=== PATIENT | male | born 1970 | race Caucasian/White ===

== ENCOUNTER 2020-06-04 14:06 | Inpatient (IN) | payer MEDICAID, OTHER ==
[~2020-06-04] VITALS: Ht 188 cm; Wt 113.4 kg
[2020-06-04 14:29] LABS: Basophils # (auto) 0.1 10 ^3/uL (0-0.2); Basophils % (auto) 1.2 % (0.0-2.0); Eosinophils # (auto) 0.1 10 ^3/uL (0-0.8); Eosinophils % (auto) 1.1 % (0.0-7.0); Hematocrit 46.9 % (41.0-53.0); Hemoglobin 16.2 g/dL (13.5-17.5); Lymphocytes # (auto) 1.9 10 ^3/uL (0.4-5.4); Lymphocytes % (auto) 27.9 % (10.0-50.0); Mean Corpuscular Hemoglobin 31.8 pg (28.0-32.0); Mean Corpuscular Hgb Conc. 34.5 g/dL (32.0-36.0); Mean Corpuscular Volume 92.2 fL (80.0-100.0); Monocytes # (auto) 0.5 10 ^3/uL (0-1.3); Neutrophils # (auto) 4.3 10 ^3/uL (1.6-8.6); Neutrophils % (auto) 62.8 % (37.0-80.0); Nucleated Red Blood Cells % 0.2 %; Platelet Count (auto) 209 10^3/uL (140-450); Red Blood Cells 5.09 10^6/uL (4.5-5.90); Red Cell Distribution Width 12.8 % (11.8-14.3); White Blood Cell 6.9 10^3/uL (4.4-10.8)
[2020-06-04] MEDS ORDERED: SODIUM CHLORIDE 0.9% 1,000 ML IV ONE (14:30)
[2020-06-04] MEDS ORDERED: InsuLIN REG 1unit/0.01ml Soln (100units/ml) IV ONE (14:30)
[2020-06-04 14:47] LABS: Albumin 3.9 g/dL (3.4-5.0); Calcium 8.8 mg/dL (8.5-10.1); Potassium 3.7 mmol/L (3.5-5.1)
[2020-06-04 14:49] LABS: Bilirubin, Total 0.6 mg/dL (0.2-1.0)
[2020-06-04 15:37] LABS: Urine Bacteria NONE SEEN /hpf (None Seen); Urine Blood Negative /uL (Negative); Urine Specific Gravity 1.033 (1.001-1.035); Urine WBC <1 /hpf (0 - 3)
[2020-06-04 15:55] LABS: Amphetamine Screen, Urine POSITIVE (NEGATIVE); Barbiturate Scree,Urine NEGATIVE (NEGATIVE); Benzodiazephine Screen, Urine NEGATIVE (NEGATIVE); Cannabinoid Screen, Urine NEGATIVE (NEGATIVE); Cocaine Screen, Urine NEGATIVE (NEGATIVE); Opiate Scree,Urine NEGATIVE (NEGATIVE); Phencyclidine Screen, Urine NEGATIVE (NEGATIVE)
[2020-06-04] MEDS ORDERED: NITROGLYCERIN 0.4 MG SL TAB SL PRN (17:30)
[2020-06-04] MEDS ORDERED: MORPHINE SULF INJ 2 MG/ML SYRINGE 1ML IV PRN (17:30)
[2020-06-04] MEDS ORDERED: PROMETHAZINE HCL 25 MG/ML 1ML IV PRN (17:45)
[2020-06-04] MEDS ORDERED: traMADol HCL 50 MG TAB PO PRN (17:45)
[2020-06-04] MEDS ORDERED: ACETAMINOPHEN 500 MG TAB PO PRN (17:45)
[2020-06-04] MEDS ORDERED: INSULIN LANTUS (GLARGINE) 1 /0.01ml (100units/ml) SC ONE (17:45)
[2020-06-04] MEDS ORDERED: DEXTROSE (50%) 50ML SYRG IV PRN (17:45)
[2020-06-04 20:45] VITALS: BP 130/72
[2020-06-04] MEDS: ACCU-CHEK COMFORT CURVE STRIP VI SCH (21:30)
[2020-06-04] MEDS: InsuLIN REG 1unit/0.01ml Soln (100units/ml) SC SCH (21:36)
[2020-06-04 22:41] VITALS: BP 130/72
[2020-06-05] MEDS: ACCU-CHEK COMFORT CURVE STRIP VI SCH ×6 (00:05→19:49)
[2020-06-05] MEDS: InsuLIN REG 1unit/0.01ml Soln (100units/ml) SC SCH ×6 (00:09→19:49)
[2020-06-05 05:10] VITALS: BP 124/77
[2020-06-05 05:12] VITALS: BP 124/77
[2020-06-05] MEDS ORDERED: INSULIN LANTUS (GLARGINE) 1 /0.01ml (100units/ml) SC SCH (07:00)
[2020-06-05 09:04] VITALS: BP 122/74
[2020-06-05 12:50] VITALS: BP 124/69
[2020-06-05 16:26] VITALS: BP 114/68
[2020-06-05] MEDS: metFORMIN HYDROCHLORIDE 500 MG TAB PO SCH (17:05)
[2020-06-05 22:00] VITALS: BP 130/71
[2020-06-06] MEDS: ACCU-CHEK COMFORT CURVE STRIP VI SCH ×4 (00:18→12:06)
[2020-06-06] MEDS: InsuLIN REG 1unit/0.01ml Soln (100units/ml) SC SCH ×4 (00:19→12:07)
[2020-06-06 05:00] VITALS: BP 127/81
[2020-06-06 06:32] LABS: Basophils # (auto) 0.1 10 ^3/uL (0-0.2); Basophils % (auto) 1.1 % (0.0-2.0); Eosinophils # (auto) 0.1 10 ^3/uL (0-0.8); Eosinophils % (auto) 1.9 % (0.0-7.0); Hematocrit 48.3 % (41.0-53.0); Hemoglobin 16.5 g/dL (13.5-17.5); Lymphocytes # (auto) 2.5 10 ^3/uL (0.4-5.4); Lymphocytes % (auto) 36.3 % (10.0-50.0); Mean Corpuscular Hemoglobin 31.9 pg (28.0-32.0); Mean Corpuscular Hgb Conc. 34.1 g/dL (32.0-36.0); Mean Corpuscular Volume 93.6 fL (80.0-100.0); Monocytes # (auto) 0.4 10 ^3/uL (0-1.3); Monocytes % (auto) 6.2 % (0.0-12.0); Neutrophils # (auto) 3.8 10 ^3/uL (1.6-8.6); Neutrophils % (auto) 54.5 % (37.0-80.0); Nucleated Red Blood Cells % 0.1 %; Platelet Count (auto) 140 10^3/uL (140-450); Red Blood Cells 5.16 10^6/uL (4.5-5.90); Red Cell Distribution Width 12.8 % (11.8-14.3); White Blood Cell 6.9 10^3/uL (4.4-10.8)
[2020-06-06] MEDS ORDERED: INSULIN LANTUS (GLARGINE) 1 /0.01ml (100units/ml) SC SCH (07:00)
[2020-06-06 07:29] LABS: Alanine Aminotransferase 29 U/L (16-61); Alkaline Phosphatase 88 U/L (45-117); Anion Gap 9 (5-15); Aspartate Aminotransferase 23 U/L (15-37); BUN/Creatinine Ratio 18.4; Bilirubin, Total 0.8 mg/dL (0.2-1.0); Blood Urea Nitrogen 14 mg/dL (7-18); Calcium 9.2 mg/dL (8.5-10.1); Carbon Dioxide 22 mmol/L (21-32); Chloride 104 mmol/L (98-107); GFR African American 141 mL/min; GFR Non-African American 116 mL/min; Glucose 140 mg/dL (74-106); Potassium 3.5 mmol/L (3.5-5.1); Sodium 135 mmol/L (136-145)
[2020-06-06 07:30] LABS: Albumin 3.1 g/dL (3.4-5.0); Total Protein 6.7 g/dL (6.4-8.2)
[2020-06-06] MEDS: metFORMIN HYDROCHLORIDE 500 MG TAB PO SCH (08:16)
[2020-06-06 09:00] VITALS: BP 122/80
== END 2020-06-06 13:05 | disposition home or self-care (01) | DRG 420 ==
LOC: ER 14:06 → TELE 17:24 → TELE-CENTR 20:55
PROVIDERS: ADMIT Internal Medicine; ATTEND Internal Medicine
DX: E11.65 Type 2 diabetes mellitus with hyperglycemia (principal); N17.0 Acute kidney failure with tubular necrosis; E87.8 Other disorders of electrolyte and fluid balance, not elsewhere classified; E11.22 Type 2 diabetes mellitus with diabetic chronic kidney disease; E87.1 Hypo-osmolality and hyponatremia; E66.9 Obesity, unspecified; Z68.32 Body mass index [BMI] 32.0-32.9, adult; F15.10 Other stimulant abuse, uncomplicated; F10.10 Alcohol abuse, uncomplicated; Z20.822 Contact with and (suspected) exposure to COVID-19; F17.210 Nicotine dependence, cigarettes, uncomplicated; N18.9 Chronic kidney disease, unspecified; Z79.84 Long term (current) use of oral hypoglycemic drugs; Z80.9 Family history of malignant neoplasm, unspecified; Z83.3 Family history of diabetes mellitus
CPT/HCPCS: 36415; 71045; 80053; 80307; 81001; 82010; 82962; 83036; 83735; 84443; 85025; 87426; 96372; 96374; G0378; J1815

== ENCOUNTER 2022-12-06 13:11 | Emergency (ER) | payer MEDICAID ==
[~2022-12-06] VITALS: Ht 188 cm; Wt 71.5 kg
[2022-12-06 14:47] VITALS: BP 134/85; PULSE 78; RESP 18; TEMP 98.1; O2SAT 98
[2022-12-06] MEDS ORDERED: GABAPENTIN 300 MG CAP PO ONE (15:00)
[2022-12-06 15:55] LABS: Alanine Aminotransferase 30 U/L (7-40); Albumin 4.4 g/dL (3.2-4.8); Alkaline Phosphatase 73 U/L (46-116); Anion Gap 6 (5-15); Aspartate Aminotransferase 15 U/L (13-40); BUN/Creatinine Ratio 12.1 (10.0-20.0); Blood Urea Nitrogen 15 mg/dL (9-23); Calcium 9.5 mg/dL (8.5-10.1); Carbon Dioxide 27 mmol/L (20-30); Chloride 98 mmol/L (98-107); Potassium 3.7 mmol/L (3.5-5.1); Sodium 131 mmol/L (136-145)
[2022-12-06 15:56] LABS: Bilirubin, Total 0.6 mg/dL (0.2-1.0); Total Protein 6.9 g/dL (5.7-8.2)
[2022-12-06 16:00] LABS: Glucose 569 mg/dL (74-106)
[2022-12-06 16:01] LABS: Basophils # (auto) 0.1 10 ^3/uL (0-0.2); Basophils % (auto) 1.2 % (0.0-2.0); Eosinophils # (auto) 0.1 10 ^3/uL (0-0.8); Eosinophils % (auto) 2.1 % (0.0-7.0); Hematocrit 40.8 % (41.0-53.0); Hemoglobin 13.7 g/dL (13.5-17.5); Lymphocytes # (auto) 1.5 10 ^3/uL (0.4-5.4); Mean Corpuscular Hemoglobin 30.6 pg (28.0-32.0); Mean Corpuscular Hgb Conc. 33.6 g/dL (32.0-36.0); Mean Corpuscular Volume 91.1 fL (80.0-100.0); Monocytes # (auto) 0.5 10 ^3/uL (0-1.3); Monocytes % (auto) 9.7 % (0.0-12.0); Neutrophils # (auto) 3.1 10 ^3/uL (1.6-8.6); Nucleated Red Blood Cells % 0.1 %; Red Blood Cells 4.48 10^6/uL (4.5-5.90); Red Cell Distribution Width 13.3 % (11.8-14.3); White Blood Cell 5.2 10^3/uL (4.4-10.8)
[2022-12-06 16:11] LABS: Lipase 43 U/L (12-53)
[2022-12-06] MEDS ORDERED: INSULIN LISPRO (HUMAN) 100 UNITS/ML ML SC ONE (16:15)
[2022-12-06] MEDS ORDERED: SODIUM CHLORIDE 0.9% 1,000 ML IV ONE (16:15)
[2022-12-06] MEDS ORDERED: GABA-1250 PO (16:49)
== END 2022-12-06 16:25 | disposition left against medical advice (07) ==
LOC: ER 13:11
DX: E11.40 Type 2 diabetes mellitus with diabetic neuropathy, unspecified (principal); F17.210 Nicotine dependence, cigarettes, uncomplicated; F15.10 Other stimulant abuse, uncomplicated
CPT/HCPCS: 36415; 80053; 83690; 85025

== ENCOUNTER 2023-02-27 15:53 | Emergency (ER) | payer MEDICAID ==
[~2023-02-27] VITALS: Ht 188 cm; Wt 69.1 kg
[~2023-02-27 15:53] MED LIST: GABA-1250 PO
[2023-02-27 16:38] VITALS: BP 111/79; RESP 18; O2SAT 98
[2023-02-27 16:40] VITALS: PULSE 104
[2023-02-27 18:22] LABS: Basophils # (auto) 0.1 10 ^3/uL (0-0.2); Basophils % (auto) 0.7 % (0.0-2.0); Eosinophils # (auto) 0.1 10 ^3/uL (0-0.8); Eosinophils % (auto) 0.9 % (0.0-7.0); Hematocrit 51.4 % (41.0-53.0); Hemoglobin 17.1 g/dL (13.5-17.5); Lymphocytes # (auto) 2.2 10 ^3/uL (0.4-5.4); Lymphocytes % (auto) 26.6 % (10.0-50.0); Mean Corpuscular Hemoglobin 30.2 pg (28.0-32.0); Mean Corpuscular Hgb Conc. 33.2 g/dL (32.0-36.0); Mean Corpuscular Volume 90.8 fL (80.0-100.0); Monocytes # (auto) 0.6 10 ^3/uL (0-1.3); Monocytes % (auto) 7.8 % (0.0-12.0); Neutrophils # (auto) 5.3 10 ^3/uL (1.6-8.6); Nucleated Red Blood Cells % 0.1 %; Red Blood Cells 5.66 10^6/uL (4.5-5.90); Red Cell Distribution Width 13.1 % (11.8-14.3); White Blood Cell 8.3 10^3/uL (4.4-10.8)
[2023-02-27 18:26] LABS: Chloride 94 mmol/L (98-107); Potassium 4.1 mmol/L (3.5-5.1); Sodium 131 mmol/L (136-145)
[2023-02-27 18:27] LABS: Anion Gap 10 (5-15); Calcium 10.7 mg/dL (8.5-10.1); Carbon Dioxide 27 mmol/L (20-30)
[2023-02-27 18:32] LABS: BUN/Creatinine Ratio 9.5 (10.0-20.0); Blood Urea Nitrogen 16 mg/dL (9-23)
[2023-02-27 18:35] LABS: Glucose 519 mg/dL (74-106)
[2023-02-27] MEDS ORDERED: SODIUM CHLORIDE 0.9% 1,000 ML IV ONE (20:00)
[2023-02-27] MEDS ORDERED: InsuLIN REG 1unit/0.01ml Soln (100units/ml) IV ONE (20:00)
[2023-02-27] MEDS ORDERED: METF-489 PO (22:27)
== END 2023-02-27 22:27 | disposition home or self-care (01) ==
LOC: ER 15:53
DX: E11.65 Type 2 diabetes mellitus with hyperglycemia (principal); F17.210 Nicotine dependence, cigarettes, uncomplicated; F15.10 Other stimulant abuse, uncomplicated; R55 Syncope and collapse; Z76.0 Encounter for issue of repeat prescription
CPT/HCPCS: 36415; 80048; 85025; 93005

== ENCOUNTER 2024-01-24 14:33 | Emergency (ER) | payer MEDICAID ==
[~2024-01-24] VITALS: Ht 170.2 cm; Wt 86.0 kg
[~2024-01-24 14:33] MED LIST changes: +METF-489 PO
--- NOTE | 2024-01-24 15:21 | DVH ---
EXAM: CT HEAD WITHOUT CONTRAST HISTORY: SYNCOPE COMPARISON: None TECHNIQUE: Axial images of the head were obtained and reformatted in coronal and sagittal planes. All CT scans at this medical facility are performed using dose modulation techniques as appropriate t o a performed exam including the following: Automated exposure control was utilized; adjustment of th e MA and/or KV according to patient size; and use of iterative reconstruction technique. CT Dose: CTDI volume is 55.53 mGy. Dose-length product is 983.32 mGy*cm FINDINGS: There is no evidence of acute intracranial hemorrhage, mass, mass effect midline shift. There is no h ydrocephalus or extra-axial fluid collection. Galindo-white matter differentiation is maintained.. The visualized paranasal sinuses and mastoid air cells are clear. The calvarium is intact. IMPRESSION: 1. No acute intracranial process. HS:Y
[2024-01-24 15:44] LABS: Basophils # (auto) 0 10 ^3/uL (0-0.2); Basophils % (auto) 0.3 % (0.0-2.0); Eosinophils # (auto) 0 10 ^3/uL (0-0.8); Eosinophils % (auto) 0.3 % (0.0-7.0); Hematocrit 37.1 % (41.0-53.0); Hemoglobin 12.5 g/dL (13.5-17.5); Lymphocytes # (auto) 0.7 10 ^3/uL (0.4-5.4); Mean Corpuscular Hgb Conc. 33.6 g/dL (32.0-36.0); Mean Corpuscular Volume 89.1 fL (80.0-100.0); Monocytes # (auto) 1.1 10 ^3/uL (0-1.3); Monocytes % (auto) 8.5 % (0.0-12.0); Neutrophils # (auto) 11.6 10 ^3/uL (1.6-8.6); Neutrophils % (auto) 85.9 % (37.0-80.0); Platelet Count (auto) 170 10^3/uL (140-450); Red Blood Cells 4.17 10^6/uL (4.5-5.90); Red Cell Distribution Width 12.9 % (11.8-14.3); White Blood Cell 13.5 10^3/uL (4.4-10.8)
--- NOTE | 2024-01-24 15:47 | ED.PDOC ---
History of Present Illness HPI Comments 53-year-old male who comes in with chief complaint of a syncopal episode. The patient states that he was at home when he had a syncopal episode. There has been no nausea, vomiting or diarrhea. The patient denies any history of this in the past. The patient states that it only last for a couple of seconds and he got up instead right back up. He says that he was urinating when the incident occurred. He did hit his head and was complaining of some mild occipital headache. He denies any chest pain or shortness for breath. The patient does have a history of diabetes and EN route the patient had an Accu-Chek of 580. The patient was given an IV Hep-Lock and transported to our facility. Upon arrival, the patient states that he feels better and would like to go home. Chief Complaint: Syncope Time Seen by MD: 14:58 Primary Care Provider: LINO Zee Notes: Nurses Notes, Sustainability Coach Notes, Medications, Allergies (No allergies to medications) Allergies: Coded Allergies: NO KNOWN ALLERGIES (Unverified , 06/04/20) Home Meds Active Scripts Metformin Hydrochloride (METFORMIN HCL ER) 500 Mg Tab, 1 TAB PO BID, #90 TAB 1 Refill Prov:SHYAM BENITEZ VETERINARY TOXICOLOGIST 02/27/23 Gabapentin (Gabapentin) 300 Mg Cap, 1 CAP PO Q6HP PRN, #30 CAP 0 Refills Prov:ADONIS MARTÍNEZ PAC 12/06/22 Information Source: Patient, Emergency Med Personnel Mode of Arrival: EMS Severity: Mild Timing: Minutes Duration: Intermittent Prehospital treatment: Accucheck (580), Mortar Mixer Associated signs and symptoms No associated chest pain or shortness for breath Past Medical History PAST MEDICAL HISTORY: DM Surgical History: Denies all surgeries Family History Family History: Family hx of DM, Family hx of Cancer Social History Smoker: Cigarettes Alcohol: Occasionally Drugs: Methamphetamine Lives In: Home Constitutional: denies: chills, diaphoresis, fatigue, fever, malaise, sweats, weakness, others EENTM: denies: blurred vision, double vision, ear bleeding, ear discharge, ear drainage, ear pain, ear ringing, eye pain, eye redness, hearing loss, mouth pain, mouth swelling, nasal discharge, nose bleeding, nose congestion, nose pain, photophobia, tearing, throat pain, throat swelling, voice changes, others Respiratory: denies: cough, hemoptysis, orthopnea, SOB at rest, shortness of breath, SOB with excertion, stridor, wheezing, others Cardiovascular: reports: syncope; denies: chest pain, dizzy spells, diaphoresis, Dyspnea on exertion, edema, irregular heart beat, left arm pain, lightheadedness, palpitations, PND, others Gastrointestinal: denies: abdomen distended, abdominal pain, blood streaked bowels, constipated, diarrhea, dysphagia, difficulty swallowing, hematemesis, melena, nausea, poor appetite, poor fluid intake, rectal bleeding, rectal pain, vomiting, others Genitourinary: denies: burning, dysuria, flank pain, frequency, hematuria, incontinence, penile discharge, penile sore, pain, testicle pain, testicle swelling, urgency, others Neurological: denies: dizziness, fainting, headache, left sided numbness, left sided weakness, numbness, paresthesia, pre-existing deficit, right sided numbness, right sided weakness, seizure, speech problems, tingling, tremors, weakness, others Musculoskeletal: denies: back pain, gout, joint pain, joint swelling, muscle pain, muscle stiffness, neck pain, others Integumetry: denies: bruises, change in color, change in hair/nails, dryness, laceration, lesions, lumps, rash, wounds, others Allergic/Immunocompromised: denies: Difficulty Healing, Frequent Infections, Hives, Itching, others Hematologic/Lymphatic: denies: anemia, blood clots, easy bleeding, easy bruising, swollen glands, others Endocrine: denies: excessive hunger, excessive sweating, excessive thirst, excessive urination, flushing, intolerance to cold, intolerance to heat, unexplained weight gain, unexplained weight loss, others Psychiatric: denies: anxiety, bipolar disorder, depression, hopeless, panic disorder, schizophrenia, sleepless, suicidal, others Physical Exam General Appearance: No Apparent Distress HEENT: Normal ENT Inspection, Pharynx Normal, TMs Normal Neck: Full Range of Motion, Non-Tender, Normal, Normal Inspection Respiratory: Chest Non-Tender, Lungs Clear, No Accessory Muscle Use, No Respiratory Distress, Normal Breath Sounds Cardiovascular: No Edema, No JVD, No Murmur, No Gallop, Normal Peripheral Pulses, Regular Rate/Rhythm Breast Exam: Deferred Gastrointestinal: No Organomegaly, Non Tender, No Pulsatile Mass, Normal Bowel Sounds, Soft Genitalia: Deferred Pelvic: Deferred Rectal: Deferred Extremities: No calf tenderness, Normal capillary refill, Normal inspection, Normal range of motion, Non-tender, No pedal edema Musculoskeletal : Apperance: Normal Neurologic: Alert, fiberglass roller II-XII nml as Tested, No Motor Deficits, Normal Affect, Normal Mood, No Sensory Deficits Cerebellar Function: Normal Reflexes: Normal Skin: Dry, Normal Color, Warm Lymphatic: No Adenopathy Was a procedure done? Was a procedure done?: No EKG EKG : Pulse Rate (adult): 102 [place]: Normal Cardiac Rhythm: ST Hypertrophy: JOHNNY ST: Nonsp (Low voltage) Differential Dx Considerations may include: Generalized weakness, dehydration, syncope X-Ray, Labs, Meds, VS Vital Signs Date Time Temp Pulse Resp B/P (MAP) Pulse Ox O2 Delivery O2 Flow Rate FiO2 01/24/24 16:00 100 14 119/68 (85) 98 01/24/24 16:00 98 01/24/24 15:48 105 17 98 Room Air* 0 21 01/24/24 15:47 102 01/24/24 15:20 97.9 107 13 119/73 (88) 98 97.9 01/24/24 15:04 102 01/24/24 14:43 102 01/24/24 14:43 97.9 103 16 125/85 (98) 96 Lab Test 01/24/24 17:23 01/24/24 15:59 01/24/24 15:19 01/24/24 15:18 Range/Units POC Glucose 415 *H 531 *H 531 *H 70-106 mg/dl Urine Color Colorless Yellow Urine Clarity Clear Clear Urine pH 5.0 5.0-9.0 Urine Specific [place] 1.019 1.001-1.035 Urine Protein Trace H Negative Urine Ketones Negative Negative Urine Blood Negative Negative /uL Urine Nitrite Negative Negative Urine Bilirubin Negative Negative Urine Urobilinogen Normal Negative mg/dL Urine Leukocyte Esterase Negative Negative /uL Urine RBC <1 0 - 3 /hpf Urine WBC 1 0 - 3 /hpf Urine Squamous Epithelial Cells None seen <5 /hpf Urine Amorphous Crystals Few None Seen /hpf Urine Bacteria None seen None Seen /hpf Urine Glucose 4+ H Normal mg/dL Urine Opiates Screen Neg NEGATIVE Urine Fentanyl Screen Neg NEGATIVE Urine Barbiturates Screen Neg NEGATIVE Urine Phencyclidine Screen Neg NEGATIVE Urine Amphetamines Screen Pos NEGATIVE Urine Benzodiazepines Screen Neg NEGATIVE Urine Cocaine Screen Neg NEGATIVE Urine Cannabinoids Screen Neg NEGATIVE Test 01/24/24 15:06 Range/Units White Blood Count 13.5 H 4.4-10.8 10^3/uL Red Blood Count 4.17 L 4.5-5.90 10^6/uL Hemoglobin 12.5 L 13.5-17.5 g/dL Hematocrit 37.1 L 41.0-53.0 % Mean Corpuscular Volume 89.1 80.0-100.0 fL Mean Corpuscular Hemoglobin 30.0 28.0-32.0 pg Mean Corpuscular Hemoglobin Concent 33.6 32.0-36.0 g/dL Red Cell Distribution Width 12.9 11.8-14.3 % Platelet Count 170 140-450 10^3/uL Mean Platelet Volume 10.3 6.9-10.8 fL Neutrophils (%) (Auto) 85.9 H 37.0-80.0 % Lymphocytes (%) (Auto) 5.0 L 10.0-50.0 % Monocytes (%) (Auto) 8.5 0.0-12.0 % Eosinophils (%) (Auto) 0.3 0.0-7.0 % Basophils (%) (Auto) 0.3 0.0-2.0 % Neutrophils # (Auto) 11.6 H 1.6-8.6 10 ^3/uL Lymphocytes # (Auto) 0.7 0.4-5.4 10 ^3/uL Monocytes # (Auto) 1.1 0-1.3 10 ^3/uL Eosinophils # (Auto) 0 0-0.8 10 ^3/uL Basophils # (Auto) 0 0-0.2 10 ^3/uL Nucleated Red Blood Cells 0.0 % Sodium Level 133 L 136-145 mmol/L Potassium Level 3.4 L 3.5-5.1 mmol/L Chloride Level 97 L 98-107 mmol/L Carbon Dioxide Level 27 20-31 mmol/L Anion Gap 9 5-15 Blood Urea Nitrogen 28 H 9-23 mg/dL Creatinine 2.12 H 0.700-1.30 mg/dL Glomerular Filtration Rate Calc 37 >90 mL/min BUN/Creatinine Ratio 13.2 10.0-20.0 Serum Glucose 566 *H 74-106 mg/dL Calcium Level 9.6 8.7-10.4 mg/dL Total Bilirubin 0.6 0.2-1.0 mg/dL Aspartate Amino Transferase (AST) 12 L 13-40 U/L Alanine Aminotransferase (ALT) 46 H 7-40 U/L Alkaline Phosphatase 117 H 46-116 U/L Troponin I High Sensitivity 10 </=54 ng/L Total Protein 6.4 5.7-8.2 g/dL Albumin 4.0 3.2-4.8 g/dL Current Medications Medications (Trade) Dose Ordered Sig/[place] Route Start Time Stop Time Status Last Admin Sodium Chloride 1,000 ml @ 1,000 mls/hr Q1H ONCE IV 01/24/24 16:15 01/24/24 17:14 DC 01/24/24 16:20 Insulin Human Regular (InsuLIN R) 5 units ONCE ONCE IV 01/24/24 17:15 01/24/24 17:16 DC 01/24/24 17:28 The patient's Accu-Chek was [address] scan of the head shows: No sign of any abnormalities The patient's CBC shows an elevated white blood cell count of 13.5 The rest of the CBC is within normal limits The chemistry panel shows a BUN of 28 and creatinine of 2.12 The patient was hyperglycemic at 566 We gave the patient a 1 L bolus of normal saline as well as insulin 5 units IV We told the patient that he needs to continue taking his medication for his diabetes The patient's urine test is positive for methamphetamines The urine test is negative for infection At this time, the patient will be discharged The patient will follow up with the primary care doctor Images Reviewed?: Images reviewed and evaluated by me Time of 1ST Reevaluation: 15:46 Reevaluation 1ST: Improved Patient Education/Counseling: Diagnosis, Treatment, Prognosis, Need For Follow Up Family Education/Counseling: No Family Present Departure 1 Departure Time of Disposition: 17:52 Impression: Primary Impression: Episode of syncope Qualified Codes: R55 - Syncope and collapse Additional Impression: Hyperglycemia Disposition: 01 HOME / SELF CARE / HOMELESS Condition: Fair Discharged With: Self Critical Care Note Critical Care Time?: No Stability Stability form required: No Heart Score Heart Score: Heart Score Response (Comments) Value History N/A 0 EKG N/A 0 Age N/A 0 Risk Factors N/A 0 Troponin N/A 0 Total 0 I personally scribed for LADAN SARMIENTO MD ([email or web address]) on 01/24/24 at 16:09. Electronically submitted by Maxime Singh ([email or web address]). I personally scribed for LADAN SARMIENTO MD ([email or web address]) on 01/24/24 at 16:33. Electronically submitted by Maxime Singh ([email or web address]). LADAN SARMIENTO MD Jan 24, 2024 15:46
[2024-01-24 15:48] VITALS: PULSE 105; RESP 17; O2SAT 98
[2024-01-24 16:00] LABS: Anion Gap 9 (5-15); BUN/Creatinine Ratio 13.2 (10.0-20.0); Calcium 9.6 mg/dL (8.7-10.4); Carbon Dioxide 27 mmol/L (20-31)
[2024-01-24 16:01] LABS: Bilirubin, Total 0.6 mg/dL (0.2-1.0); Total Protein 6.4 g/dL (5.7-8.2)
[2024-01-24 16:01] LABS: Urine Bacteria None Seen /hpf (None Seen)
[2024-01-24 16:02] LABS: Alanine Aminotransferase 46 U/L (7-40); Alkaline Phosphatase 117 U/L (46-116); Aspartate Aminotransferase 12 U/L (13-40); Blood Urea Nitrogen 28 mg/dL (9-23); Chloride 97 mmol/L (98-107); Potassium 3.4 mmol/L (3.5-5.1); Sodium 133 mmol/L (136-145)
[2024-01-24 16:04] LABS: Glucose 566 mg/dL (74-106)
[2024-01-24] MEDS: SODIUM CHLORIDE 0.9% 1,000 ML IV ONE (16:20)
[2024-01-24 16:26] LABS: Amphetamine Screen, Urine Pos (NEGATIVE); Barbiturate Scree,Urine Neg (NEGATIVE); Benzodiazephine Screen, Urine Neg (NEGATIVE); Cannabinoid Screen, Urine Neg (NEGATIVE); Cocaine Screen, Urine Neg (NEGATIVE); Opiate Scree,Urine Neg (NEGATIVE); Phencyclidine Screen, Urine Neg (NEGATIVE)
[2024-01-24 16:34] LABS: Urine Amorphous Crystal FEW /hpf (None Seen); Urine Blood Negative /uL (Negative); Urine Clarity Clear (Clear); Urine Color Colorless (Yellow); Urine Protein, UAD TRACE (Negative); Urine Specific Gravity 1.019 (1.001-1.035); Urine Urobilinogen Normal (Negative); Urine WBC 1 /hpf (0 - 3)
[2024-01-24] MEDS ORDERED: InsuLIN REG 1unit/0.01ml Soln (100units/ml) SC ONE (17:00)
[2024-01-24] MEDS: InsuLIN REG 1unit/0.01ml Soln (100units/ml) IV ONE (17:28)
[2024-01-24 17:59] VITALS: BP 111/72; PULSE 99; RESP 14; TEMP 97.1; O2SAT 97
--- NOTE | 2024-01-24 18:58 | ECG ---
[facility] Test Date: 2024-01-24 Test Time: 14:36:07 Pat Name: JEANETTE FLORENCE Department: ED Room: Gender: M Home Connect Lpn: СЕРГЕЙ : 1970 Requested By: JACKELINE HOSKINS Order Number: [id number] Reading MD: Segundo Kuhn Measurements Intervals [place] Rate: 102 P: 84 WA: 150 QRS: 86 QRSD: 84 T: 80 QT: 309 QTc: 403 Interpretive Statements Sinus tachycardia Multiple premature complexes, vent & supraven Right atrial enlargement Borderline low voltage, extremity leads Anteroseptal infarct, old ST elevation, consider inferior injury Electronically Signed On 01-25-2024 12:04:57 PST by Segundo Kuhn Please click the below link to view image of tracing.
== END 2024-01-24 18:11 | disposition home or self-care (01) ==
LOC: ER 14:33 → EDBD 14:33 → ER 18:08
DX: R55 Syncope and collapse (principal); E11.65 Type 2 diabetes mellitus with hyperglycemia; D72.829 Elevated white blood cell count, unspecified; F17.210 Nicotine dependence, cigarettes, uncomplicated; F15.10 Other stimulant abuse, uncomplicated; Z79.84 Long term (current) use of oral hypoglycemic drugs; Z79.899 Other long term (current) drug therapy
CPT/HCPCS: 36415; 70450; 80053; 80307; 81001; 82962; 84484; 85025; 93005; 96361; 96374; 99285; J1815; J7030

== ENCOUNTER 2024-01-26 10:42 | Inpatient (IN) | payer MEDICAID ==
[~2024-01-26] VITALS: Ht 188 cm; Wt 70.4 kg
[2024-01-26] MEDS: SODIUM CHLORIDE 0.9% 1,000 ML IV ONE (11:25)
[2024-01-26 11:51] LABS: Basophils # (auto) 0.1 10 ^3/uL (0-0.2); Basophils % (auto) 0.4 % (0.0-2.0); Eosinophils # (auto) 0.1 10 ^3/uL (0-0.8); Eosinophils % (auto) 0.4 % (0.0-7.0); Hemoglobin 13.1 g/dL (13.5-17.5); Lymphocytes # (auto) 0.8 10 ^3/uL (0.4-5.4); Lymphocytes % (auto) 5.4 % (10.0-50.0); Mean Corpuscular Hemoglobin 29.7 pg (28.0-32.0); Mean Corpuscular Hgb Conc. 33.5 g/dL (32.0-36.0); Mean Corpuscular Volume 88.7 fL (80.0-100.0); Monocytes # (auto) 1.3 10 ^3/uL (0-1.3); Monocytes % (auto) 8.1 % (0.0-12.0); Neutrophils # (auto) 13.3 10 ^3/uL (1.6-8.6); Neutrophils % (auto) 85.7 % (37.0-80.0); Platelet Count (auto) 230 10^3/uL (140-450); White Blood Cell 15.5 10^3/uL (4.4-10.8)
[2024-01-26 12:11] LABS: Potassium 3.6 mmol/L (3.5-5.1)
[2024-01-26 12:12] LABS: Anion Gap 12 (5-15); Carbon Dioxide 23 mmol/L (20-31)
[2024-01-26 12:13] LABS: Calcium 10.4 mg/dL (8.7-10.4)
[2024-01-26 12:18] LABS: BUN/Creatinine Ratio 18.5 (10.0-20.0)
[2024-01-26 12:23] LABS: Blood Urea Nitrogen 32 mg/dL (9-23); Chloride 96 mmol/L (98-107); Sodium 131 mmol/L (136-145)
[2024-01-26 12:25] LABS: Glucose 435 mg/dL (74-106)
--- NOTE | 2024-01-26 12:40 | ED.PDOC ---
Musculoskeletal HPI Comments 53Y M with PMHx DM presents to ED via EMS for chief complaint LLE pain x3days. Additional symptoms include LLE erythema, warmth, and swelling. Pt also has diarrhea. Pt denies nausea and vomiting. No known allergies. Chief Complaint: Lower Extremity Time Seen by MD: 12:27 Primary Care Provider: LINO Zee Notes: Medications, Allergies Allergies: Coded Allergies: NO KNOWN ALLERGIES (Unverified , 06/04/20) Home Meds Active Scripts Metformin Hydrochloride (METFORMIN HCL ER) 500 Mg Tab, 1 TAB PO BID, #90 TAB 1 Refill Prov:SHYAM BENITEZ PHOTO FINISH PHOTOGRAPHER 02/27/23 Gabapentin (Gabapentin) 300 Mg Cap, 1 CAP PO Q6HP PRN, #30 CAP 0 Refills Prov:ADONIS MARTÍNEZ PAC 12/06/22 Information Source: Patient, Emergency Med Personnel Mode of Arrival: EMS Brought in by: EMS Location: Left Extremity Location: Foot, Leg Timing: Days Prehospital treatment: None Severity: Moderate Able to Move Extremity: Yes Bear Weight: Limited Pain: Moderate Mechanism: Unknown Circumstances: Spontaneous Onset of Symptoms: Spontaneous Symptoms: Swelling, Pain, Erythema, Warmth DVT Risk Factors: NONE Last Tetanus: UTD Associated signs and symptoms: Foot pain Past Medical History PAST MEDICAL HISTORY: DM Surgical History: Denies all surgeries Family History Family History: Family hx of DM, Family hx of Cancer Social History Smoker: Cigarettes Alcohol: Occasionally Drugs: Methamphetamine Lives In: Home Constitutional: denies: chills, diaphoresis, fatigue, fever, malaise, sweats, weakness, others EENTM: denies: blurred vision, double vision, ear bleeding, ear discharge, ear drainage, ear pain, ear ringing, eye pain, eye redness, hearing loss, mouth pain, mouth swelling, nasal discharge, nose bleeding, nose congestion, nose pa in, photophobia, tearing, throat pain, throat swelling, voice changes, others Respiratory: denies: cough, hemoptysis, orthopnea, SOB at rest, shortness of breath, SOB with excertion, stridor, wheezing, others Cardiovascular: denies: chest pain, dizzy spells, diaphoresis, Dyspnea on exertion, edema, irregular heart beat, left arm pain, lightheadedness, palpitations, PND, syncope, others Gastrointestinal: reports: diarrhea; denies: abdomen distended, abdominal pain, blood streaked bowels, constipated, dysphagia, difficulty swallowing, hematemesis, melena, nausea, poor appetite, poor fluid intake, rectal bleeding, rectal pain, vomiting, others Genitourinary: denies: burning, dysuria, flank pain, frequency, hematuria, incontinence, penile discharge, penile sore, pain, testicle pain, testicle swelling, urgency, others Neurological: denies: dizziness, fainting, headache, left sided numbness, left sided weakness, numbness, paresthesia, pre-existing deficit, right sided numbness, right sided weakness, seizure, speech problems, tingling, tremors, weakness, others Musculoskeletal: reports: others (LLE pain); denies: back pain, gout, joint pain, joint swelling, muscle pain, muscle stiffness, neck pain Integumetry: reports: others (LLE swelling and redness); denies: bruises, change in color, change in hair/nails, dryness, laceration, lesions, lumps, rash, wounds Allergic/Immunocompromised: denies: Difficulty Healing, Frequent Infections, Hives, Itching, others Hematologic/Lymphatic: denies: anemia, blood clots, easy bleeding, easy bruising, swollen glands, others Endocrine: denies: excessive hunger, excessive sweating, excessive thirst, excessive urination, flushing, intolerance to cold, intolerance to heat, unexplained weight gain, unexplained weight loss, others Psychiatric: denies: anxiety, bipolar disorder, depression, hopeless, panic disorder, schizophrenia, sleepless, suicidal, others All Other Systems: Reviewed and Negative Physical Exam General Appearance: No Apparent Distress, Normal HEENT: Normal ENT Inspection, Pharynx Normal, TMs Normal Neck: Full Range of Motion, Non-Tender, Normal, Normal Inspection Respiratory: Chest Non-Tender, Lungs Clear, No Accessory Muscle Use, No Respiratory Distress, Normal Breath Sounds Cardiovascular: No Edema, No JVD, No Murmur, No Gallop, Normal Peripheral Pulses, Regular Rate/Rhythm Breast Exam: Deferred Gastrointestinal: No Organomegaly, Non Tender, No Pulsatile Mass, Normal Bowel Sounds, Soft Genitalia: Deferred Pelvic: Deferred Rectal: Deferred Extremities: Leg edema (LLE), Normal range of motion, Pedal edema, Swelling, Tender Musculoskeletal : Apperance: Normal Neurologic: Alert, assistant director II-XII nml as Tested, No Motor Deficits, Normal Affect, Normal Mood, No Sensory Deficits Cerebellar Function: Normal Reflexes: Normal Skin: Dry, Normal Color, Warm Lymphatic: No Adenopathy Was a procedure done? Was a procedure done?: No Differential Diagnosis EXT Differential Diagnosis: Cellulitis, Deep Vein Thrombosis X-Ray, Labs, Meds, VS Vital Signs Date Time Temp Pulse Resp B/P (MAP) Pulse Ox O2 Delivery O2 Flow Rate FiO2 01/26/24 11:26 103 18 99 Room Air 01/26/24 11:26 103 18 132/85 (101) 99 01/26/24 10:49 98.3 95 18 147/93 (111) 98 Lab Test 01/26/24 14:33 01/26/24 12:01 01/26/24 11:30 Range/Units White Blood Count Pending 15.5 H 4.4-10.8 10^3/uL Red Blood Count Pending 4.40 L 4.5-5.90 10^6/uL Hemoglobin Pending 13.1 L 13.5-17.5 g/dL Hematocrit Pending 39.0 L 41.0-53.0 % Mean Corpuscular Volume Pending 88.7 80.0-100.0 fL Mean Corpuscular Hemoglobin Pending 29.7 28.0-32.0 pg Mean Corpuscular Hemoglobin Concent Pending 33.5 32.0-36.0 g/dL Red Cell Distribution Width Pending 13.0 11.8-14.3 % Platelet Count Pending 230 140-450 10^3/uL Mean Platelet Volume Pending 9.7 6.9-10.8 fL Neutrophils (%) (Auto) Pending 85.7 H 37.0-80.0 % Lymphocytes (%) (Auto) Pending 5.4 L 10.0-50.0 % Monocytes (%) (Auto) Pending 8.1 0.0-12.0 % Basophils (%) (Auto) Pending 0.4 0.0-2.0 % Neutrophils # (Auto) Pending 13.3 H 1.6-8.6 10 ^3/uL Lymphocytes # (Auto) Pending 0.8 0.4-5.4 10 ^3/uL Monocytes # (Auto) Pending 1.3 0-1.3 10 ^3/uL Sodium Level Pending 131 L 136-145 mmol/L Potassium Level Pending 3.6 3.5-5.1 mmol/L Chloride Level Pending 96 L 98-107 mmol/L Carbon Dioxide Level Pending 23 20-31 mmol/L Anion Gap Pending 12 5-15 Blood Urea Nitrogen Pending 32 H 9-23 mg/dL Creatinine Pending 1.73 H 0.700-1.30 mg/dL Glomerular Filtration Rate Calc Pending 47 >90 mL/min BUN/Creatinine Ratio Pending 18.5 10.0-20.0 Serum Glucose Pending 435 #*H 74-106 mg/dL Lactic Acid Level Pending Calcium Level Pending 10.4 8.7-10.4 mg/dL Total Bilirubin Pending Aspartate Amino Transferase (AST) Pending Alanine Aminotransferase (ALT) Pending Alkaline Phosphatase Pending Total Protein Pending Albumin Pending Urine Color Light-yellow Yellow Urine Clarity Clear Clear Urine pH 5.0 5.0-9.0 Urine Specific [place] 1.021 1.001-1.035 Urine Protein Trace H Negative Urine Ketones 1+ H Negative Urine Blood Negative Negative /uL Urine Nitrite Negative Negative Urine Bilirubin Negative Negative Urine Urobilinogen Normal Negative mg/dL Urine Leukocyte Esterase Negative Negative /uL Urine RBC 1 0 - 3 /hpf Urine WBC 1 0 - 3 /hpf Urine Squamous Epithelial Cells Few <5 /hpf Urine Bacteria None seen None Seen /hpf Urine Mucus Few None Seen Urine Glucose 4+ H Normal mg/dL Eosinophils (%) (Auto) 0.4 0.0-7.0 % Eosinophils # (Auto) 0.1 0-0.8 10 ^3/uL Basophils # (Auto) 0.1 0-0.2 10 ^3/uL Nucleated Red Blood Cells 0.0 % Beta-Hydroxybutyric Acid 1.930 H < 0.4 mmol/L Current Medications Medications (Trade) Dose Ordered Sig/[place] Route Start Time Stop Time Status Last Admin Sodium Chloride 1,000 ml @ 1,000 mls/hr Q1H ONCE IV 01/26/24 11:15 01/26/24 12:14 DC 01/26/24 11:25 Vancomycin HCl 250 ml @ 250 mls/hr ONCE ONCE IV 01/26/24 13:45 01/26/24 14:44 DC 01/26/24 14:05 X-Ray, Labs, Meds, VS Comment This 53-year-old diabetic male presents to emergency room secondary to left foot swelling with tracking up the medial aspect of the leg to the knee. Extremity is warm to palpation. He was also noted to have leukocytosis, leukocytosis, hyperglycemia, and elevated beta hydroxybutyrate did however, had normal CO2. As such, I do not believe he was diabetic ketoacidosis. However, he does have poorly controlled diabetes requiring further workup and management. He was given vancomycin in the ED secondary to the thrombophlebitis and cellulitis. Time of 1ST Reevaluation: 12:57 Reevaluation 1ST: Unchanged Time of 2ND Reevaluation: 14:51 Patient Education/Counseling: Diagnosis, Treatment Family Education/Counseling: No Family Present Departure 1 Departure Time of Disposition: 14:51 Impression: Primary Impression: Diabetic neuropathy Additional Impressions: Hyperglycemia Thrombophlebitis Cellulitis and abscess of left leg Disposition: ADMITTED INPATIENT Admit to: Tele Condition: Serious Critical Care Note Critical Care Time?: No Stability Stability form required: No Heart Score Heart Score: Heart Score Response (Comments) Value History N/A 0 EKG N/A 0 Age N/A 0 Risk Factors N/A 0 Troponin N/A 0 Total 0 I personally scribed for GAIL ARRIAGA MD ([email or web address]) on 01/26/24 at 12:40. Electronically submitted by Millie Jones ([email or web address]). GAIL ARRIAGA MD Jan 26, 2024 12:40
[2024-01-26 12:44] LABS: Urine Bacteria None Seen /hpf (None Seen)
[2024-01-26 13:01] LABS: Urine Blood Negative /uL (Negative); Urine Clarity Clear (Clear); Urine Color Light-Yellow (Yellow); Urine Mucus FEW (None Seen); Urine Protein, UAD TRACE (Negative); Urine Specific Gravity 1.021 (1.001-1.035); Urine Squamous Epithelial Cell FEW /hpf (<5); Urine Urobilinogen Normal (Negative); Urine WBC 1 /hpf (0 - 3)
[2024-01-26] MEDS: VANCOMYCIN 1GM/250ML KIT 250 ML IV ONE (14:05)
[2024-01-26 14:54] LABS: Basophils # (auto) 0 10 ^3/uL (0-0.2); Basophils % (auto) 0.2 % (0.0-2.0); Eosinophils # (auto) 0.1 10 ^3/uL (0-0.8); Eosinophils % (auto) 0.3 % (0.0-7.0); Hematocrit 35.9 % (41.0-53.0); Lymphocytes # (auto) 0.9 10 ^3/uL (0.4-5.4); Lymphocytes % (auto) 5.9 % (10.0-50.0); Mean Corpuscular Hemoglobin 29.7 pg (28.0-32.0); Mean Corpuscular Hgb Conc. 33.4 g/dL (32.0-36.0); Mean Corpuscular Volume 88.8 fL (80.0-100.0); Monocytes # (auto) 1.2 10 ^3/uL (0-1.3); Monocytes % (auto) 7.8 % (0.0-12.0); Neutrophils # (auto) 13.5 10 ^3/uL (1.6-8.6); Neutrophils % (auto) 85.8 % (37.0-80.0); Platelet Count (auto) 199 10^3/uL (140-450); Red Blood Cells 4.05 10^6/uL (4.5-5.90); Red Cell Distribution Width 13.2 % (11.8-14.3); White Blood Cell 15.8 10^3/uL (4.4-10.8)
--- NOTE | 2024-01-26 14:57 | DVH ---
Left Lower Extremity Arterial Duplex Clinical History: edema Comparison: None Technique: Duplex Doppler evaluation including color Doppler and spectral/pulsed waveform analysis of the lower extremity arteries was performed. Findings: Left: Peak systolic velocities are as follows: HOSPITAL PERSONNEL DIRECTOR 70 cm/s Deep femoral 84 cm/s SFA proximal 97 cm/s SFA mid-portion 132 cm/s SFA distal 127 cm/s Popliteal 89 cm/s Posterior tibial 95 cm/s Anterior tibial 93 cm/s Dorsalis pedis 100 cm/s Monophasic waveforms within the posterior tibial, anterior tibial and dorsalis pedis arteries. Otherw ise, biphasic and triphasic waveforms within the remainder of the left lower extremity arteries. Prominent left inguinal lymph node measuring up to 1 cm in short axis. IMPRESSION: No hemodynamically significant stenosis based on peak systolic velocity criteria. Monophasic waveforms within the posterior tibial, anterior tibial and dorsalis pedis arteries which m ay be from vasodilation versus atherosclerotic disease. REFERENCE VALUES, [facility] ([facility] vascular Imaging Lab Criteria: Peak systolic velocity ranges (in cm/sec) are as follows: <150 cm/s - <20 % stenosis 150-200 cm/s - 20-49% stenosis 200-300 cm/s - 50-75% stenosis >300 cm/s -> 75% stenosis
[2024-01-26 15:14] LABS: Alanine Aminotransferase 30 U/L (7-40); Albumin 4.1 g/dL (3.2-4.8); Anion Gap 14 (5-15); Aspartate Aminotransferase 14 U/L (13-40); BUN/Creatinine Ratio 17.9 (10.0-20.0); Bilirubin, Total 0.4 mg/dL (0.2-1.0); Calcium 9.4 mg/dL (8.7-10.4); Carbon Dioxide 20 mmol/L (20-31); Chloride 98 mmol/L (98-107)
[2024-01-26 15:23] LABS: Alkaline Phosphatase 147 U/L (46-116); Blood Urea Nitrogen 31 mg/dL (9-23); Potassium 3.1 mmol/L (3.5-5.1); Sodium 132 mmol/L (136-145)
[2024-01-26 15:23] LABS: Base Excess -4.5 mmol/L (-2.0-3.0)
[2024-01-26 15:27] LABS: Glucose 458 mg/dL (74-106)
[2024-01-26] MEDS ORDERED: TEMAZEPAM 15 MG CAP PO PRN (16:00)
[2024-01-26] MEDS ORDERED: VANCOMYCIN PER PHARMACY 0 MG IV SCH (16:00)
[2024-01-26] MEDS ORDERED: MAALOX PLUS or MAALOX 30 ML PO PRN (16:00)
[2024-01-26] MEDS ORDERED: LORazepam 0.5 MG TAB PO PRN (16:00)
[2024-01-26] MEDS: ACCU-CHEK COMFORT CURVE STRIP VI SCH (16:00)
--- NOTE | 2024-01-26 16:05 | DVHHP2 ---
History of Present Illness Reason for Visit: leg pain History of Present Illness 53-year-old male with a past medical history of diabetes severely uncontrolled comes in with a complaint of left lower extremity pain for the past 3 days including swelling pain and warmth to palpation and touch patient was initially evaluated in the ED including having a bilateral ultrasound done to rule out acute signs of DVT at this point in time is a 60 suspected the patient might have a possible cutaneous infection and was recommended for inpatient continued treatment management and care Endocrine: Diabetes Review of Systems Constitutional: Yes: Weakness; No: Fever, Chills, Sweats, Malaise, Other Eyes: No: Pain, Vision change, Conjunctivae inflammation, Eyelid inflammation, Other, Redness ENT: No: Ear pain, Ear discharge, Nose pain, Nose discharge, Nose congestion, Mouth pain, Mouth swelling, Throat pain, Throat swelling, Other Respiratory: No: Cough, Dry, Shortness of breath, SOB with excertion, Wheezing, Hemoptysis, Pleuritic Pain, Sputum, Wheezing, Other Cardiovascular: No: Chest Pain, Palpitations, Orthopnea, Paroxysmal Noc. Dyspnea, Edema, Lt Headedness, Other Gastrointestinal: No: Nausea, Vomiting, Abdominal Pain, Diarrhea, Constipation, Melena, Hematochezia, Other Genitourinary: No Dysuria, No Frequency, No Incontinence, No Hematuria, No Retention, No Other Musculoskeletal: leg pain; No: other, neck pain, shoulder pain, arm pain, back pain, hand pain, foot pain Skin: No: Rash, Lesions, Jaundice, Bruising, Other Neurological: No: Weakness, Numbness, Incoordination, Change in speech, Confusion, Seizures, Other Allergies: Coded Allergies: NO KNOWN ALLERGIES (Unverified , 06/04/20) Exam Vital Signs Vital Signs Date Time Temp Pulse Resp B/P (MAP) Pulse Ox O2 Delivery O2 Flow Rate FiO2 01/26/24 11:26 103 18 99 Room Air 01/26/24 11:26 132/85 (101) 01/26/24 10:49 98.3 General Appearance: Alert, Oriented X3, moderate distress HEENT: Atraumatic, PERRLA Respiratory: Clear to auscultation, Normal air movement Cardiovascular: Regular rate, Normal S1, Normal S2 Abdominal: Normal bowel sounds, Soft, No tenderness Extremities: No clubbing, No cyanosis, No edema (Left leg edema) Skin: No rashes, No breakdown, No significant lesion Neuro: Normal gait, Normal speech Psych/Mental Status: Mood NL Labs/Xrays Labs Test 01/26/24 15:18 01/26/24 14:33 01/26/24 12:01 01/26/24 11:30 Range/Units Blood Gas Specimen Type Arterial Blood Gas Sample Site Right radial Blood Gas Patient Temperature 37.0 Arterial Blood Date Drawn [id number] Arterial Blood pH 7.420 7.350-7.450 Arterial Blood Partial Pressure CO2 29.8 L 35.0-48.0 mmHg Arterial Blood Partial Pressure O2 76.8 L 83.0-108.0 mmHg Arterial Blood HCO3 18.9 L 21.0-28.0 mmol/L Arterial Blood Oxygen Saturation 95.2 94.0-98.0 % Arterial Blood Base Excess -4.5 L -2.0-3.0 mmol/L Arterial Blood Oxyhemoglobin 94.4 94.0-98.0 % Arterial Blood Carboxyhemoglobin 0.8 0.5-1.5 % Arterial Blood Methemoglobin 0.0 0.0-1.5 % Bryan Test Yes Blood Gas Total Hemoglobin 12.30 L 13.5-17.5 g/dL Blood Gas Modality Room air FiO2 % 21.0 White Blood Count 15.8 H 4.4-10.8 10^3/uL Red Blood Count 4.05 L 4.5-5.90 10^6/uL Hemoglobin 12.0 L 13.5-17.5 g/dL Hematocrit 35.9 L 41.0-53.0 % Mean Corpuscular Volume 88.8 80.0-100.0 fL Mean Corpuscular Hemoglobin 29.7 28.0-32.0 pg Mean Corpuscular Hemoglobin Concent 33.4 32.0-36.0 g/dL Red Cell Distribution Width 13.2 11.8-14.3 % Platelet Count 199 140-450 10^3/uL Mean Platelet Volume 9.9 6.9-10.8 fL Neutrophils (%) (Auto) 85.8 H 37.0-80.0 % Lymphocytes (%) (Auto) 5.9 L 10.0-50.0 % Monocytes (%) (Auto) 7.8 0.0-12.0 % Eosinophils (%) (Auto) 0.3 0.0-7.0 % Basophils (%) (Auto) 0.2 0.0-2.0 % Neutrophils # (Auto) 13.5 H 1.6-8.6 10 ^3/uL Lymphocytes # (Auto) 0.9 0.4-5.4 10 ^3/uL Monocytes # (Auto) 1.2 0-1.3 10 ^3/uL Eosinophils # (Auto) 0.1 0-0.8 10 ^3/uL Basophils # (Auto) 0 0-0.2 10 ^3/uL Nucleated Red Blood Cells 0.0 % Sodium Level 132 L 136-145 mmol/L Potassium Level 3.1 L 3.5-5.1 mmol/L Chloride Level 98 98-107 mmol/L Carbon Dioxide Level 20 20-31 mmol/L Anion Gap 14 5-15 Blood Urea Nitrogen 31 H 9-23 mg/dL Creatinine 1.73 H 0.700-1.30 mg/dL Glomerular Filtration Rate Calc 47 >90 mL/min BUN/Creatinine Ratio 17.9 10.0-20.0 Serum Glucose 458 *H 74-106 mg/dL Lactic Acid Level 1.6 0.4-2.0 mmol/L Calcium Level 9.4 8.7-10.4 mg/dL Total Bilirubin 0.4 0.2-1.0 mg/dL Aspartate Amino Transferase (AST) 14 13-40 U/L Alanine Aminotransferase (ALT) 30 7-40 U/L Alkaline Phosphatase 147 H 46-116 U/L Total Protein 7.0 5.7-8.2 g/dL Albumin 4.1 3.2-4.8 g/dL Urine Color Light-yellow Yellow Urine Clarity Clear Clear Urine pH 5.0 5.0-9.0 Urine Specific [place] 1.021 1.001-1.035 Urine Protein Trace H Negative Urine Ketones 1+ H Negative Urine Blood Negative Negative /uL Urine Nitrite Negative Negative Urine Bilirubin Negative Negative Urine Urobilinogen Normal Negative mg/dL Urine Leukocyte Esterase Negative Negative /uL Urine RBC 1 0 - 3 /hpf Urine WBC 1 0 - 3 /hpf Urine Squamous Epithelial Cells Few <5 /hpf Urine Bacteria None seen None Seen /hpf Urine Mucus Few None Seen Urine Glucose 4+ H Normal mg/dL Beta-Hydroxybutyric Acid 1.930 H < 0.4 mmol/L Assessment/Plan Assessment/Plan Admit to [facility] Left lower leg cellulitis Rule out MRSA infection IV vancomycin started in the ED we will continue Patient also a severely diabetic We will also cover with Zosyn for prophylactic management IV hydration aggressive Monitor for signs of fluid overload Blood cultures pending Uncontrolled type 2 diabetes with severe hyperglycemia No acute signs of HHS or DKA at this time Patient with no acute signs of gap However patient's blood sugars severely elevated around 500 glucose Aggressive IV hydration Monitor fluid output Patient with a history of diabetic neuropathy we will continue home medications of gabapentin Patient's home medication of metformin will be held to make sure lactic acidosis does not occur Insulin sliding scale aggressive Insulin t.i.d. coverage based on the amount of insulin used in the next 24 hours Plan discussed with: Patient My Orders Orders - VIOLETA BUSTOS MD Procedure Category Date Status Time Gabapentin Capsule PHA 01/26/24 Logged (Neurontin Capsule) 16:00 Glucose Blood PHA 01/26/24 Logged (Accu-Chek Comfort 16:00 Insulin R (Human) PHA 01/26/24 Logged (Insulin R) 16:00 Dextrose 50% Syringe PHA 01/26/24 Logged 16:00 Insulin R (Human) PHA 01/26/24 Logged (Insulin R) 16:00 Vancomycin Per PHA 01/26/24 Logged Pharmacy 16:00 Piperacillin-Tazob PHA 01/26/24 Logged 3.375gm (Zosyn 3.375g 22:00 Admit ADMIT 01/26/24 Transmitted 15:48 Code Status CODE 01/26/24 Transmitted 15:48 Vital Signs [facility] 01/26/24 In Process 15:48 Review Orders With [facility] 01/26/24 In Process Adm. 15:48 Consistent DIET 01/26/24 Transmitted Carb(Ccho)Diabetes Dinner Sodium Chloride 0.9% PHA 01/26/24 Logged 16:00 Lorazepam Tablet PHA 01/26/24 Logged (Ativan Tablet) 16:00 Alum & Mag PHA 01/26/24 Logged Hydrox-Simethicone 16:00 Docusate Sodium PHA 01/26/24 Logged Capsule (Colace 16:00 Acetaminophen Tablet PHA 01/26/24 Logged (Tylenol Tablet) 16:00 Temazepam (Restoril) PHA 01/26/24 Logged 16:00 Notify Of Changes [facility] 12/6/24 In Process From Base 15:48 Advance Directive MALLIKA 01/26/24 In Process 15:48 Basic Metabolic Panel LAB 01/27/24 Verified 04:00 Complete Blood Count LAB 01/27/24 Verified 04:00 Patient Condition ORDERS 01/26/24 Transmitted 15:48 Allergies MALLIKA 01/26/24 In Process 15:48 Hydrocodone-Acet PHA 01/26/24 Logged 5/325mg Tab ([place] 16:00 Ondansetron Hcl PHA 01/26/24 Transmitted (Zofran) 16:00 Morphine 2mg Iv Q4hprn PHA 01/26/24 Transmitted 16:00 Notify Md Of Changes MALLIKA 01/26/24 In Process From Base 15:48 Oxygen By Nasal RT 01/26/24 Transmitted Cannula 15:48 Problem List: (1) Diabetes mellitus type 2 with complications, uncontrolled (2) Generalized weakness (3) Cellulitis and abscess of left leg (4) Hyperglycemia Date of Service: Jan 26, 2024 Billing Provider: VIOLETA BUSTOS MD Common Visit Codes: 84069-[id number] INP/OBS CARE (HIGH) VIOLETA BUSTOS MD Jan 26, 2024 16:05
[2024-01-26] MEDS: InsuLIN REG 1unit/0.01ml Soln (100units/ml) SC SCH (19:59)
[2024-01-26] MEDS: InsuLIN REG 1unit/0.01ml Soln (100units/ml) IV ONE (20:11)
[2024-01-26] MEDS: SODIUM CHLORIDE 0.9% 1,000 ML IV SCH (21:01)
[2024-01-26 21:03] VITALS: BP 135/71; PULSE 101; RESP 20; TEMP 99.4; O2SAT 98
[2024-01-26] MEDS: PIPERACILLIN-TAZOB 3.375GM 100 ML IV SCH (21:41)
[2024-01-27 00:36] LABS: Urine Bacteria None Seen /hpf (None Seen); Urine WBC None Seen /hpf (0 - 3)
[2024-01-27 00:53] LABS: Urine Amorphous Crystal FEW /hpf (None Seen); Urine Blood 2+ /uL (Negative); Urine Clarity Clear (Clear); Urine Color Light-Yellow (Yellow); Urine Protein, UAD 1+ (Negative); Urine Specific Gravity 1.023 (1.001-1.035); Urine Squamous Epithelial Cell None Seen /hpf (<5); Urine Urobilinogen Normal (Negative)
[2024-01-27] MEDS: ACETAMINOPHEN 325 MG TAB PO PRN (01:19)
[2024-01-27] MEDS: GABAPENTIN 300 MG CAP PO PRN (01:20)
[2024-01-27] MEDS: ONDANSETRON HCL 4 MG/2 ML VIAL IV PRN (01:20)
[2024-01-27] MEDS: MORPHINE SULFATE INJ 2 MG/ml SYRG IV PRN (01:21)
[2024-01-27] MEDS: VANCOMYCIN 1GM/250ML KIT 250 ML IV SCH (05:24)
[2024-01-27 06:18] LABS: Basophils # (auto) 0.1 10 ^3/uL (0-0.2); Basophils % (auto) 0.6 % (0.0-2.0); Eosinophils # (auto) 0.2 10 ^3/uL (0-0.8); Eosinophils % (auto) 1.5 % (0.0-7.0); Hematocrit 33.2 % (41.0-53.0); Hemoglobin 11.3 g/dL (13.5-17.5); Lymphocytes # (auto) 1.5 10 ^3/uL (0.4-5.4); Lymphocytes % (auto) 11.8 % (10.0-50.0); Mean Corpuscular Hemoglobin 30.2 pg (28.0-32.0); Mean Corpuscular Hgb Conc. 34.1 g/dL (32.0-36.0); Mean Corpuscular Volume 88.8 fL (80.0-100.0); Monocytes # (auto) 1.6 10 ^3/uL (0-1.3); Monocytes % (auto) 12.8 % (0.0-12.0); Neutrophils # (auto) 9.1 10 ^3/uL (1.6-8.6); Neutrophils % (auto) 73.3 % (37.0-80.0); Nucleated Red Blood Cells % 0.1 %; Platelet Count (auto) 205 10^3/uL (140-450); Red Blood Cells 3.73 10^6/uL (4.5-5.90); Red Cell Distribution Width 12.6 % (11.8-14.3); White Blood Cell 12.4 10^3/uL (4.4-10.8)
[2024-01-27] MEDS: DEXTROSE (50%) 50ML SYRG IV PRN (06:20)
[2024-01-27 06:27] LABS: Anion Gap 10 (5-15); Carbon Dioxide 24 mmol/L (20-31); Sodium 144 mmol/L (136-145)
[2024-01-27 06:28] LABS: Calcium 9.5 mg/dL (8.7-10.4)
[2024-01-27 06:33] LABS: BUN/Creatinine Ratio 22.9 (10.0-20.0)
[2024-01-27 06:43] LABS: Blood Urea Nitrogen 36 mg/dL (9-23); Chloride 110 mmol/L (98-107); Glucose 130 mg/dL (74-106); Potassium 2.9 mmol/L (3.5-5.1)
[2024-01-27 07:30] VITALS: PULSE 90; RESP 14; O2SAT 97
[2024-01-27] MEDS ORDERED: SOD CHL 0.45% 1,000 ML IV SCH (09:15)
[2024-01-27 09:41] LABS: Magnesium 1.9 mg/dL (1.6-2.6)
[2024-01-27 09:44] LABS: INR 1.04 (0.9-1.15); Partial Thromboplastin Time 31.1 SEC (24.5-34.5); Phosphorus 2.1 mg/dL (2.4-5.1)
[2024-01-27] MEDS: POTASSIUM CHLORIDE 60 MEQ, LIDOCAINE 1% (LOCAL ANESTH.) 6 ML in SODIUM CHL 0.9% 500 ML IV ONE (10:30)
--- NOTE | 2024-01-27 11:07 | DVH ---
CHEST RADIOGRAPH Indication: Rule out CHF Technique: Single frontal view of the chest was obtained COMPARISON: CHEST PORTABLE on DOS: 06/04/20 FINDINGS: Lines and Tubes: None Lungs: Clear Pleura: No effusion. No pneumothorax. Cardiomediastinal contours: Unremarkable Bones: Unremarkable IMPRESSION: 1. No acute disease.
--- NOTE | 2024-01-27 12:14 | DVH ---
Bilateral lower extremity venous duplex Clinical History: Lower limb swelling Comparison: None Technique: Duplex Doppler evaluation of the deep venous systems of both lower extremities from the common femora l veins to the popliteal veins including color Doppler and spectral/pulsed waveform analysis was perf ormed. Findings: RIGHT SIDE: The common femoral vein demonstrates appropriate compressibility and waveform variability. There is compressibility/patency of the great saphenous vein at the proximal thigh. The femoral vein demonstrates appropriate compressibility and waveform variability. The deep femoral vein demonstrates appropriate compressibility and waveform variability. The popliteal vein demonstrates appropriate compressibility and waveform variability. There is normal compressibility at the tibioperoneal trunk. LEFT SIDE: The common femoral vein demonstrates appropriate compressibility and waveform variability. There is compressibility/patency of the great saphenous vein at the proximal thigh. The femoral vein demonstrates appropriate compressibility and waveform variability. The deep femoral vein demonstrates appropriate compressibility and waveform variability. The popliteal vein demonstrates appropriate compressibility and waveform variability. There is normal compressibility at the tibioperoneal trunk. Multiple right groin lymph nodes are again seen. Impression: 1. No right or left femoropopliteal venous thrombosis.
--- NOTE | 2024-01-27 13:22 | DVHSR ---
APPROVED REPORT EXAM: LIMITED Two-dimensional and M-mode echocardiogram with Doppler and color Doppler. Blood Pressure: 116/79 mmHg INDICATION CHF RISK FACTORS Height: 6'2, Weight: 180 DIMENSIONS LVDd (3.8-5.7cm)LA (2D)3.5 (1.9-4.0cm)Aortic Root (2.0-3.7cm) EF (%) 55.0 (55-70%)Rt. Atrium (1.9-4.0cm)Asc. Aorta cm Mitral Valve MitralMitral Stenosis E wave0.68m/sMV Mean GR.mmHg A wave1.01m/sMV Peak GR.mmHg E/A ratio0.72D MVAcm2 DECEL [id number] 1/2 Tim[place] Aortic Valve Aortic ValveAortic Stenosis V11.17m/Charly Mean GR.4mmHg V21.26m/Charly Peak GR.6mmHg Other Information Quality : LimitedRhythm : Technically limited study due to body habitus.patient position. Conclusion Normal left ventricular size and dimension. Normal left ventricular systolic function estimated ejec tion fraction 55%. There is a grade 1 diastolic dysfunction. Normal right ventricular size and dimension. Normal right ventricular systolic function. Normal biatrial size and dimension. Normal aortic valve structure and function. Normal mitral valve structure. Normal tricuspid valve structure function. The pulmonary valve is grossly normal. No pericardial effusion.
[2024-01-27 16:17] VITALS: BP 139/97; PULSE 80; PULSE 98; RESP 20; TEMP 97.4; O2SAT 97; O2SAT 98
[2024-01-27] MEDS: SOD CHL 0.45% 1,000 ML IV SCH (17:39)
[2024-01-27 19:30] VITALS: PULSE 75; RESP 19; O2SAT 95
[2024-01-27 21:00] VITALS: BP 142/100; PULSE 91; RESP 17; TEMP 97.4; O2SAT 96
--- NOTE | 2024-01-27 23:16 | DVHPNRES ---
Progress Note Date Seen: Jan 27, 2024 Resident Creating Document: CHEVY SOTO RESIDENT Medical Necessity Reason Pt with a Central, PICC or Fol: No Subjective Review of Systems Noel Yu is a 53-year-old male patient who presents to ED with chief complaint of left lower limb swelling associating with pain intensity 10/10 three days before his admission, he later observed hepatic drainage from left foot wound which prompted his visit. Patient reports recent hospitalization due to DKA, were after discharge symptoms occurred. Patient is not sure if he had any trauma, he believes he could of hit his foot and not have felt traumatic injury. Denies palpitation, syncope, chest pain, dyspnea, nausea, vomiting, diarrhea, constipation, dysuria, chills, fever, recent travel, sick contacts and motor or sensory deficits. Past medical history: Diabetes, dyslipidemia, polyneuropathy, noncompliance Surgical history: Denies Family history: Father had diabetes and leukemia Social history: Lives in [place] in an assisted living facility (brother mother live in [place]). He is a current smoker (approximately 20 pack-year history of smoking). Denies alcohol and other drug abuse. Allergies: Denies Home medication: Gabapentin 300 mg p.o. Q 6 hours and metformin 500 mg p.o. b.i.d. patient was discharged with insulin but he did not start using insulin. Patient seen and examined at bedside. Current left foot pain has decreased, complains of swelling and hematic drainage. Objective vital signs Vital Sign Date Time Temp Pulse Resp B/P (MAP) Pulse Ox O2 Delivery O2 Flow Rate FiO2 01/27/24 21:00 97.4 91 17 142/100 (114) 96 97.4 01/27/24 16:17 Room Air* 0 21 Total Intake and Output 01/26/24 01/26/24 01/27/24 15:00 23:00 07:00 Intake Total 1000 ml 400 ml Balance 1000 ml 400 ml medications Current Medications Medications Dose Ordered Sig/[place] Route Start Time Stop Time Status Last Admin Dose Admin Gabapentin 300 mg Q6HP PRN PO 01/26/24 16:00 01/27/24 01:20 300 MG Diagnostic Test (Pha) 1 strip IQ4HR 01/26/24 16:00 01/27/24 20:00 1 STRIP Insulin Human Regular IQ4HR SC 01/26/24 16:00 01/27/24 20:00 20 UNITS Dextrose 50 ml UD PRN IV 01/26/24 16:00 01/27/24 06:20 50 ML Vancomycin HCl 0 ml @ 0 mls/hr UD IV 01/26/24 16:00 Piperacillin Sod/ Tazobactam Sod 100 ml @ 25 mls/hr Q8HR IV 01/26/24 22:00 01/27/24 23:09 25 MLS/HR Lorazepam 0.5 mg Q6HP PRN PO 01/26/24 16:00 Al Hydrox/Mg Hydrox/Simethicone 30 ml Q6HP PRN PO 01/26/24 16:00 Docusate Sodium 100 mg BIDPRN PRN PO 01/26/24 16:00 Acetaminophen 650 mg Q6HP PRN PO 01/26/24 16:00 01/27/24 01:19 650 MG Temazepam 15 mg QHSP PRN PO 01/26/24 16:00 Acetaminophen/ Hydrocodone Bitart 1 tab Q4HP PRN PO 01/26/24 16:00 Ondansetron HCl 4 mg Q4HP PRN IV 01/26/24 16:00 01/27/24 01:20 4 MG Morphine Sulfate 2 mg Q4HPRN PRN IV 01/26/24 16:00 01/27/24 01:21 2 MG Vancomycin HCl 250 ml @ 250 mls/hr Q15H IV 01/27/24 05:00 01/27/24 05:24 250 MLS/HR Sodium Chloride 1,000 ml @ 75 mls/hr [id number] IV 01/27/24 17:00 01/27/24 17:39 75 MLS/HR Examination Patient lying in bed, in no acute distress General: Lucid, afebrile, mucosae are moist Cardiovascular: Normal S1 and S2. No murmurs, gallops or rubs Respiratory: Normal ventilation mechanics. Clear lung sounds on auscultation Abdomen: Soft, nontender, no organomegaly, normal bowel sounds MSK/skin: Mobilizes 4 limbs. Skin is dry and warm. Left foot is warm, there is erythema with diffuse borders, black blister on a medial aspect of foot close to hallux with hematocrit drainage, foot is foul-smelling Neurological: Oriented in 3 spheres. No motor no sensitive deficits. Pupils are isocoric and reactive laboratory and microbiology Laboratory Tests 01/27/24 05:32 Test 01/27/24 05:32 Range/Units Serum Glucose 130 #H 74-106 mg/dL Microbiology Date/Time Source Procedure Growth Status 01/26/24 14:33 Blood Blood Culture - Preliminary NO GROWTH AFTER 24 HOURS OF INCUBATION. Resulted Labs and/or images reviewed: Labs reviewed by me, Image(s) reviewed by me Problem List/Assessment/Plan Problem List/Assessment/Plan Sepsis secondary to cellulitis of left foot - diabetic foot Patient does not recall trauma Ordered arterial venous lower limb ultrasound which ruled out DVT and P 80 Ordered podiatry evaluation Patient is currently on empiric IV antibiotics (Zosyn and vancomycin) Pending cultures (blood and wound) BERENICE hemodynamically mediated on CKD (baseline creatinine on February 2023 1.68) - Improving; vasomotor nephropathy Indicating IV fluids Echocardiogram shows normal LVEF Avoid nephrotoxic medication Simple hyperglycemia Anion gap within normal limits Has positive ketone bodies Indicated Lantus b.i.d. 20 units subcutaneous On aggressive insulin sliding scale Currently on IV fluids (half-normal saline) Diabetes - uncontrolled (hemoglobin A1c 13.5%) Hypokalemia Replenish Noncompliance Patient was recently discharged after hospitalization due to DKA Patient did not administer insulin Pseudohyponatremia Secondary to hyperglycemia Monitor Polysubstance abuse Patient denied use of methamphetamines, recent admission presented UDS positive for amphetamines. He is a current tobacco smoker Counseled strongly on cessation of polysubstance abuse for 22 minutes Completed echocardiogram to rule out nonischemic cardiomyopathy: LVEF 55%, grade 1 diastolic dysfunction, rest of study within normal limits. 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 Dyslipidemia Ordered lipid panel Goals of care discussed with patient for 20 minutes: Full code status Discussed plan with Dr. Ramsey, patient and nurses: Continue with empiric IV antibiotics, IV fluid resuscitation and eventual evaluation by Podiatry specialist. Optimizing diabetic control. Plan discussed with: Patient, Other (Nurses) My Orders My Orders Orders - CHEVY SOTO RESIDENT Procedure Category Date Status Time Bilat Lower Dvt US 01/27/24 Resulted 09:12 Vitamin B12 LAB 01/27/24 In Process 09:09 Vitamin D, 25-Hydroxy LAB 01/27/24 In Process 09:09 Drug Screen LAB 01/27/24 Logged 09:09 Chest Xray 1 View XY 01/27/24 Resulted 09:12 Echo 2d Mode Cardiac US 01/27/24 Resulted DOP 09:16 Podiatry Consult CONS 01/27/24 Transmitted 11:57 Sod Chl 0.45% (Sodium PHA 01/27/24 In Process Chloride 0.45% Via 17:00 Addendum Addendum Addendum I was physically present for the kothari portions of the service provided to patient by THE RESIDENT. I have reviewed the documentation, discussed the case with resident and agree with the resident's documentation except as noted. Also the patient's clinical case was discussed with the patient's nurse. This medical document was created using an electronic medical record system with computerized dictation system. Although this document has been carefully reviewed, there might still be some phonetic and typographical errors. These areas are purely typographical due to imperfections of the software programs, and do not reflect any compromise in the patient's medical care. Late signature. Date of Service: Jan 27, 2024 Billing Provider: SHAWNA RAMSEY MD Common Visit Codes: [id number] INP/OBS CARE(HIGH) Secondary Visit Codes: [id number] CHNG SMOKING >10MIN (Counseled on polysubstance use cessation including tobacco and methamphetamine for 22 minutes ), [id number] CARE PLAN 30 MINUTES (20 minutes) CHEVY SOTO RESIDENT Jan 27, 2024 23:16 SHAWNA RAMSEY MD Jan 29, 2024 11:29
[2024-01-28] MEDS: POTASSIUM PHOSPHATE 22 MEQ in SODIUM CHL 0.9% 100 ML IV ONE (00:15)
[2024-01-28] MEDS: INSULIN LANTUS (GLARGINE) 1 /0.01ml (100units/ml) SC ONE (00:47)
[2024-01-28 01:33] LABS: Potassium 3.5 mmol/L (3.5-5.1); Sodium 145 mmol/L (136-145)
[2024-01-28 01:34] LABS: Anion Gap 9 (5-15); Calcium 9.9 mg/dL (8.7-10.4); Carbon Dioxide 26 mmol/L (20-31); Chloride 110 mmol/L (98-107)
[2024-01-28 01:39] LABS: BUN/Creatinine Ratio 18.8 (10.0-20.0)
[2024-01-28 01:40] LABS: Blood Urea Nitrogen 30 mg/dL (9-23); Glucose 211 mg/dL (74-106)
[2024-01-28 05:00] VITALS: BP 114/63; PULSE 92; RESP 17; TEMP 97.9; O2SAT 98
[2024-01-28] MEDS: INSULIN LANTUS (GLARGINE) 1 /0.01ml (100units/ml) SC SCH (06:32)
[2024-01-28 07:38] LABS: Basophils # (auto) 0 10 ^3/uL (0-0.2); Basophils % (auto) 0.4 % (0.0-2.0); Eosinophils # (auto) 0.2 10 ^3/uL (0-0.8); Eosinophils % (auto) 1.4 % (0.0-7.0); Hematocrit 32.8 % (41.0-53.0); Hemoglobin 11.2 g/dL (13.5-17.5); Lymphocytes # (auto) 1.5 10 ^3/uL (0.4-5.4); Lymphocytes % (auto) 13.7 % (10.0-50.0); Mean Corpuscular Hemoglobin 30.1 pg (28.0-32.0); Mean Corpuscular Volume 88.4 fL (80.0-100.0); Monocytes # (auto) 1.4 10 ^3/uL (0-1.3); Monocytes % (auto) 12.7 % (0.0-12.0); Neutrophils # (auto) 7.9 10 ^3/uL (1.6-8.6); Neutrophils % (auto) 71.8 % (37.0-80.0); Platelet Count (auto) 208 10^3/uL (140-450); Red Blood Cells 3.71 10^6/uL (4.5-5.90); Red Cell Distribution Width 12.9 % (11.8-14.3); White Blood Cell 11.1 10^3/uL (4.4-10.8)
[2024-01-28 09:00] VITALS: BP 149/98; PULSE 71; RESP 16; TEMP 97.7; O2SAT 98
[2024-01-28 10:00] VITALS: BP 143/83; PULSE 84; RESP 15; TEMP 98; O2SAT 99
[2024-01-28] MEDS ORDERED: DEXTROSE (50%) 50ML SYRG IV PRN (10:00)
--- NOTE | 2024-01-28 10:06 | DVHPNRES ---
Progress Note Date Seen: Jan 28, 2024 Resident Creating Document: DAVE HERMAN RESIDENT Medical Necessity Reason Pt with a Central, PICC or Fol: No Subjective Review of Systems Noel uY is a 53-year-old male with PMHX DM, HLD who came to to ED due to left lower limb wound and swelling associating with pain intensity 10/10 three days before his admissiont. Patient reports recent hospitalization due to DKA, were after discharge symptoms occurred. Patient is not sure if he had any trauma, he believes he could of hit his foot and not have felt traumatic injury. Denies palpitation, syncope, chest pain, dyspnea, nausea, vomiting, diarrhea, constipation, dysuria, chills, fever, recent travel, sick contacts and motor or sensory deficits. Past medical history: Diabetes, dyslipidemia, polyneuropathy, noncompliance Surgical history: Denies Family history: Father had diabetes and leukemia Social history: Lives in [place] in an assisted living facility (brother mother live in [place]). He is a current smoker (approximately 20 pack-year history of smoking). Denies alcohol and other drug abuse. Allergies: Denies Home medication: Gabapentin 300 mg p.o. Q 6 hours and metformin 500 mg p.o. b.i.d. patient was discharged with insulin but he did not start using insulin. Objective vital signs Vital Sign Date Time Temp Pulse Resp B/P (MAP) Pulse Ox O2 Delivery O2 Flow Rate FiO2 01/28/24 08:00 Room Air* 0 21 01/28/24 05:00 97.9 92 17 114/63 (80) 98 97.9 Total Intake and Output 01/27/24 01/27/24 01/28/24 15:00 23:00 07:00 Intake Total 476.997 ml 329.333 ml 600 ml Output Total 1001 ml Balance 476.997 ml 329.333 ml -401 ml medications Current Medications Medications Dose Ordered Sig/[place] Route Start Time Stop Time Status Last Admin Dose Admin Gabapentin 300 mg Q6HP PRN PO 01/26/24 16:00 01/27/24 01:20 300 MG Diagnostic Test (Pha) 1 strip IQ4HR 01/26/24 16:00 01/28/24 08:51 1 STRIP Insulin Human Regular IQ4HR SC 01/26/24 16:00 01/28/24 09:02 4 UNITS Dextrose 50 ml UD PRN IV 01/26/24 16:00 01/27/24 06:20 50 ML Vancomycin HCl 0 ml @ 0 mls/hr UD IV 01/26/24 16:00 Piperacillin Sod/ Tazobactam Sod 100 ml @ 25 mls/hr Q8HR IV 01/26/24 22:00 01/28/24 06:32 25 MLS/HR Lorazepam 0.5 mg Q6HP PRN PO 01/26/24 16:00 Al Hydrox/Mg Hydrox/Simethicone 30 ml Q6HP PRN PO 01/26/24 16:00 Docusate Sodium 100 mg BIDPRN PRN PO 01/26/24 16:00 Acetaminophen 650 mg Q6HP PRN PO 01/26/24 16:00 01/27/24 01:19 650 MG Temazepam 15 mg QHSP PRN PO 01/26/24 16:00 Acetaminophen/ Hydrocodone Bitart 1 tab Q4HP PRN PO 01/26/24 16:00 Ondansetron HCl 4 mg Q4HP PRN IV 01/26/24 16:00 01/27/24 01:20 4 MG Morphine Sulfate 2 mg Q4HPRN PRN IV 01/26/24 16:00 01/27/24 01:21 2 MG Vancomycin HCl 250 ml @ 250 mls/hr Q15H IV 01/27/24 05:00 01/27/24 05:24 250 MLS/HR Sodium Chloride 1,000 ml @ 75 mls/hr [id number] IV 01/27/24 17:00 01/28/24 06:33 75 MLS/HR Insulin Glargine 20 units BID@0700,2200 SC 01/28/24 07:00 01/28/24 06:32 20 UNITS Examination GEN: Hygiene PSYCH: Good Judgment. AOx3. Normal memory, mood, and affect. HEENT -Head: normocephalic atraumatic, no facial trauma, neck is supple -Eyes: PERRL, EOMI. No discharge or redness; -Ears: External ears are normal. Normal TMs. -Nose: Normal nares. -Mouth and throat: MMM. Normal gums, mucosa, palate,. Good dentition. NECK: Supple, with no masses. CV: RRR, no m/r/g. LUNGS: respiratory effort normal, speaks in full sentences, no tripod position, no accessory muscle use. Lungs clear to auscultation without rhonchi, wheezes, rales ABD: Soft, ND/NT. No evidence of fluid wave. No pulsatile masses on exam, rebound tenderness, [place] sign or pain over Mcburney's point. : N/A SKIN: Warm, well perfused. No skin rashes or abnormal lesions. MSK: A 7*11 cm diabetic ulcer with necrotic tissue, irregular edges and erythema in right foot , peripheral pulses weak in that foot NEURO: Ambulating with no limitations. Normal muscle strength and tone. No focal deficits laboratory and microbiology Laboratory Tests 01/28/24 07:05 01/28/24 01:12 Test 01/28/24 01:12 Range/Units Serum Glucose 211 H 74-106 mg/dL Microbiology Date/Time Source Procedure Growth Status 01/26/24 14:33 Blood Blood Culture - Preliminary NO GROWTH AFTER 24 HOURS OF INCUBATION. Resulted Labs and/or images reviewed: Labs reviewed by me, Image(s) reviewed by me Problem List/Assessment/Plan Problem List/Assessment/Plan #Sepsis secondary to cellulitis of left foot - diabetic foot #BERENICE hemodynamically mediated on CKD (baseline creatinine on February 2023 1.68) - Improving #Diabetes - uncontrolled (hemoglobin A1c 13.5%) #Noncompliance #Pseudohyponatremia due to hyperglycemia #Polysubstance abuse #Peripheral artery disease #Diabetic neuropathy #Hypokalemia resolved #DVT ruled out #Current smoker Images: artery US: No hemodynamically significant stenosis based on peak systolic velocity criteria. Monophasic waveforms within the posterior tibial, anterior tibial and dorsalis pedis arteries which may be from vasodilation versus atherosclerotic disease. Diabetic diet Zumba Instructor Dr Maynard consult NPO after midnight Further images to rule out osteo: MRI per Dr Maynard Antibiotics: Zosyn + IV vancomycin Keep fluids 75 cc/h due to sepsis and BERENICE Lantus 20 UI SC Lispro 6UI TID Mild insulin sliding scale Pain medication Aspirin and Lipitor due to PAD Gabapentin FLORENCE Case discussed with Dr Ramsey Plan discussed with: Patient, Other (rn) Addendum Addendum Addendum I was physically present for the kothari portions of the service provided to patient by THE RESIDENT. I have reviewed the documentation, discussed the case with resident and agree with the resident's documentation except as noted. Also the patient's clinical case was discussed with the patient's nurse. This medical document was created using an electronic medical record system with computerized dictation system. Although this document has been carefully reviewed, there might still be some phonetic and typographical errors. These areas are purely typographical due to imperfections of the software programs, and do not reflect any compromise in the patient's medical care. Late signature. Date of Service: Jan 28, 2024 Billing Provider: SHAWNA RAMSEY MD Common Visit Codes: [id number] INP/OBS CARE(HIGH) DAVE HERMAN RESIDENT Jan 28, 2024 10:06 SAHWNA RAMSEY MD Jan 29, 2024 11:32
[2024-01-28] MEDS: GABAPENTIN 300 MG CAP PO SCH (11:22)
[2024-01-28] MEDS: ACCU-CHEK COMFORT CURVE STRIP VI SCH (11:22)
[2024-01-28] MEDS: ASPirin 81 mg TAB PO ONE (11:22)
[2024-01-28] MEDS: INSULIN LISPRO (HUMAN) 100 UNITS/ML ML SC SCH (11:30)
[2024-01-28] MEDS: InsuLIN REG 1unit/0.01ml Soln (100units/ml) SC SCH (11:38)
[2024-01-28 13:00] VITALS: BP 143/83; PULSE 84; RESP 15; TEMP 98; O2SAT 99
[2024-01-28 16:55] VITALS: PULSE 85; RESP 14; TEMP 98.7
--- NOTE | 2024-01-28 19:12 | DVH ---
EXAMINATION: MRI MRI L FOOT WO CONTRAST TECHNIQUE: MRI of the left foot was performed. Multiplanar multisequence MRI images were obtained wi thout intravenous contrast. HISTORY: R/O OSTEO COMPARISON: None FINDINGS/IMPRESSION: The bone marrow signal is essentially normal without evidence of acute fracture, avascular necrosis, or aggressive osseous lesion. No bone marrow edema or bony destructive changes suggest acute osteomye litis. There is diffuse subcutaneous soft-tissue edema and swelling suggestive of cellulitis. This is most s evere at the distal 1st digit. There is suggestion of ulceration in small volume subcutaneous emphysema at the level of the 1st MTP. Moderate joint effusion at the 1st MTP.
[2024-01-28 21:00] VITALS: BP 145/82; PULSE 92; RESP 18; TEMP 98.6; O2SAT 96
[2024-01-28] MEDS: ATORVASTATIN 20 MG TAB PO SCH (22:47)
[2024-01-29] VITALS (7 sets, daily range): BP systolic 104–132; BP diastolic 55–77; PULSE 57–91; RESP 17–18; TEMP 98–98.7; O2SAT 94–98
[2024-01-29] MEDS: SOD CHL 0.45% 1,000 ML IV SCH (02:06)
[2024-01-29 02:45] LABS: Urine Bacteria None Seen /hpf (None Seen)
[2024-01-29 03:08] LABS: Urine Blood 3+ /uL (Negative); Urine Clarity Turbid (Clear); Urine Color Colorless (Yellow); Urine Mucus FEW (None Seen); Urine Protein, UAD 2+ (Negative); Urine Specific Gravity 1.016 (1.001-1.035); Urine Squamous Epithelial Cell None Seen /hpf (<5); Urine Urobilinogen Normal (Negative); Urine WBC 3 /hpf (0 - 3)
[2024-01-29 03:19] LABS: Amphetamine Screen, Urine Neg (NEGATIVE); Barbiturate Scree,Urine Neg (NEGATIVE); Benzodiazephine Screen, Urine Neg (NEGATIVE); Cannabinoid Screen, Urine Neg (NEGATIVE); Cocaine Screen, Urine Neg (NEGATIVE); Opiate Scree,Urine Neg (NEGATIVE); Phencyclidine Screen, Urine Neg (NEGATIVE)
[2024-01-29] MEDS: HYDROcodone-ACET 5/325MG TAB PO PRN (06:46)
[2024-01-29 07:28] LABS: Basophils # (auto) 0 10 ^3/uL (0-0.2); Basophils % (auto) 0.3 % (0.0-2.0); Eosinophils # (auto) 0.2 10 ^3/uL (0-0.8); Eosinophils % (auto) 2.1 % (0.0-7.0); Hematocrit 32.5 % (41.0-53.0); Hemoglobin 11.3 g/dL (13.5-17.5); Lymphocytes # (auto) 1.3 10 ^3/uL (0.4-5.4); Lymphocytes % (auto) 13.1 % (10.0-50.0); Mean Corpuscular Hemoglobin 30.3 pg (28.0-32.0); Mean Corpuscular Hgb Conc. 34.8 g/dL (32.0-36.0); Monocytes # (auto) 1.1 10 ^3/uL (0-1.3); Monocytes % (auto) 11.3 % (0.0-12.0); Neutrophils # (auto) 7.4 10 ^3/uL (1.6-8.6); Neutrophils % (auto) 73.2 % (37.0-80.0); Nucleated Red Blood Cells % 0.1 %; Platelet Count (auto) 216 10^3/uL (140-450); Red Blood Cells 3.73 10^6/uL (4.5-5.90); White Blood Cell 10.1 10^3/uL (4.4-10.8)
[2024-01-29 07:32] LABS: Alanine Aminotransferase 32 U/L (7-40); Anion Gap 6 (5-15); BUN/Creatinine Ratio 12.9 (10.0-20.0); Blood Urea Nitrogen 19 mg/dL (9-23); Calcium 9.2 mg/dL (8.7-10.4); Carbon Dioxide 28 mmol/L (20-31); Chloride 99 mmol/L (98-107); LDL Cholesterol 20 mg/dL (< 100); Total Protein 5.9 g/dL (5.7-8.2); Triglycerides 81 mg/dL (< 150)
[2024-01-29 07:33] LABS: Albumin 3.4 g/dL (3.2-4.8); Aspartate Aminotransferase 30 U/L (13-40); Cholesterol 57 mg/dL (< 200); Phosphorus 3.1 mg/dL (2.4-5.1)
[2024-01-29 07:34] LABS: Bilirubin, Total 0.4 mg/dL (0.2-1.0)
[2024-01-29 07:47] LABS: Alkaline Phosphatase 158 U/L (46-116); Glucose 330 mg/dL (74-106); HDL Cholesterol 20 mg/dL (40-59); Magnesium 1.5 mg/dL (1.6-2.6); Potassium 3.3 mmol/L (3.5-5.1); Sodium 133 mmol/L (136-145)
[2024-01-29] MEDS: ASPirin 81 mg TAB PO SCH (08:34)
[2024-01-29 08:42] LABS: INR 1.08 (0.9-1.15); Partial Thromboplastin Time 31.1 SEC (24.5-34.5); Prothrombin Time 11.4 sec (9.3-11.8)
--- NOTE | 2024-01-29 10:51 | DVHPNRES ---
Progress Note Date Seen: Jan 29, 2024 Resident Creating Document: DAVE HERMAN RESIDENT Medical Necessity Reason Pt with a Central, PICC or Fol: No Subjective Review of Systems Noel Yu is a 53-year-old male with PMHX DM, HLD who came to to ED due to left lower limb wound and swelling associating with pain intensity 10/10 three days before his admissiont. Patient reports recent hospitalization due to DKA, were after discharge symptoms occurred. Patient is not sure if he had any trauma, he believes he could of hit his foot and not have felt traumatic injury. Denies palpitation, syncope, chest pain, dyspnea, nausea, vomiting, diarrhea, constipation, dysuria, chills, fever, recent travel, sick contacts and motor or sensory deficits. Past medical history: Diabetes, dyslipidemia, polyneuropathy, noncompliance Surgical history: Denies Family history: Father had diabetes and leukemia Social history: Lives in [place] in an assisted living facility (brother mother live in [place]). He is a current smoker (approximately 20 pack-year history of smoking). Denies alcohol and other drug abuse. Allergies: Denies Home medication: Gabapentin 300 mg p.o. Q 6 hours and metformin 500 mg p.o. b.i.d. patient was discharged with insulin but he did not start using insulin. Objective vital signs Vital Sign Date Time Temp Pulse Resp B/P (MAP) Pulse Ox O2 Delivery O2 Flow Rate FiO2 01/29/24 05:00 98.7 90 18 132/70 (90) 98 98.7 01/28/24 20:00 Room Air* 0 21 Total Intake and Output 01/28/24 01/28/24 01/29/24 15:00 23:00 07:00 Intake Total 350 ml 1020 ml 350 ml Output Total 1200 ml Balance 350 ml 1020 ml -850 ml medications Current Medications Medications Dose Ordered Sig/[place] Route Start Time Stop Time Status Last Admin Dose Admin Vancomycin HCl 0 ml @ 0 mls/hr UD IV 01/26/24 16:00 Piperacillin Sod/ Tazobactam Sod 100 ml @ 25 mls/hr Q8HR IV 01/26/24 22:00 01/29/24 05:28 25 MLS/HR Lorazepam 0.5 mg Q6HP PRN PO 01/26/24 16:00 Al Hydrox/Mg Hydrox/Simethicone 30 ml Q6HP PRN PO 01/26/24 16:00 Docusate Sodium 100 mg BIDPRN PRN PO 01/26/24 16:00 Acetaminophen 650 mg Q6HP PRN PO 01/26/24 16:00 01/27/24 01:19 650 MG Temazepam 15 mg QHSP PRN PO 01/26/24 16:00 Acetaminophen/ Hydrocodone Bitart 1 tab Q4HP PRN PO 01/26/24 16:00 01/29/24 06:46 1 TAB Morphine Sulfate 2 mg Q4HPRN PRN IV 01/26/24 16:00 01/29/24 03:59 2 MG Vancomycin HCl 250 ml @ 250 mls/hr Q15H IV 01/27/24 05:00 01/29/24 01:57 250 MLS/HR Insulin Human Lispro 6 units TIDAC SC 01/28/24 11:30 01/29/24 08:33 6 UNITS Diagnostic Test (Pha) 1 strip ACHS 01/28/24 11:30 01/29/24 07:04 1 STRIP Insulin Human Regular ACHS SC 01/28/24 11:30 01/28/24 23:06 6 UNITS Dextrose 50 ml UD PRN IV 01/28/24 10:00 Atorvastatin Calcium 40 mg HS PO 01/28/24 22:00 01/28/24 22:47 40 MG Aspirin 81 mg DAILY PO 01/29/24 10:00 Gabapentin 300 mg Q6H PO 01/28/24 12:00 01/28/24 11:22 300 MG Insulin Glargine 20 units DAILY@2200 ME 01/29/24 22:00 Sodium Chloride 1,000 ml @ 125 mls/hr Q8H IV 01/29/24 00:30 01/29/24 08:30 125 MLS/HR Examination GEN: Healthy appearing, well-developed, NAD. PSYCH: Good Judgment. AOx3. Normal memory, mood, and affect. HEENT -Head: normocephalic atraumatic, no facial trauma, neck is supple -Eyes: PERRL, EOMI. No discharge or redness; -Ears: External ears are normal. Normal TMs. -Nose: Normal nares. -Mouth and throat: MMM. Normal gums, mucosa, palate,. Good dentition. NECK: Supple, with no masses. CV: RRR, no m/r/g. LUNGS: respiratory effort normal, speaks in full sentences, no tripod position, no accessory muscle use. Lungs clear to auscultation without rhonchi, wheezes, rales ABD: Soft, ND/NT. No evidence of fluid wave. No pulsatile masses on exam, rebound tenderness, [place] sign or pain over Mcburney's point. : N/A SKIN: Warm, well perfused. No skin rashes or abnormal lesions. MSK: A 7*11 cm diabetic ulcer with necrotic tissue, irregular edges and erythema in right foot , peripheral pulses weak in that foot NEURO: Ambulating with no limitations. Normal muscle strength and tone. No focal deficits laboratory and microbiology Laboratory Tests 01/29/24 06:22 Test 01/29/24 06:22 Range/Units Serum Glucose 330 #H 74-106 mg/dL Microbiology Date/Time Source Procedure Growth Status 01/27/24 14:15 Foot Left Gram Stain Pending Resulted 01/27/24 14:15 Foot Left Wound Culture - Preliminary Resulted 01/26/24 14:33 Blood Blood Culture - Preliminary NO GROWTH AFTER 48 HOURS OF INCUBATION. Resulted Problem List/Assessment/Plan Problem List/Assessment/Plan #Sepsis secondary to cellulitis of left foot - diabetic foot #BERENICE hemodynamically mediated on CKD (baseline creatinine on February 2023 1.68) - Improving #Diabetes - uncontrolled (hemoglobin A1c 13.5%) #Noncompliance #Pseudohyponatremia due to hyperglycemia #Polysubstance abuse #Peripheral artery disease #Diabetic neuropathy #Hypokalemia resolved #DVT ruled out #Current smoker Images: artery US: No hemodynamically significant stenosis based on peak systolic velocity criteria. Monophasic waveforms within the posterior tibial, anterior tibial and dorsalis pedis arteries which may be from vasodilation versus atherosclerotic disease. Left foot MRI:The bone marrow signal is essentially normal without evidence of acute fracture, avascular necrosis, or aggressive osseous lesion. No bone marrow edema or bony destructive changes suggest acute osteomyelitis. There is diffuse subcutaneous soft-tissue edema and swelling suggestive of cellulitis. This is most severe at the distal 1st digit. There is suggestion of ulceration in small volume subcutaneous emphysema at the level of the 1st MTP. Moderate joint effusion at the 1st MTP. Diabetic diet Grade And Center Marker Dr Maynard consult NPO MRI ruled out osteo Antibiotics: zosyn + vanco Keep fluids 75 cc/h due to sepsis and BERENICE Lantus 20 UI SC Lispro 6UI TID Mild insulin sliding scale Pain medication Aspirin and lipitor due to PAD Gabapentin FLORENCE Case discussed with Dr Crawford Time spent on care 23 min Plan discussed with: Patient, Other (rn) My Orders My Orders Orders - DAVE HERMAN RESIDENT Procedure Category Date Status Time Npo After Midnight DIET 01/28/24 Transmitted Lunch Mri L Foot Wo Contrast MRI 01/28/24 Resulted 12:37 Insulin Lantus PHA 01/29/24 In Process (Glargine) (Lantus) 22:00 Mrsa Screen SHELBY 01/29/24 Uncollected 07:05 Date of Service: Jan 29, 2024 Billing Provider: LYLA CRAWFORD MD Common Visit Codes: [id number] INP/OBS CARE(HIGH) DAVE HERMAN RESIDENT Jan 29, 2024 10:51 LYLA CRAWFORD MD Jan 29, 2024 20:04
[2024-01-29] MEDS ORDERED: DEXTROSE (50%) 50ML SYRG IV PRN (12:30)
[2024-01-29] MEDS: INSULIN LANTUS (GLARGINE) 1 /0.01ml (100units/ml) SC SCH (13:45)
[2024-01-29] MEDS: MEROPENEM 1GM IVPB 50 ML IV SCH (17:01)
[2024-01-29] MEDS: ACCU-CHEK COMFORT CURVE STRIP VI SCH (17:10)
[2024-01-29] MEDS: InsuLIN REG 1unit/0.01ml Soln (100units/ml) SC SCH (17:14)
[2024-01-29] MEDS ORDERED: INSULIN LANTUS (GLARGINE) 1 /0.01ml (100units/ml) SC SCH (22:00)
[2024-01-30] VITALS (8 sets, daily range): BP systolic 95–117; BP diastolic 57–72; PULSE 65–94; RESP 16–18; TEMP 97.9–99.1; O2SAT 91–99
[2024-01-30] MEDS: InsuLIN REG 1unit/0.01ml Soln (100units/ml) SC SCH ×3 (00:24→22:20)
[2024-01-30] MEDS ORDERED: DEXTROSE (50%) 50ML SYRG IV PRN (06:45)
[2024-01-30 06:49] LABS: Basophils # (auto) 0 10 ^3/uL (0-0.2); Basophils % (auto) 0.4 % (0.0-2.0); Eosinophils # (auto) 0.2 10 ^3/uL (0-0.8); Eosinophils % (auto) 2.3 % (0.0-7.0); Hematocrit 33.7 % (41.0-53.0); Hemoglobin 11.5 g/dL (13.5-17.5); Lymphocytes # (auto) 1.4 10 ^3/uL (0.4-5.4); Lymphocytes % (auto) 13.4 % (10.0-50.0); Mean Corpuscular Hemoglobin 29.9 pg (28.0-32.0); Monocytes % (auto) 9.1 % (0.0-12.0); Neutrophils # (auto) 8.1 10 ^3/uL (1.6-8.6); Neutrophils % (auto) 74.8 % (37.0-80.0); Platelet Count (auto) 236 10^3/uL (140-450); Red Blood Cells 3.83 10^6/uL (4.5-5.90); Red Cell Distribution Width 12.8 % (11.8-14.3); White Blood Cell 10.8 10^3/uL (4.4-10.8)
[2024-01-30 07:03] LABS: Alanine Aminotransferase 31 U/L (7-40); Albumin 3.2 g/dL (3.2-4.8); Anion Gap 8 (5-15); Aspartate Aminotransferase 26 U/L (13-40); BUN/Creatinine Ratio 17.3 (10.0-20.0); Bilirubin, Total 0.4 mg/dL (0.2-1.0); Blood Urea Nitrogen 22 mg/dL (9-23); Calcium 9.1 mg/dL (8.7-10.4); Carbon Dioxide 29 mmol/L (20-31); Chloride 100 mmol/L (98-107); Sodium 137 mmol/L (136-145)
[2024-01-30 07:15] LABS: Alkaline Phosphatase 186 U/L (46-116); Glucose 226 mg/dL (74-106); Potassium 3.4 mmol/L (3.5-5.1); Total Protein 5.6 g/dL (5.7-8.2)
[2024-01-30] MEDS: ACCU-CHEK COMFORT CURVE STRIP VI SCH (08:00)
[2024-01-30 08:07] LABS: PSA Free 0.03 ng/mL; Prostate Specific Antigen 0.4 ng/mL (0.0-4.0)
[2024-01-30] MEDS: POTASSIUM CHL 20MEQ/100ML 100 ML IV SCH (09:45)
--- NOTE | 2024-01-30 10:13 | DVHPNRES ---
Progress Note Date Seen: Jan 30, 2024 Resident Creating Document: DAVE HERMAN RESIDENT Medical Necessity Reason Pt with a Central, PICC or Fol: No Subjective Review of Systems Noel Yu is a 53-year-old male with PMHX DM, HLD who came to to ED due to left lower limb wound and swelling associating with pain intensity 10/10 three days before his admissiont. Patient reports recent hospitalization due to DKA, were after discharge symptoms occurred. Patient is not sure if he had any trauma, he believes he could of hit his foot and not have felt traumatic injury. Denies palpitation, syncope, chest pain, dyspnea, nausea, vomiting, diarrhea, constipation, dysuria, chills, fever, recent travel, sick contacts and motor or sensory deficits. Past medical history: Diabetes, dyslipidemia, polyneuropathy, noncompliance Surgical history: Denies Family history: Father had diabetes and leukemia Social history: Lives in [place] in an assisted living facility (brother mother live in [place]). He is a current smoker (approximately 20 pack-year history of smoking). Denies alcohol and other drug abuse. Allergies: Denies Home medication: Gabapentin 300 mg p.o. Q 6 hours and metformin 500 mg p.o. b.i.d. patient was discharged with insulin but he did not start using insulin. Objective vital signs Vital Sign Date Time Temp Pulse Resp B/P (MAP) Pulse Ox O2 Delivery O2 Flow Rate FiO2 01/30/24 09:00 98.0 85 17 98/61 (73) 91 98.0 01/29/24 20:00 Room Air* 0 21 Total Intake and Output 01/29/24 01/29/24 01/30/24 15:00 23:00 07:00 Intake Total 0 ml 0 ml Output Total 750 ml 800 ml Balance -750 ml 0 ml -800 ml medications Current Medications Medications Dose Ordered Sig/[place] Route Start Time Stop Time Status Last Admin Dose Admin Vancomycin HCl 0 ml @ 0 mls/hr UD IV 01/26/24 16:00 Lorazepam 0.5 mg Q6HP PRN PO 01/26/24 16:00 Al Hydrox/Mg Hydrox/Simethicone 30 ml Q6HP PRN PO 01/26/24 16:00 Docusate Sodium 100 mg BIDPRN PRN PO 01/26/24 16:00 Acetaminophen 650 mg Q6HP PRN PO 01/26/24 16:00 01/27/24 01:19 650 MG Temazepam 15 mg QHSP PRN PO 01/26/24 16:00 Acetaminophen/ Hydrocodone Bitart 1 tab Q4HP PRN PO 01/26/24 16:00 01/30/24 00:04 1 TAB Morphine Sulfate 2 mg Q4HPRN PRN IV 01/26/24 16:00 01/29/24 03:59 2 MG Vancomycin HCl 250 ml @ 250 mls/hr Q15H IV 01/27/24 05:00 01/30/24 08:18 250 MLS/HR Atorvastatin Calcium 40 mg HS PO 01/28/24 22:00 01/30/24 00:03 40 MG Aspirin 81 mg DAILY PO 01/29/24 10:00 Gabapentin 300 mg Q6H PO 01/28/24 12:00 01/30/24 05:06 300 MG Sodium Chloride 1,000 ml @ 125 mls/hr Q8H IV 01/29/24 00:30 01/30/24 00:39 125 MLS/HR Meropenem 50 ml @ 17 mls/hr Q8HR IV 01/29/24 15:30 01/30/24 05:06 17 MLS/HR Insulin Glargine 30 units BID SC 01/30/24 10:00 Diagnostic Test (Pha) 1 strip ACHS 01/30/24 07:00 01/30/24 08:00 1 STRIP Insulin Human Regular AC SC 01/30/24 07:00 01/30/24 08:03 6 UNITS Insulin Human Regular HS SC 01/30/24 22:00 Dextrose 50 ml UD PRN IV 01/30/24 06:45 Potassium Chloride 100 ml @ 50 mls/hr Q2H IV 01/30/24 07:45 01/30/24 13:44 Examination GEN: Healthy appearing, well-developed, NAD. PSYCH: Good Judgment. AOx3. Normal memory, mood, and affect. HEENT -Head: normocephalic atraumatic, no facial trauma, neck is supple -Eyes: PERRL, EOMI. No discharge or redness; -Ears: External ears are normal. Normal TMs. -Nose: Normal nares. -Mouth and throat: MMM. Normal gums, mucosa, palate,. Good dentition. NECK: Supple, with no masses. CV: RRR, no m/r/g. LUNGS: respiratory effort normal, speaks in full sentences, no tripod position, no accessory muscle use. Lungs clear to auscultation without rhonchi, wheezes, rales ABD: Soft, ND/NT. No evidence of fluid wave. No pulsatile masses on exam, rebound tenderness, [place] sign or pain over Mcburney's point. : N/A SKIN: Warm, well perfused. No skin rashes or abnormal lesions. MSK: A 7*11 cm diabetic ulcer with necrotic tissue, irregular edges and erythema in right foot , peripheral pulses weak in that foot NEURO: Ambulating with no limitations. Normal muscle strength and tone. No focal deficits laboratory and microbiology Laboratory Tests 01/30/24 07:00 01/30/24 05:22 Test 01/30/24 07:00 Range/Units Serum Glucose 226 #H 74-106 mg/dL Microbiology Date/Time Source Procedure Growth Status 01/27/24 14:15 Foot Left Gram Stain Pending Resulted 01/27/24 14:15 Wound Culture - Preliminary Klebsiella pneumoniae - ESBL Streptococcus Group B Resulted 01/26/24 14:33 Blood Blood Culture - Preliminary NO GROWTH AFTER 72 HOURS OF INCUBATION. Resulted Problem List/Assessment/Plan Problem List/Assessment/Plan #Sepsis secondary to cellulitis of left foot - diabetic foot #wound culture: klebsiella pneumoniae ESBL, streptococcus Group B #BERENICE hemodynamically mediated on CKD (baseline creatinine on February 2023 1.68) - Improving #Diabetes - uncontrolled (hemoglobin A1c 13.5%) #Noncompliance #Pseudohyponatremia due to hyperglycemia #Polysubstance abuse #Peripheral artery disease #Diabetic neuropathy #Hypokalemia resolved #DVT ruled out #Current smoker Images: artery US: No hemodynamically significant stenosis based on peak systolic velocity criteria. Monophasic waveforms within the posterior tibial, anterior tibial and dorsalis pedis arteries which may be from vasodilation versus atherosclerotic disease. Left foot MRI:The bone marrow signal is essentially normal without evidence of acute fracture, avascular necrosis, or aggressive osseous lesion. No bone marrow edema or bony destructive changes suggest acute osteomyelitis. There is diffuse subcutaneous soft-tissue edema and swelling suggestive of cellulitis. This is most severe at the distal 1st digit. There is suggestion of ulceration in small volume subcutaneous emphysema at the level of the 1st MTP. Moderate joint effusion at the 1st MTP. Diabetic diet after surgery Security Operations Manager Dr Maynard consult: today patient was taken to I&D and patient will need another intervention MRI ruled out osteo Antibiotics: meropenem + vanco Keep fluids due to sepsis and BERENICE Lantus 30 UI BID SC Agressive insulin sliding scale Pain medication Aspirin and lipitor due to PAD Gabapentin FLORENCE Case discussed with Dr Crawford Time spent on care 23 min Plan discussed with: Patient, Other (RN) My Orders My Orders Orders - DAVE HERMAN RESIDENT Procedure Category Date Status Time Bladder US 01/29/24 Transmitted 12:19 Meropenem 1gm Ivpb PHA 01/29/24 In Process (Merrem 1gm/ Ns) 15:30 Potassium Chl PHA 01/30/24 In Process 20meq/100ml 07:45 Dietary Evaluation Review Comments: 1) Consider CASS 1 pkt BID 2) Continue current plan of care Expected Outcomes/Goals: F/U in 3-5 days Date of Service: Jan 30, 2024 Billing Provider: LYLA CRAWFORD MD Common Visit Codes: [id number] INP/OBS CARE(HIGH) DAVE HERMAN RESIDENT Jan 30, 2024 10:13 LYLA CRAWFORD MD Jan 31, 2024 17:56
[2024-01-30] MEDS: INSULIN LANTUS (GLARGINE) 1 /0.01ml (100units/ml) SC SCH (10:21)
[2024-01-30] MEDS ORDERED: MEPERIDINE HCL (25 MG/ML) 1ML VIAL ONE (12:23)
[2024-01-30] MEDS ORDERED: fentaNYL CITRATE 100 MCG/2 ML VL ONE (12:23)
[2024-01-30] MEDS ORDERED: MIDAZOLAM HCL 2MG/2ML 2ml VIAL (1mg/ml) ONE (12:23)
--- NOTE | 2024-01-30 12:26 | DVHINCON2 ---
Date Seen: Jan 30, 2024 Reason for Consultation Left foot wound History of Present Illness 53-year-old male with a past medical history of diabetes severely uncontrolled comes in with a complaint of left lower extremity pain for the past 3 days including swelling pain and warmth to palpation and touch patient was initially evaluated in the ED including having a bilateral ultrasound done to rule out acute signs of DVT at this point in time is a 60 suspected the patient might have a possible cutaneous infection and was recommended for inpatient continued treatment management and care Past Medical History See H&P Past Surgical History See H&P Family History: Diabetes mellitus G8 FATHER FH: cancer G8 FATHER Allergies: Coded Allergies: NO KNOWN ALLERGIES (Unverified , 06/04/20) Home Meds Active Scripts Metformin Hydrochloride (METFORMIN HCL ER) 500 Mg Tab, 1 TAB PO BID, #90 TAB 1 Refill Prov:SHYAM BENITEZ RESEARCH ADMINISTRATOR 02/27/23 Gabapentin (Gabapentin) 300 Mg Cap, 1 CAP PO Q6HP PRN, #30 CAP 0 Refills Prov:ADONIS MARTÍNEZ PAC 12/06/22 Current Medications Current Medications Medications (Trade) Dose Ordered Sig/[place] Route PRN Reason Start Time Stop Time Status Last Admin Insulin Glargine (Lantus) 20 units DAILY@2200 SC 01/29/24 22:00 01/29/24 12:18 DC Insulin Glargine (Lantus) 20 units BID SC 01/29/24 12:30 01/30/24 06:39 DC 01/30/24 00:24 Diagnostic Test (Pha) (Accu-Chek Comfort Curve T) 1 strip ACHS 01/29/24 17:00 01/30/24 06:39 DC 01/30/24 06:18 Insulin Human Regular (InsuLIN R) HS SC 01/29/24 22:00 01/30/24 06:39 DC 01/30/24 00:24 Insulin Human Regular (InsuLIN R) AC SC 01/29/24 17:00 01/30/24 06:39 DC 01/30/24 06:27 Dextrose 50 ml UD PRN IV Blood Sugar LESS THAN 60 01/29/24 12:30 01/30/24 06:39 DC Meropenem 50 ml @ 17 mls/hr Q8HR IV 01/29/24 15:30 01/30/24 05:06 Insulin Glargine (Lantus) 30 units BID SC 01/30/24 10:00 01/30/24 10:21 Diagnostic Test (Pha) (Accu-Chek Comfort Curve T) 1 strip ACHS 01/30/24 07:00 01/30/24 11:30 Insulin Human Regular (InsuLIN R) AC SC 01/30/24 07:00 01/30/24 11:48 Insulin Human Regular (InsuLIN R) HS SC 01/30/24 22:00 Dextrose 50 ml UD PRN IV Blood Sugar LESS THAN 60 01/30/24 06:45 Potassium Chloride 100 ml @ 50 mls/hr Q2H IV 01/30/24 07:45 01/30/24 13:44 Vital Signs Vital Signs Date Time Temp Pulse Resp B/P (MAP) Pulse Ox O2 Delivery O2 Flow Rate FiO2 01/30/24 09:00 98.0 85 17 98/61 (73) 91 98.0 01/29/24 20:00 Room Air* 0 21 Physical Exam DERMATOLOGIC EXAM: - Skin is dry and cool to the touch dry bilaterally. - Nails 1-5 of the bilateral foot are thickened, discolored, dystrophic, and tender to palpate with subungual debris - Hair loss noted to bilateral feet - left hallux swelling erythema and purulent drainage VASCULAR EXAM: - DP and PT pulses are palpable bilaterally. - APPLIANCE TECHNICIAN is brisk to all digits. - Feet are cool to touch compared to lower legs bilaterally. NEUROLOGIC EXAM: - Normal light touch sensation to the superficial peroneal, deep peroneal, sural, saphenous, and tibial nerve branches. - Protective sensation is diminished as tested with a 5.07 10g Ismay-Sahra bilaterally. MUSCULOSKELETAL EXAM: - No gross deformities - Muscle strength is 5/5 and active motion is pain-free and symmetrical bilaterally - No pain or crepitation with passive range of motion bilaterally to all major pedal joints Labs/Diagnostic Data Labs Test 01/30/24 11:44 01/30/24 07:00 01/30/24 05:22 01/29/24 06:22 Range/Units POC Glucose 154 H 70-106 mg/dl Sodium Level 137 136-145 mmol/L Potassium Level 3.4 L 3.5-5.1 mmol/L Chloride Level 100 98-107 mmol/L Carbon Dioxide Level 29 20-31 mmol/L Anion Gap 8 5-15 Blood Urea Nitrogen 22 9-23 mg/dL Creatinine 1.27 0.700-1.30 mg/dL Glomerular Filtration Rate Calc 68 >90 mL/min BUN/Creatinine Ratio 17.3 10.0-20.0 Serum Glucose 226 #H 74-106 mg/dL Calcium Level 9.1 8.7-10.4 mg/dL Total Bilirubin 0.4 0.2-1.0 mg/dL Aspartate Amino Transferase (AST) 26 13-40 U/L Alanine Aminotransferase (ALT) 31 7-40 U/L Alkaline Phosphatase 186 H 46-116 U/L Total Protein 5.6 L 5.7-8.2 g/dL Albumin 3.2 3.2-4.8 g/dL White Blood Count 10.8 4.4-10.8 10^3/uL Red Blood Count 3.83 L 4.5-5.90 10^6/uL Hemoglobin 11.5 L 13.5-17.5 g/dL Hematocrit 33.7 L 41.0-53.0 % Mean Corpuscular Volume 88.0 80.0-100.0 fL Mean Corpuscular Hemoglobin 29.9 28.0-32.0 pg Mean Corpuscular Hemoglobin Concent 34.0 32.0-36.0 g/dL Red Cell Distribution Width 12.8 11.8-14.3 % Platelet Count 236 140-450 10^3/uL Mean Platelet Volume 9.0 6.9-10.8 fL Neutrophils (%) (Auto) 74.8 37.0-80.0 % Lymphocytes (%) (Auto) 13.4 10.0-50.0 % Monocytes (%) (Auto) 9.1 0.0-12.0 % Eosinophils (%) (Auto) 2.3 0.0-7.0 % Basophils (%) (Auto) 0.4 0.0-2.0 % Neutrophils # (Auto) 8.1 1.6-8.6 10 ^3/uL Lymphocytes # (Auto) 1.4 0.4-5.4 10 ^3/uL Monocytes # (Auto) 1.0 0-1.3 10 ^3/uL Eosinophils # (Auto) 0.2 0-0.8 10 ^3/uL Basophils # (Auto) 0 0-0.2 10 ^3/uL Nucleated Red Blood Cells 0.0 % Prothrombin Time 11.4 9.3-11.8 sec Prothrombin Time INR 1.08 0.9-1.15 Activated Partial Thromboplast Time 31.1 24.5-34.5 SEC Phosphorus Level 3.1 2.4-5.1 mg/dL Magnesium Level 1.5 L 1.6-2.6 mg/dL Triglycerides Level 81 < 150 mg/dL Cholesterol Level 57 < 200 mg/dL LDL Cholesterol 20 < 100 mg/dL HDL Cholesterol 20 L 40-59 mg/dL Free Prostate Specific Antigen 0.03 N/A ng/mL Percent Free Prostate Specific Ag 7.5 . % Prostate Specific Antigen Total 0.4 0.0-4.0 ng/mL Test 01/29/24 02:08 01/28/24 10:15 01/27/24 10:12 01/27/24 05:32 Range/Units Urine Color Colorless Yellow Urine Clarity Turbid H Clear Urine pH 6.0 5.0-9.0 Urine Specific [place] 1.016 1.001-1.035 Urine Protein 2+ H Negative Urine Ketones Negative Negative Urine Blood 3+ H Negative /uL Urine Nitrite Negative Negative Urine Bilirubin Negative Negative Urine Urobilinogen Normal Negative mg/dL Urine Leukocyte Esterase Negative Negative /uL Urine RBC 1737 0 - 3 /hpf Urine WBC 3 0 - 3 /hpf Urine Squamous Epithelial Cells None seen <5 /hpf Urine Bacteria None seen None Seen /hpf Urine Mucus Few None Seen Urine Glucose 4+ H Normal mg/dL Urine Opiates Screen Neg NEGATIVE Urine Fentanyl Screen Neg NEGATIVE Urine Barbiturates Screen Neg NEGATIVE Urine Phencyclidine Screen Neg NEGATIVE Urine Amphetamines Screen Neg NEGATIVE Urine Benzodiazepines Screen Neg NEGATIVE Urine Cocaine Screen Neg NEGATIVE Urine Cannabinoids Screen Neg NEGATIVE Vancomycin Level Trough 4.1 L 5-10 ug/mL Ammonia 34 H 11-32 umol/L Hemoglobin A1c 13.5 H <5.7 % A1C Lipase 27 12-53 U/L Vitamin B12 Level 677 211-911 pg/mL Vitamin D 25-Hydroxy 17.6 L 30.0-100 ng/mL Thyroid Stimulating Hormone (TSH) 0.81 0.55-4.78 uIU/mL Test 01/27/24 00:20 01/26/24 15:18 01/26/24 14:33 01/26/24 11:30 Range/Units Urine Amorphous Crystals Few None Seen /hpf Blood Gas Specimen Type Arterial Blood Gas Sample Site Right radial Blood Gas Patient Temperature 37.0 Arterial Blood Date Drawn [id number] Arterial Blood pH 7.420 7.350-7.450 Arterial Blood Partial Pressure CO2 29.8 L 35.0-48.0 mmHg Arterial Blood Partial Pressure O2 76.8 L 83.0-108.0 mmHg Arterial Blood HCO3 18.9 L 21.0-28.0 mmol/L Arterial Blood Oxygen Saturation 95.2 94.0-98.0 % Arterial Blood Base Excess -4.5 L -2.0-3.0 mmol/L Arterial Blood Oxyhemoglobin 94.4 94.0-98.0 % Arterial Blood Carboxyhemoglobin 0.8 0.5-1.5 % Arterial Blood Methemoglobin 0.0 0.0-1.5 % Bryan Test Yes Blood Gas Total Hemoglobin 12.30 L 13.5-17.5 g/dL Blood Gas Modality Room air FiO2 % 21.0 Lactic Acid Level 1.6 0.4-2.0 mmol/L Beta-Hydroxybutyric Acid 1.930 H < 0.4 mmol/L Microbiology Date/Time Source Procedure Growth Status 01/27/24 14:15 Foot Left Gram Stain Pending Resulted 01/27/24 14:15 Wound Culture - Preliminary Klebsiella pneumoniae - ESBL Streptococcus Group B Resulted 01/26/24 14:33 Blood Blood Culture - Preliminary NO GROWTH AFTER 72 HOURS OF INCUBATION. Resulted Problems(with codes): (1) Hypochloremia (2) New onset type 2 diabetes mellitus (3) Hyponatremia (4) Medication refill (5) Episode of syncope (6) Thrombophlebitis (7) Cellulitis and abscess of left leg (8) Diabetic neuropathy (9) Hyperglycemia (10) Generalized weakness (11) Diabetes mellitus type 2 with complications, uncontrolled Plan/Recommendation ASSESSMENT: Patient is a 53-year-old seen on the floor for a worsening left foot wound PLAN: - The patients chart was reviewed, clinical findings were discussed with the patient, the etiologies of the conditions were discussed in detail, and a treatment plan was agreed to at this time, with both oral and written instructions provided. - reviewed imaging which showed concern for soft tissue emphysema - we will plan to take the patient to the OR this afternoon for I and D - patient NPO since midnight - patient will need to return to the OR for subsequent I&D he is - we will obtain cultures today - significant soft tissue loss due to the infection - no amputation plan at this point All questions were answered and concerns addressed to the patient's satisfact ion. The patient was given the phone number to the clinic and was told how to make contact with the clinic should any concerns or questions arise. Patient understands that if any questions or concerns arise prior to the next appointment, we should be contacted immediately. FOLLOW-UP: We will continue to follow while inpatient Plan discussed with: Patient Date of Service: Jan 30, 2024 Billing Provider: DANIKA MONTES DPM Common Visit Codes: [id number] INP/OBS CARE (MOD) DANIKA MONTES DPM Jan 30, 2024 12:26
[2024-01-30] MEDS: BUPIVACAINE 0.5% P/F INJ 10 ML VIAL ONE (12:36)
[2024-01-30] MEDS ORDERED: PROPOFOL 10 MG/ML 20 ML IV ONE (12:57)
[2024-01-30] MEDS ORDERED: DexAMETHasone SOD PHOS 10MG/1ML VIAL INJ ONE (12:57)
--- NOTE | 2024-01-30 13:02 | DVHOP2 ---
Operative Report - 2 Report Details Date: 01/30/24 Preop Diagnosis: 1. Left foot abscess 2. Left foot necrotizing fasciitis 3. Left foot diabetic ulcer Postop Diagnosis: Same as preop Surgeon: Danika Montes MD Anesthesiologist: See anesthesia Anesthesia: Mac Consent: The patient was informed of the risks and benefits of the procedure. These include but are not limited to complications of anesthesia, postoperative infection, incomplete relief of symptoms, recurrence of symptoms, damage to blood vessels, nerves and tendons, deep venous thrombosis, pulmonary embolism and possible need for repeat surgery in the future. Complications: None Estimated Blood Loss: Minimal Fluids: See anesthesia Findings: Significant amount of necrosis of the skin on the medial aspect Indications for Surgery: Worsening left foot pain Name of Procedure Performed 1. Left foot I&D to bone Procedure Details Procedure Details: PRE-PROCEDURE INFORMATION: In the pre-op holding area, the extremity to be operated on was clearly marked and the patient verified correct laterality of the marking. The patient was transferred to the OR table and placed in a supine position. A timeout was performed in which identification of the correct patient, procedure, location, and materials was done. The left foot and leg were prepped and draped in normal sterile fashion. DESCRIPTION OF PROCEDURE: Attention was directed to the left where area of fluctuance was noted. An incision was made over this area and was deepened through blunt dissection. The incision was deepened to the level of abscess and bone. Care was taken to the dissection to avoid any neurovascular and tendinous structures. The incision was deepened to the bone, and the abscess appeared to be purulent fluid consistent with pus. After the abscess was drained, the area was irrigated with 3 L normal saline using cysto tubing. Deep cultures were then obtained from the wound. The area was then inspected and any areas of tracking, especially along the tendons were also drained. The wound was packed with Betadine-soaked gauze and we will need to be closed at a later date. A dry sterile dressing was placed on the surgical extremity. The patient was placed in a postop shoe. POSTOPERATIVE INFORMATION: The patient tolerated the above noted procedure and anesthesia well and was transferred to the PACU with vital signs stable, and vascular status intact with capillary refill intact to all digits. Patient will return to the floor continue IV ABX. Cultures were taken. Patient can weightbear in a postoperative shoe. We will see how the wound heals over the next 48 hours. Patient will return to the OR for another incision and drainage. Condition Good Disposition Still a Patient DANIKA MONTES DPM Jan 30, 2024 13:02
[2024-01-30] MEDS: MEROPENEM 1GM IVPB 50 ML IV SCH (19:07)
[2024-01-31] VITALS (7 sets, daily range): BP systolic 91–129; BP diastolic 52–78; PULSE 53–88; RESP 16–20; TEMP 98–98.2; O2SAT 20–98
[2024-01-31 05:45] LABS: Basophils # (auto) 0.1 10 ^3/uL (0-0.2); Basophils % (auto) 0.6 % (0.0-2.0); Eosinophils # (auto) 0.3 10 ^3/uL (0-0.8); Eosinophils % (auto) 2.5 % (0.0-7.0); Hemoglobin 11.2 g/dL (13.5-17.5); Lymphocytes # (auto) 1.2 10 ^3/uL (0.4-5.4); Lymphocytes % (auto) 10.7 % (10.0-50.0); Mean Corpuscular Hgb Conc. 33.9 g/dL (32.0-36.0); Mean Corpuscular Volume 88.3 fL (80.0-100.0); Monocytes # (auto) 0.8 10 ^3/uL (0-1.3); Monocytes % (auto) 7.4 % (0.0-12.0); Neutrophils # (auto) 8.8 10 ^3/uL (1.6-8.6); Neutrophils % (auto) 78.8 % (37.0-80.0); Platelet Count (auto) 264 10^3/uL (140-450); Red Blood Cells 3.73 10^6/uL (4.5-5.90); Red Cell Distribution Width 13.1 % (11.8-14.3); White Blood Cell 11.2 10^3/uL (4.4-10.8)
[2024-01-31 05:56] LABS: Alanine Aminotransferase 27 U/L (7-40); Albumin 3.3 g/dL (3.2-4.8); Anion Gap 4 (5-15); Aspartate Aminotransferase 30 U/L (13-40); BUN/Creatinine Ratio 10.4 (10.0-20.0); Bilirubin, Total 0.2 mg/dL (0.2-1.0); Blood Urea Nitrogen 13 mg/dL (9-23); Calcium 9.2 mg/dL (8.7-10.4); Carbon Dioxide 32 mmol/L (20-31); Chloride 101 mmol/L (98-107); Glucose 230 mg/dL (74-106); Potassium 3.3 mmol/L (3.5-5.1); Sodium 137 mmol/L (136-145); Total Protein 6.2 g/dL (5.7-8.2)
[2024-01-31 05:57] LABS: Alkaline Phosphatase 197 U/L (46-116)
[2024-01-31] MEDS: SODIUM CHLORIDE 0.9% 1,000 ML IV SCH (07:46)
[2024-01-31] MEDS: POTASSIUM CHL 20MEQ/100ML 100 ML IV SCH (07:47)
--- NOTE | 2024-01-31 11:30 | DVHPNRES ---
Progress Note Date Seen: Jan 31, 2024 Resident Creating Document: DAVE HERMAN RESIDENT Medical Necessity Reason Pt with a Central, PICC or Fol: No Subjective Review of Systems Noel Yu is a 53-year-old male with PMHX DM, HLD who came to to ED due to left lower limb wound and swelling associating with pain intensity 10/10 three days before his admissiont. Patient reports recent hospitalization due to DKA, were after discharge symptoms occurred. Patient is not sure if he had any trauma, he believes he could of hit his foot and not have felt traumatic injury. Denies palpitation, syncope, chest pain, dyspnea, nausea, vomiting, diarrhea, constipation, dysuria, chills, fever, recent travel, sick contacts and motor or sensory deficits. Past medical history: Diabetes, dyslipidemia, polyneuropathy, noncompliance Surgical history: Denies Family history: Father had diabetes and leukemia Social history: Lives in [place] in an assisted living facility (brother mother live in [place]). He is a current smoker (approximately 20 pack-year history of smoking). Denies alcohol and other drug abuse. Allergies: Denies Home medication: Gabapentin 300 mg p.o. Q 6 hours and metformin 500 mg p.o. b.i.d. patient was discharged with insulin but he did not start using insulin. Objective vital signs Vital Sign Date Time Temp Pulse Resp B/P (MAP) Pulse Ox O2 Delivery O2 Flow Rate FiO2 01/31/24 08:44 98.2 78 16 91/52 (65) 97 98.2 01/30/24 20:00 Room Air* 0 21 Total Intake and Output 01/30/24 01/30/24 01/31/24 15:00 23:00 07:00 Intake Total 500 ml 2400 ml 0 ml Output Total 400 ml 550 ml Balance 500 ml 2000 ml -550 ml medications Current Medications Medications Dose Ordered Sig/[place] Route Start Time Stop Time Status Last Admin Dose Admin Vancomycin HCl 0 ml @ 0 mls/hr UD IV 01/26/24 16:00 Lorazepam 0.5 mg Q6HP PRN PO 01/26/24 16:00 Al Hydrox/Mg Hydrox/Simethicone 30 ml Q6HP PRN PO 01/26/24 16:00 Docusate Sodium 100 mg BIDPRN PRN PO 01/26/24 16:00 Acetaminophen 650 mg Q6HP PRN PO 01/26/24 16:00 01/27/24 01:19 650 MG Temazepam 15 mg QHSP PRN PO 01/26/24 16:00 Acetaminophen/ Hydrocodone Bitart 1 tab Q4HP PRN PO 01/26/24 16:00 01/30/24 22:14 1 TAB Morphine Sulfate 2 mg Q4HPRN PRN IV 01/26/24 16:00 01/29/24 03:59 2 MG Vancomycin HCl 250 ml @ 250 mls/hr Q15H IV 01/27/24 05:00 01/30/24 22:50 250 MLS/HR Atorvastatin Calcium 40 mg HS PO 01/28/24 22:00 01/30/24 22:13 40 MG Aspirin 81 mg DAILY PO 01/29/24 10:00 01/31/24 09:59 81 MG Gabapentin 300 mg Q6H PO 01/28/24 12:00 01/31/24 05:25 300 MG Insulin Glargine 30 units BID SC 01/30/24 10:00 01/31/24 10:08 30 UNITS Diagnostic Test (Pha) 1 strip ACHS 01/30/24 07:00 01/31/24 11:18 1 STRIP Insulin Human Regular AC SC 01/30/24 07:00 01/31/24 11:18 8 UNITS Insulin Human Regular HS SC 01/30/24 22:00 01/30/24 22:20 4 UNITS Dextrose 50 ml UD PRN IV 01/30/24 06:45 Meropenem 50 ml @ 17 mls/hr Q8H IV 01/30/24 18:00 01/31/24 09:59 17 MLS/HR Potassium Chloride 100 ml @ 50 mls/hr Q2H IV 01/31/24 06:45 01/31/24 12:44 01/31/24 07:47 50 MLS/HR Sodium Chloride 1,000 ml @ 75 mls/hr [id number] IV 01/31/24 06:45 01/31/24 07:46 75 MLS/HR Examination GEN: Healthy appearing, well-developed, NAD. PSYCH: Good Judgment. AOx3. Normal memory, mood, and affect. HEENT -Head: normocephalic atraumatic, no facial trauma, neck is supple -Eyes: PERRL, EOMI. No discharge or redness; -Ears: External ears are normal. Normal TMs. -Nose: Normal nares. -Mouth and throat: MMM. Normal gums, mucosa, palate,. Good dentition. NECK: Supple, with no masses. CV: RRR, no m/r/g. LUNGS: respiratory effort normal, speaks in full sentences, no tripod position, no accessory muscle use. Lungs clear to auscultation without rhonchi, wheezes, rales ABD: Soft, ND/NT. No evidence of fluid wave. No pulsatile masses on exam, rebound tenderness, [place] sign or pain over Mcburney's point. : N/A SKIN: Warm, well perfused. No skin rashes or abnormal lesions. MSK: the foot is covered, adequate prefusion in the toes NEURO: Ambulating with no limitations. Normal muscle strength and tone. No focal deficits laboratory and microbiology Laboratory Tests 01/31/24 04:55 Test 01/31/24 04:55 Range/Units Serum Glucose 230 H 74-106 mg/dL Microbiology Date/Time Source Procedure Growth Status 01/27/24 14:15 Foot Left Gram Stain Pending Resulted 01/27/24 14:15 Wound Culture - Preliminary Klebsiella pneumoniae - ESBL Streptococcus Group B Resulted 01/26/24 14:33 Blood Blood Culture - Preliminary NO GROWTH AFTER 72 HOURS OF INCUBATION. Resulted Problem List/Assessment/Plan Problem List/Assessment/Plan #Sepsis secondary to Left foot abscess Left foot necrotizing fasciitis Left foot diabetic ulcer #wound culture: klebsiella pneumoniae ESBL, streptococcus Group B #BERENICE hemodynamically mediated on CKD (baseline creatinine on February 2023 1.68) - Improving #Diabetes - uncontrolled (hemoglobin A1c 13.5%) #Noncompliance #Pseudohyponatremia due to hyperglycemia #Polysubstance abuse #Peripheral artery disease #Diabetic neuropathy #Hypokalemia resolved #DVT ruled out #Current smoker Images: artery US: No hemodynamically significant stenosis based on peak systolic velocity criteria. Monophasic waveforms within the posterior tibial, anterior tibial and dorsalis pedis arteries which may be from vasodilation versus atherosclerotic disease. Left foot MRI:The bone marrow signal is essentially normal without evidence of acute fracture, avascular necrosis, or aggressive osseous lesion. No bone marrow edema or bony destructive changes suggest acute osteomyelitis. There is diffuse subcutaneous soft-tissue edema and swelling suggestive of cellulitis. This is most severe at the distal 1st digit. There is suggestion of ulceration in small volume subcutaneous emphysema at the level of the 1st MTP. Moderate joint effusion at the 1st MTP. Diabetic diet after surgery Business [employer] Dr Maynard consult: today patient was taken to I&D and patient will need another intervention MRI ruled out osteo Antibiotics: meropenem + vanco Keep fluids due to sepsis and BERENICE Lantus 30 UI BID SC Agressive insulin sliding scale Pain medication Aspirin and lipitor due to PAD Gabapentin [place] Case discussed with Dr Crawford Time spent on care 23 min Plan discussed with: Patient, Other (rn) My Orders My Orders Orders - DAVE HERMAN RESIDENT Procedure Category Date Status Time Meropenem 1gm Ivpb PHA 01/30/24 In Process (Merrem 1gm/ Ns) 18:00 Npo After Midnight DIET 02/01/24 Transmitted Breakfast Potassium Chl PHA 01/31/24 In Process 20meq/100ml 06:45 Dietary Evaluation Review Comments: 1) Consider CASS 1 pkt BID 2) Continue current plan of care Expected Outcomes/Goals: F/U in 3-5 days Date of Service: Jan 31, 2024 Billing Provider: LYLA CRAWFORD MD Common Visit Codes: [id number] INP/OBS CARE(HIGH) DAVE HERMAN RESIDENT Jan 31, 2024 11:30 LYLA CRAWFORD MD Jan 31, 2024 17:56
--- NOTE | 2024-01-31 17:13 | DVHPN2 ---
Subjective 53-year-old male with a past medical history of diabetes severely uncontrolled comes in with a complaint of left lower extremity pain for the past 3 days including swelling pain and warmth to palpation and touch patient was initially evaluated in the ED including having a bilateral ultrasound done to rule out acute signs of DVT at this point in time is a 60 suspected the patient might have a possible cutaneous infection and was recommended for inpatient continued treatment management and care Changes from previous H/P or p: No Changes Eyes: No Pain, No Vision change, No Conjunctivae inflammation, No Eyelid inflammation, No Other, No Redness ENT: No Ear pain, No Ear discharge, No Nose pain, No Nose discharge, No Nose congestion, No Mouth pain, No Mouth swelling, No Throat pain, No Throat swelling, No Other Cardiovascular: No Chest Pain, No Palpitations, No Orthopnea, No Paroxysmal Noc. Dyspnea, No Edema, No Lt Headedness, No Other Respiratory: No Cough, No Dry, No Shortness of breath, No SOB with excertion, No Wheezing, No Hemoptysis, No Pleuritic Pain, No Sputum, No Other Gastrointestinal: No Nausea, No Vomiting, No Abdominal Pain, No Diarrhea, No Constipation, No Melena, No Hematochezia, No Other Genitourinary: No Dysuria, No Frequency, No Incontinence, No Hematuria, No Retention, No Other Musculoskeletal: No other, No neck pain, No shoulder pain, No arm pain, No back pain, No hand pain; leg pain; No foot pain Skin: No Rash, No Lesions, No Jaundice, No Bruising, No Other Objective Vitals Vital Signs Date Time Temp Pulse Resp B/P (MAP) Pulse Ox O2 Delivery O2 Flow Rate FiO2 01/31/24 16:44 98.0 53 17 108/64 (79) 98 98.0 01/31/24 08:00 Room Air* 0 21 Intake/Output Intake and Output 01/31/24 07:00 Intake Total 2900 ml Output Total 950 ml Balance 1950 ml Intake Oral 2400 ml IV Total 500 ml Output Urine Total 950 ml # Bowel Movements 1 Exam DERMATOLOGIC EXAM: - Skin is dry and cool to the touch dry bilaterally. - Nails 1-5 of the bilateral foot are thickened, discolored, dystrophic, and tender to palpate with subungual debris - Hair loss noted to bilateral feet - left hallux swelling erythema and purulent drainage VASCULAR EXAM: - DP and PT pulses are palpable bilaterally. 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 - Feet are cool to touch compared to lower legs bilaterally. NEUROLOGIC EXAM: - Normal light touch sensation to the superficial peroneal, deep peroneal, sural, saphenous, and tibial nerve branches. - Protective sensation is diminished as tested with a 5.07 10g [place]-Sahra bilaterally. MUSCULOSKELETAL EXAM: - No gross deformities - Muscle strength is 5/5 and active motion is pain-free and symmetrical bilaterally - No pain or crepitation with passive range of motion bilaterally to all major pedal joints Medications Current Medications Medications Dose Ordered Sig/[place] Route Start Time Stop Time Status Last Admin Dose Admin Vancomycin HCl 0 ml @ 0 mls/hr UD IV 01/26/24 16:00 Lorazepam 0.5 mg Q6HP PRN PO 01/26/24 16:00 Al Hydrox/Mg Hydrox/Simethicone 30 ml Q6HP PRN PO 01/26/24 16:00 Docusate Sodium 100 mg BIDPRN PRN PO 01/26/24 16:00 Acetaminophen 650 mg Q6HP PRN PO 01/26/24 16:00 01/27/24 01:19 Temazepam 15 mg QHSP PRN PO 01/26/24 16:00 Acetaminophen/ Hydrocodone Bitart 1 tab Q4HP PRN PO 01/26/24 16:00 01/30/24 22:14 Morphine Sulfate 2 mg Q4HPRN PRN IV 01/26/24 16:00 01/29/24 03:59 Vancomycin HCl 250 ml @ 250 mls/hr Q15H IV 01/27/24 05:00 01/31/24 14:30 Atorvastatin Calcium 40 mg HS PO 01/28/24 22:00 01/30/24 22:13 Aspirin 81 mg DAILY PO 01/29/24 10:00 01/31/24 09:59 Gabapentin 300 mg Q6H PO 01/28/24 12:00 01/31/24 13:43 Insulin Glargine 30 units BID SC 01/30/24 10:00 01/31/24 10:08 Diagnostic Test (Pha) 1 strip ACHS 01/30/24 07:00 01/31/24 11:18 Insulin Human Regular AC SC 01/30/24 07:00 01/31/24 11:18 Insulin Human Regular HS SC 01/30/24 22:00 01/30/24 22:20 Dextrose 50 ml UD PRN IV 01/30/24 06:45 Meropenem 50 ml @ 17 mls/hr Q8H IV 01/30/24 18:00 01/31/24 09:59 Sodium Chloride 1,000 ml @ 75 mls/hr [id number] IV 01/31/24 06:45 01/31/24 07:46 Laboratory Results Laboratory Tests 01/31/24 04:55 Chemistry Test 01/31/24 04:55 Albumin 3.3 g/dL (3.2-4.8) Calcium Level 9.2 mg/dL (8.7-10.4) Total Protein 6.2 g/dL (5.7-8.2) LFT Test 01/31/24 04:55 Alanine Aminotransferase (ALT) 27 U/L (7-40) Alkaline Phosphatase 197 U/L (46-116) H Aspartate Amino Transferase (AST) 30 U/L (13-40) Total Bilirubin 0.2 mg/dL (0.2-1.0) Urinalysis Test 01/27/24 00:20 01/29/24 02:08 Urine Amorphous Crystals Few /hpf (None Seen) Urine Color Colorless (Yellow) Urine Clarity Turbid (Clear) H Urine pH 6.0 (5.0-9.0) Urine Specific [place] 1.016 (1.001-1.035) Urine Protein 2+ (Negative) H Urine Ketones Negative (Negative) Urine Blood 3+ /uL (Negative) H Urine Nitrite Negative (Negative) Urine Bilirubin Negative (Negative) Urine Urobilinogen Normal mg/dL (Negative) Urine Leukocyte Esterase Negative /uL (Negative) Urine RBC 1737 /hpf (0 - 3) Urine WBC 3 /hpf (0 - 3) Urine Squamous Epithelial Cells None seen /hpf (<5) Urine Bacteria None seen /hpf (None Seen) Urine Mucus Few (None Seen) Urine Glucose 4+ mg/dL (Normal) H Microbiology Microbiology Date/Time Source Procedure Growth Status 01/27/24 14:15 Foot Left Gram Stain Pending Resulted 01/27/24 14:15 Wound Culture - Preliminary Klebsiella pneumoniae - ESBL Streptococcus Group B Resulted 01/26/24 14:33 Blood Blood Culture - Final NO GROWTH AFTER 5 DAYS OF INCUBATION. Complete Assessment/Plan Assessment/Plan ASSESSMENT: Patient is a 53-year-old seen on the floor 1 day s/p from from an incision and drainage PLAN: - The patients chart was reviewed, clinical findings were discussed with the patient, the etiologies of the conditions were discussed in detail, and a treatment plan was agreed to at this time, with both oral and written instructions provided. - reviewed imaging which showed concern for soft tissue emphysema - we will plan to take the patient to the OR tomorrow - NPO at midnight - no amputation required at this point - there is significant soft tissue loss which will require prolonged wound care All questions were answered and concerns addressed to the patient's satisfaction. The patient was given the phone number to the clinic and was told how to make contact with the clinic should any concerns or questions arise. Patient understands that if any questions or concerns arise prior to the next appointment, we should be contacted immediately. Plan discussed with: Patient Problem List: (1) Thrombophlebitis (2) Cellulitis and abscess of left leg (3) Diabetic neuropathy (4) Hyperglycemia (5) Generalized weakness (6) Diabetes mellitus type 2 with complications, uncontrolled (7) Hypochloremia (8) Hyponatremia (9) Medication refill (10) Episode of syncope (11) New onset type 2 diabetes mellitus Date of Service: Jan 31, 2024 Billing Provider: DANIKA MONTES DPM Common Visit Codes: [id number] INP/OBS CARE(MOD) DANIKA MONTES DPM Jan 31, 2024 17:13
[2024-02-01] VITALS (9 sets, daily range): BP systolic 87–119; BP diastolic 54–71; PULSE 57–86; RESP 12–18; TEMP 97.9–100; O2SAT 96–100
[2024-02-01 06:18] LABS: Basophils # (auto) 0.1 10 ^3/uL (0-0.2); Basophils % (auto) 0.7 % (0.0-2.0); Eosinophils # (auto) 0.3 10 ^3/uL (0-0.8); Eosinophils % (auto) 2.5 % (0.0-7.0); Hematocrit 33.6 % (41.0-53.0); Hemoglobin 11.2 g/dL (13.5-17.5); Lymphocytes # (auto) 1.4 10 ^3/uL (0.4-5.4); Lymphocytes % (auto) 13.6 % (10.0-50.0); Mean Corpuscular Hemoglobin 29.8 pg (28.0-32.0); Mean Corpuscular Hgb Conc. 33.4 g/dL (32.0-36.0); Mean Corpuscular Volume 89.3 fL (80.0-100.0); Monocytes # (auto) 0.7 10 ^3/uL (0-1.3); Monocytes % (auto) 6.4 % (0.0-12.0); Neutrophils # (auto) 8.1 10 ^3/uL (1.6-8.6); Neutrophils % (auto) 76.8 % (37.0-80.0); Platelet Count (auto) 273 10^3/uL (140-450); Red Blood Cells 3.76 10^6/uL (4.5-5.90); Red Cell Distribution Width 13.1 % (11.8-14.3); White Blood Cell 10.5 10^3/uL (4.4-10.8)
[2024-02-01 06:27] LABS: Alanine Aminotransferase 35 U/L (7-40); Albumin 3.4 g/dL (3.2-4.8); Anion Gap 5 (5-15); Aspartate Aminotransferase 34 U/L (13-40); BUN/Creatinine Ratio 10.3 (10.0-20.0); Bilirubin, Total 0.2 mg/dL (0.2-1.0); Blood Urea Nitrogen 12 mg/dL (9-23); Calcium 9.2 mg/dL (8.7-10.4); Chloride 98 mmol/L (98-107); Potassium 3.9 mmol/L (3.5-5.1); Sodium 137 mmol/L (136-145); Total Protein 6.2 g/dL (5.7-8.2)
[2024-02-01 06:34] LABS: Alkaline Phosphatase 216 U/L (46-116); Carbon Dioxide 34 mmol/L (20-31); Glucose 252 mg/dL (74-106)
[2024-02-01] MEDS: DOCUSATE SOD 100 MG CAP PO PRN (10:24)
[2024-02-01] MEDS ORDERED: fentaNYL CITRATE 100 MCG/2 ML VL ONE (11:34)
[2024-02-01] MEDS ORDERED: PROPOFOL 10 MG/ML 20 ML IV ONE (11:36)
--- NOTE | 2024-02-01 11:53 | DVHPN2 ---
Subjective 53-year-old male with a past medical history of diabetes severely uncontrolled comes in with a complaint of left lower extremity pain for the past 3 days including swelling pain and warmth to palpation and touch patient was initially evaluated in the ED including having a bilateral ultrasound done to rule out acute signs of DVT at this point in time is a 60 suspected the patient might have a possible cutaneous infection and was recommended for inpatient continued treatment management and care Changes from previous H/P or p: No Changes Eyes: No Pain, No Vision change, No Conjunctivae inflammation, No Eyelid inflammation, No Other, No Redness ENT: No Ear pain, No Ear discharge, No Nose pain, No Nose discharge, No Nose congestion, No Mouth pain, No Mouth swelling, No Throat pain, No Throat swelling, No Other Cardiovascular: No Chest Pain, No Palpitations, No Orthopnea, No Paroxysmal Noc. Dyspnea, No Edema, No Lt Headedness, No Other Respiratory: No Cough, No Dry, No Shortness of breath, No SOB with excertion, No Wheezing, No Hemoptysis, No Pleuritic Pain, No Sputum, No Other Gastrointestinal: No Nausea, No Vomiting, No Abdominal Pain, No Diarrhea, No Constipation, No Melena, No Hematochezia, No Other Genitourinary: No Dysuria, No Frequency, No Incontinence, No Hematuria, No Retention, No Other Musculoskeletal: No other, No neck pain, No shoulder pain, No arm pain, No back pain, No hand pain; leg pain; No foot pain Skin: No Rash, No Lesions, No Jaundice, No Bruising, No Other Objective Vitals Vital Signs Date Time Temp Pulse Resp B/P (MAP) Pulse Ox O2 Delivery O2 Flow Rate FiO2 02/01/24 08:44 98.0 85 16 115/68 (84) 98 98.0 02/01/24 08:00 Room Air* 0 21 Intake/Output Intake and Output 02/01/24 07:00 Intake Total 2996 ml Output Total 651 ml Balance 2345 ml Intake Oral 2496 ml IV Total 500 ml Output Urine Total 650 ml Stool Total 1 ml # Voids 5 # Bowel Movements 2 Exam DERMATOLOGIC EXAM: - Skin is dry and cool to the touch dry bilaterally. - Nails 1-5 of the bilateral foot are thickened, discolored, dystrophic, and tender to palpate with subungual debris - Hair loss noted to bilateral feet - left hallux swelling erythema and purulent drainage VASCULAR EXAM: - DP and PT pulses are palpable bilaterally. 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 - Feet are cool to touch compared to lower legs bilaterally. NEUROLOGIC EXAM: - Normal light touch sensation to the superficial peroneal, deep peroneal, sural, saphenous, and tibial nerve branches. - Protective sensation is diminished as tested with a 5.07 10g [place]-Sahra bilaterally. MUSCULOSKELETAL EXAM: - No gross deformities - Muscle strength is 5/5 and active motion is pain-free and symmetrical bilaterally - No pain or crepitation with passive range of motion bilaterally to all major pedal joints Medications Current Medications Medications Dose Ordered Sig/[place] Route Start Time Stop Time Status Last Admin Dose Admin Vancomycin HCl 0 ml @ 0 mls/hr UD IV 01/26/24 16:00 Lorazepam 0.5 mg Q6HP PRN PO 01/26/24 16:00 Al Hydrox/Mg Hydrox/Simethicone 30 ml Q6HP PRN PO 01/26/24 16:00 Docusate Sodium 100 mg BIDPRN PRN PO 01/26/24 16:00 02/01/24 10:24 100 MG Acetaminophen 650 mg Q6HP PRN PO 01/26/24 16:00 01/27/24 01:19 650 MG Temazepam 15 mg QHSP PRN PO 01/26/24 16:00 Acetaminophen/ Hydrocodone Bitart 1 tab Q4HP PRN PO 01/26/24 16:00 02/01/24 10:25 1 TAB Morphine Sulfate 2 mg Q4HPRN PRN IV 01/26/24 16:00 02/01/24 05:19 2 MG Vancomycin HCl 250 ml @ 250 mls/hr Q15H IV 01/27/24 05:00 02/01/24 04:41 250 MLS/HR Atorvastatin Calcium 40 mg HS PO 01/28/24 22:00 01/31/24 22:00 40 MG Aspirin 81 mg DAILY PO 01/29/24 10:00 02/01/24 10:24 81 MG Gabapentin 300 mg Q6H PO 01/28/24 12:00 02/01/24 05:34 300 MG Insulin Glargine 30 units BID SC 01/30/24 10:00 01/31/24 22:00 30 UNITS Diagnostic Test (Pha) 1 strip ACHS 01/30/24 07:00 02/01/24 11:09 1 STRIP Insulin Human Regular AC SC 01/30/24 07:00 02/01/24 05:46 12 UNITS Insulin Human Regular HS SC 01/30/24 22:00 01/31/24 22:00 8 UNITS Dextrose 50 ml UD PRN IV 01/30/24 06:45 Meropenem 50 ml @ 17 mls/hr Q8H IV 01/30/24 18:00 02/01/24 10:23 17 MLS/HR Sodium Chloride 1,000 ml @ 75 mls/hr [id number] IV 01/31/24 06:45 02/01/24 10:27 75 MLS/HR Laboratory Results Laboratory Tests 02/01/24 05:23 Chemistry Test 02/01/24 05:23 Albumin 3.4 g/dL (3.2-4.8) Calcium Level 9.2 mg/dL (8.7-10.4) Total Protein 6.2 g/dL (5.7-8.2) LFT Test 02/01/24 05:23 Alanine Aminotransferase (ALT) 35 U/L (7-40) Alkaline Phosphatase 216 U/L (46-116) H Aspartate Amino Transferase (AST) 34 U/L (13-40) Total Bilirubin 0.2 mg/dL (0.2-1.0) Urinalysis Test 01/27/24 00:20 01/29/24 02:08 Urine Amorphous Crystals Few /hpf (None Seen) Urine Color Colorless (Yellow) Urine Clarity Turbid (Clear) H Urine pH 6.0 (5.0-9.0) Urine Specific [place] 1.016 (1.001-1.035) Urine Protein 2+ (Negative) H Urine Ketones Negative (Negative) Urine Blood 3+ /uL (Negative) H Urine Nitrite Negative (Negative) Urine Bilirubin Negative (Negative) Urine Urobilinogen Normal mg/dL (Negative) Urine Leukocyte Esterase Negative /uL (Negative) Urine RBC 1737 /hpf (0 - 3) Urine WBC 3 /hpf (0 - 3) Urine Squamous Epithelial Cells None seen /hpf (<5) Urine Bacteria None seen /hpf (None Seen) Urine Mucus Few (None Seen) Urine Glucose 4+ mg/dL (Normal) H Microbiology Microbiology Date/Time Source Procedure Growth Status 01/30/24 12:45 Drainage Gram Stain Pending Resulted 01/30/24 12:45 Drainage Anaerobic Culture Pending Resulted 01/30/24 12:45 Drainage Aerobic Culture - Preliminary Resulted 01/27/24 14:15 Foot Left Gram Stain Pending Resulted 01/27/24 14:15 Wound Culture - Preliminary Klebsiella pneumoniae - ESBL Streptococcus Group B Resulted 01/26/24 14:33 Blood Blood Culture - Final NO GROWTH AFTER 5 DAYS OF INCUBATION. Complete Assessment/Plan Assessment/Plan ASSESSMENT: Patient is a 53-year-old seen on the floor 2 day s/p from from an incision and drainage PLAN: - The patients chart was reviewed, clinical findings were discussed with the patient, the etiologies of the conditions were discussed in detail, and a treatment plan was agreed to at this time, with both oral and written instructions provided. - reviewed imaging which showed concern for soft tissue emphysema - we will plan to take the patient to the OR today - NPO since midnight - no amputation required at this point - there is significant soft tissue loss which will require prolonged wound care All questions were answered and concerns addressed to the patient's satisfaction. The patient was given the phone number to the clinic and was told how to make contact with the clinic should any concerns or questions arise. Patient understands that if any questions or concerns arise prior to the next appointment, we should be contacted immediately. Plan discussed with: Patient My Orders Orders - DANIKA MONTES DPM Procedure Category Date Status Time Obtain Consent For: ORDERS 01/31/24 Transmitted 17:15 Problem List: (1) Thrombophlebitis (2) Cellulitis and abscess of left leg (3) Diabetic neuropathy (4) Hyperglycemia (5) Generalized weakness (6) Diabetes mellitus type 2 with complications, uncontrolled (7) Hypochloremia (8) Hyponatremia (9) Medication refill (10) Episode of syncope (11) New onset type 2 diabetes mellitus Date of Service: Feb 01, 2024 Billing Provider: DANIKA MONTES DPM Common Visit Codes: [id number] INP/OBS CARE(MOD) DANIKA MONTES DPM Feb 01, 2024 11:53
--- NOTE | 2024-02-01 12:02 | DVH ---
INDICATION: hematuria TECHNIQUE: Multiple real-time sonographic images of the kidneys and bladder were obtained. COMPARISON: None FINDINGS: The right kidney measures 10.7 cm in length, which is normal in size. There is normal echogenicity of the right kidney. Moderate hydronephrosis. The left kidney measures 11.3 cm in length, which is normal in size. There is normal echogenicity of the left kidney. Moderate hydronephrosis. The urinary bladder wall is irregularly thickened for its degree of distention. Prior to voiding the bladder volume measures volume 47 cc. IMPRESSION: 1. Moderate bilateral hydronephrosis. 2. Irregularly thickened urinary bladder wall. Could be due to mass lesion, chronic outlet obstructi on, or infectious/ inflammatory process. HS:Y
[2024-02-01] MEDS: BUPIVACAINE 0.5% P/F INJ 10 ML VIAL ONE (12:25)
[2024-02-01] MEDS ORDERED: ePHEDrine SULFATE 50 MG/ML AMP ONE (12:25)
[2024-02-01] MEDS: VANCOMYCIN HCL 1000 MG VL ONE (12:26)
[2024-02-01] MEDS ORDERED: ONDANSETRON HCL 4 MG/2 ML VIAL ONE (12:34)
[2024-02-01] MEDS: ONDANSETRON HCL 4 MG/2 ML VIAL IV ONE (13:15)
[2024-02-01] MEDS ORDERED: MEPERIDINE HCL (25 MG/ML) 1ML VIAL IV PRN (13:15)
[2024-02-01] MEDS ORDERED: ACETAMINOPHEN IV 1000 MG/100ML (10MG/ML) IV PRN (13:15)
[2024-02-01] MEDS ORDERED: HYDROmorphone HCL 2 MG/ML VL/or syr IV PRN (13:15)
[2024-02-01] MEDS: SODIUM CHLORIDE 0.9% 1,000 ML IV ONE (16:33)
--- NOTE | 2024-02-01 17:43 | DVHPNRES ---
Progress Note Date Seen: Feb 01, 2024 Resident Creating Document: DAVE HERMAN RESIDENT Medical Necessity Reason Pt with a Central, PICC or Fol: No Subjective Review of Systems Noel Yu is a 53-year-old male with PMHX DM, HLD who came to to ED due to left lower limb wound and swelling associating with pain intensity 10/10 three days before his admissiont. Patient reports recent hospitalization due to DKA, were after discharge symptoms occurred. Patient is not sure if he had any trauma, he believes he could of hit his foot and not have felt traumatic injury. Denies palpitation, syncope, chest pain, dyspnea, nausea, vomiting, diarrhea, constipation, dysuria, chills, fever, recent travel, sick contacts and motor or sensory deficits. Past medical history: Diabetes, dyslipidemia, polyneuropathy, noncompliance Surgical history: Denies Family history: Father had diabetes and leukemia Social history: Lives in [place] in an assisted living facility (brother mother live in [place]). He is a current smoker (approximately 20 pack-year history of smoking). Denies alcohol and other drug abuse. Allergies: Denies Home medication: Gabapentin 300 mg p.o. Q 6 hours and metformin 500 mg p.o. b.i.d. patient was discharged with insulin but he did not start using insulin. Patient examined and seen at bedside, stated hematuria, previously was ordered bladder ultrasound and PSA, PSA normal, image was pending. Objective vital signs Vital Sign Date Time Temp Pulse Resp B/P (MAP) Pulse Ox O2 Delivery O2 Flow Rate FiO2 02/01/24 16:49 98.0 64 17 87/55 (66) 96 98.0 02/01/24 12:54 Mask 6.0 02/01/24 12:54 100 Total Intake and Output 01/31/24 01/31/24 02/01/24 15:00 23:00 07:00 Intake Total 1148 ml 1348 ml 500 ml Output Total 1 ml 650 ml Balance 1148 ml 1347 ml -150 ml medications Current Medications Medications Dose Ordered Sig/[place] Route Start Time Stop Time Status Last Admin Dose Admin Vancomycin HCl 0 ml @ 0 mls/hr UD IV 01/26/24 16:00 Lorazepam 0.5 mg Q6HP PRN PO 01/26/24 16:00 Al Hydrox/Mg Hydrox/Simethicone 30 ml Q6HP PRN PO 01/26/24 16:00 Docusate Sodium 100 mg BIDPRN PRN PO 01/26/24 16:00 02/01/24 10:24 100 MG Temazepam 15 mg QHSP PRN PO 01/26/24 16:00 Vancomycin HCl 250 ml @ 250 mls/hr Q15H IV 01/27/24 05:00 02/01/24 04:41 250 MLS/HR Atorvastatin Calcium 40 mg HS PO 01/28/24 22:00 01/31/24 22:00 40 MG Aspirin 81 mg DAILY PO 01/29/24 10:00 02/01/24 10:24 81 MG Gabapentin 300 mg Q6H PO 01/28/24 12:00 02/01/24 05:34 300 MG Insulin Glargine 30 units BID SC 01/30/24 10:00 01/31/24 22:00 30 UNITS Diagnostic Test (Pha) 1 strip ACHS 01/30/24 07:00 02/01/24 16:37 1 STRIP Insulin Human Regular AC SC 01/30/24 07:00 02/01/24 16:55 12 UNITS Insulin Human Regular HS SC 01/30/24 22:00 01/31/24 22:00 8 UNITS Dextrose 50 ml UD PRN IV 01/30/24 06:45 Meropenem 50 ml @ 17 mls/hr Q8H IV 01/30/24 18:00 02/01/24 10:23 17 MLS/HR Sodium Chloride 1,000 ml @ 75 mls/hr [id number] IV 01/31/24 06:45 02/01/24 10:27 75 MLS/HR Examination GEN: Healthy appearing, well-developed, NAD. PSYCH: Good Judgment. AOx3. Normal memory, mood, and affect. HEENT -Head: normocephalic atraumatic, no facial trauma, neck is supple -Eyes: PERRL, EOMI. No discharge or redness; -Ears: External ears are normal. Normal TMs. -Nose: Normal nares. -Mouth and throat: MMM. Normal gums, mucosa, palate,. Good dentition. NECK: Supple, with no masses. CV: RRR, no m/r/g. LUNGS: respiratory effort normal, speaks in full sentences, no tripod position, no accessory muscle use. Lungs clear to auscultation without rhonchi, wheezes, rales ABD: Soft, ND/NT. No evidence of fluid wave. No pulsatile masses on exam, rebound tenderness, [place] sign or pain over Mcburney's point. : N/A SKIN: Warm, well perfused. No skin rashes or abnormal lesions. MSK: the foot is covered, adequate prefusion in the toes NEURO: Ambulating with no limitations. Normal muscle strength and tone. No focal deficits laboratory and microbiology Laboratory Tests 02/01/24 05:23 Test 02/01/24 05:23 Range/Units Serum Glucose 252 H 74-106 mg/dL Microbiology Date/Time Source Procedure Growth Status 02/01/24 04:45 Nose MRSA Screen - Final Complete 01/30/24 12:45 Drainage Gram Stain - Final Resulted 01/30/24 12:45 Drainage Anaerobic Culture Pending Resulted 01/30/24 12:45 Drainage Aerobic Culture - Preliminary Resulted 01/26/24 14:33 Blood Blood Culture - Final NO GROWTH AFTER 5 DAYS OF INCUBATION. Complete Problem List/Assessment/Plan Problem List/Assessment/Plan #Sepsis secondary to Left foot abscess Left foot necrotizing fasciitis Left foot diabetic ulcer #wound culture: klebsiella pneumoniae ESBL, streptococcus Group B #BERENICE hemodynamically mediated on CKD (baseline creatinine on February 2023 1.68) - Improving #Moderate bilateral hydronephrosis #Irregularly thickened urinary bladder wall. #Rule out mass lesion, chronic outlet obstruction, or infectious/ inflammatory process #Hematuria #Diabetes - uncontrolled (hemoglobin A1c 13.5%) #Noncompliance #Pseudohyponatremia due to hyperglycemia #Polysubstance abuse #Peripheral artery disease #Diabetic neuropathy #Hypokalemia resolved #DVT ruled out #Current smoker Images: Renal US:1. Moderate bilateral hydronephrosis. 2. Irregularly thickened urinary bladder wall. Could be due to mass lesion, chronic outlet obstruction, or infectious/ inflammatory process. artery US: No hemodynamically significant stenosis based on peak systolic velocity criteria. Monophasic waveforms within the posterior tibial, anterior tibial and dorsalis pedis arteries which may be from vasodilation versus atherosclerotic disease. Left foot MRI:The bone marrow signal is essentially normal without evidence of acute fracture, avascular necrosis, or aggressive osseous lesion. No bone marrow edema or bony destructive changes suggest acute osteomyelitis. There is diffuse subcutaneous soft-tissue edema and swelling suggestive of cellulitis. This is most severe at the distal 1st digit. There is suggestion of ulceration in small volume subcutaneous emphysema at the level of the 1st MTP. Moderate joint effusion at the 1st MTP. Diabetic diet [employer] Maynard consult: today patient was taken to I&D: no further surgeries MRI ruled out osteo Antibiotics: meropenem + vanco Keep fluids due to sepsis and BERENICE Lantus 30 UI BID SC Agressive insulin sliding scale Pain medication Aspirin and lipitor due to PAD Gabapentin FLORENCE Albarran due to bilateral hydronephrosis Case discussed with Dr Crawford Time spent on care 23 min Plan discussed with: Patient, Other (rn) My Orders My Orders Orders - DAVE HERMAN RESIDENT Procedure Category Date Status Time Kidney US 02/01/24 Resulted 10:53 Insert Albarran Catheter MALLIKA 02/01/24 In Process 17:22 * Urology Consult CONS 02/01/24 Transmitted 17:23 Dietary Evaluation Review Comments: 1) Consider CASS 1 pkt BID 2) Continue current plan of care Expected Outcomes/Goals: F/U in 3-5 days Date of Service: Feb 01, 2024 Billing Provider: LYLA CRAWFORD MD Common Visit Codes: [id number] INP/OBS CARE(HIGH) DAVE HERMAN RESIDENT Feb 01, 2024 17:43 LYLA CRAWFORD MD Feb 05, 2024 18:56
[2024-02-02 01:00] VITALS: BP 110/61; PULSE 80; RESP 18; TEMP 99.4; O2SAT 98
[2024-02-02 06:47] LABS: Basophils # (auto) 0 10 ^3/uL (0-0.2); Basophils % (auto) 0.5 % (0.0-2.0); Eosinophils # (auto) 0.2 10 ^3/uL (0-0.8); Hematocrit 33.1 % (41.0-53.0); Lymphocytes # (auto) 1.2 10 ^3/uL (0.4-5.4); Mean Corpuscular Hemoglobin 29.6 pg (28.0-32.0); Mean Corpuscular Hgb Conc. 33.2 g/dL (32.0-36.0); Mean Corpuscular Volume 89.3 fL (80.0-100.0); Monocytes # (auto) 0.5 10 ^3/uL (0-1.3); Monocytes % (auto) 5.1 % (0.0-12.0); Neutrophils # (auto) 7.2 10 ^3/uL (1.6-8.6); Neutrophils % (auto) 79.4 % (37.0-80.0); Platelet Count (auto) 314 10^3/uL (140-450); Red Blood Cells 3.71 10^6/uL (4.5-5.90); Red Cell Distribution Width 12.9 % (11.8-14.3); White Blood Cell 9.1 10^3/uL (4.4-10.8)
[2024-02-02 07:06] LABS: Alanine Aminotransferase 32 U/L (7-40); Albumin 3.3 g/dL (3.2-4.8); Anion Gap 6 (5-15); Aspartate Aminotransferase 26 U/L (13-40); BUN/Creatinine Ratio 13.1 (10.0-20.0); Bilirubin, Total 0.3 mg/dL (0.2-1.0); Blood Urea Nitrogen 16 mg/dL (9-23); Calcium 9.1 mg/dL (8.7-10.4); Chloride 98 mmol/L (98-107); GFR African American 81 mL/min; GFR Non-African American 67 mL/min; Potassium 3.7 mmol/L (3.5-5.1); Sodium 137 mmol/L (136-145); Total Protein 6.4 g/dL (5.7-8.2)
[2024-02-02 07:09] LABS: Alkaline Phosphatase 212 U/L (46-116); Carbon Dioxide 33 mmol/L (20-31); Glucose 248 mg/dL (74-106); Phosphorus 2.2 mg/dL (2.4-5.1)
[2024-02-02 09:00] VITALS: BP 126/63; PULSE 53; RESP 18; TEMP 98.7; O2SAT 96
[2024-02-02 13:00] VITALS: BP 96/55; PULSE 60; RESP 14; TEMP 98.1; O2SAT 97
[2024-02-02] MEDS ORDERED: LEVO500T91 PO (15:55)
[2024-02-02] MEDS ORDERED: LANCKIT12 XX (15:55)
[2024-02-02] MEDS ORDERED: BLOO1KIT60 XX (15:55)
[2024-02-02] MEDS ORDERED: DOXY50CA PO (15:56)
[2024-02-02] MEDS ORDERED: INSLANTI SC (15:57)
[2024-02-02] MEDS ORDERED: ASPI-325 PO (15:57)
[2024-02-02] MEDS ORDERED: ATOR20TA50 PO (15:57)
--- NOTE | 2024-02-02 16:45 | DVHDSRES ---
Discharge Summary Date of Admission Resident Creating Document: DAVE HERMAN RESIDENT Jan 26, 2024 at 15:48 Date of Discharge: Feb 02, 2024 Admitting Diagnosis necrotizing fascitis Labs/Diagnostic Data: Laboratory Results Test 02/02/24 10:26 02/02/24 05:46 01/30/24 21:59 01/29/24 06:22 POC Glucose 151 mg/dl (70-106) White Blood Count 9.1 10^3/uL (4.4-10.8) Red Blood Count 3.71 10^6/uL (4.5-5.90) Hemoglobin 11.0 g/dL (13.5-17.5) Hematocrit 33.1 % (41.0-53.0) Mean Corpuscular Volume 89.3 fL (80.0-100.0) Mean Corpuscular Hemoglobin 29.6 pg (28.0-32.0) Mean Corpuscular Hemoglobin Concent 33.2 g/dL (32.0-36.0) Red Cell Distribution Width 12.9 % (11.8-14.3) Platelet Count 314 10^3/uL (140-450) Mean Platelet Volume 8.5 fL (6.9-10.8) Neutrophils (%) (Auto) 79.4 % (37.0-80.0) Lymphocytes (%) (Auto) 13.0 % (10.0-50.0) Monocytes (%) (Auto) 5.1 % (0.0-12.0) Eosinophils (%) (Auto) 2.0 % (0.0-7.0) Basophils (%) (Auto) 0.5 % (0.0-2.0) Neutrophils # (Auto) 7.2 10 ^3/uL (1.6-8.6) Lymphocytes # (Auto) 1.2 10 ^3/uL (0.4-5.4) Monocytes # (Auto) 0.5 10 ^3/uL (0-1.3) Eosinophils # (Auto) 0.2 10 ^3/uL (0-0.8) Basophils # (Auto) 0 10 ^3/uL (0-0.2) Nucleated Red Blood Cells 0.0 % Sodium Level 137 mmol/L (136-145) Potassium Level 3.7 mmol/L (3.5-5.1) Chloride Level 98 mmol/L (98-107) Carbon Dioxide Level 33 mmol/L (20-31) Anion Gap 6 (5-15) Blood Urea Nitrogen 16 mg/dL (9-23) Creatinine 1.22 mg/dL (0.700-1.30) Glomerular Filtration Rate Calc 72 mL/min (>90) Estimated GFR () 81 mL/min Estimated GFR (Non- 67 mL/min BUN/Creatinine Ratio 13.1 (10.0-20.0) Serum Glucose 248 mg/dL (74-106) Calcium Level 9.1 mg/dL (8.7-10.4) Phosphorus Level 2.2 mg/dL (2.4-5.1) Total Bilirubin 0.3 mg/dL (0.2-1.0) Aspartate Amino Transferase (AST) 26 U/L (13-40) Alanine Aminotransferase (ALT) 32 U/L (7-40) Alkaline Phosphatase 212 U/L (46-116) Total Protein 6.4 g/dL (5.7-8.2) Albumin 3.3 g/dL (3.2-4.8) Vancomycin Level Trough 13.3 ug/mL (5-10) Prothrombin Time 11.4 sec (9.3-11.8) Prothrombin Time INR 1.08 (0.9-1.15) Activated Partial Thromboplast Time 31.1 SEC (24.5-34.5) Magnesium Level 1.5 mg/dL (1.6-2.6) Triglycerides Level 81 mg/dL (< 150) Cholesterol Level 57 mg/dL (< 200) LDL Cholesterol 20 mg/dL (< 100) HDL Cholesterol 20 mg/dL (40-59) Free Prostate Specific Antigen 0.03 ng/mL (N/A) Percent Free Prostate Specific Ag 7.5 % (.) Prostate Specific Antigen Total 0.4 ng/mL (0.0-4.0) Test 01/29/24 02:08 01/27/24 10:12 01/27/24 05:32 01/27/24 00:20 Urine Color Colorless (Yellow) Urine Clarity Turbid (Clear) Urine pH 6.0 (5.0-9.0) Urine Specific [place] 1.016 (1.001-1.035) Urine Protein 2+ (Negative) Urine Ketones Negative (Negative) Urine Blood 3+ /uL (Negative) Urine Nitrite Negative (Negative) Urine Bilirubin Negative (Negative) Urine Urobilinogen Normal mg/dL (Negative) Urine Leukocyte Esterase Negative /uL (Negative) Urine RBC 1737 /hpf (0 - 3) Urine WBC 3 /hpf (0 - 3) Urine Squamous Epithelial Cells None seen /hpf (<5) Urine Bacteria None seen /hpf (None Seen) Urine Mucus Few (None Seen) Urine Glucose 4+ mg/dL (Normal) Urine Opiates Screen Neg (NEGATIVE) Urine Fentanyl Screen Neg (NEGATIVE) Urine Barbiturates Screen Neg (NEGATIVE) Urine Phencyclidine Screen Neg (NEGATIVE) Urine Amphetamines Screen Neg (NEGATIVE) Urine Benzodiazepines Screen Neg (NEGATIVE) Urine Cocaine Screen Neg (NEGATIVE) Urine Cannabinoids Screen Neg (NEGATIVE) Ammonia 34 umol/L (11-32) Hemoglobin A1c 13.5 % A1C (<5.7) Lipase 27 U/L (12-53) Vitamin B12 Level 677 pg/mL (211-911) Vitamin D 25-Hydroxy 17.6 ng/mL (30.0-100) Thyroid Stimulating Hormone (TSH) 0.81 uIU/mL (0.55-4.78) Urine Amorphous Crystals Few /hpf (None Seen) Test 01/26/24 15:18 01/26/24 14:33 01/26/24 11:30 Blood Gas Specimen Type Arterial Blood Gas Sample Site Right radial Blood Gas Patient Temperature 37.0 Arterial Blood Date Drawn [id number] Arterial Blood pH 7.420 (7.350-7.450) Arterial Blood Partial Pressure CO2 29.8 mmHg (35.0-48.0) Arterial Blood Partial Pressure O2 76.8 mmHg (83.0-108.0) Arterial Blood HCO3 18.9 mmol/L (21.0-28.0) Arterial Blood Oxygen Saturation 95.2 % (94.0-98.0) Arterial Blood Base Excess -4.5 mmol/L (-2.0-3.0) Arterial Blood Oxyhemoglobin 94.4 % (94.0-98.0) Arterial Blood Carboxyhemoglobin 0.8 % (0.5-1.5) Arterial Blood Methemoglobin 0.0 % (0.0-1.5) [place] Test Yes Blood Gas Total Hemoglobin 12.30 g/dL (13.5-17.5) Blood Gas Modality Room air FiO2 % 21.0 Lactic Acid Level 1.6 mmol/L (0.4-2.0) Beta-Hydroxybutyric Acid 1.930 mmol/L (< 0.4) Other Laboratory Tests 02/02/24 05:46 Brief Hx & Hospital Course: A 53-year-old male with a history of diabetes, dyslipidemia, peripheral artery disease, and diabetic neuropathy, polysubstance abuse presenting with a left lower limb wound associated with severe pain and swelling. Imaging and clinical evaluation revealed a left foot abscess, necrotizing fasciitis. The patient underwent incision and drainage x2 of the abscess with drainage of purulent material, irrigation, and partial closure of the wound. Cultures grew Klebsiella pneumoniae ESBL, Streptococcus Group B, Staph aureus treated with meropenem and vancomycin. Postoperative course was stable, and he received aggressive insulin therapy, fluid management for BERENICE, and pain control. Due to hematuria, renal ultrasound showed moderate bilateral hydronephrosis and an irregularly thickened bladder wall concerning for malignancy or obstruction, warranting follow-up. At discharge, the patient is stable with resolved acute kidney injury and hypokalemia . He is advised to continue antibiotics (doxycycline and levofloxacin) and start Lantus for glucose control. Follow-up appointments are scheduled with Dr. Anaya, urologist, to rule out bladder cancer, Dr Maynard due to diabetic foot and with the MA for continued care. Home health for PT and wound care. Patient education was provided regarding the importance of medication adherence, wound care, and diabetes management. He is instructed to return to the ER if symptoms worsen. GEN: Healthy appearing, well-developed, NAD. PSYCH: Good Judgment. AOx3. Normal memory, mood, and affect. HEENT -Head: normocephalic atraumatic, no facial trauma, neck is supple -Eyes: PERRL, EOMI. No discharge or redness; -Ears: External ears are normal. Normal TMs. -Nose: Normal nares. -Mouth and throat: MMM. Normal gums, mucosa, palate,. Good dentition. NECK: Supple, with no masses. CV: RRR, no m/r/g. LUNGS: respiratory effort normal, speaks in full sentences, no tripod position, no accessory muscle use. Lungs clear to auscultation without rhonchi, wheezes, rales ABD: Soft, ND/NT. No evidence of fluid wave. No pulsatile masses on exam, rebound tenderness, [place] sign or pain over Mcburney's point. : N/A SKIN: Warm, well perfused. No skin rashes or abnormal lesions. MSK: the foot is covered, adequate prefusion in the toes NEURO: Ambulating with no limitations. Normal muscle strength and tone. No focal deficits Case discussed with Dr Crawford Consults/Reason for consult channel supervisor due to diabetic foot Operations or Procedures Operative Report - 2 Report Details Date: 01/30/24 Preop Diagnosis: 1. Left foot abscess 2. Left foot necrotizing fasciitis 3. Left foot diabetic ulcer Postop Diagnosis: Same as preop Surgeon: Lamberto Maynard MD Anesthesiologist: See anesthesia Anesthesia: Mac Consent: The patient was informed of the risks and benefits of the procedure. These include but are not limited to complications of anesthesia, postoperative infection, incomplete relief of symptoms, recurrence of symptoms, damage to blood vessels, nerves and tendons, deep venous thrombosis, pulmonary embolism and possible need for repeat surgery in the future. Complications: None Estimated Blood Loss: Minimal Fluids: See anesthesia Findings: Significant amount of necrosis of the skin on the medial aspect Indications for Surgery: Worsening left foot pain Name of Procedure Performed 1. Left foot I&D to bone Procedure Details Procedure Details: PRE-PROCEDURE INFORMATION: In the pre-op holding area, the extremity to be operated on was clearly marked and the patient verified correct laterality of the marking. The patient was transferred to the OR table and placed in a supine position. A timeout was performed in which identification of the correct patient, procedure, location, and materials was done. The left foot and leg were prepped and draped in normal sterile fashion. DESCRIPTION OF PROCEDURE: Attention was directed to the left where area of fluctuance was noted. An incision was made over this area and was deepened through blunt dissection. The incision was deepened to the level of abscess and bone. Care was taken to the dissection to avoid any neurovascular and tendinous structures. The incision was deepened to the bone, and the abscess appeared to be purulent fluid consistent with pus. After the abscess was drained, the area was irrigated with 3 L normal saline using cysto tubing. Deep cultures were then obtained from the wound. The area was then inspected and any areas of tracking, especially along the tendons were also drained. The wound was packed with Betadine-soaked gauze and we will need to be closed at a later date. A dry sterile dressing was placed on the surgical extremity. The patient was placed in a postop shoe. POSTOPERATIVE INFORMATION: The patient tolerated the above noted procedure and anesthesia well and was transferred to the PACU with vital signs stable, and vascular status intact with capillary refill intact to all digits. Patient will return to the floor continue IV ABX. Cultures were taken. Patient can weightbear in a postoperative shoe. We will see how the wound heals over the next 48 hours. Patient will return to the OR for another incision and drainage. PRE-PROCEDURE INFORMATION: In the pre-op holding area, the extremity to be operated on was clearly marked and the patient verified correct laterality of the marking. The patient was transferred to the OR table and placed in a supine position. A timeout was performed in which identification of the correct patient, procedure, location, and materials was done. The left foot and leg were prepped and draped in normal sterile fashion. DESCRIPTION OF PROCEDURE: Attention was directed to the left where area of fluctuance was noted. An incision was made over this area and was deepened through blunt dissection. The incision was deepened to the level of abscess and bone. Care was taken to the dissection to avoid any neurovascular and tendinous structures. The incision was deepened to the bone, and the abscess appeared to be purulent fluid consistent with pus. After the abscess was drained, the area was irrigated with 3 L normal saline using cysto tubing. Deep cultures were then obtained from the wound. The area was then inspected and any areas of tracking, especially along the tendons were also drained. The wound was partially closed with 2-0 nylon for a delayed closure. The remaining was dressed with a Betadine-soaked gauze A dry sterile dressing was placed on the surgical extremity. The patient was placed in a postop shoe. POSTOPERATIVE INFORMATION: The patient tolerated the above noted procedure and anesthesia well and was transferred to the PACU with vital signs stable, and vascular status intact with capillary refill intact to all digits. Patient will return to the floor continued antibiotics. Patient will likely need a dermal graft in the future but we will continue to see how the granulation works in the wound. Patient will follow up with me in 1 week for continued wound care. INDICATION: hematuria TECHNIQUE: Multiple real-time sonographic images of the kidneys and bladder were obtained. COMPARISON: None FINDINGS: The right kidney measures 10.7 cm in length, which is normal in size. There is normal echogenicity of the right kidney. Moderate hydronephrosis. The left kidney measures 11.3 cm in length, which is normal in size. There is normal echogenicity of the left kidney. Moderate hydronephrosis. The urinary bladder wall is irregularly thickened for its degree of distention. Prior to voiding the bladder volume measures volume 47 cc. IMPRESSION: 1. Moderate bilateral hydronephrosis. 2. Irregularly thickened urinary bladder wall. Could be due to mass lesion, chronic outlet obstruction, or infectious/ inflammatory process. Condition at Discharge: Good Final Diagnosis/Problems List #Sepsis secondary to Left foot abscess Left foot necrotizing fasciitis Left foot diabetic ulcer #wound culture: klebsiella pneumoniae ESBL, streptococcus Group B #BERENICE hemodynamically mediated on CKD (baseline creatinine on February 2023 1.68) - Improving #Moderate bilateral hydronephrosis #Irregularly thickened urinary bladder wall. #Rule out mass lesion, chronic outlet obstruction, or infectious/ inflammatory process #Hematuria #Diabetes - uncontrolled (hemoglobin A1c 13.5%) #Noncompliance #Pseudohyponatremia due to hyperglycemia #Polysubstance abuse #Peripheral artery disease #Diabetic neuropathy #Hypokalemia resolved #DVT ruled out #Current smoker Discharge Disposition: Home Discharge Instruct/Medications Diet: Consistent carbohydrate, Cardiac 2g Na,low cholest Activity: Light activity Follow Up/Referral: f/u with Dr Maynard in his office, or clinic, f/u with Dr Anaya urologist Medications: see prescription Discharge Statement: "Patient was advised to return to the ER or call 911 if any headaches, dizziness, shortness of breath, chest pain, abdominal pain, bleeding, fevers, or worsening of medical condition. Patient was counseled about treatment plan, medications, possible side effects, patientverbalized understanding. All questions were answered to the best of my ability. This discharge took greater then 30 minutes in planning, reviewing documentation, counseling the patient, and discussing with other team members." ASSESSMENT ASSESSMENT Assessment necrotizating fascitis bladder thickening bladder cancer rule out Date of Service: Feb 02, 2024 Billing Provider: LYLA CRAWFORD MD Common Visit Codes: 15507-MMA/OBS DISCH DAY >30min DAVE HERMAN RESIDENT Feb 02, 2024 16:45 LYLA CRAWFORD MD Feb 05, 2024 18:56
[2024-02-02 17:00] VITALS: BP 92/65; PULSE 66; RESP 18; TEMP 98.3; O2SAT 97
[2024-02-02 17:28] VITALS: BP 98/65; PULSE 86; RESP 17; TEMP 97.9; O2SAT 97
== END 2024-02-02 18:00 | disposition home health service (06) | DRG 720 ==
LOC: ER 10:42 → EDBD 10:42 → OVERFLOW 15:48 → WEST WING 01-27 15:40 → EAST 01-29 19:50
PROVIDERS: ADMIT Internal Medicine Geriatric Medicine; ATTEND General Practice
PROC: 0Y9N0ZZ Drainage of Left Foot, Open Approach (ICD-10-PCS; principal; 2024-01-30 12:29)
PROC: 0Y9N0ZZ Drainage of Left Foot, Open Approach (ICD-10-PCS; 2024-02-01)
DX: A41.9 Sepsis, unspecified organism (principal); N17.0 Acute kidney failure with tubular necrosis; M72.6 Necrotizing fasciitis; E87.20 Acidosis, unspecified; L02.416 Cutaneous abscess of left lower limb; L03.116 Cellulitis of left lower limb; I80.8 Phlebitis and thrombophlebitis of other sites; E11.40 Type 2 diabetes mellitus with diabetic neuropathy, unspecified; E11.65 Type 2 diabetes mellitus with hyperglycemia; E11.51 Type 2 diabetes mellitus with diabetic peripheral angiopathy without gangrene; E87.6 Hypokalemia; B96.1 Klebsiella pneumoniae [K. pneumoniae] as the cause of diseases classified elsewhere; E11.621 Type 2 diabetes mellitus with foot ulcer; B95.1 Streptococcus, group B, as the cause of diseases classified elsewhere; F17.210 Nicotine dependence, cigarettes, uncomplicated; C67.9 Malignant neoplasm of bladder, unspecified; Z83.3 Family history of diabetes mellitus; Z79.899 Other long term (current) drug therapy; Z91.199 Patient's noncompliance with other medical treatment and regimen due to unspecified reason; N13.30 Unspecified hydronephrosis; R31.9 Hematuria, unspecified
CPT/HCPCS: 36415; 36600; 71045; 73718; 76775; 80048; 80053; 80061; 80069; 80202; 80307; 81001; 82010; 82140; 82306; 82565; 82607; 82805; 82962; 83036; 83605; 83690; 83735; 84100; 84154; 84443; 85025; 85610; 85730; 86850; 86900; 86901; 87040; 87070; 87075; 87076; 87077; 87081; 87186; 87205; 93306; 93926; 93970; 96365; 97163; G0378; J0131; J1100; J1815; J2003; J2185; J2250; J2405; J2543; J2704; J3480; J3490

== ENCOUNTER 2024-02-27 16:26 | Inpatient (IN) | payer MEDICAID ==
[~2024-02-27] VITALS: Ht 180.3 cm; Wt 67.7 kg
[~2024-02-27 16:26] MED LIST changes: +ASPI-325 PO; +ATOR20TA50 PO; +BLOO1KIT60 XX; +DOXY50CA PO; +INSLANTI SC; +LANCKIT12 XX; +LEVO500T91 PO
--- NOTE | 2024-02-27 17:05 | ED.PDOC ---
Musculoskeletal HPI Comments HPI: Poor Historian. 53-year-old male presents to the emergency department for evaluation of at least one-week history of left postsurgical foot pain with the associated black toes and erythema of the dorsum of the foot. Pain is constant. Patient had a left foot surgery approximately three weeks ago by a doctor here in this hospital. He does not know the name of the antibiotics that he is currently on and does not know the name of the doctor or the reason why he had his surgery. Patient states that he ran out of gauze and has not been doing the proper wound care for his left foot. Approximately a week ago it started turning black the great toe and the 2nd toe with the associated erythema and pain. Patient appears homeless but denies being homeless. The foot is not cold. There is pedal pulse palpable at the affected extremity. Past Medcial History: Diabetes Past Surgical History: Foot surgery REVIEW OF SYSTEMS: CONSTITUTIONAL: Denies acute: fever, diaphoresis, chills, HEAD: Denies acute: headache, photophobia Eyes: Denies acute: Double vision, vision loss, eye pain, eye discharge. EARS: Denies acute: tinnitus, hearing loss, ear discharge, ear pain, THROAT: Denies acute: sore throat, swelling, difficulty swallowing , pain with swallowing, change in voice. NECK: Denies acute: neck pain, neck swelling, stiff neck. HEART: Denies acute : chest pain, palpitations, LUNGS: Denies acute: SOB, wheezing, cough, hemoptysis ABDOMEN: Denies acute: abdominal pain, Nausea, Vomiting, diarrhea, melena , hematemesis, hematochezia SKIN: Denies acute: rash, redness, lesions, itchiness. EXTREMITIES: Denies acute: calf pain, numbness, tingling, weakness, denies pain in extremity. Denies acute: Low back pain. Neuro: Denies acute: focal neurological deficit, motor or sensory focal neurological deficit, tremors, seizure like activity, confusion, dizziness, change in mental status, loss of bowel or bladder function, cauda equina like symptoms. : Denies acute: dysuria, hematuria, flank pain, increase in urinary frequency. PSYCH: Denies acute: hallucination, suicidal ideation, homicidal ideation. PHYSICAL EXAM: General: Ugfa-[id number]-jmbnymxa acute distress, awake and alert. Head: normocephalic, atraumatic. Neck: supple, trachea is midline, no swelling. Throat: Normal phonation. Eyes:, no erythema, no purulent discharge, no proptosis, no icterus. Heart: regular rate, regular rhythm, no significant murmur appreciated. Lungs: no apparent respiratory distress, Able to speak in full sentences. No wheezing, no rhonchi, no crackles. No stridors Clear to auscultation bilaterally. Abdomen: non tender to palpation, non distended, soft, no guarding, no rebound, + bowel sounds. Neuro: Awake, Alert, oriented to name, self, situation, follows commands GCS=15. Speech is normal. Skin: no petechia, no purpura, no cyanosis, non-pale, not jaundice. Lower extremities: --no - Pitting edema no deformity, no focal swelling, no calf TTP. Noted left foot medial aspect of the distal foot wound open which was present since the surgery. There is associated erythema and generalized swelling of the foot. There is black/necrosis of the great toe and the 2nd toe. Pedal pulses palpable. Patient is otherwise neurovascularly intact in the affected extremity. Makes eye contact. moves all four extremities. Face: no apparent facial droop. Chief Complaint: Wound Check Time Seen by MD: 16:28 Primary Care Provider: LINO Reviewed Notes: Nurses Notes, Allergies Allergies: Coded Allergies: NO KNOWN ALLERGIES (Unverified , 06/04/20) Home Meds Active Scripts Insulin Glargine (Lantus) 100 Unit/Ml Inj, 30 UNITS SC BID for 30 Days, #2 INJ Prov:DAVE HEMRAN 02/02/24 Atorvastatin Calcium (ATORVASTATIN CALCIUM) 20 Mg Tab, 40 MG PO HS for 30 Days, #60 TAB Prov:DAVE HERMAN 02/02/24 Aspirin (Aspirin Low Dose) 81 Mg Tab, 81 MG PO DAILY for 30 Days, #30 TAB Prov:DAVE HERMAN 02/02/24 Doxycycline Hyclate (Doxycycline Hyclate) 50 Mg Cap, 1 CAP PO BID for 14 Days, #20 CAP Prov:DAVE HERMAN 02/02/24 Levofloxacin Hemihydrate (LEVAQUIN 500 MG) 500 Mg Tab, 500 MG PO DAILY for 14 Days, #14 TAB Prov:DAVE HERMAN 02/02/24 Lancets Misc. (ACCU-CHEK FASTCLIX LANCET) Fastclix Kit, UNIT XX TID, #30 Monitor fasting glucose Prov:DAVE HERMAN RESIDENT 02/02/24 Blood Glucose Monitoring Suppl (D-Care Glucometer Kit/Glu W/Device) 1 Kit Kit, KIT XX DAILY, #1 Monitor fasting glucose Prov:DAVE HERMAN RESIDENT 02/02/24 Metformin Hydrochloride (METFORMIN HCL ER) 500 Mg Tab, 1 TAB PO BID, #90 TAB 1 R efill Prov:SHYAM BENITEZ HYDRO OPERATOR 02/27/23 Gabapentin (Gabapentin) 300 Mg Cap, 1 CAP PO Q6HP PRN, #30 CAP 0 Refills Prov:ADONIS MARTÍNEZ PAC 12/06/22 Information Source: Patient Mode of Arrival: EMS Past Medical History PAST MEDICAL HISTORY: DM Surgical History: Denies all surgeries Family History Family History: Family hx of DM, Family hx of Cancer Social History Smoker: Cigarettes Alcohol: Occasionally Drugs: Methamphetamine Lives In: Home X-Ray, Labs, Meds, VS Vital Signs Date Time Temp Pulse Resp B/P (MAP) Pulse Ox O2 Delivery O2 Flow Rate FiO2 02/27/24 16:35 99.1 104 20 134/94 (107) 96 Lab Test 02/27/24 20:26 02/27/24 18:30 02/27/24 17:00 Range/Units Troponin I High Sensitivity 3 L 3 L 4 </=54 ng/L Thyroid Stimulating Hormone (TSH) 0.99 0.55-4.78 uIU/mL White Blood Count 11.8 H 4.4-10.8 10^3/uL Red Blood Count 4.05 L 4.5-5.90 10^6/uL Hemoglobin 11.6 L 13.5-17.5 g/dL Hematocrit 35.0 L 41.0-53.0 % Mean Corpuscular Volume 86.4 80.0-100.0 fL Mean Corpuscular Hemoglobin 28.7 28.0-32.0 pg Mean Corpuscular Hemoglobin Concent 33.3 32.0-36.0 g/dL Red Cell Distribution Width 13.4 11.8-14.3 % Platelet Count 247 140-450 10^3/uL Mean Platelet Volume 9.0 6.9-10.8 fL Neutrophils (%) (Auto) 74.4 37.0-80.0 % Lymphocytes (%) (Auto) 11.1 10.0-50.0 % Monocytes (%) (Auto) 10.1 0.0-12.0 % Eosinophils (%) (Auto) 3.7 0.0-7.0 % Basophils (%) (Auto) 0.7 0.0-2.0 % Neutrophils # (Auto) 8.7 H 1.6-8.6 10 ^3/uL Lymphocytes # (Auto) 1.3 0.4-5.4 10 ^3/uL Monocytes # (Auto) 1.2 0-1.3 10 ^3/uL Eosinophils # (Auto) 0.4 0-0.8 10 ^3/uL Basophils # (Auto) 0.1 0-0.2 10 ^3/uL Nucleated Red Blood Cells 0.0 % Erythrocyte Sedimentation Rate 95 H 0-20 mm/hr Sodium Level 129 L 136-145 mmol/L Potassium Level 3.7 3.5-5.1 mmol/L Chloride Level 92 L 98-107 mmol/L Carbon Dioxide Level 27 20-31 mmol/L Anion Gap 10 5-15 Blood Urea Nitrogen 30 H 9-23 mg/dL Creatinine 1.41 H 0.700-1.30 mg/dL Glomerular Filtration Rate Calc 60 >90 mL/min BUN/Creatinine Ratio 21.3 H 10.0-20.0 Serum Glucose 295 H 74-106 mg/dL Hemoglobin A1c 12.7 H <5.7 % A1C Lactic Acid Level 1.8 0.4-2.0 mmol/L Calcium Level 9.5 8.7-10.4 mg/dL Magnesium Level 1.4 L 1.6-2.6 mg/dL Total Bilirubin 0.7 0.2-1.0 mg/dL Aspartate Amino Transferase (AST) 34 13-40 U/L Alanine Aminotransferase (ALT) 24 7-40 U/L Alkaline Phosphatase 174 H 46-116 U/L C-Reactive Protein High Sensitivity > 20.00 H <1.0 mg/dL Total Protein 8.0 5.7-8.2 g/dL Albumin 4.1 3.2-4.8 g/dL Current Medications Medications (Trade) Dose Ordered Sig/[place] Route Start Time Stop Time Status Last Admin Piperacillin Sod/ Tazobactam Sod 100 ml @ 100 mls/hr ONCE ONCE IV 02/27/24 18:45 02/27/24 19:44 DC 02/28/24 00:42 Sodium Chloride 1,000 ml @ 1,000 mls/hr Q1H ONCE IV 02/27/24 18:45 02/27/24 19:44 DC 02/27/24 22:02 [place] [address] Ph: [phone] DIAGNOSTIC IMAGING Diagnostic Imaging Report : [id number] Signed PATIENT: JEANETTE FLORENCE ACCT: [id number] UNIT: [id number] : 1970 LOC: ER ROOM / BED: / AGE / SEX: 53 / M ADM STATUS: REG ER SERVICE 38 ORDERING PHYSICIAN: SHASHANK AWAN DO PROCEDURE(s): LLDVT - LT Lower DVT REASON: Foot infection and swelling ORDER NUMBER(s): [id number], ACCESSION NUMBER(s): [id number] US LT Lower DVT US 02/27/2024 07:13 PM Clinical History: Foot infection and swelling Comparison: US BILAT LOWER DVT on DOS: 01/27/24 Technique: Duplex Doppler evaluation of the deep venous system of the left lower extremity from the common femoral vein to the popliteal vein including color Doppler and spectral/pulsed waveform analysis was performed. Findings: The common femoral vein demonstrates appropriate compressibility and waveform variability. There is compressibility/patency of the great saphenous vein at the proximal thigh. The femoral vein demonstrates appropriate compressibility and waveform variability. The deep femoral vein demonstrates appropriate compressibility and waveform variability. The popliteal vein demonstrates appropriate compressibility and waveform variability. There is color flow in the tibioperoneal trunk and posterior tibial vein. Inguinal lymphadenopathy with lymph nodes measuring up to 3.3 x 1.9 cm most likely reactive in nature. Impression: 1. No deep venous thrombosis left lower extremity. If clinical concern/symptoms persist or worsen, short-interval follow-up study is suggested. 2. Inguinal lymphadenopathy with lymph nodes measuring up to 3.3 x 1.9 cm most likely reactive in nature. Correlate clinically. ATED BY: ROSEMARY NOEL MD DICTATED DATE/TIME: 02/27/241950 SIGNED BY: ROSEMARY NOEL MD SIGNED DATE/TIME: 02/27/241950 CC: [place] [address] Ph: [phone] DIAGNOSTIC IMAGING Diagnostic Imaging Report : [id number] Signed PATIENT: JEANETTE FLORENCE ACCT: [id number] UNIT: [id number] : 1970 LOC: ER ROOM / BED: / AGE / SEX: 53 / M ADM STATUS: REG ER SERVICE 38 ORDERING PHYSICIAN: SHASHANK AWAN DO PROCEDURE(s): LLEAD - Lt Low Ext Art Duplex REASON: Ischemic foot ORDER NUMBER(s): [id number], ACCESSION NUMBER(s): [id number] EXAM: US LT LOW EXT ART DUPLEX HISTORY: Ischemic foot COMPARISON: US LT LOW EXT ART DUPLEX on DOS: 01/26/24 TECHNIQUE: Realtime grayscale and color Doppler ultrasound images of the left lower extremity arteries with spectral waveform analysis were obtained. FINDINGS: Mild diffuse atherosclerotic plaque identified. No hemodynamically significant stenosis noted. Peak systolic velocities measure up to 132 cm/s. Triphasic waveforms are seen in common femoral, superficial femoral and popliteal ar teries. There are monophasic waveforms in the posterior tibial, anterior tibial and dorsalis pedis arteries. IMPRESSION: 1. Mild diffuse atherosclerotic disease without hemodynamically significant stenosis. 2. Monophasic waveforms in the below-knee arteries reflecting vessel hardening loss of elastic recoil. REFERENCE VALUES, [facility] ([facility]) vascular Imaging Lab Criteria: Peak systolic velocity ranges (in cm/sec) are as follows: <150 cm/s - <20 % stenosis 150-200 cm/s - 20-49% stenosis 200-300 cm/s - 50-75% stenosis >300 cm/s -> 75% stenosis ATED BY: ROSEMARY NOEL MD DICTATED DATE/TIME: 02/27/241957 SIGNED BY: ROSEMARY NOEL MD SIGNED DATE/TIME: 02/27/241957 CC: [address] [address] Ph: [phone] DIAGNOSTIC IMAGING Diagnostic Imaging Report : [id number] Signed PATIENT: JEANETTE FLORENCE ACCT: [id number] UNIT: [id number] : 1970 LOC: ER ROOM / BED: / AGE / SEX: 53 / M ADM STATUS: REG ER SERVICE 1648 ORDERING PHYSICIAN: SHASHANK AWAN DO PROCEDURE(s): LFOOT - L FOOT 3 VIEW XRAY REASON: foot infection ORDER NUMBER(s): [id number], ACCESSION NUMBER(s): [id number] CLINICAL INDICATION: foot infection TECHNIQUE: 3 radiographic views of the left foot were obtained. Comparison: None FINDINGS/IMPRESSION: There is no evidence of acute fracture or dislocation. There is lateral deviation of the 4th toe phalanges. There appears to be mild erosive changes of the tuft of the 4th and 5th toes which appears chronic. Small posterior calcaneal bony spur. There is wound over the plantar soft tissues at the level of the 1st metatarsal head with erosive changes of the 1st metatarsal head. Correlate for osteomyelitis. MRI should be considered for further evaluation. There is soft tissue edema of the foot, most prominent over the forefoot. ATED BY: MARYELLEN DODD DO DICTATED DATE/TIME: 02/27/241726 SIGNED BY: MARYELLEN DODD DO SIGNED DATE/TIME: 02/27/241726 CC: [address] [address] Ph: [phone] DIAGNOSTIC IMAGING Diagnostic Imaging Report : [id number] Signed PATIENT: JEANETTE FLORENCE ACCT: [id number] UNIT: [id number] : 1970 LOC: ER ROOM / BED: / AGE / SEX: 53 / M ADM STATUS: REG ER SERVICE 1633 ORDERING PHYSICIAN: SHASHANK AWAN DO PROCEDURE(s): CXRP - CHEST PORTABLE REASON: foot infection ORDER NUMBER(s): [id number], ACCESSION NUMBER(s): [id number] CHEST RADIOGRAPH Indication: foot infection Technique: Single frontal view of the chest was obtained Comparison: XY CHEST XRAY 1 VIEW on DOS: 01/27/24, CHEST PORTABLE on DOS: 06/04/20 FINDINGS: Lines and Tubes: None Lungs: Clear Pleura: No effusion. No pneumothorax. Cardiomediastinal contours: Unremarkable Bones: Unremarkable IMPRESSION: 1. Clear lungs. ATED BY: AURELIO JIMÉNEZ DO DICTATED DATE/TIME: 02/27/241719 SIGNED BY: AURELIO JIMÉNEZ DO SIGNED DATE/TIME: 02/27/241719 CC: Departure 1 Departure Time of Disposition: 18:38 Impression: Primary Impression: Ischemic pain of left foot Additional Impressions: Foot infection Diabetic foot infection Disposition: ADMITTED INPATIENT Admit to: Tele Condition: Guarded Discharged With: Self I personally scribed for SHASHANK AWAN DO ([email or web address]) on 02/27/24 at 17:05. Electronically submitted by Lorena Thompson ([email or web address]). I personally scribed for SHASHANK AWAN DO ([email or web address]) on 02/28/24 at 01:35. Electronically submitted by Maxime Singh ([email or web address]). SHASHANK AWAN DO Feb 27, 2024 17:05
[2024-02-27 17:15] LABS: Basophils # (auto) 0.1 10 ^3/uL (0-0.2); Basophils % (auto) 0.7 % (0.0-2.0); Eosinophils # (auto) 0.4 10 ^3/uL (0-0.8); Eosinophils % (auto) 3.7 % (0.0-7.0); Hemoglobin 11.6 g/dL (13.5-17.5); Lymphocytes # (auto) 1.3 10 ^3/uL (0.4-5.4); Lymphocytes % (auto) 11.1 % (10.0-50.0); Mean Corpuscular Hemoglobin 28.7 pg (28.0-32.0); Mean Corpuscular Hgb Conc. 33.3 g/dL (32.0-36.0); Mean Corpuscular Volume 86.4 fL (80.0-100.0); Monocytes # (auto) 1.2 10 ^3/uL (0-1.3); Monocytes % (auto) 10.1 % (0.0-12.0); Neutrophils # (auto) 8.7 10 ^3/uL (1.6-8.6); Neutrophils % (auto) 74.4 % (37.0-80.0); Platelet Count (auto) 247 10^3/uL (140-450); Red Blood Cells 4.05 10^6/uL (4.5-5.90); Red Cell Distribution Width 13.4 % (11.8-14.3); White Blood Cell 11.8 10^3/uL (4.4-10.8)
--- NOTE | 2024-02-27 17:22 | DVH ---
CHEST RADIOGRAPH Indication: foot infection Technique: Single frontal view of the chest was obtained Comparison: XY CHEST XRAY 1 VIEW on DOS: 01/27/24, CHEST PORTABLE on DOS: 06/04/20 FINDINGS: Lines and Tubes: None Lungs: Clear Pleura: No effusion. No pneumothorax. Cardiomediastinal contours: Unremarkable Bones: Unremarkable IMPRESSION: 1. Clear lungs.
--- NOTE | 2024-02-27 17:30 | DVH ---
CLINICAL INDICATION: foot infection TECHNIQUE: 3 radiographic views of the left foot were obtained. Comparison: None FINDINGS/IMPRESSION: There is no evidence of acute fracture or dislocation. There is lateral deviation of the 4th toe phal anges. There appears to be mild erosive changes of the tuft of the 4th and 5th toes which appears chr onic. Small posterior calcaneal bony spur. There is wound over the plantar soft tissues at the level of the 1st metatarsal head with erosive ch anges of the 1st metatarsal head. Correlate for osteomyelitis. MRI should be considered for further evaluation. There is soft tissue edema of the foot, most prominent over the forefoot.
[2024-02-27 17:31] LABS: Alanine Aminotransferase 24 U/L (7-40); Albumin 4.1 g/dL (3.2-4.8); Anion Gap 10 (5-15); Aspartate Aminotransferase 34 U/L (13-40); BUN/Creatinine Ratio 21.3 (10.0-20.0); Calcium 9.5 mg/dL (8.7-10.4); Carbon Dioxide 27 mmol/L (20-31); Potassium 3.7 mmol/L (3.5-5.1)
[2024-02-27 17:32] LABS: Bilirubin, Total 0.7 mg/dL (0.2-1.0)
[2024-02-27 17:34] LABS: Alkaline Phosphatase 174 U/L (46-116); Blood Urea Nitrogen 30 mg/dL (9-23); Chloride 92 mmol/L (98-107); Glucose 295 mg/dL (74-106); Magnesium 1.4 mg/dL (1.6-2.6); Sodium 129 mmol/L (136-145)
[2024-02-27 17:43] LABS: CRP High Sensitivity > 20.00 mg/dL (<1.0)
[2024-02-27] MEDS: VANCOMYCIN PER PHARMACY 0 MG IV STA (18:34)
[2024-02-27 18:37] LABS: Erythrocyte Sedimentation Rate 95 mm/hr (0-20)
--- NOTE | 2024-02-27 19:54 | DVH ---
US LT Lower DVT US 02/27/2024 07:13 PM Clinical History: Foot infection and swelling Comparison: US BILAT LOWER DVT on DOS: 01/27/24 Technique: Duplex Doppler evaluation of the deep venous system of the left lower extremity from the common femor al vein to the popliteal vein including color Doppler and spectral/pulsed waveform analysis was perfo rmed. Findings: The common femoral vein demonstrates appropriate compressibility and waveform variability. There is compressibility/patency of the great saphenous vein at the proximal thigh. The femoral vein demonstrates appropriate compressibility and waveform variability. The deep femoral vein demonstrates appropriate compressibility and waveform variability. The popliteal vein demonstrates appropriate compressibility and waveform variability. There is color flow in the tibioperoneal trunk and posterior tibial vein. Inguinal lymphadenopathy with lymph nodes measuring up to 3.3 x 1.9 cm most likely reactive in nature . Impression: 1. No deep venous thrombosis left lower extremity. If clinical concern/symptoms persist or worsen, s hort-interval follow-up study is suggested. 2. Inguinal lymphadenopathy with lymph nodes measuring up to 3.3 x 1.9 cm most likely reactive in clifford ure. Correlate clinically.
--- NOTE | 2024-02-27 20:00 | DVH ---
EXAM: US LT LOW EXT ART DUPLEX HISTORY: Ischemic foot COMPARISON: US LT LOW EXT ART DUPLEX on DOS: 01/26/24 TECHNIQUE: Realtime grayscale and color Doppler ultrasound images of the left lower extremity arteri es with spectral waveform analysis were obtained. FINDINGS: Mild diffuse atherosclerotic plaque identified. No hemodynamically significant stenosis noted. Pe [place] systolic velocities measure up to 132 cm/s. Triphasic waveforms are seen in common femoral, superf icial femoral and popliteal arteries. There are monophasic waveforms in the posterior tibial, anteri or tibial and dorsalis pedis arteries. IMPRESSION: 1. Mild diffuse atherosclerotic disease without hemodynamically significant stenosis. 2. Monophasic waveforms in the below-knee arteries reflecting vessel hardening loss of elastic recoil . REFERENCE VALUES, [facility]) vascular Imaging Lab Criteria: Peak systolic velocity ranges (in cm/sec) are as follows: <150 cm/s - <20 % stenosis 150-200 cm/s - 20-49% stenosis 200-300 cm/s - 50-75% stenosis >300 cm/s -> 75% stenosis
[2024-02-27] MEDS: MAGNESIUM SULFATE 1GM/100ML 100 ML IV SCH (20:45)
--- NOTE | 2024-02-27 20:56 | DVHHPRES ---
History of Present Illness Resident Creating Document: ROSMERY HODGES RESIDENT History of Present Illness This is a 53-year-old male past medical history of type 2 diabetes mellitus presented to the ED with a chief complaint plan of pain and swelling of the left foot for 1 week prior to this admission. The patient states that he underwent incision and drainage of the left foot and amputation of the left 2nd toes 3 weeks ago for left foot cellulitis. After surgery he did not follow up and one- week ago he started experiencing increased pain and blackening of the of the toes that prompted this visit. The patient denies fever, chills, chest pain, shortness of breath, dizziness diaphoresis, abdominal pain, nausea, vomiting, dysuria, hematuria or any change in bowel or bladder movement. Past Medical History Type 2 diabetes mellitus Past Surgical History I and D of the Lt foot. Family History None Past Social History Lives with friends Smokes more than 1 pack/day, occasional drinker and never tried any other drugs. Review of Systems Constitutional: No: Fever, Chills, Sweats, Weakness, Malaise, Other Eyes: No: Pain, Vision change, Conjunctivae inflammation, Eyelid inflammation, Other, Redness ENT: No: Ear pain, Ear discharge, Nose pain, Nose discharge, Nose congestion, Mouth pain, Mouth swelling, Throat pain, Throat swelling, Other Respiratory: No: Cough, Dry, Shortness of breath, SOB with excertion, Wheezing, Hemoptysis, Pleuritic Pain, Sputum, Wheezing, Other Cardiovascular: No: Chest Pain, Palpitations, Orthopnea, Paroxysmal Noc. Dyspnea, Edema, Lt Headedness, Other Gastrointestinal: No: Nausea, Vomiting, Abdominal Pain, Diarrhea, Constipation, Melena, Hematochezia, Other Genitourinary: No Dysuria, No Frequency, No Incontinence, No Hematuria, No Retention, No Other Musculoskeletal: foot pain; No: other, neck pain, shoulder pain, arm pain, back pain, hand pain, leg pain Skin: Lesions; No: Rash, Jaundice, Bruising, Other Neurological: No: Weakness, Numbness, Incoordination, Change in speech, Confusion, Seizures, Other Allergies: Coded Allergies: NO KNOWN ALLERGIES (Unverified , 06/04/20) Medications Current Medications Medications Dose Ordered Sig/[place] Route Start Time Stop Time Status Last Admin Dose Admin Sodium Chloride 1,000 ml @ 75 mls/hr [id number] IV 02/27/24 20:45 UNV Morphine Sulfate 2 mg Q6HPRN IV 02/28/24 00:00 UNV Magnesium Sulfate/ Dextrose 100 ml @ 100 mls/hr Q1H IV 02/27/24 20:45 02/27/24 22:44 UNV Aspirin 81 mg DAILY PO 02/28/24 10:00 UNV Atorvastatin Calcium 40 mg HS PO 02/27/24 22:00 UNV Vancomycin HCl 0 ml @ 0 mls/hr UD IV 02/27/24 21:00 UNV Cefepime HCl 50 ml @ 12.5 mls/hr Q12HR IV 02/27/24 22:00 UNV Exam Vital Signs Vital Signs Date Time Temp Pulse Resp B/P (MAP) Pulse Ox O2 Delivery O2 Flow Rate FiO2 02/27/24 16:35 99.1 104 20 134/94 (107) 96 Exam Physical examination: General Appearance: Alert, Oriented X3, Cooperative, No acute distress HEENT: Atraumatic, PERRLA, EOMI, Mucous membrane moist/pink Respiratory: Clear to auscultation, Normal air movement Cardiovascular: Regular rate, Normal S1, Normal S2, No murmurs, no chest wall tenderness Abdominal: Normal bowel sounds, Soft, No tenderness, No hepatospenomegaly, No masses Extremities: No clubbing, No cyanosis, nonpitting pedal edema lt, Normal pulses. Skin: No rashes, No breakdown, No significant lesion Neuro: Normal speech, Strength at 5/5 X4 ext, Normal tone, Sensation intact, grossly intact cranial nerves. Psych/Mental Status: Mental status NL, Mood NL Examination of the Lt lower extremity: There is an open wound in the in the medial aspect of the distal part of the left foot which is infected, erythema and generalized swelling of the Lt foot and blackening of the left great toe and 2nd toe. Lt sided dorsalis pedis and posterior tibial pulsation is present. Labs/Xrays Labs Test 02/27/24 20:26 02/27/24 17:00 Range/Units White Blood Count 11.8 H 4.4-10.8 10^3/uL Red Blood Count 4.05 L 4.5-5.90 10^6/uL Hemoglobin 11.6 L 13.5-17.5 g/dL Hematocrit 35.0 L 41.0-53.0 % Mean Corpuscular Volume 86.4 80.0-100.0 fL Mean Corpuscular Hemoglobin 28.7 28.0-32.0 pg Mean Corpuscular Hemoglobin Concent 33.3 32.0-36.0 g/dL Red Cell Distribution Width 13.4 11.8-14.3 % Platelet Count 247 140-450 10^3/uL Mean Platelet Volume 9.0 6.9-10.8 fL Neutrophils (%) (Auto) 74.4 37.0-80.0 % Lymphocytes (%) (Auto) 11.1 10.0-50.0 % Monocytes (%) (Auto) 10.1 0.0-12.0 % Eosinophils (%) (Auto) 3.7 0.0-7.0 % Basophils (%) (Auto) 0.7 0.0-2.0 % Neutrophils # (Auto) 8.7 H 1.6-8.6 10 ^3/uL Lymphocytes # (Auto) 1.3 0.4-5.4 10 ^3/uL Monocytes # (Auto) 1.2 0-1.3 10 ^3/uL Eosinophils # (Auto) 0.4 0-0.8 10 ^3/uL Basophils # (Auto) 0.1 0-0.2 10 ^3/uL Nucleated Red Blood Cells 0.0 % Erythrocyte Sedimentation Rate 95 H 0-20 mm/hr Sodium Level 129 L 136-145 mmol/L Potassium Level 3.7 3.5-5.1 mmol/L Chloride Level 92 L 98-107 mmol/L Carbon Dioxide Level 27 20-31 mmol/L Anion Gap 10 5-15 Blood Urea Nitrogen 30 H 9-23 mg/dL Creatinine 1.41 H 0.700-1.30 mg/dL Glomerular Filtration Rate Calc 60 >90 mL/min BUN/Creatinine Ratio 21.3 H 10.0-20.0 Serum Glucose 295 H 74-106 mg/dL Lactic Acid Level 1.8 0.4-2.0 mmol/L Calcium Level 9.5 8.7-10.4 mg/dL Magnesium Level 1.4 L 1.6-2.6 mg/dL Total Bilirubin 0.7 0.2-1.0 mg/dL Aspartate Amino Transferase (AST) 34 13-40 U/L Alanine Aminotransferase (ALT) 24 7-40 U/L Alkaline Phosphatase 174 H 46-116 U/L C-Reactive Protein High Sensitivity > 20.00 H <1.0 mg/dL Total Protein 8.0 5.7-8.2 g/dL Albumin 4.1 3.2-4.8 g/dL Assessment/Plan Assessment/Plan Assessment and plan: # Left foot diabetic ulcer, S/P incision and drainage secondary to uncontrolled type 2 diabetes mellitus # Left foot abscess with ischemic toes # Nonhealing wound # Noncompliant with medication and follow up wound care after I & D - Foot xray revealed there is wound over the plantar soft tissues at the level of the 1st metatarsal head with erosive changes of the 1st metatarsal head. - IV vancomycin as per pharmacy and IV cefepime 1 g b.i.d. - Ordered wound C/S and MRI of the for left foot to exclude osteomyelitis - Consulted podiatry # Peripheral arterial disease - Arterial doppler of the lower extremity demonstrated mild diffuse atherosclerotic disease without hemodynamically significant stenosis. - Aspirin 81 mg p.o. daily and atorvastatin 40 mg at HS # Uncontrolled type 2 diabetes mellitus, hemoglobin A1c 12.7% - Moderate sliding scale of insulin - Lantus is not started as patient is NPO and possibility of surgery tomorrow. # BERENICE secondary to hemodynamically mediated/VMN - IV normal saline at 75 mL/hour - Monitor BMP # Hypomagnesemia - Replenished # PUD prophylaxis - Pepcid 20 mg po daily # DVT prophylaxis - Doppler of the lower extremity excluded the possibility of the DVT. - Hold due to the possibility of the procedure Goal of care discussed with the patient for more than 20 minutes full code Plan discussed with Dr. Khoury Plan discussed with: Patient, Other My Orders Orders - ROSMERY HODGES RESIDENT Procedure Category Date Status Time Admit ADMIT 02/27/24 Transmitted 20:34 Hemoglobin A1c LAB 02/27/24 In Process 20:36 Thyroid Stimulating LAB 02/27/24 In Process Hormone 20:36 Urinalysis LAB 02/27/24 Logged 20:36 Sodium Chloride 0.9% PHA 02/27/24 Logged 20:45 Urine Creatinine LAB 02/27/24 Logged 20:39 Urine Sodium LAB 02/27/24 Logged 20:39 Urine Protein LAB 02/27/24 Logged 20:39 Morphine Sulfate PHA 02/28/24 Logged Injection 00:00 Magnesium Sulfate PHA 02/27/24 Logged 1gm/100ml 20:45 Drug Screen LAB 02/27/24 Logged 20:43 Covid19 Antigen [place] LAB 02/27/24 Logged Rapid Influenza A&B LAB 02/27/24 Logged 20:43 Aspirin Enteric PHA 02/28/24 Logged Coated Tablet 10:00 Atorvastatin (Lipitor) PHA 02/27/24 Logged 22:00 Wound Culture W/ Gs SHELBY 02/27/24 Logged 20:45 Vancomycin Per PHA 02/27/24 Transmitted Pharmacy 21:00 Cefepime 2gm Extended PHA 02/27/24 Transmitted Infusion 22:00 Date of Service: Feb 27, 2024 Billing Provider: HAILEY KHOURY MD Common Visit Codes: [id number] INP/OBS CARE (HIGH) ROSMERY HODGES RESIDENT Feb 27, 2024 20:56 HAILEY KHOURY MD Feb 28, 2024 17:55
[2024-02-27] MEDS ORDERED: VANCOMYCIN PER PHARMACY 0 MG IV SCH (21:00)
[2024-02-27] MEDS: SODIUM CHLORIDE 0.9% 1,000 ML IV ONE (22:02)
[2024-02-27] MEDS: VANCOMYCIN 1GM/250ML KIT 250 ML IV SCH (22:18)
[2024-02-27] MEDS: SODIUM CHLORIDE 0.9% 1,000 ML IV SCH (22:53)
[2024-02-27 22:56] VITALS: PULSE 95; RESP 18; O2SAT 96
[2024-02-28] VITALS (8 sets, daily range): BP systolic 109–142; BP diastolic 74–90; PULSE 77–94; RESP 17–18; TEMP 98.1–98.5; O2SAT 96–100
[2024-02-28] MEDS ORDERED: MORPHINE SULFATE INJ 2 MG/ml SYRG IV SCH
[2024-02-28] MEDS: PIPERACILLIN-TAZOB 3.375GM 100 ML IV ONE (00:42)
[2024-02-28 00:54] LABS: INR 1.04 (0.9-1.15); Partial Thromboplastin Time 34.6 SEC (24.5-34.5); Prothrombin Time 11.2 sec (9.3-11.8)
[2024-02-28] MEDS: MORPHINE SULFATE INJ 2 MG/ml SYRG IV PRN (01:25)
[2024-02-28] MEDS ORDERED: DEXTROSE (50%) 50ML SYRG IV PRN (02:15)
[2024-02-28] MEDS: ATORVASTATIN 20 MG TAB PO SCH (02:53)
[2024-02-28] MEDS: CEFEPIME 2GM/50ML NS 50 ML IV SCH (02:53)
[2024-02-28] MEDS: VANCOMYCIN 1GM/250ML KIT 250 ML IV SCH ×2 (04:30→17:38)
[2024-02-28] MEDS: MAGNESIUM SULFATE 1GM/100ML 100 ML IV SCH (05:07)
[2024-02-28 05:21] LABS: Rapid Influenza A Negative (Negative); Rapid Influenza B Negative (Negative)
[2024-02-28 05:22] LABS: COVID19 ANTIGEN SOFIA FIA NEGATIVE (NEGATIVE)
[2024-02-28] MEDS: InsuLIN REG 1unit/0.01ml Soln (100units/ml) SC SCH ×2 (06:48→21:57)
[2024-02-28] MEDS: ACCU-CHEK COMFORT CURVE STRIP VI SCH (06:48)
[2024-02-28 09:10] LABS: Urine Bacteria None Seen /hpf (None Seen)
[2024-02-28 09:26] LABS: Urine Blood 2+ /uL (Negative); Urine Clarity Turbid (Clear); Urine Color Light-Yellow (Yellow); Urine Mucus FEW (None Seen); Urine Protein, UAD Negative (Negative); Urine Specific Gravity 1.022 (1.001-1.035); Urine Squamous Epithelial Cell None Seen /hpf (<5); Urine Urobilinogen Normal (Negative); Urine WBC 10 /hpf (0 - 3)
[2024-02-28 09:29] LABS: Protein, Urine 31.5 mg/dL (1-14)
[2024-02-28 09:32] LABS: Creatinine, Urine 43.01 mg/dL (30.0-125.0)
[2024-02-28 09:35] LABS: Opiate Scree,Urine Neg (NEGATIVE)
[2024-02-28 09:37] LABS: Amphetamine Screen, Urine Pos (NEGATIVE); Barbiturate Scree,Urine Neg (NEGATIVE); Benzodiazephine Screen, Urine Neg (NEGATIVE); Cannabinoid Screen, Urine Neg (NEGATIVE); Cocaine Screen, Urine Neg (NEGATIVE); Phencyclidine Screen, Urine Neg (NEGATIVE)
[2024-02-28] MEDS: ASPirin-EC 81 mg tab PO SCH (11:01)
--- NOTE | 2024-02-28 12:54 | DVH ---
CLINICAL INDICATION: 53 years old, Male; To exclude osteomyelitis. COMPARISON: Radiographs of the left foot dated 02/27/2024 TECHNIQUE: Multiplanar, multisequence MRI of the left foot was performed without intravenous contrast . Contrast: None. INTERPRETATION: There is lateral deviation of the great toe proximal and distal phalanx. There is confluent T1 hypoi ntensity in the 1st metatarsal head and shaft of the 1st metatarsal bone with edema, consistent with osteomyelitis. Extensive soft tissue inflammatory changes including thickening and edema noted about the great toe where there is a plantar open wound. There is either packing material or gas adjacent t o the 1st metatarsal head. There is patchy T1 hypointensity in the 2nd metatarsal head, 2nd proximal phalanx with corresponding edema also consistent with osteomyelitis. Soft tissue inflammatory changes surround the 2nd toe as well. There is patchy marrow edema in the calcaneus without definite marrow replacement. Midfoot arthrosis noted. There is edema within the intrinsic muscles of the foot. IMPRESSION: 1. Osteomyelitis of the 1st metatarsal bone, the 2nd metatarsal head and 2nd proximal phalanx. Exten sive soft tissue inflammatory changes. 2. Bone marrow edema in the calcaneus without definite marrow replacement. This may be inflammatory i n etiology.
--- NOTE | 2024-02-28 13:37 | DVHINCON2 ---
Date Seen: Feb 28, 2024 Reason for Consultation Left foot wound History of Present Illness This is a 53-year-old male past medical history of type 2 diabetes mellitus presented to the ED with a chief complaint plan of pain and swelling of the left foot for 1 week prior to this admission. The patient states that he underwent incision and drainage of the left foot and amputation of the left 2nd toes 3 weeks ago for left foot cellulitis. After surgery he did not follow up and one- week ago he started experiencing increased pain and blackening of the of the toes that prompted this visit. The patient denies fever, chills, chest pain, shortness of breath, dizziness diaphoresis, abdominal pain, nausea, vomiting, dysuria, hematuria or any change in bowel or bladder movement. Past Medical History See H&P Past Surgical History See H&P Family History: Diabetes mellitus G8 FATHER FH: cancer G8 FATHER Allergies: Coded Allergies: NO KNOWN ALLERGIES (Unverified , 06/04/20) Home Meds Active Scripts Insulin Glargine (Lantus) 100 Unit/Ml Inj, 30 UNITS SC BID for 30 Days, #2 INJ Prov:DAVE HERMAN [facility] 02/02/24 Atorvastatin Calcium (ATORVASTATIN CALCIUM) 20 Mg Tab, 40 MG PO HS for 30 Days, #60 TAB Prov:DAVE HERMAN [facility] 02/02/24 Aspirin (Aspirin Low Dose) 81 Mg Tab, 81 MG PO DAILY for 30 Days, #30 TAB Prov:DAVE HERMAN [facility] 02/02/24 Doxycycline Hyclate (Doxycycline Hyclate) 50 Mg Cap, 1 CAP PO BID for 14 Days, #20 CAP Prov:DAVE HERMAN [facility] 02/02/24 Levofloxacin Hemihydrate (LEVAQUIN 500 MG) 500 Mg Tab, 500 MG PO DAILY for 14 Days, #14 TAB Prov:DAVE HERMAN [facility] 02/02/24 Lancets Mis. (ACCU-CHEK FASTCLIX LANCET) Fastclix Kit, UNIT XX TID, #30 Monitor fasting glucose Prov:DAVE HERMAN 02/02/24 Blood Glucose Monitoring Suppl (D-Care Glucometer Kit/Glu W/Device) 1 Kit Kit, KIT XX DAILY, #1 Monitor fasting glucose Prov:DAVE HERMAN 02/02/24 Metformin Hydrochloride (METFORMIN HCL ER) 500 Mg Tab, 1 TAB PO BID, #90 TAB 1 Refill Prov:JOHANA BENITEZALEX Alvarado [employer] 02/27/23 Gabapentin (Gabapentin) 300 Mg Cap, 1 CAP PO Q6HP PRN, #30 CAP 0 Refills Prov:ADONIS MARTÍNEZ PAC 12/06/22 Current Medications Current Medications Medications (Trade) Dose Ordered Sig/[place] Route PRN Reason Start Time Stop Time Status Last Admin Vancomycin HCl 0 ml @ 0 mls/hr ONCE STAT IV 02/27/24 18:34 02/27/24 18:36 DC Sodium Chloride 1,000 ml @ 75 mls/hr [id number] IV 02/27/24 20:45 02/28/24 12:15 Morphine Sulfate 2 mg Q6HPRN IV 02/28/24 00:00 02/28/24 01:10 DC Magnesium Sulfate/ Dextrose 100 ml @ 100 mls/hr Q1H IV 02/27/24 20:45 02/27/24 22:44 DC Aspirin (Ecotrin Enteric Coated Tablet) 81 mg DAILY PO 02/28/24 10:00 02/28/24 11:01 Atorvastatin Calcium (Lipitor) 40 mg HS PO 02/27/24 22:00 02/28/24 02:53 Vancomycin HCl 0 ml @ 0 mls/hr UD IV 02/27/24 21:00 Cefepime HCl 50 ml @ 12.5 mls/hr Q12HR IV 02/27/24 22:00 02/28/24 11:01 Vancomycin HCl 250 ml @ 250 mls/hr Q1H IV 02/27/24 21:45 02/27/24 23:44 DC 02/28/24 05:19 Morphine Sulfate 2 mg Q6HPRN PRN IV SEVERE PAIN (7-10 PAIN SCALE) 02/28/24 01:00 02/28/24 01:25 Diagnostic Test (Pha) (Accu-Chek Comfort Curve T) 1 strip ACHS 02/28/24 07:00 02/28/24 12:14 Insulin Human Regular (InsuLIN R) HS SC 02/28/24 22:00 Insulin Human Regular (InsuLIN R) AC SC 02/28/24 07:00 02/28/24 12:16 Dextrose 50 ml UD PRN IV Blood Sugar LESS THAN 60 02/28/24 02:15 Magnesium Sulfate/ Dextrose 100 ml @ 100 mls/hr Q1H IV 02/28/24 04:30 02/28/24 06:29 DC 02/28/24 06:48 Vancomycin HCl 250 ml @ 250 mls/hr Q1H IV 02/28/24 04:30 02/28/24 05:29 DC Vancomycin HCl 250 ml @ 250 mls/hr Q12H IV 02/28/24 17:00 Vital Signs Vital Signs Date Time Temp Pulse Resp B/P (MAP) Pulse Ox O2 Delivery O2 Flow Rate FiO2 02/28/24 07:51 94 17 109/74 (86) 100 02/28/24 06:00 98.2 98.2 02/28/24 01:28 Room Air* 0 21 Physical Exam DERMATOLOGIC EXAM: - Skin is dry and cool to the touch dry bilaterally. - Nails 1-5 of the bilateral foot are thickened, discolored, dystrophic, and tender to palpate with subungual debris - Hair loss noted to bilateral feet - erika necrosis of the 1st and 2nd digits VASCULAR EXAM: - DP and PT pulses are palpable bilaterally. - INBOUND CUSTOMER SERVICE REPRESENTATIVE is brisk to all digits. - Feet are cool to touch compared to lower legs bilaterally. NEUROLOGIC EXAM: - Normal light touch sensation to the superficial peroneal, deep peroneal, sural, saphenous, and tibial nerve branches. - Protective sensation is diminished as tested with a 5.07 10g [place]selle-Sahra bilaterally. MUSCULOSKELETAL EXAM: - No gross deformities - Muscle strength is 5/5 and active motion is pain-free and symmetrical bilaterally - No pain or crepitation with passive range of motion bilaterally to all major pedal joints Labs/Diagnostic Data Labs Test 02/28/24 08:30 02/28/24 07:51 02/28/24 03:55 02/27/24 23:44 Range/Units Urine Color Light-yellow Yellow Urine Clarity Turbid H Clear Urine pH 5.0 5.0-9.0 Urine Specific [place] 1.022 1.001-1.035 Urine Protein Negative Negative Urine Ketones Trace Negative Urine Blood 2+ H Negative /uL Urine Nitrite Negative Negative Urine Bilirubin Negative Negative Urine Urobilinogen Normal Negative mg/dL Urine Leukocyte Esterase Negative Negative /uL Urine RBC 7 0 - 3 /hpf Urine WBC 10 0 - 3 /hpf Urine Squamous Epithelial Cells None seen <5 /hpf Urine Calcium Oxalate Crystals Many None Seen Urine Bacteria None seen None Seen /hpf Urine Mucus Few None Seen Urine Creatinine 43.01 30.0-125.0 mg/dL Urine Sodium 31 L 40-220 mmol/L Urine Glucose 4+ H Normal mg/dL Urine Total Protein 31.5 H 1-14 mg/dL Urine Opiates Screen Neg NEGATIVE Urine Fentanyl Screen Neg NEGATIVE Urine Barbiturates Screen Neg NEGATIVE Urine Phencyclidine Screen Neg NEGATIVE Urine Amphetamines Screen Pos NEGATIVE Urine Benzodiazepines Screen Neg NEGATIVE Urine Cocaine Screen Neg NEGATIVE Urine Cannabinoids Screen Neg NEGATIVE Creatinine 1.18 0.700-1.30 mg/dL Glomerular Filtration Rate Calc 75 >90 mL/min Magnesium Level 2.0 1.6-2.6 mg/dL Influenza Type A Antigen Negative Negative Influenza Type B Antigen Negative Negative SARS-CoV-2 Antigen (Rapid) Negative NEGATIVE Prothrombin Time 11.2 9.3-11.8 sec Prothrombin Time INR 1.04 0.9-1.15 Activated Partial Thromboplast Time 34.6 H 24.5-34.5 SEC Test 02/27/24 20:26 02/27/24 17:00 Range/Units Troponin I High Sensitivity 3 L </=54 ng/L Thyroid Stimulating Hormone (TSH) 0.99 0.55-4.78 uIU/mL White Blood Count 11.8 H 4.4-10.8 10^3/uL Red Blood Count 4.05 L 4.5-5.90 10^6/uL Hemoglobin 11.6 L 13.5-17.5 g/dL Hematocrit 35.0 L 41.0-53.0 % Mean Corpuscular Volume 86.4 80.0-100.0 fL Mean Corpuscular Hemoglobin 28.7 28.0-32.0 pg Mean Corpuscular Hemoglobin Concent 33.3 32.0-36.0 g/dL Red Cell Distribution Width 13.4 11.8-14.3 % Platelet Count 247 140-450 10^3/uL Mean Platelet Volume 9.0 6.9-10.8 fL Neutrophils (%) (Auto) 74.4 37.0-80.0 % Lymphocytes (%) (Auto) 11.1 10.0-50.0 % Monocytes (%) (Auto) 10.1 0.0-12.0 % Eosinophils (%) (Auto) 3.7 0.0-7.0 % Basophils (%) (Auto) 0.7 0.0-2.0 % Neutrophils # (Auto) 8.7 H 1.6-8.6 10 ^3/uL Lymphocytes # (Auto) 1.3 0.4-5.4 10 ^3/uL Monocytes # (Auto) 1.2 0-1.3 10 ^3/uL Eosinophils # (Auto) 0.4 0-0.8 10 ^3/uL Basophils # (Auto) 0.1 0-0.2 10 ^3/uL Nucleated Red Blood Cells 0.0 % Erythrocyte Sedimentation Rate 95 H 0-20 mm/hr Sodium Level 129 L 136-145 mmol/L Potassium Level 3.7 3.5-5.1 mmol/L Chloride Level 92 L 98-107 mmol/L Carbon Dioxide Level 27 20-31 mmol/L Anion Gap 10 5-15 Blood Urea Nitrogen 30 H 9-23 mg/dL BUN/Creatinine Ratio 21.3 H 10.0-20.0 Serum Glucose 295 H 74-106 mg/dL Hemoglobin A1c 12.7 H <5.7 % A1C Lactic Acid Level 1.8 0.4-2.0 mmol/L Calcium Level 9.5 8.7-10.4 mg/dL Total Bilirubin 0.7 0.2-1.0 mg/dL Aspartate Amino Transferase (AST) 34 13-40 U/L Alanine Aminotransferase (ALT) 24 7-40 U/L Alkaline Phosphatase 174 H 46-116 U/L C-Reactive Protein High Sensitivity > 20.00 H <1.0 mg/dL Total Protein 8.0 5.7-8.2 g/dL Albumin 4.1 3.2-4.8 g/dL Problems(with codes): (1) Thrombophlebitis (2) Cellulitis and abscess of left leg (3) Diabetic neuropathy (4) Hyperglycemia (5) Generalized weakness (6) Diabetes mellitus type 2 with complications, uncontrolled (7) Hypochloremia (8) Hyponatremia (9) Medication refill (10) Episode of syncope (11) New onset type 2 diabetes mellitus (12) Foot infection (13) Diabetic foot infection (14) Ischemic pain of left foot Plan/Recommendation ASSESSMENT: Patient is a 53-year-old seen in the ER for worsening left foot infection PLAN: - The patients chart was reviewed, clinical findings were discussed with the patient, the etiologies of the conditions were discussed in detail, and a treatment plan was agreed to at this time, with both oral and written instructions provided. - reviewed the MR findings - recommend that we take the patient to the OR for amputation of the 1st and 2nd digits - patient will be NPO at midnight - surgery will be at noon tomorrow - continue broad-spectrum antibiotics - we will get cultures in the OR All questions were answered and concerns addressed to the patient's satisfaction. The patient was given the phone number to the clinic and was told how to make contact with the clinic should any concerns or questions arise. Patient understands that if any questions or concerns arise prior to the next appointment, we should be contacted immediately. FOLLOW-UP: Continue to follow while inpatient Plan discussed with: Patient Date of Service: Feb 28, 2024 Billing Provider: DANIKA MONTES DPM Common Visit Codes: [id number] INP/OBS CARE (HIGH) DANIKA MONTES DPM Feb 28, 2024 13:37
--- NOTE | 2024-02-28 14:30 | DVHPNRES ---
Progress Note Date Seen: Feb 28, 2024 Resident Creating Document: POWER MATHIS RESIDENT Medical Necessity Reason Pt with a Central, PICC or Fol: No Subjective Review of Systems Patient is a 53-year-old male with past medical history of diabetes diagnosed 2 years ago, hematuria who came in due to a left diabetic foot ulcer. According to the patient, he was here at the [facility] 3 weeks ago when he underwent incision and drainage of the left foot and was treated for an infection. Wound culture from hospitalization in January 2024 showed Klebsiella ESBL, group B Streptococcus, Staph aureus which was treated inpatient with meropenem and vancomycin, patient was subsequently discharged with doxycycline and levo cyclin to which he reports he has been adherent. Patient is also a poor historian. During previous hospitalization patient was instructed to follow up with Urology in the outpatient clinic for further workup of bladder thickening and hematuria, however, patient notes he has not followed up with Urology in the outpatient clinic. Past surgical history: Left foot incision and drainage Home medications: Aspirin, atorvastatin, gabapentin, insulin, metformin Past Hospitalization: 02/02/2024 for necrotizing fasciitis of the left foot 1st, 2nd and 3rd digits Social & Personal history: Patient lives with a roommate. Smokes 10 cigarettes per day for the past 40 years. Reports quitting alcohol 2 years ago. Denies using drugs Allergies: Denies Patient seen and examined at bedside. Patient is alert and oriented to time, place person and responding to all questions. General: Fatigue Eyes: No Pain, No Vision change, No Conjunctivae inflammation, No Eyelid inflammation, No Other, No Redness ENT: No Ear pain, No Ear discharge, No Nose pain, No Nose discharge, No Nose congestion, No Mouth pain, No Mouth swelling, No Throat pain, No Throat swelling, No Other Cardiovascular: No Chest Pain, No Palpitations, No Orthopnea, No Paroxysmal No Dyspnea, No Edema, No Lt Headedness, No Other Respiratory: No Cough, No Dry, No Shortness of breath, No SOB with exertion, No Wheezing, No Hemoptysis, No Pleuritic Pain, No Sputum, No Other Gastrointestinal: No Nausea, No Vomiting, No Abdominal Pain, Diarrhea, No Constipation, No Melena, No Hematochezia, No Other Genitourinary: No Dysuria, No Frequency, No Incontinence, No Hematuria, No Retention, No Other Musculoskeletal: No other, No neck pain, No shoulder pain, No arm pain, No back pain, No hand pain, No leg pain, No foot pain Skin: No Rash, No Lesions, No Jaundice, No Bruising, No Other Objective vital signs Vital Sign Date Time Temp Pulse Resp B/P (MAP) Pulse Ox O2 Delivery O2 Flow Rate FiO2 02/28/24 07:51 94 17 109/74 (86) 100 02/28/24 06:00 98.2 98.2 02/28/24 01:28 Room Air* 0 21 Total Intake and Output 02/27/24 02/27/24 02/28/24 15:00 23:00 07:00 Intake Total 100 ml Balance 100 ml medications Current Medications Medications Dose Ordered Sig/Florence Route Start Time Stop Time Status Last Admin Dose Admin Sodium Chloride 1,000 ml @ 75 mls/hr [id number] IV 02/27/24 20:45 02/28/24 12:15 75 MLS/HR Aspirin 81 mg DAILY PO 02/28/24 10:00 02/28/24 11:01 81 MG Atorvastatin Calcium 40 mg HS PO 02/27/24 22:00 02/28/24 02:53 40 MG Vancomycin HCl 0 ml @ 0 mls/hr UD IV 02/27/24 21:00 Cefepime HCl 50 ml @ 12.5 mls/hr Q12HR IV 02/27/24 22:00 02/28/24 11:01 12.5 MLS/HR Morphine Sulfate 2 mg Q6HPRN PRN IV 02/28/24 01:00 02/28/24 01:25 2 MG Diagnostic Test (Pha) 1 strip ACHS 02/28/24 07:00 02/28/24 12:14 1 STRIP Insulin Human Regular HS SC 02/28/24 22:00 Insulin Human Regular AC SC 02/28/24 07:00 02/28/24 12:16 15 UNITS Dextrose 50 ml UD PRN IV 02/28/24 02:15 Vancomycin HCl 250 ml @ 250 mls/hr Q12H IV 02/28/24 17:00 Examination General Appearance: Uncooperative. Well developed. Well nourished. Disheveled Head Exam: Normal inspection Neck Exam: Normal inspection. Non-tender. Normal alignment Pulmonary/Respiratory: Chest non-tender. Clear bilateral breath sounds, no crackles, no wheezing. Cardiovascular/Chest: Regular rate and rhythm. No murmurs. No JVD. Peripheral Pulses: 2+ Radial (R). 2+ Radial (L). 2+ Pedal (R). 2+ Pedal (L) Abdominal Exam: Normal bowel sounds. Soft. normal abdomen, no visible veins, Nontender. No hepatospenomegaly. No masses Ankle Exam: Negative ankle edema Lower extremities: Negative lower extremity edema. Left foot gangrenous 1st and 2nd digit, ulcering wound noted along the medial distal left foot, with erythema and purulence along with drainage Neuro/Mental Status: A&O x4. Coherent. Thoughts/Psych: Normal thought pattern. Appropriate mood and affect. Good judgement and insight Skin Exam: Normal inspection. Normal color. Warm. Dry laboratory and microbiology Laboratory Tests 02/28/24 07:51 02/27/24 17:00 Test 02/27/24 17:00 Range/Units Serum Glucose 295 H 74-106 mg/dL Labs and/or images reviewed: Labs reviewed by me, Image(s) reviewed by me Problem List/Assessment/Plan Problem List/Assessment/Plan Osteomyelitis of the 1st metatarsal bone, 2nd metatarsal head and 2nd proximal phalanx with wet gangrene Diabetic foot ulcer Peripheral arterial disease - foot x-ray: There is no evidence of acute fracture dislocation. There is lateral deviation of the 4th toe phalanges. There appears to be mild erosive changes of the tuft of the 4th and 5th toes which appear chronic. Small posterior calcaneal bony spur. There is a wound over the plantar soft tissue at the level of the 1st metatarsal head with a erosive changes of the 1st metatarsal head. Correlate for osteomyelitis. Soft tissue edema of the foot, most prominent over the forefoot. - extremity arterial study: Mild diffuse atherosclerotic disease without hemodynamically significant stenosis. Monophasic waveforms and [id number] arteries reflecting vessel hardening loss of elastic recoil. - extremity venous study: No deep vein thrombosis in the left lower extremity. Inguinal lymphadenopathy with lymph node measuring up to 3.3 x 1.9 cm most likely reactive in nature. - foot MRI: Osteomyelitis of the 1st metatarsal bone, the 2nd metatarsal head and 2nd proximal phalanx. Extensive soft tissue inflammatory changes. Bone marrow edema in the calcaneus without definite marrow replacement. This may be inflammatory in etiology. - IV vancomycin, IV cefepime - podiatry on board - IV NS at 75 cc/hour BERENICE likely hemodynamically mediated/VMN on possible CKD 2/3? - IV NS at 75 cc/hour maintenance - IV NS 1 L bolus - monitor Type 2 diabetes, uncontrolled, insulin dependent. Hb A1c 12.7 Coronary artery disease - moderate sliding scale insulin - aspirin 81 mg, atorvastatin 40 mg Acute intractable diarrhea, likely related to antibiotic usage - ordered C diff - monitor Nicotine dependence Methamphetamine abuse Medication noncompliance - nicotine patch - counseled History of hematuria with irregularly thickened urinary bladder wall - renal ultrasound from 02/01/24: Moderate bilateral hydronephrosis. Irregularly thickened urinary bladder wall. Could be due to mass lesion, chronic outlet obstruction, or infectious/inflammatory process - outpatient follow up with Urology recommended Goals of care: Full code, discussed for >16 minutes on 02/28/2024 Plan discussed with patient Plan discussed with Dr. Tomlinson Plan discussed with: Patient, Other (RN) My Orders My Orders Orders - POWER MATHIS Procedure Category Date Status Time Nicotine 7mg/24hr PHA 02/28/24 Logged (Nicoderm 7mg/24hr) 14:15 Clostridium Difficile SHELBY 02/28/24 Uncollected Toxin 14:11 Date of Service: Feb 28, 2024 Billing Provider: ROBERTA TOMLINSON MD Common Visit Codes: [id number] INP/OBS CARE(HIGH) POWER MATHIS Feb 28, 2024 14:30 ROBERTA TOMLINSON MD Mar 04, 2024 21:30
[2024-02-28] MEDS: NICOTINE 7MG/24HR TOPICAL PATCH TD ONE (16:21)
[2024-02-28] MEDS: MUPIROCIN 2% OINT 15gm or 22gm FOR MRSA NARES EACHNOSTRI SCH (21:58)
[2024-02-29 01:00] VITALS: BP 118/62; PULSE 86; RESP 17; TEMP 98.3; O2SAT 96
[2024-02-29 05:00] VITALS: BP 117/67; PULSE 62; RESP 16; TEMP 98.6; O2SAT 96
--- NOTE | 2024-02-29 06:21 | DVHPNRES ---
Progress Note Date Seen: Feb 29, 2024 Resident Creating Document: POWER MATHIS RESIDENT Medical Necessity Reason Pt with a Central, PICC or Fol: No Subjective Review of Systems Patient is a 53-year-old male with past medical history of diabetes diagnosed 2 years ago, hematuria who came in due to a left diabetic foot ulcer. According to the patient, he was here at the [facility] 3 weeks ago when he underwent incision and drainage of the left foot and was treated for an infection. Wound culture from hospitalization in January 2024 showed Klebsiella ESBL, group B Streptococcus, Staph aureus which was treated inpatient with meropenem and vancomycin, patient was subsequently discharged with doxycycline and levo cyclin to which he reports he has been adherent. Patient is also a poor historian. During previous hospitalization patient was instructed to follow up with Urology in the outpatient clinic for further workup of bladder thickening and hematuria, however, patient notes he has not followed up with Urology in the outpatient clinic. Past surgical history: Left foot incision and drainage Home medications: Aspirin, atorvastatin, gabapentin, insulin, metformin Past Hospitalization: 02/02/2024 for necrotizing fasciitis of the left foot 1st, 2nd and 3rd digits Social & Personal history: Patient lives with a roommate. Smokes 10 cigarettes per day for the past 40 years. Reports quitting alcohol 2 years ago. Denies using drugs Allergies: Denies Patient seen and examined at bedside. Patient is alert and oriented to time, place person and responding to all questions. Scheduled to undergo amputation of the 1st and 2nd digits of the left lower extremity around noon. Objective vital signs Vital Sign Date Time Temp Pulse Resp B/P (MAP) Pulse Ox O2 Delivery O2 Flow Rate FiO2 02/29/24 05:00 98.6 62 16 117/67 (84) 96 98.6 02/28/24 20:21 Room Air* 0 21 Total Intake and Output 02/28/24 02/28/24 02/29/24 15:00 23:00 07:00 Intake Total 50.0 ml Balance 50.0 ml medications Current Medications Medications Dose Ordered Sig/Florence Route Start Time Stop Time Status Last Admin Dose Admin Sodium Chloride 1,000 ml @ 75 mls/hr [id number] IV 02/27/24 20:45 02/28/24 22:57 75 MLS/HR Aspirin 81 mg DAILY PO 02/28/24 10:00 02/28/24 11:01 81 MG Atorvastatin Calcium 40 mg HS PO 02/27/24 22:00 02/28/24 21:51 40 MG Vancomycin HCl 0 ml @ 0 mls/hr UD IV 02/27/24 21:00 Cefepime HCl 50 ml @ 12.5 mls/hr Q12HR IV 02/27/24 22:00 02/28/24 22:56 12.5 MLS/HR Morphine Sulfate 2 mg Q6HPRN PRN IV 02/28/24 01:00 02/28/24 17:37 2 MG Diagnostic Test (Pha) 1 strip ACHS 02/28/24 07:00 02/29/24 05:50 1 STRIP Insulin Human Regular HS SC 02/28/24 22:00 02/28/24 21:57 2 UNITS Insulin Human Regular AC SC 02/28/24 07:00 02/29/24 06:05 15 UNITS Dextrose 50 ml UD PRN IV 02/28/24 02:15 Vancomycin HCl 250 ml @ 250 mls/hr Q12H IV 02/28/24 17:00 02/29/24 05:49 250 MLS/HR Mupirocin 1 applic BID EACHNOSTRI 02/28/24 22:00 03/04/24 21:59 02/28/24 21:58 1 APPLIC Examination General Appearance: Uncooperative. Well developed. Well nourished. Disheveled Head Exam: Normal inspection Neck Exam: Normal inspection. Non-tender. Normal alignment Pulmonary/Respiratory: Chest non-tender. Clear bilateral breath sounds, no crackles, no wheezing. Cardiovascular/Chest: Regular rate and rhythm. No murmurs. No JVD. Peripheral Pulses: 2+ Radial (R). 2+ Radial (L). 2+ Pedal (R). 2+ Pedal (L) Abdominal Exam: Normal bowel sounds. Soft. normal abdomen, no visible veins, Nontender. No hepatospenomegaly. No masses Ankle Exam: Negative ankle edema Lower extremities: Negative lower extremity edema. Left foot gangrenous 1st and 2nd digit, ulcering wound noted along the medial distal left foot, with erythema and purulence along with drainage Neuro/Mental Status: A&O x4. Coherent. Thoughts/Psych: Normal thought pattern. Appropriate mood and affect. Good judgement and insight Skin Exam: Normal inspection. Normal color. Warm. Dry laboratory and microbiology Laboratory Tests 1/8/25 07:51 02/27/24 17:00 Test 02/27/24 17:00 Range/Units Serum Glucose 295 H 74-106 mg/dL Microbiology Date/Time Source Procedure Growth Status 02/28/24 04:01 Nose MRSA Screen - Final Complete 02/27/24 17:00 Blood Blood Culture - Preliminary NO GROWTH AFTER 24 HOURS OF INCUBATION. Resulted Problem List/Assessment/Plan Problem List/Assessment/Plan Osteomyelitis of the 1st metatarsal bone, 2nd metatarsal head and 2nd proximal phalanx with wet gangrene Diabetic foot ulcer Peripheral arterial disease - foot x-ray: There is no evidence of acute fracture dislocation. There is lateral deviation of the 4th toe phalanges. There appears to be mild erosive changes of the tuft of the 4th and 5th toes which appear chronic. Small posterior calcaneal bony spur. There is a wound over the plantar soft tissue at the level of the 1st metatarsal head with a erosive changes of the 1st metatarsal head. Correlate for osteomyelitis. Soft tissue edema of the foot, most prominent over the forefoot. - extremity arterial study: Mild diffuse atherosclerotic disease without hemodynamically significant stenosis. Monophasic waveforms and [id number] arteries reflecting vessel hardening loss of elastic recoil. - extremity venous study: No deep vein thrombosis in the left lower extremity. Inguinal lymphadenopathy with lymph node measuring up to 3.3 x 1.9 cm most likely reactive in nature. - foot MRI: Osteomyelitis of the 1st metatarsal bone, the 2nd metatarsal head and 2nd proximal phalanx. Extensive soft tissue inflammatory changes. Bone marrow edema in the calcaneus without definite marrow replacement. This may be inflammatory in etiology. - IV vancomycin, IV cefepime - podiatry on board: Scheduled for amputation of the left lower extremity 1st and 2nd digits today at noon - IV NS at 75 cc/hour BERENICE likely hemodynamically mediated/VMN on possible CKD 2/3? - IV NS at 75 cc/hour maintenance - IV NS 1 L bolus - monitor Type 2 diabetes, uncontrolled, insulin dependent. Hb A1c 12.7 Coronary artery disease - moderate sliding scale insulin - aspirin 81 mg, atorvastatin 40 mg Acute intractable diarrhea, likely related to antibiotic usage - ordered C diff - monitor Nicotine dependence Methamphetamine abuse Medication noncompliance - nicotine patch - counseled History of hematuria with irregularly thickened urinary bladder wall - renal ultrasound from 02/01/24: Moderate bilateral hydronephrosis. Irregularly thickened urinary bladder wall. Could be due to mass lesion, chronic outlet obstruction, or infectious/inflammatory process - outpatient follow up with Urology recommended Goals of care: Full code, discussed for >16 minutes on 02/28/2024 Plan discussed with patient Plan discussed with Dr. Tomlinson Plan discussed with: Patient, Other (RN) My Orders My Orders Orders - POWER MATHIS Procedure Category Date Status Time Clostridium Difficile SHELBY 02/28/24 Uncollected Toxin 14:11 Mupirocin 2% Oint PHA 02/28/24 In Process Mrsa Nares (Bactroban 22:00 * Wound Consult CONS 02/28/24 Transmitted Dietary Evaluation Review Comments: recommend Dangelo BID for wound healing, Expected Outcomes/Goals: healed wounds, improved nuttrition related lab values Date of Service: Feb 28, 2024 Billing Provider: ROBERTA TOMLINSON MD Common Visit Codes: [id number] INP/OBS CARE(HIGH) POWER MATHIS Feb 29, 2024 06:21 ROBERTA TOMLINSON MD Mar 04, 2024 21:32
[2024-02-29 07:36] LABS: INR 1.07 (0.9-1.15); Partial Thromboplastin Time 34.5 SEC (24.5-34.5); Prothrombin Time 11.3 sec (9.3-11.8)
[2024-02-29 07:39] LABS: Basophils # (auto) 0 10 ^3/uL (0-0.2); Basophils % (auto) 0.6 % (0.0-2.0); Eosinophils # (auto) 0.3 10 ^3/uL (0-0.8); Eosinophils % (auto) 4.1 % (0.0-7.0); Hemoglobin 10.8 g/dL (13.5-17.5); Lymphocytes % (auto) 11.8 % (10.0-50.0); Mean Corpuscular Hemoglobin 29.1 pg (28.0-32.0); Mean Corpuscular Hgb Conc. 33.8 g/dL (32.0-36.0); Mean Corpuscular Volume 85.9 fL (80.0-100.0); Monocytes # (auto) 0.9 10 ^3/uL (0-1.3); Monocytes % (auto) 10.3 % (0.0-12.0); Neutrophils # (auto) 6.2 10 ^3/uL (1.6-8.6); Neutrophils % (auto) 73.2 % (37.0-80.0); Platelet Count (auto) 232 10^3/uL (140-450); Red Blood Cells 3.73 10^6/uL (4.5-5.90); Red Cell Distribution Width 13.5 % (11.8-14.3); White Blood Cell 8.5 10^3/uL (4.4-10.8)
[2024-02-29 07:42] LABS: Calcium 8.8 mg/dL (8.7-10.4); Chloride 100 mmol/L (98-107)
[2024-02-29 07:43] LABS: Anion Gap 6 (5-15); Carbon Dioxide 28 mmol/L (20-31)
[2024-02-29 07:48] LABS: BUN/Creatinine Ratio 15.2 (10.0-20.0); Blood Urea Nitrogen 17 mg/dL (9-23)
[2024-02-29 07:49] LABS: Glucose 390 mg/dL (74-106); Potassium 3.1 mmol/L (3.5-5.1); Sodium 134 mmol/L (136-145)
[2024-02-29 08:00] VITALS: PULSE 100; RESP 18; O2SAT 96
[2024-02-29 08:55] VITALS: BP 132/72; PULSE 108; RESP 22; TEMP 98.4; O2SAT 98
--- NOTE | 2024-02-29 10:41 | ECG ---
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
[2024-02-29] MEDS ORDERED: POTASSIUM CHL 20MEQ/100ML 100 ML IV SCH (11:45)
[2024-02-29] MEDS ORDERED: fentaNYL CITRATE 100 MCG/2 ML VL ONE (11:45)
[2024-02-29] MEDS ORDERED: PROPOFOL 10 MG/ML 20 ML IV ONE (11:45)
[2024-02-29] MEDS: BUPIVACAINE HCL 0.25% P/F 10 ML VIAL ONE (12:10)
[2024-02-29] MEDS ORDERED: ONDANSETRON HCL 4 MG/2 ML VIAL ONE (12:12)
[2024-02-29 12:27] VITALS: PULSE 69; RESP 11; O2SAT 100
[2024-02-29] MEDS: POTASSIUM EFFERVESENT TAB 25 MEQ PO ONE (15:27)
--- NOTE | 2024-02-29 16:09 | DVHPN2 ---
Subjective This is a 53-year-old male past medical history of type 2 diabetes mellitus presented to the ED with a chief complaint plan of pain and swelling of the left foot for 1 week prior to this admission. The patient states that he underwent incision and drainage of the left foot and amputation of the left 2nd toes 3 weeks ago for left foot cellulitis. After surgery he did not follow up and one- week ago he started experiencing increased pain and blackening of the of the toes that prompted this visit. The patient denies fever, chills, chest pain, shortness of breath, dizziness diaphoresis, abdominal pain, nausea, vomiting, dysuria, hematuria or any change in bowel or bladder movement. Changes from previous H/P or p: No Changes Eyes: No Pain, No Vision change, No Conjunctivae inflammation, No Eyelid inflammation, No Other, No Redness ENT: No Ear pain, No Ear discharge, No Nose pain, No Nose discharge, No Nose congestion, No Mouth pain, No Mouth swelling, No Throat pain, No Throat swelling, No Other Cardiovascular: No Chest Pain, No Palpitations, No Orthopnea, No Paroxysmal Noc. Dyspnea, No Edema, No Lt Headedness, No Other Respiratory: No Cough, No Dry, No Shortness of breath, No SOB with excertion, No Wheezing, No Hemoptysis, No Pleuritic Pain, No Sputum, No Other Gastrointestinal: No Nausea, No Vomiting, No Abdominal Pain, No Diarrhea, No Constipation, No Melena, No Hematochezia, No Other Genitourinary: No Dysuria, No Frequency, No Incontinence, No Hematuria, No Retention, No Other Musculoskeletal: No other, No neck pain, No shoulder pain, No arm pain, No back pain, No hand pain, No leg pain; foot pain Skin: No Rash; Lesions; No Jaundice, No Bruising, No Other Objective Vitals Vital Signs Date Time Temp Pulse Resp B/P (MAP) Pulse Ox O2 Delivery O2 Flow Rate FiO2 02/29/24 12:55 98 14 100/60 (73) 98 02/29/24 12:27 98.8 98.8 02/29/24 12:27 Mask 6.0 100 Intake/Output Intake and Output 02/29/24 07:00 Intake Total 300.0 ml Balance 300.0 ml Intake IV Total 300.0 ml Exam DERMATOLOGIC EXAM: - Skin is dry and cool to the touch dry bilaterally. - Nails 1-5 of the bilateral foot are thickened, discolored, dystrophic, and tender to palpate with subungual debris - Hair loss noted to bilateral feet - erika necrosis of the 1st and 2nd digits VASCULAR EXAM: - DP and PT pulses are palpable bilaterally. - TOP STEEP TENDER is brisk to all digits. - Feet are cool to touch compared to lower legs bilaterally. NEUROLOGIC EXAM: - Normal light touch sensation to the superficial peroneal, deep peroneal, sural, saphenous, and tibial nerve branches. - Protective sensation is diminished as tested with a 5.07 10g Keystone-Sahra bilaterally. MUSCULOSKELETAL EXAM: - No gross deformities - Muscle strength is 5/5 and active motion is pain-free and symmetrical bilaterally - No pain or crepitation with passive range of motion bilaterally to all major pedal joints Medications Current Medications Medications Dose Ordered Sig/Florence Route Start Time Stop Time Status Last Admin Dose Admin Sodium Chloride 1,000 ml @ 75 mls/hr [id number] IV 02/27/24 20:45 02/29/24 13:09 75 MLS/HR Aspirin 81 mg DAILY PO 02/28/24 10:00 02/28/24 11:01 81 MG Atorvastatin Calcium 40 mg HS PO 02/27/24 22:00 02/28/24 21:51 40 MG Vancomycin HCl 0 ml @ 0 mls/hr UD IV 02/27/24 21:00 Cefepime HCl 50 ml @ 12.5 mls/hr Q12HR IV 02/27/24 22:00 02/29/24 09:05 12.5 MLS/HR Morphine Sulfate 2 mg Q6HPRN PRN IV 02/28/24 01:00 02/28/24 17:37 2 MG Diagnostic Test (Pha) 1 strip ACHS 02/28/24 07:00 02/29/24 11:41 1 STRIP Insulin Human Regular HS SC 02/28/24 22:00 02/28/24 21:57 2 UNITS Insulin Human Regular AC SC 02/28/24 07:00 02/29/24 12:41 6 UNITS Dextrose 50 ml UD PRN IV 02/28/24 02:15 Vancomycin HCl 250 ml @ 250 mls/hr Q12H IV 02/28/24 17:00 02/29/24 05:49 250 MLS/HR Mupirocin 1 applic BID EACHNOSTRI 02/28/24 22:00 03/04/24 21:59 02/29/24 11:41 1 APPLIC Laboratory Results Laboratory Tests 02/29/24 06:35 Chemistry Test 02/29/24 06:35 Calcium Level 8.8 mg/dL (8.7-10.4) Coagulation Test 02/29/24 06:35 Prothrombin Time 11.3 sec (9.3-11.8) Prothrombin Time INR 1.07 (0.9-1.15) Activated Partial Thromboplast Time 34.5 SEC (24.5-34.5) Urinalysis Test 02/28/24 08:30 Urine Color Light-yellow (Yellow) Urine Clarity Turbid (Clear) H Urine pH 5.0 (5.0-9.0) Urine Specific [place] 1.022 (1.001-1.035) Urine Protein Negative (Negative) Urine Ketones Trace (Negative) Urine Blood 2+ /uL (Negative) H Urine Nitrite Negative (Negative) Urine Bilirubin Negative (Negative) Urine Urobilinogen Normal mg/dL (Negative) Urine Leukocyte Esterase Negative /uL (Negative) Urine RBC 7 /hpf (0 - 3) Urine WBC 10 /hpf (0 - 3) Urine Squamous Epithelial Cells None seen /hpf (<5) Urine Calcium Oxalate Crystals Many (None Seen) Urine Bacteria None seen /hpf (None Seen) Urine Mucus Few (None Seen) Urine Creatinine 43.01 mg/dL (30.0-125.0) Urine Sodium 31 mmol/L (40-220) L Urine Glucose 4+ mg/dL (Normal) H Urine Total Protein 31.5 mg/dL (1-14) H Microbiology Microbiology Date/Time Source Procedure Growth Status 02/28/24 04:01 Nose MRSA Screen - Final Complete 02/27/24 17:00 Blood Blood Culture - Preliminary NO GROWTH AFTER 24 HOURS OF INCUBATION. Resulted Assessment/Plan Assessment/Plan ASSESSMENT: Patient is a 53-year-old seen on the floor for worsening left foot infection PLAN: - The patients chart was reviewed, clinical findings were discussed with the patient, the etiologies of the conditions were discussed in detail, and a treatment plan was agreed to at this time, with both oral and written instructions provided. - reviewed the MR findings - recommend that we take the patient to the OR for amputation of the 1st and 2nd digits - patient NPO since midnight - surgery will be at noon today - continue broad-spectrum antibiotics - we will get cultures in the OR All questions were answered and concerns addressed to the patient's satisfaction. The patient was given the phone number to the clinic and was told how to make contact with the clinic should any concerns or questions arise. Patient understands that if any questions or concerns arise prior to the next appointment, we should be contacted immediately. FOLLOW-UP: Continue to follow while inpatient Plan discussed with: Patient My Orders Orders - DANIKA MONTES DPM Procedure Category Date Status Time Obtain Consent For: ORDERS 02/29/24 Transmitted 09:10 Routine Bacterial SHELBY 02/29/24 In Process Culture 12:19 Anaerobic Culture SHELBY 02/29/24 In Process 12:19 Gram Stain SHELBY 02/29/24 In Process 12:19 Consistent DIET 02/29/24 Transmitted Carb(Ccho)Diabetes Lunch Problem List: (1) Foot infection (2) Diabetic foot infection (3) Ischemic pain of left foot (4) Hypochloremia (5) Diabetic neuropathy (6) Generalized weakness (7) Hyperglycemia (8) Hyponatremia (9) Thrombophlebitis (10) Medication refill (11) Diabetes mellitus type 2 with complications, uncontrolled (12) Episode of syncope (13) New onset type 2 diabetes mellitus (14) Cellulitis and abscess of left leg Date of Service: Feb 29, 2024 Billing Provider: DANIKA MONTES DPM Common Visit Codes: [id number] INP/OBS CARE(MOD) DANIKA MONTES DPM Feb 29, 2024 16:09
--- NOTE | 2024-02-29 16:14 | DVHOP2 ---
Operative Report - 2 Report Details Date: 02/29/24 Preop Diagnosis: 1. Left foot gas gangrene 2. Left foot abscess 3. Left foot osteomyelitis 4. Left foot cellulitis Postop Diagnosis: Same as preop Surgeon: Danika Montes MD Anesthesiologist: See anesthesia Anesthesia: Mac Consent: The patient was informed of the risks and benefits of the procedure. These include but are not limited to complications of anesthesia, postoperative infection, incomplete relief of symptoms, recurrence of symptoms, damage to blood vessels, nerves and tendons, deep venous thrombosis, pulmonary embolism and possible need for repeat surgery in the future. Complications: None Estimated Blood Loss: Minimal Fluids: See anesthesia Findings: Consistent with the diagnosis Indications for Surgery: Worsening left foot wound Name of Procedure Performed 1. Left foot I&D to bone (81628) 2. Left foot first toe amputation (87502) 3. Left foot second toe amputation (93118) 4. Left foot bone biopsy x 2 () Procedure Details Procedure Details: PRE-PROCEDURE INFORMATION: In the pre-op holding area, the extremity to be operated on was clearly marked and the patient verified correct laterality of the marking. The patient was transferred to the OR table and placed in a supine position. A timeout was performed in which identification of the correct patient, procedure, location, and materials was done. The left foot and leg were prepped and draped in normal sterile fashion. DESCRIPTION OF PROCEDURE: Attention was directed to the left where area of fluctuance was noted. An incision was made over this area and was deepened through blunt dissection. The incision was deepened to the level of abscess and bone. Care was taken to the dissection to avoid any neurovascular and tendinous structures. The incision was deepened to the bone, and the abscess appeared to be purulent fluid consistent with pus. At this point it was determined that the toes were no longer salvageable. Using a 15. Blade the 1st and 2nd toes were both disarticulated at the MP joint. A bone biopsy was sent of the 1st and 2nd proximal phalanx. There was significant discharged into the bone and large area exposed tissue. After the abscess was drained, the area was irrigated with 3 L normal saline using cysto tubing. Deep cultures were then obtained from the wound. The area was then inspected and any areas of tracking, especially along the tendons were also drained. The wound was packed with Betadine-soaked gauze and we will need to be closed at a later date. All surgical wounds were irrigated copiously with saline and closed in layers with the aforementioned suture material. A dry sterile dressing was placed on th e surgical extremity. The patient was placed in a postop shoe. POSTOPERATIVE INFORMATION: The patient tolerated the above noted procedure and anesthesia well and was transferred to the PACU with vital signs stable, and vascular status intact with capillary refill intact to all digits. Patient will return to the floor continue antibiotics. Patient will need multiple washouts and procedures to allow the wound to heal. Specimen: 1st and 2nd digit of the left foot bone biopsy Condition Good Disposition Still a Patient DANIKA MONTES DPM Feb 29, 2024 16:14
[2024-02-29 17:00] VITALS: BP 124/78; PULSE 96; RESP 18; TEMP 98.6; O2SAT 97
[2024-02-29] MEDS ORDERED: HALOPERIDOL 1 MG TAB PO PRN (17:30)
--- NOTE | 2024-02-29 17:57 | DVH ---
CHEST RADIOGRAPH Indication: post op Technique: Single frontal view of the chest was obtained Comparison: XY CHEST PORTABLE on DOS: 02/27/24, XY CHEST XRAY 1 VIEW on DOS: 01/27/24, CHEST PORTABLE on DOS: 06/04/20 FINDINGS: Lines and Tubes: None Lungs: No focal consolidation. Skin fold artifacts over the left lateral lung. Pleura: No effusion. No pneumothorax. Cardiomediastinal contours: Unremarkable Bones: No acute osseous abnormality. IMPRESSION: No acute cardiopulmonary disease.
[2024-02-29] MEDS: VANCOMYCIN 1.25GM/250ML 250 ML IV SCH (18:05)
[2024-02-29 20:24] LABS: Hematocrit 29.8 % (41.0-53.0); Hemoglobin 9.9 g/dL (13.5-17.5)
[2024-03-01 05:00] VITALS: BP 112/60; PULSE 77; RESP 19; TEMP 98.1; O2SAT 98
[2024-03-01 07:44] LABS: Anion Gap 6 (5-15); Carbon Dioxide 29 mmol/L (20-31); Potassium 3.5 mmol/L (3.5-5.1)
[2024-03-01 07:49] LABS: Chloride 97 mmol/L (98-107); Sodium 132 mmol/L (136-145)
[2024-03-01 07:50] LABS: BUN/Creatinine Ratio 12.5 (10.0-20.0); Blood Urea Nitrogen 13 mg/dL (9-23)
[2024-03-01 07:52] LABS: Basophils # (auto) 0.1 10 ^3/uL (0-0.2); Basophils % (auto) 0.7 % (0.0-2.0); Eosinophils # (auto) 1.2 10 ^3/uL (0-0.8); Eosinophils % (auto) 10.9 % (0.0-7.0); Glucose 411 mg/dL (74-106); Hematocrit 30.6 % (41.0-53.0); Hemoglobin 10.2 g/dL (13.5-17.5); Lymphocytes # (auto) 1.5 10 ^3/uL (0.4-5.4); Lymphocytes % (auto) 14.5 % (10.0-50.0); Mean Corpuscular Hgb Conc. 33.3 g/dL (32.0-36.0); Monocytes % (auto) 9.3 % (0.0-12.0); Neutrophils # (auto) 6.9 10 ^3/uL (1.6-8.6); Neutrophils % (auto) 64.6 % (37.0-80.0); Platelet Count (auto) 271 10^3/uL (140-450); Red Blood Cells 3.51 10^6/uL (4.5-5.90); Red Cell Distribution Width 13.4 % (11.8-14.3); White Blood Cell 10.7 10^3/uL (4.4-10.8)
[2024-03-01 08:00] VITALS: PULSE 88; RESP 18; O2SAT 98
[2024-03-01] MEDS ORDERED: DEXTROSE (50%) 50ML SYRG IV PRN (08:45)
[2024-03-01 08:59] VITALS: BP 108/66; PULSE 88; RESP 18; TEMP 98; O2SAT 98
[2024-03-01] MEDS: INSULIN LANTUS (GLARGINE) 1 /0.01ml (100units/ml) SC SCH (09:22)
[2024-03-01] MEDS: ACCU-CHEK COMFORT CURVE STRIP VI SCH (11:30)
[2024-03-01] MEDS: InsuLIN REG 1unit/0.01ml Soln (100units/ml) SC SCH (11:31)
[2024-03-01 12:17] VITALS: BP 114/72; PULSE 91; RESP 20; TEMP 98.2; O2SAT 98
[2024-03-01] MEDS ORDERED: INSULIN LISPRO (HUMAN) 100 UNITS/ML ML SC SCH (14:00)
--- NOTE | 2024-03-01 16:41 | DVHDSRES ---
Discharge Summary Date of Admission Resident Creating Document: POWER MATHIS RESIDENT Feb 27, 2024 at 20:34 Date of Discharge: Mar 01, 2024 Admitting Diagnosis Left foot pain Labs/Diagnostic Data: Laboratory Results Test 03/01/24 11:25 03/01/24 06:58 02/29/24 16:10 02/29/24 06:35 POC Glucose 327 mg/dl (70-106) White Blood Count 10.7 10^3/uL (4.4-10.8) Red Blood Count 3.51 10^6/uL (4.5-5.90) Hemoglobin 10.2 g/dL (13.5-17.5) Hematocrit 30.6 % (41.0-53.0) Mean Corpuscular Volume 87.0 fL (80.0-100.0) Mean Corpuscular Hemoglobin 29.0 pg (28.0-32.0) Mean Corpuscular Hemoglobin Concent 33.3 g/dL (32.0-36.0) Red Cell Distribution Width 13.4 % (11.8-14.3) Platelet Count 271 10^3/uL (140-450) Mean Platelet Volume 8.8 fL (6.9-10.8) Neutrophils (%) (Auto) 64.6 % (37.0-80.0) Lymphocytes (%) (Auto) 14.5 % (10.0-50.0) Monocytes (%) (Auto) 9.3 % (0.0-12.0) Eosinophils (%) (Auto) 10.9 % (0.0-7.0) Basophils (%) (Auto) 0.7 % (0.0-2.0) Neutrophils # (Auto) 6.9 10 ^3/uL (1.6-8.6) Lymphocytes # (Auto) 1.5 10 ^3/uL (0.4-5.4) Monocytes # (Auto) 1.0 10 ^3/uL (0-1.3) Eosinophils # (Auto) 1.2 10 ^3/uL (0-0.8) Basophils # (Auto) 0.1 10 ^3/uL (0-0.2) Nucleated Red Blood Cells 0.0 % Sodium Level 132 mmol/L (136-145) Potassium Level 3.5 mmol/L (3.5-5.1) Chloride Level 97 mmol/L (98-107) Carbon Dioxide Level 29 mmol/L (20-31) Anion Gap 6 (5-15) Blood Urea Nitrogen 13 mg/dL (9-23) Creatinine 1.04 mg/dL (0.700-1.30) Glomerular Filtration Rate Calc 87 mL/min (>90) BUN/Creatinine Ratio 12.5 (10.0-20.0) Serum Glucose 411 mg/dL (74-106) Calcium Level 9.0 mg/dL (8.7-10.4) Vancomycin Level Trough 14.3 ug/mL (5-10) Prothrombin Time 11.3 sec (9.3-11.8) Prothrombin Time INR 1.07 (0.9-1.15) Activated Partial Thromboplast Time 34.5 SEC (24.5-34.5) Test 02/28/24 08:30 02/28/24 07:51 02/28/24 03:55 02/27/24 20:26 Urine Color Light-yellow (Yellow) Urine Clarity Turbid (Clear) Urine pH 5.0 (5.0-9.0) Urine Specific Hegins 1.022 (1.001-1.035) Urine Protein Negative (Negative) Urine Ketones Trace (Negative) Urine Blood 2+ /uL (Negative) Urine Nitrite Negative (Negative) Urine Bilirubin Negative (Negative) Urine Urobilinogen Normal mg/dL (Negative) Urine Leukocyte Esterase Negative /uL (Negative) Urine RBC 7 /hpf (0 - 3) Urine WBC 10 /hpf (0 - 3) Urine Squamous Epithelial Cells None seen /hpf (<5) Urine Calcium Oxalate Crystals Many (None Seen) Urine Bacteria None seen /hpf (None Seen) Urine Mucus Few (None Seen) Urine Creatinine 43.01 mg/dL (30.0-125.0) Urine Sodium 31 mmol/L (40-220) Urine Glucose 4+ mg/dL (Normal) Urine Total Protein 31.5 mg/dL (1-14) Urine Opiates Screen Neg (NEGATIVE) Urine Fentanyl Screen Neg (NEGATIVE) Urine Barbiturates Screen Neg (NEGATIVE) Urine Phencyclidine Screen Neg (NEGATIVE) Urine Amphetamines Screen Pos (NEGATIVE) Urine Benzodiazepines Screen Neg (NEGATIVE) Urine Cocaine Screen Neg (NEGATIVE) Urine Cannabinoids Screen Neg (NEGATIVE) Magnesium Level 2.0 mg/dL (1.6-2.6) Influenza Type A Antigen Negative (Negative) Influenza Type B Antigen Negative (Negative) SARS-CoV-2 Antigen (Rapid) Negative (NEGATIVE) Troponin I High Sensitivity 3 ng/L (</=54) Thyroid Stimulating Hormone (TSH) 0.99 uIU/mL (0.55-4.78) Test 02/27/24 17:00 Erythrocyte Sedimentation Rate 95 mm/hr (0-20) Hemoglobin A1c 12.7 % A1C (<5.7) Lactic Acid Level 1.8 mmol/L (0.4-2.0) Total Bilirubin 0.7 mg/dL (0.2-1.0) Aspartate Amino Transferase (AST) 34 U/L (13-40) Alanine Aminotransferase (ALT) 24 U/L (7-40) Alkaline Phosphatase 174 U/L (46-116) C-Reactive Protein High Sensitivity > 20.00 mg/dL (<1.0) Total Protein 8.0 g/dL (5.7-8.2) Albumin 4.1 g/dL (3.2-4.8) Other Laboratory Tests 03/01/24 06:58 Brief Hx & Hospital Course: Patient is a 53-year-old male with past medical history of diabetes diagnosed 2 years ago, hematuria who came in due to a left diabetic foot ulcer. According to the patient, he was here at the [facility] 3 weeks ago when he underwent incision and drainage of the left foot and was treated for an infection. Wound culture from hospitalization in January 2024 showed Klebsiella ESBL, group B Streptococcus, Staph aureus which was treated inpatient with meropenem and vancomycin, patient was subsequently discharged with doxycycline and levo cyclin to which he reports he has been adherent. Patient is also a poor historian. During previous hospitalization patient was instructed to follow up with Urology in the outpatient clinic for further workup of bladder thickening and hematuria, however, patient notes he has not followed up with Urology in the outpatient clinic. Hospital course: Foot x-ray showed no evidence of acute fracture dislocation. There is lateral deviation of the 4th toe phalanges. There appears to be mild erosive changes of the tuft of the 4th and 5th toes which appear chronic. Small posterior calcaneal bony spur. There is a wound over the plantar soft tissue at the level of the 1st metatarsal head with a erosive changes of the 1st metatarsal head. Correlate for osteomyelitis. Soft tissue edema of the foot, most prominent over the forefoot. Extremity arterial study showed Mild diffuse atherosclerotic disease without hemodynamically significant stenosis. Monophasic waveforms and [id number] arteries reflecting vessel hardening loss of elastic recoil. Extremity venous study showed no DVT in left lower extremity. Foot MRI showed osteomyelitis of the 1st metatarsal bone, the 2nd metatarsal head and 2nd proximal phalanx. Extensive soft tissue inflammatory changes. Bone marrow edema in the calcaneus without definite marrow replacement. Patient was started on IV vancomycin and IV cefepime and podiatry was taken on board. Patient is also continued on IV NS at 75 cc per hour after receiving IV NS 1 L bolus. Patient is also continued on a moderate sliding scale, aspirin, atorvastatin. Urology outpatient follow up was recommended considering moderate bilateral hydronephrosis and irregularly thickened urinary bladder wall on renal ultrasound from 02/01/2024. All the 2nd day of hospitalization patient underwent left foot incision and drainage to the bone, left foot 1st and 2nd toe amputation and left foot bone biopsy. However, patient left against medical advice before further management could be completed. Prescription for Augmentin 875 mg b.i.d. for 14 days was sent to the patient's pharmacy. Consults/Reason for consult Podiatry: Left foot frozen 2nd digit osteomyelitis Condition at Discharge: Undetermined Final Diagnosis/Problems List Osteomyelitis of the 1st metatarsal bone, 2nd metatarsal head and 2nd proximal phalanx with wet gangrene Diabetic foot ulcer Peripheral arterial disease Rory likely hemodynamically mediated/VMN on possible CKD 2/3 Type 2 diabetes, uncontrolled, insulin dependent, Hb A1c 12.7 Acute intractable diarrhea, likely related to antibiotic usage Nicotine dependence Methamphetamine abuse Medication noncompliance History of hematuria with irregularly thickened urinary bladder wall Discharge Disposition: AMA Discharge Statement: "Patient was advised to return to the ER or call 911 if any headaches, dizziness, shortness of breath, chest pain, abdominal pain, bleeding, fevers, or worsening of medical condition. Patient was counseled about treatment plan, medications, possible side effects, patientverbalized understanding. All questions were answered to the best of my ability. This discharge took greater then 30 minutes in planning, reviewing documentation, counseling the patient, and discussing with other team members." ASSESSMENT ASSESSMENT Assessment Same as preop Date of Service: Mar 01, 2024 Billing Provider: ROBERTA TOMLINSON MD Common Visit Codes: 28381-ZQV/OBS DISCH DAY >30min POWER MATHIS RESIDENT Mar 01, 2024 16:41 ROBERTA TOMLINSON MD Mar 04, 2024 21:32
[2024-03-01] MEDS ORDERED: Glucerna Carbsteady SHAKE Vanilla 8oz PO SCH (18:00)
[2024-03-01] MEDS ORDERED: INSULIN LANTUS (GLARGINE) 1 /0.01ml (100units/ml) SC SCH (18:00)
[2024-03-02] MEDS ORDERED: AUG875T PO (12:09)
== END 2024-03-01 14:10 | disposition left against medical advice (07) | DRG 314 ==
LOC: ER 16:26 → EDBD 16:26 → OVERFLOW 20:34 → CENTRAL 02-28 20:48
PROVIDERS: ADMIT Student in an Organized Health Care Education/Training Program; ATTEND Student in an Organized Health Care Education/Training Program
PROC: 0Y6S0Z0 Detachment at Left 2nd Toe, Complete, Open Approach (ICD-10-PCS; 2024-02-29)
PROC: 0Y6Q0Z0 Detachment at Left 1st Toe, Complete, Open Approach (ICD-10-PCS; principal; 2024-02-29 12:03)
DX: E11.52 Type 2 diabetes mellitus with diabetic peripheral angiopathy with gangrene (principal); N17.0 Acute kidney failure with tubular necrosis; A48.0 Gas gangrene; L02.416 Cutaneous abscess of left lower limb; E11.40 Type 2 diabetes mellitus with diabetic neuropathy, unspecified; L97.529 Non-pressure chronic ulcer of other part of left foot with unspecified severity; L02.612 Cutaneous abscess of left foot; E11.69 Type 2 diabetes mellitus with other specified complication; E11.628 Type 2 diabetes mellitus with other skin complications; F17.210 Nicotine dependence, cigarettes, uncomplicated; L08.9 Local infection of the skin and subcutaneous tissue, unspecified; M86.8X7 Other osteomyelitis, ankle and foot; E11.621 Type 2 diabetes mellitus with foot ulcer; E83.42 Hypomagnesemia; I25.10 Atherosclerotic heart disease of native coronary artery without angina pectoris; F15.10 Other stimulant abuse, uncomplicated; L03.116 Cellulitis of left lower limb; Z79.4 Long term (current) use of insulin; Z83.3 Family history of diabetes mellitus; Z91.148 Patient's other noncompliance with medication regimen for other reason
CPT/HCPCS: 36415; 71045; 73630; 73718; 80048; 80053; 80202; 80307; 81001; 82565; 82570; 82962; 83036; 83605; 83735; 84156; 84300; 84443; 84484; 85014; 85018; 85025; 85610; 85652; 85730; 86141; 86850; 86900; 86901; 87040; 87070; 87075; 87077; 87081; 87186; 87205; 87426; 87804; 93005; 93926; 93971; G0378; J0692; J1815; J2405; J2543; J2704; J3490

== ENCOUNTER 2024-03-14 15:23 | Inpatient (IN) | payer MEDICAID ==
[~2024-03-14] VITALS: Ht 188 cm; Wt 70.2 kg
[~2024-03-14 15:23] MED LIST changes: +AUG875T PO
--- NOTE | 2024-03-14 15:40 | ED.PDOC ---
Musculoskeletal HPI Comments 53 year old male LESA presents to the ED with chief complaint of left foot wound. Patient reports that he has been experiencing a wound to his left foot with associated drainage, redness, swelling, and pain for the past few days. Patient relays that he was seen on 02/27/24 for the same complaint and he had his 1st and 2nd toes amputated due to the infection. Patient states he had ran out of his prescription of antibiotics 2 days ago. Patient notes he is diabetic and EMS reported patient's BG is at 422. Patient denies any numbness, weakness, fever, chills, or leg pain. Chief Complaint: Lower Extremity Time Seen by MD: 15:36 Primary Care Provider: LINO Reviewed Notes: Nurses Notes, Medications, Allergies Allergies: Coded Allergies: NO KNOWN ALLERGIES (Unverified , 06/04/20) Home Meds Active Scripts Amoxicillin & Pot Clavulanate (AUGMENTIN TABLET) 875 Mg Tb, 875 MG PO BID for 14 Days, #28 TAB Prov:POWER MATHIS RESIDENT 03/02/24 Insulin Glargine (Lantus) 100 Unit/Ml Inj, 30 UNITS SC BID for 30 Days, #2 INJ Prov:DAVE HERMAN 02/02/24 Atorvastatin Calcium (ATORVASTATIN CALCIUM) 20 Mg Tab, 40 MG PO HS for 30 Days, #60 TAB Prov:DAVE HERMAN 02/02/24 Aspirin (Aspirin Low Dose) 81 Mg Tab, 81 MG PO DAILY for 30 Days, #30 TAB Prov:DAVE HERMAN 02/02/24 Doxycycline Hyclate (Doxycycline Hyclate) 50 Mg Cap, 1 CAP PO BID for 14 Days, #20 CAP Prov:DAVE HERMAN 02/02/24 Levofloxacin Hemihydrate (LEVAQUIN 500 MG) 500 Mg Tab, 500 MG PO DAILY for 14 Days, #14 TAB Prov:DAVE HERMAN 02/02/24 Lancets Misc. (ACCU-CHEK FASTCLIX LANCET) Fastclix Kit, UNIT XX TID, #30 Monitor fasting glucose Prov:DAVE HERMAN 02/02/24 Blood Glucose Monitoring Suppl (D-Care Glucometer Kit/Glu W/Device) 1 Kit Kit, KIT XX DAILY, #1 Monitor fasting glucose Prov:DAVE HERMAN 02/02/24 Metformin Hydrochloride (METFORMIN HCL ER) 500 Mg Tab, 1 TAB PO BID, #90 TAB 1 Refill Prov:SHYAM BENITEZ PULP GRINDER AND BLENDER 02/27/23 Gabapentin (Gabapentin) 300 Mg Cap, 1 CAP PO Q6HP PRN, #30 CAP 0 Refills Prov:ADONIS MARTÍNEZ PAC 12/06/22 Information Source: Patient Mode of Arrival: Ambulatory Location: Left Extremity Location: Foot Timing: Days Prehospital treatment: None Severity: Moderate Able to Move Extremity: Yes Bear Weight: Fully Pain: Moderate Mechanism: Spontaneous Circumstances: Preceding Wound Onset of Symptoms: Spontaneous Symptoms: Swelling, Pain, Erythema DVT Risk Factors: Recent surgery Last Tetanus: Unknown Past Medical History PAST MEDICAL HISTORY: DM, HTN Surgical History (Other): Left 1st and 2nd toe amputations Family History Family History: Reviewed,noncontributory to illness, Family hx of DM, Family hx of Cancer Social History Smoker: Cigarettes Alcohol: Occasionally Drugs: Methamphetamine Lives In: Home Constitutional: denies: chills, diaphoresis, fatigue, fever, malaise, sweats, weakness, others EENTM: denies: blurred vision, double vision, ear bleeding, ear discharge, ear drainage, ear pain, ear ringing, eye pain, eye redness, hearing loss, mouth pain, mouth swelling, nasal discharge, nose bleeding, nose congestion, nose pain, photophobia, tearing, throat pain, throat swelling, voice changes, others Respiratory: denies: cough, hemoptysis, orthopnea, SOB at rest, shortness of breath, SOB with excertion, stridor, wheezing, others Cardiovascular: denies: chest pain, dizzy spells, diaphoresis, Dyspnea on exertion, edema, irregular heart beat, left arm pain, lightheadedness, p alpitations, PND, syncope, others Gastrointestinal: denies: abdomen distended, abdominal pain, blood streaked bowels, constipated, diarrhea, dysphagia, difficulty swallowing, hematemesis, melena, nausea, poor appetite, poor fluid intake, rectal bleeding, rectal pain, vomiting, others Genitourinary: denies: burning, dysuria, flank pain, frequency, hematuria, incontinence, penile discharge, penile sore, pain, testicle pain, testicle swelling, urgency, others Neurological: denies: dizziness, fainting, headache, left sided numbness, left sided weakness, numbness, paresthesia, pre-existing deficit, right sided numbness, right sided weakness, seizure, speech problems, tingling, tremors, weakness, others Musculoskeletal: denies: back pain, gout, joint pain, joint swelling, muscle pain, muscle stiffness, neck pain, others Integumetry: reports: wounds (Left foot wound with drainage, redness, and swelling); denies: bruises, change in color, change in hair/nails, dryness, laceration, lesions, lumps, rash, others Allergic/Immunocompromised: denies: Difficulty Healing, Frequent Infections, Hives, Itching, others Hematologic/Lymphatic: denies: anemia, blood clots, easy bleeding, easy bruising, swollen glands, others Endocrine: denies: excessive hunger, excessive sweating, excessive thirst, excessive urination, flushing, intolerance to cold, intolerance to heat, unexplained weight gain, unexplained weight loss, others Psychiatric: denies: anxiety, bipolar disorder, depression, hopeless, panic disorder, schizophrenia, sleepless, suicidal, others All Other Systems: Reviewed and Negative Physical Exam General Appearance: Moderate Distress, Normal HEENT: Normal ENT Inspection, PERRL/EOMI Neck: Full Range of Motion, Non-Tender, Normal, Normal Inspection Respiratory: Chest Non-Tender, Lungs Clear, No Accessory Muscle Use, No Respiratory Distress, Normal Breath Sounds Cardiovascular: No Edema, No JVD, No Murmur, No Gallop, Normal Peripheral Pulses, Regular Rate/Rhythm Breast Exam: Deferred Gastrointestinal: No Organomegaly, Non Tender, No Pulsatile Mass, Normal Bowel Sounds, Soft Genitalia: Deferred Pelvic: Deferred Rectal: Deferred Extremities: No calf tenderness, Normal capillary refill, Normal inspection, Normal range of motion, Non-tender, No pedal edema Musculoskeletal : Apperance: Normal Neurologic: Alert, signal repairer II-XII nml as Tested, No Motor Deficits, Normal Affect, Normal Mood, No Sensory Deficits Cerebellar Function: NOT DONE Reflexes: NOT DONE Skin: Dry, Normal Color, Warm, Wounds (Left foot) Peripheral Pulses: 3+ Radial (R), 3+ Radial (L) Lymphatic: No Adenopathy Was a procedure done? Was a procedure done?: No Differential Diagnosis EXT Differential Diagnosis: Cellulitis X-Ray, Labs, Meds, VS Vital Signs Date Time Temp Pulse Resp B/P (MAP) Pulse Ox O2 Delivery O2 Flow Rate FiO2 03/14/24 15:33 99.7 118 18 108/68 (81) 100 Patient alert. Left foot wound. Vitals stable. Answering all questions. States that his foot wound is oozing. He did have surgery on that foot this hospital recently. Reviewed his previous visit. Establish intravenous access. Was given fluids. Blood sugar elevated. Was given insulin. Was given Zosyn. Explained to the patient. Continue cardiac monitoring. Time of 1ST Reevaluation: 16:36 Reevaluation 1ST: Unchanged Patient Education/Counseling: Diagnosis, Treatment Family Education/Counseling: No Family Present Departure 1 Departure Time of Disposition: 15:44 Impression: Primary Impression: Diabetes mellitus type 2 with complications, uncontrolled Additional Impressions: Cellulitis and abscess of left leg Diabetic foot infection Disposition: ADMITTED INPATIENT Admit to: Med Surg Condition: Guarded Critical Care Note Critical Care Time?: No Stability Stability form required: No Heart Score Heart Score: Heart Score Response (Comments) Value History N/A 0 EKG N/A 0 Age N/A 0 Risk Factors N/A 0 Troponin N/A 0 Total 0 I personally scribed for RENNY JONES MD ([email or web address]) on 03/14/24 at 15:40. Electronically submitted by Lamberto Escobar ([email or web address]). RENNY JONES MD Mar 14, 2024 15:40
[2024-03-14] MEDS: SODIUM CHLORIDE 0.9% 1,000 ML IV ONE ×2 (15:45→21:03)
[2024-03-14] MEDS: PIPERACILLIN-TAZOB 3.375GM 100 ML IV ONE (15:45)
[2024-03-14 16:08] LABS: Basophils # (auto) 0.1 10 ^3/uL (0-0.2); Basophils % (auto) 0.7 % (0.0-2.0); Eosinophils # (auto) 0 10 ^3/uL (0-0.8); Eosinophils % (auto) 0.2 % (0.0-7.0); Hematocrit 31.9 % (41.0-53.0); Hemoglobin 10.5 g/dL (13.5-17.5); Lymphocytes # (auto) 0.9 10 ^3/uL (0.4-5.4); Lymphocytes % (auto) 6.2 % (10.0-50.0); Mean Corpuscular Hgb Conc. 32.8 g/dL (32.0-36.0); Mean Corpuscular Volume 85.3 fL (80.0-100.0); Monocytes # (auto) 1.2 10 ^3/uL (0-1.3); Monocytes % (auto) 8.1 % (0.0-12.0); Neutrophils # (auto) 12.5 10 ^3/uL (1.6-8.6); Neutrophils % (auto) 84.8 % (37.0-80.0); Platelet Count (auto) 377 10^3/uL (140-450); Red Blood Cells 3.74 10^6/uL (4.5-5.90); Red Cell Distribution Width 14.5 % (11.8-14.3); White Blood Cell 14.8 10^3/uL (4.4-10.8)
[2024-03-14 16:23] LABS: Anion Gap 11 (5-15); Carbon Dioxide 25 mmol/L (20-31)
[2024-03-14 16:24] LABS: Calcium 8.9 mg/dL (8.7-10.4)
[2024-03-14 16:28] LABS: BUN/Creatinine Ratio 17.2 (10.0-20.0)
[2024-03-14 16:35] LABS: Blood Urea Nitrogen 27 mg/dL (9-23); Chloride 93 mmol/L (98-107); Potassium 3.4 mmol/L (3.5-5.1); Sodium 129 mmol/L (136-145)
[2024-03-14 16:38] LABS: Glucose 435 mg/dL (74-106)
--- NOTE | 2024-03-14 16:39 | DVH ---
EXAMINATION: CT CT L FOOT WO CONTRAST INDICATION: infection COMPARISON: MRI MRI L FOOT WO CONTRAST on DOS: 02/28/24, MRI MRI L FOOT WO CONTRAST on DOS: 01/28/24 TECHNIQUE: CT of the left foot was performed without contrast. Volume transverse images were obtained reconstructed in multiple planes using bone and soft tissue algorithms. Radiation Dose Information: CT Dose: CTDI volume is 7.75 mGy. Dose-length product is 199.03 mGy*cm FINDINGS/IMPRESSION: Diffuse subcutaneous soft-tissue edema and swelling. Large volume subcutaneous gas at the distal medial foot surrounding the distal 1st and 2nd digit. The re is associated skin disruption /laceration. Small volume subcutaneous gas in the posterior, inferio r foot. These findings likely represent cellulitis. Post resection of the distal 1st and 2nd digits distal to the level of the metatarsals. Periosteal reaction associated with the distal 1st metatarsal. Bony erosive change is present at the distal 1st and 2nd metatarsal. These findings are suspicious for osteomyelitis. MRI can be obtained to further evaluate if clinically indicated.
[2024-03-14] MEDS: InsuLIN REG 1unit/0.01ml Soln (100units/ml) IV ONE (18:20)
[2024-03-14] MEDS ORDERED: VANCOMYCIN PER PHARMACY 0 MG IV SCH (20:45)
[2024-03-14] MEDS ORDERED: DOCUSATE SOD 100 MG CAP PO PRN (20:45)
[2024-03-14] MEDS ORDERED: DEXTROSE (50%) 50ML SYRG IV PRN (20:45)
[2024-03-14] MEDS ORDERED: ONDANSETRON HCL 4 MG/2 ML VIAL IV PRN (20:45)
[2024-03-14] MEDS: SODIUM CHLORIDE 0.9% 1,000 ML IV SCH (21:41)
[2024-03-14 22:53] VITALS: PULSE 99; RESP 15; O2SAT 97
--- NOTE | 2024-03-14 22:58 | DVHHP2 ---
History of Present Illness Reason for Visit: Osteomyelitis of left foot History of Present Illness The patient is a 53-year-old male with past medical history of hyperlipidemia, diabetes mellitus, and hypertension who presented to [facility] ED with complaint of left foot infected wound. Patient reports he noticed worsening wound to his left foot with associated drainage, redness, swelling, and foul odor. Patient reports that he was seen on 02/27/24 for the same complaint and he had his 1st and 2nd toes amputated due to the infection. Patient was seen and evaluated in the ED, laboratory data shows WBC 14.8, hemoglobin 10.5, hematocrit 31.9, platelets 377, sodium 129, potassium 3.4, BUN 27, creatinine 1.57, GFR 53, glucose 435, lactic acid 4.0, blood pressure 91/65, heart rate 118, temperature 99.7 F, O2 saturation 98% on room air. Left foot CT revealing diffuse subcutaneous soft tissue edema and swelling, small volume subcutaneous gas in the posterior, anterior foot likely represent cellulitis; bony erosive changes is present at the distal 1st and 2nd metatarsal suspicious for osteomyelitis. Patient was started on IV antibiotic regimen vancomycin, please see medication orders section in the computer. On my assessment, patient denied chest pain, no headache, no diaphoresis, no shortness of breath, no nausea, no vomiting, no fever, no chills. Patient was admitted further evaluation and medical management. Past Medical History DM, HTN, hyperlipidemia Past Surgical History Left 1st and 2nd toe amputations Family History Reviewed, noncontributory to the management of this case. Past Social History The patient lives at home, smokes cigarettes, drinks alcohol occasionally, uses methamphetamine. Review of Systems Constitutional: No: Fever, Chills, Sweats, Weakness, Malaise, Other Eyes: No: Pain, Vision change, Conjunctivae inflammation, Eyelid inflammation, Other, Redness ENT: No: Ear pain, Ear discharge, Nose pain, Nose discharge, Nose congestion, Mouth pain, Mouth swelling, Throat pain, Throat swelling, Other Respiratory: No: Cough, Dry, Shortness of breath, SOB with excertion, Wheezing, Hemoptysis, Pleuritic Pain, Sputum, Wheezing, Other Cardiovascular: No: Chest Pain, Palpitations, Orthopnea, Paroxysmal Noc. Dyspnea, Edema, Lt Headedness, Other Gastrointestinal: No: Nausea, Vomiting, Abdominal Pain, Diarrhea, Constipation, Melena, Hematochezia, Other Genitourinary: No Dysuria, No Frequency, No Incontinence, No Hematuria, No Retention, No Other Musculoskeletal: other (Left foot wound with drainage, redness, and swelling); No: neck pain, shoulder pain, arm pain, back pain, hand pain, leg pain, foot pain Skin: Other (Left foot open wound); No: Rash, Lesions, Jaundice, Bruising Neurological: No: Weakness, Numbness, Incoordination, Change in speech, Confusion, Seizures, Other Allergies: Coded Allergies: NO KNOWN ALLERGIES (Unverified , 06/04/20) Medications Current Medications Medications Dose Ordered Sig/Florence Route Start Time Stop Time Status Last Admin Dose Admin Piperacillin Sod/ Tazobactam Sod 100 ml @ 25 mls/hr Q8HR IV 03/14/24 22:00 Aspirin 81 mg DAILY PO 03/15/24 10:00 Atorvastatin Calcium 20 mg HS PO 03/14/24 22:00 Vancomycin HCl 0 ml @ 0 mls/hr UD IV 03/14/24 20:45 UNV Diagnostic Test (Pha) 1 strip IQ4HR 03/15/24 00:00 Insulin Human Regular IQ4HR SC 03/15/24 00:00 Dextrose 50 ml UD PRN IV 03/14/24 20:45 Sodium Chloride 1,000 ml @ 120 mls/hr Q8H20M IV 03/14/24 20:45 Acetaminophen/ Hydrocodone Bitart 1 tab Q4HP PRN PO 03/14/24 20:45 Ondansetron HCl 4 mg Q4HP PRN IV 03/14/24 20:45 Docusate Sodium 100 mg BIDPRN PRN PO 03/14/24 20:45 Acetaminophen 650 mg Q6HP PRN PO 03/14/24 20:45 Morphine Sulfate 2 mg Q4HPRN PRN IV 03/14/24 20:45 Exam Vital Signs Vital Signs Date Time Temp Pulse Resp B/P (MAP) Pulse Ox O2 Delivery O2 Flow Rate FiO2 03/14/24 22:52 100.7 99 16 122/72 (89) 96 100.7 03/14/24 18:19 Room Air General Appearance: Alert, Oriented X3, Cooperative, No acute distress HEENT: Atraumatic, PERRLA, EOMI, Mucous membr. moist/pink Respiratory: Clear to auscultation, Normal air movement Cardiovascular: Regular rate, Normal S1, Normal S2, No murmurs Abdominal: Normal bowel sounds, Soft, No tenderness, No hepatospenomegaly, No masses Extremities: No clubbing, No cyanosis, No edema, Normal pulses, Other (Left foot tenderness/swelling) Skin: No rashes Neuro: Normal gait, Normal speech, Strength at 5/5 X4 ext, Normal tone, Sensation intact, Cranial nerves 3-12 NL, Reflexes 2+ Psych/Mental Status: Mental status NL, Mood NL Labs/Xrays Labs Test 03/14/24 19:09 03/14/24 17:50 03/14/24 15:53 Range/Units Lactic Acid Level 4.4 *H 0.4-2.0 mmol/L POC Glucose 397 H 70-106 mg/dl White Blood Count 14.8 H 4.4-10.8 10^3/uL Red Blood Count 3.74 L 4.5-5.90 10^6/uL Hemoglobin 10.5 L 13.5-17.5 g/dL Hematocrit 31.9 L 41.0-53.0 % Mean Corpuscular Volume 85.3 80.0-100.0 fL Mean Corpuscular Hemoglobin 28.0 28.0-32.0 pg Mean Corpuscular Hemoglobin Concent 32.8 32.0-36.0 g/dL Red Cell Distribution Width 14.5 H 11.8-14.3 % Platelet Count 377 140-450 10^3/uL Mean Platelet Volume 8.7 6.9-10.8 fL Neutrophils (%) (Auto) 84.8 H 37.0-80.0 % Lymphocytes (%) (Auto) 6.2 L 10.0-50.0 % Monocytes (%) (Auto) 8.1 0.0-12.0 % Eosinophils (%) (Auto) 0.2 0.0-7.0 % Basophils (%) (Auto) 0.7 0.0-2.0 % Neutrophils # (Auto) 12.5 H 1.6-8.6 10 ^3/uL Lymphocytes # (Auto) 0.9 0.4-5.4 10 ^3/uL Monocytes # (Auto) 1.2 0-1.3 10 ^3/uL Eosinophils # (Auto) 0 0-0.8 10 ^3/uL Basophils # (Auto) 0.1 0-0.2 10 ^3/uL Nucleated Red Blood Cells 0.0 % Sodium Level 129 L 136-145 mmol/L Potassium Level 3.4 L 3.5-5.1 mmol/L Chloride Level 93 L 98-107 mmol/L Carbon Dioxide Level 25 20-31 mmol/L Anion Gap 11 5-15 Blood Urea Nitrogen 27 H 9-23 mg/dL Creatinine 1.57 H 0.700-1.30 mg/dL Glomerular Filtration Rate Calc 53 >90 mL/min BUN/Creatinine Ratio 17.2 10.0-20.0 Serum Glucose 435 *H 74-106 mg/dL Calcium Level 8.9 8.7-10.4 mg/dL PATIENT: JEANETTE FLORENCE ACCT: [id number] UNIT: [id number] : 1970 LOC: ER ROOM / BED: / AGE / SEX: 53 / M ADM STATUS: REG ER SERVICE [id number] ORDERING PHYSICIAN: RENNY JONES MD PROCEDURE(s): LFTCT - CT L FOOT WO CONTRAST REASON: infection ORDER NUMBER(s): [id number], ACCESSION NUMBER(s): [id number] EXAMINATION: CT CT L FOOT WO CONTRAST INDICATION: infection COMPARISON: MRI MRI L FOOT WO CONTRAST on DOS: 02/28/24, MRI MRI L FOOT WO CONTRAST on DOS: 01/28/24 TECHNIQUE: CT of the left foot was performed without contrast. Volume transverse images were obtained reconstructed in multiple planes using bone and soft tissue algorithms. Radiation Dose Information: CT Dose: CTDI volume is 7.75 mGy. Dose-length product is 199.03 mGy*cm FINDINGS/IMPRESSION: Diffuse subcutaneous soft-tissue edema and swelling. Large volume subcutaneous gas at the distal medial foot surrounding the distal 1st and 2nd digit. There is associated skin disruption/laceration. Small volume subcutaneous gas in the posterior, inferior foot. These findings likely represent cellulitis. Post resection of the distal 1st and 2nd digits distal to the level of the metatarsals. Periosteal reaction associated with the distal 1st metatarsal. Bony erosive change is present at the distal 1st and 2nd metatarsal. These findings are suspicious for osteomyelitis. MRI can be obtained to further evaluate if clinically indicated. Assessment/Plan Assessment/Plan Osteomyelitis of left foot Electrolyte imbalance Leukocytosis, unspecified Elevated lactate level Cellulitis and abscess of left leg Diabetic foot infection Diabetes mellitus with hyperglycemia Plan 1. Admit to med surge unit 2. Breathing treatment 3. Pain control management 4. IV antibiotic management 5. Management of fluids and electrolytes 6. Consultation for hospitalist/wound care 7. Diagnostic test left foot CT 8. DVT prophylaxis-on aspirin 9. Repeat labs CBC, CMP in a.m. 10. Home medication reviewed and reconciled 11. Continue with current medical management 12. Treatment plan discussed with patient and RN. Patient verbalized understanding. Plan discussed with: Patient, Other (RN) My Orders Orders - KENNETH DE LA CRUZ DNP Procedure Category Date Status Time Consistent DIET 03/15/24 Transmitted Carb(Ccho)Diabetes Breakfast Aspirin Tablet PHA 03/15/24 In Process 10:00 Atorvastatin (Lipitor) PHA 03/14/24 In Process 22:00 Vancomycin Per PHA 03/14/24 Pending Pharmacy 20:45 Glucose Blood PHA 03/15/24 In Process (Accu-Chek Comfort 00:00 Insulin R (Human) PHA 03/15/24 In Process (Insulin R) 00:00 Dextrose 50% Syringe PHA 03/14/24 In Process 20:45 Allergies MALLIKA 03/14/24 In Process 20:39 Code Status CODE 03/14/24 Transmitted 20:39 Sodium Chloride 0.9% PHA 03/14/24 In Process 20:45 Oxygen Per Hour RT 03/14/24 Transmitted 20:39 Hydrocodone-Acet PHA 03/14/24 In Process 5/325mg Tab (Cyclone 20:45 Ondansetron Hcl PHA 03/14/24 In Process (Zofran) 20:45 Docusate Sodium PHA 03/14/24 In Process Capsule (Colace 20:45 Complete Blood Count LAB 03/15/24 Verified 04:00 Comprehensive LAB 03/15/24 Verified Metabolic Panel 04:00 Condition: Serious MALLIKA 03/14/24 In Process 20:39 Acetaminophen Tablet PHA 03/14/24 In Process (Tylenol Tablet) 20:45 Bedrest With Bathroom MALLIKA 03/14/24 In Process Privileg 20:39 Morphine Sulfate PHA 03/14/24 In Process Injection 20:45 Sequential MALLIKA 03/14/24 In Process Compression Device Piperacillin-Tazob PHA 03/14/24 In Process 3.375gm (Zosyn 3.375g 22:00 Vancomycin 1.5gm/300ml PHA 03/14/24 In Process 22:00 Admit ADMIT 03/14/24 Verified 22:55 Nitroglycerin PHA 03/14/24 Verified Sublingual (Ntrostat 23:00 Morphine Sulfate PHA 03/14/24 Verified Injection 23:00 Notify Md Of Changes MALLIKA 03/14/24 Verified From Base 22:55 Emergency Dysrhythmia MALLIKA 03/14/24 Verified Protocol 22:55 Oxygen By Nasal RT 03/14/24 Verified Cannula 22:55 Problem List: (1) Osteomyelitis of left foot (2) Cellulitis and abscess of left leg (3) Elevated lactic acid level (4) Leukocytosis, unspecified (5) Electrolyte imbalance (6) Diabetes mellitus with hyperglycemia (7) Diabetic foot infection Date of Service: Mar 14, 2024 Billing Provider: KENNETH DE LA CRUZ DNP Common Visit Codes: [id number] INP/OBS CARE (HIGH) KENNETH DE LA CRUZ DNP Mar 14, 2024 22:58
[2024-03-14] MEDS ORDERED: NITROGLYCERIN 0.4 MG SL TAB SL PRN (23:00)
[2024-03-14] MEDS ORDERED: MORPHINE SULFATE INJ 2 MG/ml SYRG IV PRN (23:00)
[2024-03-14] MEDS: MORPHINE SULFATE INJ 2 MG/ml SYRG IV PRN (23:53)
[2024-03-14] MEDS: ACETAMINOPHEN 325 MG TAB PO PRN (23:53)
[2024-03-14] MEDS: ATORVASTATIN 20 MG TAB PO SCH (23:53)
[2024-03-15] MEDS: ACCU-CHEK COMFORT CURVE STRIP VI SCH (00:20)
[2024-03-15] MEDS: InsuLIN REG 1unit/0.01ml Soln (100units/ml) SC SCH (01:16)
[2024-03-15] MEDS: PIPERACILLIN-TAZOB 3.375GM 100 ML IV SCH ×2 (01:40→09:50)
[2024-03-15] MEDS: SODIUM CHLORIDE 0.9% 1,000 ML IV ONE (02:04)
[2024-03-15 06:40] LABS: Alanine Aminotransferase 15 U/L (7-40); Alkaline Phosphatase 114 U/L (46-116); Anion Gap 8 (5-15); BUN/Creatinine Ratio 20.7 (10.0-20.0); Carbon Dioxide 24 mmol/L (20-31); Chloride 103 mmol/L (98-107)
[2024-03-15 06:41] LABS: Albumin 3.1 g/dL (3.2-4.8); Aspartate Aminotransferase 16 U/L (13-40); Bilirubin, Total 0.4 mg/dL (0.2-1.0); Blood Urea Nitrogen 28 mg/dL (9-23); Calcium 8.2 mg/dL (8.7-10.4); Glucose 107 mg/dL (74-106); Potassium 2.8 mmol/L (3.5-5.1); Sodium 135 mmol/L (136-145); Total Protein 6.1 g/dL (5.7-8.2)
[2024-03-15 07:23] LABS: Basophils # (auto) 0.1 10 ^3/uL (0-0.2); Basophils % (auto) 0.6 % (0.0-2.0); Eosinophils # (auto) 0.3 10 ^3/uL (0-0.8); Hematocrit 26.9 % (41.0-53.0); Hemoglobin 8.7 g/dL (13.5-17.5); Lymphocytes # (auto) 1.8 10 ^3/uL (0.4-5.4); Lymphocytes % (auto) 13.3 % (10.0-50.0); Mean Corpuscular Hemoglobin 27.5 pg (28.0-32.0); Mean Corpuscular Hgb Conc. 32.4 g/dL (32.0-36.0); Mean Corpuscular Volume 84.9 fL (80.0-100.0); Monocytes # (auto) 1.5 10 ^3/uL (0-1.3); Neutrophils % (auto) 73.1 % (37.0-80.0); Platelet Count (auto) 267 10^3/uL (140-450); Red Blood Cells 3.17 10^6/uL (4.5-5.90); Red Cell Distribution Width 14.4 % (11.8-14.3); White Blood Cell 13.7 10^3/uL (4.4-10.8)
[2024-03-15 08:00] VITALS: PULSE 81; RESP 14; O2SAT 99
[2024-03-15] MEDS: ASPirin 81 mg TAB PO SCH (09:50)
--- NOTE | 2024-03-15 12:58 | DVHPN2 ---
Reviewed: Care Plan, H&P, Labs, Medications, Previous Orders, Radiology Changes from previous H/P or p: No Changes Eyes: No Pain, No Vision change, No Conjunctivae inflammation, No Eyelid inflammation, No Other, No Redness ENT: No Ear pain, No Ear discharge, No Nose pain, No Nose discharge, No Nose congestion, No Mouth pain, No Mouth swelling, No Throat pain, No Throat swelling, No Other Cardiovascular: No Chest Pain, No Palpitations, No Orthopnea, No Paroxysmal Noc. Dyspnea, No Edema, No Lt Headedness, No Other Respiratory: No Cough, No Dry, No Shortness of breath, No SOB with excertion, No Wheezing, No Hemoptysis, No Pleuritic Pain, No Sputum, No Other Gastrointestinal: No Nausea, No Vomiting, No Abdominal Pain, No Diarrhea, No Constipation, No Melena, No Hematochezia, No Other Genitourinary: No Dysuria, No Frequency, No Incontinence, No Hematuria, No Retention, No Other Musculoskeletal: other (Left foot wound with drainage, redness, and swelling); No neck pain, No shoulder pain, No arm pain, No back pain, No hand pain, No leg pain, No foot pain Skin: No Rash, No Lesions, No Jaundice, No Bruising; Other (Left foot open wound) Objective Vitals Vital Signs Date Time Temp Pulse Resp B/P (MAP) Pulse Ox O2 Delivery O2 Flow Rate FiO2 03/15/24 10:00 97 15 113/77 (89) 99 03/15/24 08:00 Room Air* 0 21 03/15/24 08:00 97.6 97.6 Intake/Output Intake and Output 03/15/24 07:00 Output Total 350 ml Balance -350 ml Output Urine Total 350 ml Medications Current Medications Medications Dose Ordered Sig/Florence Route Start Time Stop Time Status Last Admin Dose Admin Aspirin 81 mg DAILY PO 03/15/24 10:00 03/15/24 09:50 81 MG Atorvastatin Calcium 20 mg HS PO 03/14/24 22:00 03/14/24 23:53 20 MG Vancomycin HCl 0 ml @ 0 mls/hr UD IV 03/14/24 20:45 Diagnostic Test (Pha) 1 strip IQ4HR 03/15/24 00:00 03/15/24 11:51 1 STRIP Insulin Human Regular IQ4HR SC 03/15/24 00:00 03/15/24 11:55 8 UNITS Dextrose 50 ml UD PRN IV 03/14/24 20:45 Sodium Chloride 1,000 ml @ 120 mls/hr Q8H20M IV 03/14/24 20:45 03/15/24 04:41 120 MLS/HR Acetaminophen/ Hydrocodone Bitart 1 tab Q4HP PRN PO 03/14/24 20:45 Ondansetron HCl 4 mg Q4HP PRN IV 03/14/24 20:45 Docusate Sodium 100 mg BIDPRN PRN PO 03/14/24 20:45 Acetaminophen 650 mg Q6HP PRN PO 03/14/24 20:45 03/14/24 23:53 650 MG Morphine Sulfate 2 mg Q4HPRN PRN IV 03/14/24 20:45 03/14/24 23:53 2 MG Nitroglycerin 0.4 mg Q5MINP PRN SL 03/14/24 23:00 Morphine Sulfate 2 mg Q30M PRN IV 03/14/24 23:00 Piperacillin Sod/ Tazobactam Sod 100 ml @ 25 mls/hr Q8H IV 03/15/24 10:00 03/15/24 09:50 25 MLS/HR Vancomycin HCl 250 ml @ 250 mls/hr Q12H IV 03/15/24 12:00 Laboratory Results Laboratory Tests 03/15/24 05:49 03/15/24 07:08 Chemistry Test 03/14/24 15:53 03/15/24 05:49 Calcium Level 8.9 mg/dL (8.7-10.4) 8.2 mg/dL (8.7-10.4) L Albumin 3.1 g/dL (3.2-4.8) L Total Protein 6.1 g/dL (5.7-8.2) LFT Test 03/15/24 05:49 Alanine Aminotransferase (ALT) 15 U/L (7-40) Alkaline Phosphatase 114 U/L (46-116) Aspartate Amino Transferase (AST) 16 U/L (13-40) Total Bilirubin 0.4 mg/dL (0.2-1.0) Labs and/or images reviewed: Labs reviewed by me, Image(s) reviewed by me Assessment/Plan Assessment/Plan Acute Osteomyelitis left foot: Zosyn vancomycin consult for Dr. Maynard History of amputation left 1st and 2nd toes with the incision and drainage on 03/01/[address] Maynard Diabetic foot ulcer Peripheral arterial disease Diabetic neuropathy vasculopathy nephropathy Rory likely hemodynamically mediated/VMN on possible CKD 2/3 Type 2 diabetes, uncontrolled, insulin dependent, Hb A1c 12.7 Nicotine dependence Methamphetamine abuse Medication noncompliance Spent 45 minutes Patient is full code Advanced care planning time 20 minutes Plan discussed with: Patient Date of Service: Mar 15, 2024 Billing Provider: ANKUR JALLOH MD Common Visit Codes: [id number] INP/OBS CARE(HIGH) Secondary Visit Codes: [id number] CARE PLAN 30 MINUTES ANKUR JALLOH MD Mar 15, 2024 12:58
[2024-03-15] MEDS: VANCOMYCIN 1GM/250ML KIT 250 ML IV SCH (14:49)
[2024-03-15 16:52] VITALS: BP 121/79; PULSE 96; RESP 16; RESP 18; TEMP 98; O2SAT 93
--- NOTE | 2024-03-15 17:06 | DVHINCON2 ---
Date Seen: Mar 15, 2024 Reason for Consultation Left foot wound left foot History of Present Illness The patient is a 53-year-old male with past medical history of hyperlipidemia, diabetes mellitus, and hypertension who presented to [facility] ED with complaint of left foot infected wound. Patient reports he noticed worsening wound to his left foot with associated drainage, redness, swelling, and foul odor. Patient reports that he was seen on 02/27/24 for the same complaint and he had his 1st and 2nd toes amputated due to the infection. Patient was seen and evaluated in the ED, laboratory data shows WBC 14.8, hemoglobin 10.5, hematocrit 31.9, platelets 377, sodium 129, potassium 3.4, BUN 27, creatinine 1.57, GFR 53, glucose 435, lactic acid 4.0, blood pressure 91/65, heart rate 118, temperature 99.7 F, O2 saturation 98% on room air. Left foot CT revealing diffuse subcutaneous soft tissue edema and swelling, small volume subcutaneous gas in the posterior, anterior foot likely represent cellulitis; bony erosive changes is present at the distal 1st and 2nd metatarsal suspicious for osteomyelitis. Patient was started on IV antibiotic regimen vancomycin, please see medication orders section in the computer. On my assessment, patient denied chest pain, no headache, no diaphoresis, no shortness of breath, no nausea, no vomiting, no fever, no chills. Patient was admitted further evaluation and medical management. Past Medical History see H&P Past Surgical History see H&P Family History: Diabetes mellitus G8 FATHER FH: cancer G8 FATHER Allergies: Coded Allergies: NO KNOWN ALLERGIES (Unverified , 06/04/20) Home Meds Active Scripts Amoxicillin & Pot Clavulanate (AUGMENTIN TABLET) 875 Mg Tb, 875 MG PO BID for 14 Days, #28 TAB Prov:POWER MATHIS RESIDENT 03/02/24 Insulin Glargine (Lantus) 100 Unit/Ml Inj, 30 UNITS SC BID for 30 Days, #2 INJ Prov:DAVE HERMAN RESIDENT 02/02/24 Atorvastatin Calcium (ATORVASTATIN CALCIUM) 20 Mg Tab, 40 MG PO HS for 30 Days, #60 TAB Prov:DAVE HERMAN RESIDENT 02/02/24 Aspirin (Aspirin Low Dose) 81 Mg Tab, 81 MG PO DAILY for 30 Days, #30 TAB Prov:DAVE HERMAN RESIDENT 02/02/24 Doxycycline Hyclate (Doxycycline Hyclate) 50 Mg Cap, 1 CAP PO BID for 14 Days, #20 CAP Prov:DAVE HERMAN RESIDENT 02/02/24 Levofloxacin Hemihydrate (LEVAQUIN 500 MG) 500 Mg Tab, 500 MG PO DAILY for 14 Days, #14 TAB Prov:DAVE HERMAN RESIDENT 02/02/24 Lancets Misc. (ACCU-CHEK FASTCLIX LANCET) Fastclix Kit, UNIT XX TID, #30 Monitor fasting glucose Prov:DAVE HERMAN RESIDENT 02/02/24 Blood Glucose Monitoring Suppl (D-Care Glucometer Kit/Glu W/Device) 1 Kit Kit, KIT XX DAILY, #1 Monitor fasting glucose Prov:DAVE HERMAN RESIDENT 02/02/24 Metformin Hydrochloride (METFORMIN HCL ER) 500 Mg Tab, 1 TAB PO BID, #90 TAB 1 Refill Prov:SHYAM BENITEZ RAILROAD BRAKE OPERATOR 02/27/23 Gabapentin (Gabapentin) 300 Mg Cap, 1 CAP PO Q6HP PRN, #30 CAP 0 Refills Prov:ADONIS MARTÍNEZ PAC 12/06/22 Current Medications Current Medications Medications (Trade) Dose Ordered Sig/Florence Route PRN Reason Start Time Stop Time Status Last Admin Piperacillin Sod/ Tazobactam Sod 100 ml @ 25 mls/hr Q8HR IV 03/14/24 22:00 03/15/24 04:44 DC 03/15/24 01:40 Aspirin 81 mg DAILY PO 03/15/24 10:00 03/15/24 09:50 Atorvastatin Calcium (Lipitor) 20 mg HS PO 03/14/24 22:00 03/14/24 23:53 Vancomycin HCl 0 ml @ 0 mls/hr UD IV 03/14/24 20:45 Diagnostic Test (Pha) (Accu-Chek Comfort Curve T) 1 strip IQ4HR 03/15/24 00:00 03/15/24 11:51 Insulin Human Regular (InsuLIN R) IQ4HR SC 03/15/24 00:00 03/15/24 11:55 Dextrose 50 ml UD PRN IV Blood Sugar LESS THAN 60 03/14/24 20:45 Sodium Chloride 1,000 ml @ 120 mls/hr Q8H20M IV 03/14/24 20:45 03/15/24 04:41 Acetaminophen/ Hydrocodone Bitart (Dickey 5/325MG Tab) 1 tab Q4HP PRN PO MODERATE PAIN (4-6 PAIN SCALE) 03/14/24 20:45 Ondansetron HCl (Zofran) 4 mg Q4HP PRN IV NAUSEA / VOMITING 03/14/24 20:45 Docusate Sodium (Colace Capsule) 100 mg BIDPRN PRN PO FOR CONSTIPATION 03/14/24 20:45 Acetaminophen (Tylenol Tablet) 650 mg Q6HP PRN PO PAIN SCALE 1-3 OR TEMP>100.4 03/14/24 20:45 03/14/24 23:53 Morphine Sulfate 2 mg Q4HPRN PRN IV SEVERE PAIN (7-10 PAIN SCALE) 03/14/24 20:45 03/14/24 23:53 Nitroglycerin (Ntrostat Sublingual) 0.4 mg Q5MINP PRN SL FOR CHEST PAIN 03/14/24 23:00 Morphine Sulfate 2 mg Q30M PRN IV FOR CHEST PAIN 03/14/24 23:00 Piperacillin Sod/ Tazobactam Sod 100 ml @ 25 mls/hr Q8H IV 03/15/24 10:00 03/15/24 09:50 Vancomycin HCl 250 ml @ 250 mls/hr Q12H IV 03/15/24 12:00 03/15/24 14:49 Vital Signs Vital Signs Date Time Temp Pulse Resp B/P (MAP) Pulse Ox O2 Delivery O2 Flow Rate FiO2 03/15/24 16:00 84 14 139/82 (101) 98 03/15/24 08:00 Room Air* 0 21 03/15/24 08:00 97.6 97.6 Physical Exam DERMATOLOGIC EXAM: - Skin is dry and cool to the touch dry bilaterally. - Nails 1-5 of the bilateral foot are thickened, discolored, dystrophic, and tender to palpate with subungual debris - Hair loss noted to bilateral feet - left foot wound with necrosis and exposure of bone VASCULAR EXAM: - DP and PT pulses are palpable bilaterally. - ACID EXTRACTOR is brisk to all digits. - Feet are cool to touch compared to lower legs bilaterally. NEUROLOGIC EXAM: - Normal light touch sensation to the superficial peroneal, deep peroneal, sural, saphenous, and tibial nerve branches. - Protective sensation is diminished as tested with a 5.07 10g [place]-Sahra bilaterally. MUSCULOSKELETAL EXAM: - No gross deformities - Muscle strength is 5/5 and active motion is pain-free and symmetrical bilaterally - No pain or crepitation with passive range of motion bilaterally to all major pedal joints Labs/Diagnostic Data Labs Test 03/15/24 11:53 03/15/24 07:08 03/15/24 05:49 03/14/24 19:09 Range/Units POC Glucose 233 H 70-106 mg/dl White Blood Count 13.7 H 4.4-10.8 10^3/uL Red Blood Count 3.17 L 4.5-5.90 10^6/uL Hemoglobin 8.7 #L 13.5-17.5 g/dL Hematocrit 26.9 #L 41.0-53.0 % Mean Corpuscular Volume 84.9 80.0-100.0 fL Mean Corpuscular Hemoglobin 27.5 L 28.0-32.0 pg Mean Corpuscular Hemoglobin Concent 32.4 32.0-36.0 g/dL Red Cell Distribution Width 14.4 H 11.8-14.3 % Platelet Count 267 140-450 10^3/uL Mean Platelet Volume 8.3 6.9-10.8 fL Neutrophils (%) (Auto) 73.1 37.0-80.0 % Lymphocytes (%) (Auto) 13.3 10.0-50.0 % Monocytes (%) (Auto) 11.0 0.0-12.0 % Eosinophils (%) (Auto) 2.0 0.0-7.0 % Basophils (%) (Auto) 0.6 0.0-2.0 % Neutrophils # (Auto) 10.0 H 1.6-8.6 10 ^3/uL Lymphocytes # (Auto) 1.8 0.4-5.4 10 ^3/uL Monocytes # (Auto) 1.5 H 0-1.3 10 ^3/uL Eosinophils # (Auto) 0.3 0-0.8 10 ^3/uL Basophils # (Auto) 0.1 0-0.2 10 ^3/uL Nucleated Red Blood Cells 0.0 % Sodium Level 135 #L 136-145 mmol/L Potassium Level 2.8 L 3.5-5.1 mmol/L Chloride Level 103 # 98-107 mmol/L Carbon Dioxide Level 24 20-31 mmol/L Anion Gap 8 5-15 Blood Urea Nitrogen 28 H 9-23 mg/dL Creatinine 1.35 H 0.700-1.30 mg/dL Glomerular Filtration Rate Calc 64 >90 mL/min BUN/Creatinine Ratio 20.7 H 10.0-20.0 Serum Glucose 107 #H 74-106 mg/dL Calcium Level 8.2 L 8.7-10.4 mg/dL Total Bilirubin 0.4 0.2-1.0 mg/dL Aspartate Amino Transferase (AST) 16 13-40 U/L Alanine Aminotransferase (ALT) 15 7-40 U/L Alkaline Phosphatase 114 46-116 U/L Total Protein 6.1 5.7-8.2 g/dL Albumin 3.1 L 3.2-4.8 g/dL Lactic Acid Level 4.4 *H 0.4-2.0 mmol/L Microbiology Date/Time Source Procedure Growth Status 03/14/24 15:53 Blood Blood Culture - Preliminary NO GROWTH AFTER 24 HOURS OF INCUBATION. Resulted Problems(with codes): (1) Foot infection (2) Ischemic pain of left foot (3) Hypochloremia (4) Diabetic neuropathy (5) Generalized weakness (6) Hyperglycemia (7) Hyponatremia (8) Thrombophlebitis (9) Medication refill (10) Episode of syncope (11) New onset type 2 diabetes mellitus (12) Diabetes mellitus type 2 with complications, uncontrolled (13) Diabetic foot infection (14) Cellulitis and abscess of left leg (15) Electrolyte imbalance (16) Leukocytosis, unspecified (17) Osteomyelitis of left foot (18) Elevated lactic acid level (19) Diabetes mellitus with hyperglycemia Plan/Recommendation ASSESSMENT: Patient is a year old seen on the floor for a worsening ulcer PLAN: - The patients chart was reviewed, clinical findings were discussed with the patient, the etiologies of the conditions were discussed in detail, and a treatment plan was agreed to at this time, with both oral and written instructions provided. - reviewed advanced imaging - discussed plan is to perform an incision and drainage - patient will be NPO Monday night - take him to the OR Monday - patient will return to the OR at a future date for closure - we will get cultures in the OR - can weightbear as tolerated in postoperative shoe - we will order an MRI tomorrow - discussed with the patient that he needs to stay this time or else he is going to lose his leg - patient has agreed to stay as long as needed All questions were answered and concerns addressed to the patient's satisfaction. The patient was given the phone number to the clinic and was told how to make contact with the clinic should any concerns or questions arise. Patient understands that if any questions or concerns arise prior to the next appointment, we should be contacted immediately. FOLLOW-UP: Continue to follow while inpatient Plan discussed with: Patient Date of Service: Mar 15, 2024 Billing Provider: DANIKA MONTES DPM Common Visit Codes: CONSULT ONLY Consultation Codes: [id number] CONSULT <80MIN DANIKA MONTES DPM Mar 15, 2024 17:06
[2024-03-15 22:00] VITALS: BP 122/77; PULSE 101; RESP 18; TEMP 98.7; O2SAT 97
[2024-03-16 01:00] VITALS: BP 153/69; PULSE 95; RESP 20; TEMP 99.1; O2SAT 98
[2024-03-16 05:00] VITALS: BP 106/64; PULSE 91; RESP 19; TEMP 98.5; O2SAT 98
--- NOTE | 2024-03-16 10:42 | DVHPN2 ---
Reviewed: Care Plan, H&P, Labs, Medications, Previous Orders, Radiology Changes from previous H/P or p: No Changes Eyes: No Pain, No Vision change, No Conjunctivae inflammation, No Eyelid inflammation, No Other, No Redness ENT: No Ear pain, No Ear discharge, No Nose pain, No Nose discharge, No Nose congestion, No Mouth pain, No Mouth swelling, No Throat pain, No Throat swelling, No Other Cardiovascular: No Chest Pain, No Palpitations, No Orthopnea, No Paroxysmal Noc. Dyspnea, No Edema, No Lt Headedness, No Other Respiratory: No Cough, No Dry, No Shortness of breath, No SOB with excertion, No Wheezing, No Hemoptysis, No Pleuritic Pain, No Sputum, No Other Gastrointestinal: No Nausea, No Vomiting, No Abdominal Pain, No Diarrhea, No Constipation, No Melena, No Hematochezia, No Other Genitourinary: No Dysuria, No Frequency, No Incontinence, No Hematuria, No Retention, No Other Musculoskeletal: other (Left foot wound with drainage, redness, and swelling); No neck pain, No shoulder pain, No arm pain, No back pain, No hand pain, No leg pain, No foot pain Skin: No Rash, No Lesions, No Jaundice, No Bruising; Other (Left foot open wound) Objective Vitals Vital Signs Date Time Temp Pulse Resp B/P (MAP) Pulse Ox O2 Delivery O2 Flow Rate FiO2 03/16/24 05:00 98.5 91 19 106/64 (78) 98 98.5 03/15/24 16:52 Room Air* 0 21 Intake/Output Intake and Output 03/16/24 07:00 Intake Total 1780 ml Balance 1780 ml Intake Oral 430 ml IV Total 1350 ml # Voids 3 # Bowel Movements 2 Medications Current Medications Medications Dose Ordered Sig/Florenec Route Start Time Stop Time Status Last Admin Dose Admin Aspirin 81 mg DAILY PO 03/15/24 10:00 03/16/24 09:15 81 MG Atorvastatin Calcium 20 mg HS PO 03/14/24 22:00 03/15/24 21:33 20 MG Vancomycin HCl 0 ml @ 0 mls/hr UD IV 03/14/24 20:45 Diagnostic Test (Pha) 1 strip IQ4HR 03/15/24 00:00 03/16/24 08:00 1 STRIP Insulin Human Regular IQ4HR SC 03/15/24 00:00 03/16/24 08:42 8 UNITS Dextrose 50 ml UD PRN IV 03/14/24 20:45 Sodium Chloride 1,000 ml @ 120 mls/hr Q8H20M IV 03/14/24 20:45 03/15/24 13:25 120 MLS/HR Acetaminophen/ Hydrocodone Bitart 1 tab Q4HP PRN PO 03/14/24 20:45 Ondansetron HCl 4 mg Q4HP PRN IV 03/14/24 20:45 Docusate Sodium 100 mg BIDPRN PRN PO 03/14/24 20:45 Acetaminophen 650 mg Q6HP PRN PO 03/14/24 20:45 03/14/24 23:53 650 MG Morphine Sulfate 2 mg Q4HPRN PRN IV 03/14/24 20:45 03/14/24 23:53 2 MG Nitroglycerin 0.4 mg Q5MINP PRN SL 03/14/24 23:00 Morphine Sulfate 2 mg Q30M PRN IV 03/14/24 23:00 Piperacillin Sod/ Tazobactam Sod 100 ml @ 25 mls/hr Q8H IV 03/15/24 10:00 03/16/24 09:15 25 MLS/HR Vancomycin HCl 250 ml @ 250 mls/hr Q12H IV 03/15/24 12:00 03/16/24 00:00 250 MLS/HR Laboratory Results Laboratory Tests 03/15/24 05:49 03/15/24 07:08 Microbiology Microbiology Date/Time Source Procedure Growth Status 03/14/24 15:53 Blood Blood Culture - Preliminary NO GROWTH AFTER 24 HOURS OF INCUBATION. Resulted Labs and/or images reviewed: Labs reviewed by me, Image(s) reviewed by me Assessment/Plan Assessment/Plan Acute Osteomyelitis left foot: Zosyn vancomycin consult for Dr. 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 Maynard Diabetic foot ulcer Peripheral arterial disease Diabetic neuropathy vasculopathy nephropathy Rory likely hemodynamically mediated/VMN on possible CKD 2/3 Type 2 diabetes, uncontrolled, insulin dependent, Hb A1c 12.7 Nicotine dependence Methamphetamine abuse Medication noncompliance Spent 45 minutes Blood cultures negative Patient is full code Advanced care planning time 20 minutes Plan discussed with: Patient My Orders Orders - ANKUR JALLOH MD Procedure Category Date Status Time *Podiatry Consult CONS 03/15/24 Transmitted Musson([facility]) 12:52 Cleanse Wound With MALLIKA 03/15/24 In Process Wound Clean 13:00 * Dietary Consult CONS 03/15/24 Transmitted 13:00 Mrsa Screen SHELBY 03/15/24 In Process 18:07 Admit ADMIT 03/15/24 Transmitted 17:41 C-Diff: Collect Next MALLIKA 03/15/24 In Process Specimen 17:41 Date of Service: Mar 16, 2024 Billing Provider: ANKUR JALLOH MD Common Visit Codes: [id number] INP/OBS CARE(HIGH) ANKUR JALLOH MD Mar 16, 2024 10:42
[2024-03-16 11:53] LABS: Chloride 104 mmol/L (98-107); Sodium 137 mmol/L (136-145)
[2024-03-16 11:54] LABS: Anion Gap 9 (5-15); Carbon Dioxide 24 mmol/L (20-31)
[2024-03-16 11:55] LABS: Calcium 8.1 mg/dL (8.7-10.4); Potassium 3.3 mmol/L (3.5-5.1)
[2024-03-16 11:59] LABS: BUN/Creatinine Ratio 17.2 (10.0-20.0)
[2024-03-16 12:07] LABS: Blood Urea Nitrogen 23 mg/dL (9-23); Glucose 133 mg/dL (74-106)
[2024-03-16] MEDS: Juven Orange Powder PACKET 27.5gm PO SCH (16:58)
[2024-03-16 17:16] VITALS: BP 148/82; PULSE 96; RESP 17; TEMP 98; O2SAT 97
[2024-03-16 20:00] VITALS: RESP 16
[2024-03-16] MEDS: ASCORBIC ACID 500 MG TAB PO SCH (21:56)
[2024-03-16] MEDS ORDERED: MUPIROCIN 2% OINT 15gm or 22gm FOR MRSA NARES EACHNOSTRI SCH (22:00)
[2024-03-17] VITALS (8 sets, daily range): BP systolic 100–134; BP diastolic 64–76; PULSE 75–92; RESP 16–20; TEMP 97.5–98.3; O2SAT 98–100
[2024-03-17] MEDS: VANCOMYCIN 1GM/250ML KIT 250 ML IV ONE (05:49)
[2024-03-17] MEDS ORDERED: VANCOMYCIN 750MG KIT 100 ML IV SCH (06:00)
[2024-03-17] MEDS: MUPIROCIN 2% OINT 15gm or 22gm FOR MRSA NARES EACHNOSTRI SCH (07:58)
--- NOTE | 2024-03-17 08:37 | DVHPN2 ---
Reviewed: Care Plan, H&P, Labs, Medications, Previous Orders, Radiology Changes from previous H/P or p: No Changes Eyes: No Pain, No Vision change, No Conjunctivae inflammation, No Eyelid inflammation, No Other, No Redness ENT: No Ear pain, No Ear discharge, No Nose pain, No Nose discharge, No Nose congestion, No Mouth pain, No Mouth swelling, No Throat pain, No Throat swelling, No Other Cardiovascular: No Chest Pain, No Palpitations, No Orthopnea, No Paroxysmal Noc. Dyspnea, No Edema, No Lt Headedness, No Other Respiratory: No Cough, No Dry, No Shortness of breath, No SOB with excertion, No Wheezing, No Hemoptysis, No Pleuritic Pain, No Sputum, No Other Gastrointestinal: No Nausea, No Vomiting, No Abdominal Pain, No Diarrhea, No Constipation, No Melena, No Hematochezia, No Other Genitourinary: No Dysuria, No Frequency, No Incontinence, No Hematuria, No Retention, No Other Musculoskeletal: other (Left foot wound with drainage, redness, and swelling); No neck pain, No shoulder pain, No arm pain, No back pain, No hand pain, No leg pain, No foot pain Skin: No Rash, No Lesions, No Jaundice, No Bruising; Other (Left foot open wound) Objective Vitals Vital Signs Date Time Temp Pulse Resp B/P (MAP) Pulse Ox O2 Delivery O2 Flow Rate FiO2 03/17/24 05:00 98.0 84 18 126/66 (86) 98 98.0 03/16/24 20:00 Room Air* 0 21 Intake/Output Intake and Output 03/17/24 07:00 Intake Total 776 ml Output Total 800 ml Balance -24 ml Intake Oral 576 ml IV Total 200 ml Output Urine Total 800 ml # Bowel Movements 2 Medications Current Medications Medications Dose Ordered Sig/[place] Route Start Time Stop Time Status Last Admin Dose Admin Aspirin 81 mg DAILY PO 03/15/24 10:00 03/17/24 07:58 81 MG Atorvastatin Calcium 20 mg HS PO 03/14/24 22:00 03/16/24 21:55 20 MG Vancomycin HCl 0 ml @ 0 mls/hr UD IV 03/14/24 20:45 Diagnostic Test (Pha) 1 strip IQ4HR 03/15/24 00:00 03/17/24 07:58 1 STRIP Insulin Human Regular IQ4HR SC 03/15/24 00:00 03/17/24 08:11 16 UNITS Dextrose 50 ml UD PRN IV 03/14/24 20:45 Sodium Chloride 1,000 ml @ 120 mls/hr Q8H20M IV 03/14/24 20:45 03/17/24 07:58 120 MLS/HR Acetaminophen/ Hydrocodone Bitart 1 tab Q4HP PRN PO 03/14/24 20:45 Ondansetron HCl 4 mg Q4HP PRN IV 03/14/24 20:45 Docusate Sodium 100 mg BIDPRN PRN PO 03/14/24 20:45 Acetaminophen 650 mg Q6HP PRN PO 03/14/24 20:45 03/14/24 23:53 650 MG Morphine Sulfate 2 mg Q4HPRN PRN IV 03/14/24 20:45 03/14/24 23:53 2 MG Nitroglycerin 0.4 mg Q5MINP PRN SL 03/14/24 23:00 Morphine Sulfate 2 mg Q30M PRN IV 03/14/24 23:00 Piperacillin Sod/ Tazobactam Sod 100 ml @ 25 mls/hr Q8H IV 03/15/24 10:00 03/17/24 07:55 25 MLS/HR Ascorbic Acid 500 mg BID PO 03/16/24 22:00 03/17/24 07:57 500 MG Enteral Nutritional Formula 27.5 gm BIDWM PO 03/16/24 18:00 03/17/24 07:58 27.5 GM Mupirocin 1 applic BID EACHNOSTRI 03/17/24 10:00 03/22/24 09:59 03/17/24 07:58 1 APPLIC Vancomycin HCl 100 ml @ 100 mls/hr Q12H IV 03/17/24 18:00 Laboratory Results Laboratory Tests 03/15/24 07:08 03/16/24 10:53 03/17/24 04:58 Chemistry Test 03/16/24 10:53 Calcium Level 8.1 mg/dL (8.7-10.4) L Microbiology Microbiology Date/Time Source Procedure Growth Status 03/15/24 17:53 Nose MRSA Screen - Final Methicillin Resistant S.aureus Complete 03/14/24 15:53 Blood Blood Culture - Preliminary NO GROWTH AFTER 48 HOURS OF INCUBATION. Resulted Labs and/or images reviewed: Labs reviewed by me, Image(s) reviewed by me Assessment/Plan Assessment/Plan Acute Osteomyelitis left foot: Zosyn vancomycin consult for Dr. 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 Maynard Diabetic foot ulcer Peripheral arterial disease Diabetic neuropathy vasculopathy nephropathy Rory likely hemodynamically mediated/VMN on possible CKD 2/3 Type 2 diabetes, uncontrolled, insulin dependent, Hb A1c 12.7 MRSA screen positive: Bactroban nasal ointment Nicotine dependence Methamphetamine abuse Medication noncompliance Spent 45 minutes Blood cultures negative Patient is full code Advanced care planning time 20 minutes Plan discussed with: Patient My Orders Orders - ANKUR JALLOH MD Procedure Category Date Status Time Notify Provider NOTICE 03/16/24 Transmitted Malnutrition 12:27 Nutritional NOURISH 03/16/24 Transmitted Supplements 12:27 Ascorbic Acid Tablet PHA 03/16/24 In Process (Vitamin C Tablet) 22:00 Nutritional PHA 03/16/24 In Process Supplements (Dangelo 18:00 Clostridium Difficile SHELBY 03/16/24 In Process Toxin 14:25 * Wound Consult CONS 03/16/24 Transmitted Date of Service: Mar 17, 2024 Billing Provider: ANKUR JALLOH MD Common Visit Codes: [id number] INP/OBS CARE(HIGH) ANKUR JALLOH MD Mar 17, 2024 08:37
[2024-03-17] MEDS: HYDROcodone-ACET 5/325MG TAB PO PRN (16:39)
[2024-03-17] MEDS: VANCOMYCIN 750MG KIT 100 ML IV SCH (18:10)
[2024-03-17] MEDS: PIPERACILLIN-TAZOB 3.375GM 100 ML IV SCH (20:32)
[2024-03-18] VITALS (9 sets, daily range): BP systolic 91–140; BP diastolic 54–79; PULSE 62–82; RESP 9–20; TEMP 97.6–98; O2SAT 95–100
[2024-03-18 05:40] LABS: Basophils # (auto) 0.1 10 ^3/uL (0-0.2); Basophils % (auto) 0.8 % (0.0-2.0); Eosinophils # (auto) 0.3 10 ^3/uL (0-0.8); Eosinophils % (auto) 3.8 % (0.0-7.0); Hematocrit 27.8 % (41.0-53.0); Lymphocytes # (auto) 1.6 10 ^3/uL (0.4-5.4); Lymphocytes % (auto) 18.5 % (10.0-50.0); Mean Corpuscular Hemoglobin 27.8 pg (28.0-32.0); Mean Corpuscular Hgb Conc. 32.4 g/dL (32.0-36.0); Mean Corpuscular Volume 85.8 fL (80.0-100.0); Monocytes % (auto) 11.6 % (0.0-12.0); Neutrophils # (auto) 5.5 10 ^3/uL (1.6-8.6); Neutrophils % (auto) 65.3 % (37.0-80.0); Platelet Count (auto) 266 10^3/uL (140-450); Red Blood Cells 3.24 10^6/uL (4.5-5.90); Red Cell Distribution Width 14.7 % (11.8-14.3); White Blood Cell 8.4 10^3/uL (4.4-10.8)
[2024-03-18 05:45] LABS: Alanine Aminotransferase 16 U/L (7-40); Albumin 3.2 g/dL (3.2-4.8); Alkaline Phosphatase 110 U/L (46-116); Anion Gap 7 (5-15); Aspartate Aminotransferase 14 U/L (13-40); BUN/Creatinine Ratio 15.8 (10.0-20.0); Carbon Dioxide 29 mmol/L (20-31); Chloride 101 mmol/L (98-107); Potassium 3.9 mmol/L (3.5-5.1); Sodium 137 mmol/L (136-145)
[2024-03-18 05:49] LABS: Bilirubin, Total 0.2 mg/dL (0.2-1.0); Blood Urea Nitrogen 29 mg/dL (9-23); Calcium 8.5 mg/dL (8.7-10.4); Glucose 380 mg/dL (74-106)
--- NOTE | 2024-03-18 10:04 | DVH ---
CHEST RADIOGRAPH Indication: pre-op eval Technique: Single frontal view of the chest was obtained Comparison: XY CHEST XRAY 1 VIEW on DOS: 02/29/24, XY CHEST PORTABLE on DOS: 02/27/24 FINDINGS: Lines and Tubes: None Lungs: No focal consolidation. Pleura: No effusion.No pneumothorax. Cardiomediastinal contours: Unremarkable Pulmonary vasculature: Within normal limits. Bones: No acute osseous abnormality. IMPRESSION: 1. No acute cardiopulmonary disease. HS:Y
--- NOTE | 2024-03-18 10:08 | DVHPN2 ---
Reviewed: Care Plan, H&P, Labs, Medications, Previous Orders, Radiology Changes from previous H/P or p: No Changes Eyes: No Pain, No Vision change, No Conjunctivae inflammation, No Eyelid inflammation, No Other, No Redness ENT: No Ear pain, No Ear discharge, No Nose pain, No Nose discharge, No Nose congestion, No Mouth pain, No Mouth swelling, No Throat pain, No Throat swelling, No Other Cardiovascular: No Chest Pain, No Palpitations, No Orthopnea, No Paroxysmal Noc. Dyspnea, No Edema, No Lt Headedness, No Other Respiratory: No Cough, No Dry, No Shortness of breath, No SOB with excertion, No Wheezing, No Hemoptysis, No Pleuritic Pain, No Sputum, No Other Gastrointestinal: No Nausea, No Vomiting, No Abdominal Pain, No Diarrhea, No Constipation, No Melena, No Hematochezia, No Other Genitourinary: No Dysuria, No Frequency, No Incontinence, No Hematuria, No Retention, No Other Musculoskeletal: other (Left foot wound with drainage, redness, and swelling); No neck pain, No shoulder pain, No arm pain, No back pain, No hand pain, No leg pain, No foot pain Skin: No Rash, No Lesions, No Jaundice, No Bruising; Other (Left foot open wound) Objective Vitals Vital Signs Date Time Temp Pulse Resp B/P (MAP) Pulse Ox O2 Delivery O2 Flow Rate FiO2 03/18/24 09:00 98.0 65 16 96/54 (68) 98 98.0 03/17/24 20:00 Room Air* 0 21 Intake/Output Intake and Output 03/18/24 07:00 Intake Total 3770 ml Output Total 4600 ml Balance -830 ml Intake Oral 1700 ml IV Total 2070 ml Output Urine Total 4600 ml # Bowel Movements 1 Medications Current Medications Medications Dose Ordered Sig/[place] Route Start Time Stop Time Status Last Admin Dose Admin Aspirin 81 mg DAILY PO 03/15/24 10:00 03/17/24 07:58 81 MG Atorvastatin Calcium 20 mg HS PO 03/14/24 22:00 03/17/24 20:43 20 MG Vancomycin HCl 0 ml @ 0 mls/hr UD IV 03/14/24 20:45 Diagnostic Test (Pha) 1 strip IQ4HR 03/15/24 00:00 03/18/24 08:00 1 STRIP Insulin Human Regular IQ4HR SC 03/15/24 00:00 03/18/24 00:31 8 UNITS Dextrose 50 ml UD PRN IV 03/14/24 20:45 Sodium Chloride 1,000 ml @ 120 mls/hr Q8H20M IV 03/14/24 20:45 03/18/24 00:30 120 MLS/HR Acetaminophen/ Hydrocodone Bitart 1 tab Q4HP PRN PO 03/14/24 20:45 03/18/24 05:08 1 TAB Ondansetron HCl 4 mg Q4HP PRN IV 03/14/24 20:45 Docusate Sodium 100 mg BIDPRN PRN PO 03/14/24 20:45 Acetaminophen 650 mg Q6HP PRN PO 03/14/24 20:45 03/14/24 23:53 650 MG Morphine Sulfate 2 mg Q4HPRN PRN IV 03/14/24 20:45 03/14/24 23:53 2 MG Nitroglycerin 0.4 mg Q5MINP PRN SL 03/14/24 23:00 Morphine Sulfate 2 mg Q30M PRN IV 03/14/24 23:00 Ascorbic Acid 500 mg BID PO 03/16/24 22:00 03/17/24 20:42 500 MG Enteral Nutritional Formula 27.5 gm BIDWM PO 03/16/24 18:00 03/17/24 18:10 27.5 GM Mupirocin 1 applic BID EACHNOSTRI 03/17/24 10:00 03/22/24 09:59 03/17/24 07:58 1 APPLIC Vancomycin HCl 100 ml @ 100 mls/hr Q12H IV 03/17/24 18:00 03/18/24 06:13 100 MLS/HR Piperacillin Sod/ Tazobactam Sod 100 ml @ 25 mls/hr Q8H IV 03/17/24 19:00 03/18/24 01:54 25 MLS/HR Insulin Glargine 30 units HS SC 03/18/24 22:00 Laboratory Results Laboratory Tests 03/18/24 05:11 Chemistry Test 03/18/24 05:11 Albumin 3.2 g/dL (3.2-4.8) Calcium Level 8.5 mg/dL (8.7-10.4) L Total Protein 6.0 g/dL (5.7-8.2) Coagulation Test 03/18/24 05:11 Prothrombin Time Pending Prothrombin Time INR Pending Activated Partial Thromboplast Time Pending LFT Test 03/18/24 05:11 Alanine Aminotransferase (ALT) 16 U/L (7-40) Alkaline Phosphatase 110 U/L (46-116) Aspartate Amino Transferase (AST) 14 U/L (13-40) Total Bilirubin 0.2 mg/dL (0.2-1.0) Microbiology Microbiology Date/Time Source Procedure Growth Status 03/15/24 17:53 Nose MRSA Screen - Final Methicillin Resistant S.aureus Complete 03/14/24 15:53 Blood Blood Culture - Preliminary NO GROWTH AFTER 72 HOURS OF INCUBATION. Resulted Labs and/or images reviewed: Labs reviewed by me, Image(s) reviewed by me Assessment/Plan Assessment/Plan Acute Osteomyelitis left foot: Zosyn vancomycin consult for Dr. 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 Maynard Diabetic foot ulcer Peripheral arterial disease Diabetic neuropathy vasculopathy nephropathy Rory likely hemodynamically mediated/VMN on possible CKD 2/3 Type 2 diabetes, uncontrolled, insulin dependent, Hb A1c 12.7 , aggressive sliding scale, Lantus 30 units HS MRSA screen positive: Bactroban nasal ointment Nicotine dependence Methamphetamine abuse Medication noncompliance Spent 45 minutes Blood cultures negative Patient is full code Advanced care planning time 20 minutes PICC line ordered Plan discussed with: Patient My Orders Orders - ANKUR JALLOH MD Procedure Category Date Status Time Npo (Nothing By DIET 03/18/24 Transmitted Mouth) Diet Breakfast * Picc Line Consult CONS 03/18/24 Transmitted 09:51 Covid19 Antigen [facility] 03/18/24 Logged Pt Request For Service PT 03/18/24 Logged 09:52 Insulin Lantus PHA 03/18/24 In Process (Glargine) (Lantus) 22:00 Date of Service: Mar 18, 2024 Billing Provider: ANKUR JALLOH MD Common Visit Codes: [id number] INP/OBS CARE(HIGH) ANKUR JALLOH MD Mar 18, 2024 10:08
[2024-03-18 10:14] LABS: Partial Thromboplastin Time 30.8 SEC (24.5-34.5); Prothrombin Time 10.6 sec (9.3-11.8)
[2024-03-18] MEDS ORDERED: PROPOFOL 10 MG/ML 20 ML IV ONE (11:08)
[2024-03-18] MEDS ORDERED: KETOROLAC TROMETH 30 MG/ML 1ML VIAL ONE (11:08)
[2024-03-18] MEDS ORDERED: KETAMINE 50mg/ML 1ml syringe ONE (11:08)
[2024-03-18] MEDS ORDERED: GLYCOPYRROLATE 0.2 MG/ML 1ML VIAL ONE (11:08)
[2024-03-18] MEDS ORDERED: LIDOCAINE 1% INJ PF 5ML AMP ONE (11:08)
[2024-03-18] MEDS ORDERED: ONDANSETRON HCL 4 MG/2 ML VIAL ONE (11:08)
[2024-03-18] MEDS ORDERED: DexAMETHasone SOD PHOS 10MG/1ML VIAL INJ ONE (11:08)
--- NOTE | 2024-03-18 11:31 | DVHPN2 ---
Subjective The patient is a 53-year-old male with past medical history of hyperlipidemia, diabetes mellitus, and hypertension who presented to [facility] ED with complaint of left foot infected wound. Patient reports he noticed worsening wound to his left foot with associated drainage, redness, swelling, and foul odor. Patient reports that he was seen on 02/27/24 for the same complaint and he had his 1st and 2nd toes amputated due to the infection. Patient was seen and evaluated in the ED, laboratory data shows WBC 14.8, hemoglobin 10.5, hematocrit 31.9, platelets 377, sodium 129, potassium 3.4, BUN 27, creatinine 1.57, GFR 53, glucose 435, lactic acid 4.0, blood pressure 91/65, heart rate 118, temperature 99.7 F, O2 saturation 98% on room air. Left foot CT revealing diffuse subcutaneous soft tissue edema and swelling, small volume subcutaneous gas in the posterior, anterior foot likely represent cellulitis; bony erosive changes is present at the distal 1st and 2nd metatarsal suspicious for osteomyelitis. Patient was started on IV antibiotic regimen vancomycin, please see medication orders section in the computer. On my assessment, patient denied chest pain, no headache, no diaphoresis, no shortness of breath, no nausea, no vomiting, no fever, no chills. Patient was admitted further evaluation and medical management. Reviewed: Care Plan, H&P, Labs, Medications, Previous Orders, Radiology Changes from previous H/P or p: No Changes Eyes: No Pain, No Vision change, No Conjunctivae inflammation, No Eyelid inflammation, No Other, No Redness ENT: No Ear pain, No Ear discharge, No Nose pain, No Nose discharge, No Nose congestion, No Mouth pain, No Mouth swelling, No Throat pain, No Throat swelling, No Other Cardiovascular: No Chest Pain, No Palpitations, No Orthopnea, No Paroxysmal Noc. Dyspnea, No Edema, No Lt Headedness, No Other Respiratory: No Cough, No Dry, No Shortness of breath, No SOB with excertion, No Wheezing, No Hemoptysis, No Pleuritic Pain, No Sputum, No Other Gastrointestinal: No Nausea, No Vomiting, No Abdominal Pain, No Diarrhea, No Constipation, No Melena, No Hematochezia, No Other Genitourinary: No Dysuria, No Frequency, No Incontinence, No Hematuria, No Retention, No Other Musculoskeletal: other (Left foot wound with drainage, redness, and swelling); No neck pain, No shoulder pain, No arm pain, No back pain, No hand pain, No leg pain, No foot pain Skin: No Rash, No Lesions, No Jaundice, No Bruising; Other (Left foot open wound) Objective Vitals Vital Signs Date Time Temp Pulse Resp B/P (MAP) Pulse Ox O2 Delivery O2 Flow Rate FiO2 03/18/24 09:00 98.0 65 16 96/54 (68) 98 98.0 03/17/24 20:00 Room Air* 0 21 Intake/Output Intake and Output 03/18/24 07:00 Intake Total 3770 ml Output Total 4600 ml Balance -830 ml Intake Oral 1700 ml IV Total 2070 ml Output Urine Total 4600 ml # Bowel Movements 1 Exam DERMATOLOGIC EXAM: - Skin is dry and cool to the touch dry bilaterally. - Nails 1-5 of the bilateral foot are thickened, discolored, dystrophic, and tender to palpate with subungual debris - Hair loss noted to bilateral feet - left foot wound with necrosis and exposure of bone VASCULAR EXAM: - DP and PT pulses are palpable bilaterally. - DIESEL TECH[employer]ICIAN MECH[employer]IC is brisk to all digits. - Feet are cool to touch compared to lower legs bilaterally. NEUROLOGIC EXAM: - Normal light touch sensation to the superficial peroneal, deep peroneal, sural, saphenous, and tibial nerve branches. - Protective sensation is diminished as tested with a 5.07 10g [place] bilaterally. MUSCULOSKELETAL EXAM: - No gross deformities - Muscle strength is 5/5 and active motion is pain-free and symmetrical bilaterally - No pain or crepitation with passive range of motion bilaterally to all major pedal joints Medications Current Medications Medications Dose Ordered Sig/Florence Route Start Time Stop Time Status Last Admin Dose Admin Aspirin 81 mg DAILY PO 03/15/24 10:00 03/17/24 07:58 81 MG Atorvastatin Calcium 20 mg HS PO 03/14/24 22:00 03/17/24 20:43 20 MG Vancomycin HCl 0 ml @ 0 mls/hr UD IV 03/14/24 20:45 Diagnostic Test (Pha) 1 strip IQ4HR 03/15/24 00:00 03/18/24 08:00 1 STRIP Insulin Human Regular IQ4HR SC 03/15/24 00:00 03/18/24 10:40 20 UNITS Dextrose 50 ml UD PRN IV 03/14/24 20:45 Sodium Chloride 1,000 ml @ 120 mls/hr Q8H20M IV 03/14/24 20:45 03/18/24 00:30 120 MLS/HR Acetaminophen/ Hydrocodone Bitart 1 tab Q4HP PRN PO 03/14/24 20:45 03/18/24 05:08 1 TAB Ondansetron HCl 4 mg Q4HP PRN IV 03/14/24 20:45 Docusate Sodium 100 mg BIDPRN PRN PO 03/14/24 20:45 Acetaminophen 650 mg Q6HP PRN PO 03/14/24 20:45 03/14/24 23:53 650 MG Morphine Sulfate 2 mg Q4HPRN PRN IV 03/14/24 20:45 03/14/24 23:53 2 MG Nitroglycerin 0.4 mg Q5MINP PRN SL 03/14/24 23:00 Morphine Sulfate 2 mg Q30M PRN IV 03/14/24 23:00 Ascorbic Acid 500 mg BID PO 03/16/24 22:00 03/17/24 20:42 500 MG Enteral Nutritional Formula 27.5 gm BIDWM PO 03/16/24 18:00 03/17/24 18:10 27.5 GM Mupirocin 1 applic BID EACHNOSTRI 03/17/24 10:00 03/22/24 09:59 03/18/24 10:00 1 APPLIC Vancomycin HCl 100 ml @ 100 mls/hr Q12H IV 03/17/24 18:00 03/18/24 06:13 100 MLS/HR Piperacillin Sod/ Tazobactam Sod 100 ml @ 25 mls/hr Q8H IV 03/17/24 19:00 03/18/24 01:54 25 MLS/HR Insulin Glargine 30 units HS SC 03/18/24 22:00 Laboratory Results Laboratory Tests 03/18/24 05:11 Chemistry Test 03/18/24 05:11 Albumin 3.2 g/dL (3.2-4.8) Calcium Level 8.5 mg/dL (8.7-10.4) L Total Protein 6.0 g/dL (5.7-8.2) Coagulation Test 03/18/24 05:11 Prothrombin Time 10.6 sec (9.3-11.8) Prothrombin Time INR 1.00 (0.9-1.15) Activated Partial Thromboplast Time 30.8 SEC (24.5-34.5) LFT Test 03/18/24 05:11 Alanine Aminotransferase (ALT) 16 U/L (7-40) Alkaline Phosphatase 110 U/L (46-116) Aspartate Amino Transferase (AST) 14 U/L (13-40) Total Bilirubin 0.2 mg/dL (0.2-1.0) Microbiology Microbiology Date/Time Source Procedure Growth Status 03/15/24 17:53 Nose MRSA Screen - Final Methicillin Resistant S.aureus Complete 03/14/24 15:53 Blood Blood Culture - Preliminary NO GROWTH AFTER 72 HOURS OF INCUBATION. Resulted Assessment/Plan Assessment/Plan ASSESSMENT: Patient is a year old seen on the floor for a worsening ulcer PLAN: - The patients chart was reviewed, clinical findings were discussed with the patient, the etiologies of the conditions were discussed in detail, and a treatment plan was agreed to at this time, with both oral and written instructions provided. - reviewed advanced imaging - discussed plan is to perform an incision and drainage - patient will be NPO Monday night - take him to the OR Monday - patient will return to the OR at a future date for closure - we will get cultures in the OR - can weightbear as tolerated in postoperative shoe - we will order an MRI tomorrow - discussed with the patient that he needs to stay this time or else he is going to lose his leg - patient has agreed to stay as long as needed All questions were answered and concerns addressed to the patient's satisfaction. The patient was given the phone number to the clinic and was told how to make contact with the clinic should any concerns or questions arise. Patient understands that if any questions or concerns arise prior to the next appointment, we should be contacted immediately. FOLLOW-UP: Continue to follow while inpatient Plan discussed with: Patient My Orders Orders - DANIKA MONTES DPM Procedure Category Date Status Time Obtain Consent For: ORDERS 03/18/24 Transmitted 09:41 Chest Portable XY 03/18/24 Resulted 09:42 Electrocardigram EKG 03/18/24 Logged 09:43 Problem List: (1) Diabetes mellitus type 2 with complications, uncontrolled (2) Diabetic foot infection (3) Cellulitis and abscess of left leg (4) Electrolyte imbalance (5) Leukocytosis, unspecified (6) Osteomyelitis of left foot (7) Elevated lactic acid level (8) Diabetes mellitus with hyperglycemia (9) Hypochloremia (10) Diabetic neuropathy (11) Generalized weakness (12) Hyperglycemia (13) Hyponatremia (14) Thrombophlebitis (15) Medication refill (16) Foot infection (17) Episode of syncope (18) Ischemic pain of left foot (19) New onset type 2 diabetes mellitus Date of Service: Mar 18, 2024 Billing Provider: DANIKA MONTES DPM Common Visit Codes: [id number] INP/OBS CARE(MOD) DANIKA MONTES DPM Mar 18, 2024 11:31
[2024-03-18 12:02] LABS: COVID19 ANTIGEN SOFIA FIA NEGATIVE (NEGATIVE)
--- NOTE | 2024-03-18 12:21 | DVHOP2 ---
Operative Report - 2 Report Details Date: 03/18/24 Preop Diagnosis: 1. Left foot osteomyelitis 2. Left foot abscess 3. Left foot cellulitis 4. Left foot chronic ulceration Postop Diagnosis: Same as preop Surgeon: Danika Montes MD Anesthesiologist: See anesthesia Anesthesia: Mac Consent: The patient was informed of the risks and benefits of the procedure. These include but are not limited to complications of anesthesia, postoperative infection, incomplete relief of symptoms, recurrence of symptoms, damage to blood vessels, nerves and tendons, deep venous thrombosis, pulmonary embolism and possible need for repeat surgery in the future. Complications: None Estimated Blood Loss: Minimal Fluids: See anesthesia Findings: Consistent with the diagnosis Indications for Surgery: Worsening left foot wound Name of Procedure Performed 1. Left foot I&D to bone (51064) x 2 2. Left foot bone biopsy () Procedure Details Procedure Details: PRE-PROCEDURE INFORMATION: In the pre-op holding area, the extremity to be operated on was clearly marked and the patient verified correct laterality of the marking. The patient was transferred to the OR table and placed in a supine position. A timeout was performed in which identification of the correct patient, procedure, location, and materials was done. The left foot and leg were prepped and draped in normal sterile fashion. The foot and leg were exsanguinated and the _ tourniquet was inflated to 300 mmHg. DESCRIPTION OF PROCEDURE: Attention was directed to the left forefoot where area of fluctuance was noted. An incision was made over this area and was deepened through blunt dissection. The incision was deepened to the level of abscess and bone. Care was taken to the dissection to avoid any neurovascular and tendinous structures. The incision was deepened to the bone, and the abscess appeared to be purulent fluid consistent with pus. The cortices of the bone was then removed with Blayne an all necrotic tissue. After the abscess was drained, the area was irrigated with 3 L normal saline using cysto tubing. Deep cultures were then obtained from the wound. The area was then inspected and any areas of tracking, especially along the tendons were also drained. A bone biopsy was then taken of the left 2nd metatarsal which was deepened to the muscle belly and tendons. The bone was then sent to pathology to determine the extent of osteomyelitis. The wound was packed with Betadine-soaked gauze and we will need to be closed at a later date. Attention was directed to the left medial foot where area of fluctuance was noted. An incision was made over this area and was deepened through blunt dissection. The incision was deepened to the level of abscess and bone. Care was taken to the dissection to avoid any neurovascular and tendinous structures. The incision was deepened to the bone, and the abscess appeared to be purulent fluid consistent with pus. The cortices of the bone was then removed with Blayne an all necrotic tissue. After the abscess was drained, the area was irrigated with 3 L normal saline using cysto tubing. Deep cultures were then obtained from the wound. The area was then inspected and any areas of tracking, especially along the tendons were also drained. The wound was packed with Betadine-soaked gauze and we will need to be closed at a later date. All surgical wounds were irrigated copiously with saline and closed in layers with the aforementioned suture material. A dry sterile dressing was placed on the surgical extremity. The patient was placed in a _ POSTOPERATIVE INFORMATION: The patient tolerated the above noted procedure and anesthesia well and was transferred to the PACU with vital signs stable, and vascular status intact with capillary refill intact to all digits. Deep cultures were taken. Patient will return to the OR multiple times in order to salvage his limb. Specimen: Left 2nd metatarsal Condition Good Disposition Still a Patient DANIKA MONTES DPM Mar 18, 2024 12:21
--- NOTE | 2024-03-18 13:16 | ECG ---
[facility] Test Date: 2024-03-18 Test Time: 10:30:22 Pat Name: JEANETTE FLORENCE Department: Respiratoy Room: 0206 A Gender: M Care Support Representative: MECHE : 1970 Requested By: DANIKA MONTES Order Number: [id number] Reading MD: Kika Huerta Measurements Intervals [place] Rate: 62 P: 77 MA: 151 QRS: 77 QRSD: 88 T: 75 QT: 390 QTc: 396 Interpretive Statements Sinus rhythm Anteroseptal infarct, old Electronically Signed On 03-20-2024 10:09:26 PST by Kika Huerta Please click the below link to view image of tracing.
[2024-03-18] MEDS: PIPERACILLIN-TAZOB 3.375GM 100 ML IV SCH (20:17)
[2024-03-18] MEDS: INSULIN LANTUS (GLARGINE) 1 /0.01ml (100units/ml) SC SCH (21:03)
[2024-03-19 00:52] VITALS: BP 143/83; PULSE 73; RESP 20; TEMP 98.2; O2SAT 100
[2024-03-19 05:00] VITALS: BP 117/73; PULSE 83; RESP 18; TEMP 97.8; O2SAT 96
[2024-03-19 05:58] LABS: Basophils # (auto) 0.1 10 ^3/uL (0-0.2); Basophils % (auto) 0.5 % (0.0-2.0); Eosinophils # (auto) 0.1 10 ^3/uL (0-0.8); Eosinophils % (auto) 0.8 % (0.0-7.0); Hematocrit 27.5 % (41.0-53.0); Hemoglobin 8.7 g/dL (13.5-17.5); Lymphocytes # (auto) 1.5 10 ^3/uL (0.4-5.4); Lymphocytes % (auto) 12.5 % (10.0-50.0); Mean Corpuscular Hgb Conc. 31.8 g/dL (32.0-36.0); Mean Corpuscular Volume 84.9 fL (80.0-100.0); Monocytes # (auto) 0.8 10 ^3/uL (0-1.3); Monocytes % (auto) 6.9 % (0.0-12.0); Neutrophils # (auto) 9.6 10 ^3/uL (1.6-8.6); Neutrophils % (auto) 79.3 % (37.0-80.0); Platelet Count (auto) 305 10^3/uL (140-450); Red Blood Cells 3.24 10^6/uL (4.5-5.90); Red Cell Distribution Width 14.7 % (11.8-14.3); White Blood Cell 12.1 10^3/uL (4.4-10.8)
[2024-03-19 07:40] VITALS: PULSE 71; RESP 16; O2SAT 97
--- NOTE | 2024-03-19 08:32 | DVHPN2 ---
Reviewed: Care Plan, H&P, Labs, Medications, Previous Orders, Radiology Changes from previous H/P or p: No Changes Eyes: No Pain, No Vision change, No Conjunctivae inflammation, No Eyelid inflammation, No Other, No Redness ENT: No Ear pain, No Ear discharge, No Nose pain, No Nose discharge, No Nose congestion, No Mouth pain, No Mouth swelling, No Throat pain, No Throat swelling, No Other Cardiovascular: No Chest Pain, No Palpitations, No Orthopnea, No Paroxysmal Noc. Dyspnea, No Edema, No Lt Headedness, No Other Respiratory: No Cough, No Dry, No Shortness of breath, No SOB with excertion, No Wheezing, No Hemoptysis, No Pleuritic Pain, No Sputum, No Other Gastrointestinal: No Nausea, No Vomiting, No Abdominal Pain, No Diarrhea, No Constipation, No Melena, No Hematochezia, No Other Genitourinary: No Dysuria, No Frequency, No Incontinence, No Hematuria, No Retention, No Other Musculoskeletal: other (Left foot wound with drainage, redness, and swelling); No neck pain, No shoulder pain, No arm pain, No back pain, No hand pain, No leg pain, No foot pain Skin: No Rash, No Lesions, No Jaundice, No Bruising; Other (Left foot open wound) Objective Vitals Vital Signs Date Time Temp Pulse Resp B/P (MAP) Pulse Ox O2 Delivery O2 Flow Rate FiO2 03/19/24 05:00 97.8 83 18 117/73 (88) 96 97.8 03/18/24 20:00 Room Air* 0 21 Intake/Output Intake and Output 03/19/24 07:00 Intake Total 2350 ml Output Total 1500 ml Balance 850 ml Intake Oral 1940 ml IV Total 410 ml Output Urine Total 1500 ml # Voids 6 Medications Current Medications Medications Dose Ordered Sig/Florence Route Start Time Stop Time Status Last Admin Dose Admin Aspirin 81 mg DAILY PO 03/15/24 10:00 03/17/24 07:58 81 MG Atorvastatin Calcium 20 mg HS PO 03/14/24 22:00 03/18/24 21:02 20 MG Vancomycin HCl 0 ml @ 0 mls/hr UD IV 03/14/24 20:45 Diagnostic Test (Pha) 1 strip IQ4HR 03/15/24 00:00 03/19/24 03:39 1 STRIP Insulin Human Regular IQ4HR SC 03/15/24 00:00 03/19/24 03:51 8 UNITS Dextrose 50 ml UD PRN IV 03/14/24 20:45 Sodium Chloride 1,000 ml @ 120 mls/hr Q8H20M IV 03/14/24 20:45 03/19/24 00:06 120 MLS/HR Acetaminophen/ Hydrocodone Bitart 1 tab Q4HP PRN PO 03/14/24 20:45 03/18/24 05:08 1 TAB Ondansetron HCl 4 mg Q4HP PRN IV 03/14/24 20:45 Docusate Sodium 100 mg BIDPRN PRN PO 03/14/24 20:45 Acetaminophen 650 mg Q6HP PRN PO 03/14/24 20:45 03/14/24 23:53 650 MG Morphine Sulfate 2 mg Q4HPRN PRN IV 03/14/24 20:45 03/14/24 23:53 2 MG Nitroglycerin 0.4 mg Q5MINP PRN SL 03/14/24 23:00 Morphine Sulfate 2 mg Q30M PRN IV 03/14/24 23:00 Ascorbic Acid 500 mg BID PO 03/16/24 22:00 03/18/24 21:02 500 MG Enteral Nutritional Formula 27.5 gm BIDWM PO 03/16/24 18:00 03/18/24 18:00 27.5 GM Mupirocin 1 applic BID EACHNOSTRI 03/17/24 10:00 03/22/24 09:59 03/18/24 21:33 1 APPLIC Vancomycin HCl 100 ml @ 100 mls/hr Q12H IV 03/17/24 18:00 03/19/24 05:48 100 MLS/HR Insulin Glargine 30 units HS SC 03/18/24 22:00 03/18/24 21:03 30 UNITS Piperacillin Sod/ Tazobactam Sod 100 ml @ 25 mls/hr Q8HR@0400,1200,2000 IV 03/18/24 20:00 03/19/24 03:42 25 MLS/HR Laboratory Results Laboratory Tests 03/18/24 05:11 03/19/24 05:23 Microbiology Microbiology Date/Time Source Procedure Growth Status 03/18/24 12:01 Foot Gram Stain - Final Resulted 03/18/24 12:01 Foot Anaerobic Culture Pending Resulted 03/18/24 12:01 Foot Aerobic Culture Pending Resulted 03/16/24 12:10 Stool Clostridium difficile Toxin Assay - Final Complete 03/14/24 15:53 Blood Blood Culture - Preliminary NO GROWTH AFTER 72 HOURS OF INCUBATION. Resulted Labs and/or images reviewed: Labs reviewed by me, Image(s) reviewed by me Assessment/Plan Assessment/Plan Acute Osteomyelitis left foot: Zosyn vancomycin status post Left foot I&D to bone and bone biopsy by Dr. 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 Maynard Diabetic foot ulcer Peripheral arterial disease Diabetic neuropathy vasculopathy nephropathy Rory likely hemodynamically mediated/VMN on possible CKD 2/3 Type 2 diabetes, uncontrolled, insulin dependent, Hb A1c 12.7 , aggressive sliding scale, Lantus 30 units HS MRSA screen positive: Bactroban nasal ointment Nicotine dependence Methamphetamine abuse Medication noncompliance Spent 45 minutes Blood cultures negative Patient is full code PICC line ordered Physical therapy ordered Plan discussed with: Patient My Orders Orders - ANKUR JALLOH MD Procedure Category Date Status Time * Picc Line Consult CONS 03/18/24 Transmitted 09:51 Pt Request For Service PT 03/18/24 Logged 09:52 Insulin Lantus PHA 03/18/24 In Process (Glargine) (Lantus) 22:00 Consistent DIET 03/18/24 Transmitted Carb(Ccho)Diabetes Lunch Date of Service: Mar 19, 2024 Billing Provider: ANKUR JALLOH MD Common Visit Codes: [id number] INP/OBS CARE(HIGH) ANKUR JALLOH MD Mar 19, 2024 08:32
[2024-03-19 09:00] VITALS: BP 131/76; PULSE 71; RESP 18; TEMP 98; O2SAT 97
[2024-03-19 13:00] VITALS: BP 159/88; PULSE 57; RESP 18; TEMP 98.8; O2SAT 100
--- NOTE | 2024-03-19 13:05 | DVHPN2 ---
Subjective The patient is a 53-year-old male with past medical history of hyperlipidemia, diabetes mellitus, and hypertension who presented to [facility] ED with complaint of left foot infected wound. Patient reports he noticed worsening wound to his left foot with associated drainage, redness, swelling, and foul odor. Patient reports that he was seen on 02/27/24 for the same complaint and he had his 1st and 2nd toes amputated due to the infection. Patient was seen and evaluated in the ED, laboratory data shows WBC 14.8, hemoglobin 10.5, hematocrit 31.9, platelets 377, sodium 129, potassium 3.4, BUN 27, creatinine 1.57, GFR 53, glucose 435, lactic acid 4.0, blood pressure 91/65, heart rate 118, temperature 99.7 F, O2 saturation 98% on room air. Left foot CT revealing diffuse subcutaneous soft tissue edema and swelling, small volume subcutaneous gas in the posterior, anterior foot likely represent cellulitis; bony erosive changes is present at the distal 1st and 2nd metatarsal suspicious for osteomyelitis. Patient was started on IV antibiotic regimen vancomycin, please see medication orders section in the computer. On my assessment, patient denied chest pain, no headache, no diaphoresis, no shortness of breath, no nausea, no vomiting, no fever, no chills. Patient was admitted further evaluation and medical management. Reviewed: Care Plan, H&P, Labs, Medications, Previous Orders, Radiology Changes from previous H/P or p: No Changes Eyes: No Pain, No Vision change, No Conjunctivae inflammation, No Eyelid inflammation, No Other, No Redness ENT: No Ear pain, No Ear discharge, No Nose pain, No Nose discharge, No Nose congestion, No Mouth pain, No Mouth swelling, No Throat pain, No Throat swelling, No Other Cardiovascular: No Chest Pain, No Palpitations, No Orthopnea, No Paroxysmal Noc. Dyspnea, No Edema, No Lt Headedness, No Other Respiratory: No Cough, No Dry, No Shortness of breath, No SOB with excertion, No Wheezing, No Hemoptysis, No Pleuritic Pain, No Sputum, No Other Gastrointestinal: No Nausea, No Vomiting, No Abdominal Pain, No Diarrhea, No Constipation, No Melena, No Hematochezia, No Other Genitourinary: No Dysuria, No Frequency, No Incontinence, No Hematuria, No Retention, No Other Musculoskeletal: other (Left foot wound with drainage, redness, and swelling); No neck pain, No shoulder pain, No arm pain, No back pain, No hand pain, No leg pain, No foot pain Skin: No Rash, No Lesions, No Jaundice, No Bruising; Other (Left foot open wound) Objective Vitals Vital Signs Date Time Temp Pulse Resp B/P (MAP) Pulse Ox O2 Delivery O2 Flow Rate FiO2 03/19/24 09:00 98.0 71 18 131/76 (94) 97 98.0 03/19/24 07:40 Room Air* 0 21 Intake/Output Intake and Output 03/19/24 07:00 Intake Total 2350 ml Output Total 1500 ml Balance 850 ml Intake Oral 1940 ml IV Total 410 ml Output Urine Total 1500 ml # Voids 6 Exam DERMATOLOGIC EXAM: - Skin is dry and cool to the touch dry bilaterally. - Nails 1-5 of the bilateral foot are thickened, discolored, dystrophic, and tender to palpate with subungual debris - Hair loss noted to bilateral feet - left foot wound with necrosis and exposure of bone VASCULAR EXAM: - DP and PT pulses are palpable bilaterally. 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 - Feet are cool to touch compared to lower legs bilaterally. NEUROLOGIC EXAM: - Normal light touch sensation to the superficial peroneal, deep peroneal, sural, saphenous, and tibial nerve branches. - Protective sensation is diminished as tested with a 5.07 10g Hampton-Sahra bilaterally. MUSCULOSKELETAL EXAM: - No gross deformities - Muscle strength is 5/5 and active motion is pain-free and symmetrical bilaterally - No pain or crepitation with passive range of motion bilaterally to all major pedal joints Medications Current Medications Medications Dose Ordered Sig/[place] Route Start Time Stop Time Status Last Admin Dose Admin Aspirin 81 mg DAILY PO 03/15/24 10:00 03/19/24 10:45 81 MG Atorvastatin Calcium 20 mg HS PO 03/14/24 22:00 03/18/24 21:02 20 MG Vancomycin HCl 0 ml @ 0 mls/hr UD IV 03/14/24 20:45 Diagnostic Test (Pha) 1 strip IQ4HR 03/15/24 00:00 03/19/24 12:01 1 STRIP Insulin Human Regular IQ4HR SC 03/15/24 00:00 03/19/24 12:01 20 UNITS Dextrose 50 ml UD PRN IV 03/14/24 20:45 Sodium Chloride 1,000 ml @ 120 mls/hr Q8H20M IV 03/14/24 20:45 03/19/24 00:06 120 MLS/HR Acetaminophen/ Hydrocodone Bitart 1 tab Q4HP PRN PO 03/14/24 20:45 03/18/24 05:08 1 TAB Ondansetron HCl 4 mg Q4HP PRN IV 03/14/24 20:45 Docusate Sodium 100 mg BIDPRN PRN PO 03/14/24 20:45 Acetaminophen 650 mg Q6HP PRN PO 03/14/24 20:45 03/14/24 23:53 650 MG Morphine Sulfate 2 mg Q4HPRN PRN IV 03/14/24 20:45 03/14/24 23:53 2 MG Nitroglycerin 0.4 mg Q5MINP PRN SL 03/14/24 23:00 Morphine Sulfate 2 mg Q30M PRN IV 03/14/24 23:00 Ascorbic Acid 500 mg BID PO 03/16/24 22:00 03/19/24 10:45 500 MG Enteral Nutritional Formula 27.5 gm BIDWM PO 03/16/24 18:00 03/18/24 18:00 27.5 GM Mupirocin 1 applic BID EACHNOSTRI 03/17/24 10:00 03/22/24 09:59 03/19/24 10:00 1 APPLIC Vancomycin HCl 100 ml @ 100 mls/hr Q12H IV 03/17/24 18:00 03/19/24 05:48 100 MLS/HR Insulin Glargine 30 units HS SC 03/18/24 22:00 03/18/24 21:03 30 UNITS Laboratory Results Laboratory Tests 03/18/24 05:11 03/19/24 05:23 Microbiology Microbiology Date/Time Source Procedure Growth Status 03/18/24 12:01 Foot Gram Stain - Final Resulted 03/18/24 12:01 Foot Anaerobic Culture - Preliminary Resulted 03/18/24 12:01 Foot Aerobic Culture - Preliminary Resulted 03/16/24 12:10 Stool Clostridium difficile Toxin Assay - Final Complete 03/14/24 15:53 Blood Blood Culture - Preliminary NO GROWTH AFTER 72 HOURS OF INCUBATION. Resulted Assessment/Plan Assessment/Plan ASSESSMENT: Patient is a year old seen on the floor 1 day from a foot incision and drainage PLAN: - The patients chart was reviewed, clinical findings were discussed with the patient, the etiologies of the conditions were discussed in detail, and a treatment plan was agreed to at this time, with both oral and written instructions provided. - reviewed advanced imaging - discussed with the patient that a recommendation to be the take him back to the OR for another incision and drainage - patient says he would like to be discharged to a SNF - we will have placement of PICC line today - patient will need 6 weeks of IV antibiotics - patient will need to follow up postop for a significant amount of wound care All questions were answered and concerns addressed to the patient's satisfaction. The patient was given the phone number to the clinic and was told how to make contact with the clinic should any concerns or questions arise. Patient understands that if any questions or concerns arise prior to the next appointment, we should be contacted immediately. FOLLOW-UP: Continue to follow while inpatient Plan discussed with: Patient Problem List: (1) Diabetes mellitus type 2 with complications, uncontrolled (2) Diabetic foot infection (3) Cellulitis and abscess of left leg (4) Electrolyte imbalance (5) Leukocytosis, unspecified (6) Osteomyelitis of left foot (7) Elevated lactic acid level (8) Diabetes mellitus with hyperglycemia (9) Hypochloremia (10) Diabetic neuropathy (11) Generalized weakness (12) Hyperglycemia (13) Hyponatremia (14) Thrombophlebitis (15) Medication refill (16) Foot infection (17) Episode of syncope (18) Ischemic pain of left foot (19) New onset type 2 diabetes mellitus Date of Service: Mar 19, 2024 Billing Provider: DANIKA MONTES DPM Common Visit Codes: [id number] INP/OBS CARE(HIGH) DANIKA MONTES DPM Mar 19, 2024 13:05
[2024-03-19] MEDS: LIDOCAINE 1% (LOCAL ANESTH.) PF 5ml SDV ID ONE (14:22)
--- NOTE | 2024-03-19 15:05 | DVHDS2 ---
Discharge Summary Date of Admission Mar 14, 2024 at 22:55 Date of Discharge: Mar 19, 2024 Admitting Diagnosis Left foot infection Wounds: Left foot infection Labs/Diagnostic Data: Laboratory Results Test 03/19/24 11:45 03/19/24 05:23 03/18/24 10:51 03/18/24 05:11 POC Glucose 384 mg/dl (70-106) White Blood Count 12.1 10^3/uL (4.4-10.8) Red Blood Count 3.24 10^6/uL (4.5-5.90) Hemoglobin 8.7 g/dL (13.5-17.5) Hematocrit 27.5 % (41.0-53.0) Mean Corpuscular Volume 84.9 fL (80.0-100.0) Mean Corpuscular Hemoglobin 27.0 pg (28.0-32.0) Mean Corpuscular Hemoglobin Concent 31.8 g/dL (32.0-36.0) Red Cell Distribution Width 14.7 % (11.8-14.3) Platelet Count 305 10^3/uL (140-450) Mean Platelet Volume 8.4 fL (6.9-10.8) Neutrophils (%) (Auto) 79.3 % (37.0-80.0) Lymphocytes (%) (Auto) 12.5 % (10.0-50.0) Monocytes (%) (Auto) 6.9 % (0.0-12.0) Eosinophils (%) (Auto) 0.8 % (0.0-7.0) Basophils (%) (Auto) 0.5 % (0.0-2.0) Neutrophils # (Auto) 9.6 10 ^3/uL (1.6-8.6) Lymphocytes # (Auto) 1.5 10 ^3/uL (0.4-5.4) Monocytes # (Auto) 0.8 10 ^3/uL (0-1.3) Eosinophils # (Auto) 0.1 10 ^3/uL (0-0.8) Basophils # (Auto) 0.1 10 ^3/uL (0-0.2) Nucleated Red Blood Cells 0.0 % Creatinine 1.47 mg/dL (0.700-1.30) Glomerular Filtration Rate Calc 57 mL/min (>90) SARS-CoV-2 Antigen (Rapid) Negative (NEGATIVE) Prothrombin Time 10.6 sec (9.3-11.8) Prothrombin Time INR 1.00 (0.9-1.15) Activated Partial Thromboplast Time 30.8 SEC (24.5-34.5) Sodium Level 137 mmol/L (136-145) Potassium Level 3.9 mmol/L (3.5-5.1) Chloride Level 101 mmol/L (98-107) Carbon Dioxide Level 29 mmol/L (20-31) Anion Gap 7 (5-15) Blood Urea Nitrogen 29 mg/dL (9-23) BUN/Creatinine Ratio 15.8 (10.0-20.0) Serum Glucose 380 mg/dL (74-106) Calcium Level 8.5 mg/dL (8.7-10.4) Total Bilirubin 0.2 mg/dL (0.2-1.0) Aspartate Amino Transferase (AST) 14 U/L (13-40) Alanine Aminotransferase (ALT) 16 U/L (7-40) Alkaline Phosphatase 110 U/L (46-116) Total Protein 6.0 g/dL (5.7-8.2) Albumin 3.2 g/dL (3.2-4.8) Vancomycin Level Trough 15.0 ug/mL (5-10) Test 03/14/24 19:09 Lactic Acid Level 4.4 mmol/L (0.4-2.0) Other Laboratory Tests 03/19/24 05:23 03/18/24 05:11 Brief Hx & Hospital Course: 53-year-old male with a history of diabetes noncompliant nicotine dependence meth abuse peripheral arterial disease diabetic foot ulcer history of left 1st and 2nd toe amputation 03/01/2024 came in complaining of infected diabetic ulcer in the left foot patient underwent Aleyda incision and drainage to the bone and bone biopsy by left foot. MRI showed osteomyelitis left foot patient was placed on Zosyn and vancomycin patient also had RORY CKD three uncontrolled diabetes A1c 12.7 aggressive sliding scale and Lantus. Patient is being discharged to senior care facility for vancomycin 1 g IV daily for six weeks for osteomyelitis. Consults/Reason for consult Core Worker Dr. Maynard Operations or Procedures Left foot incision and drainage to the bone and bone biopsy Condition at Discharge: Fair Final Diagnosis/Problems List Acute Osteomyelitis left foot: vancomycin status post Left foot I&D to bone and bone biopsy by Dr. 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 Maynard Diabetic foot ulcer Peripheral arterial disease Diabetic neuropathy vasculopathy nephropathy Rory likely hemodynamically mediated/VMN on possible CKD 2/3 Type 2 diabetes, uncontrolled, insulin dependent, Hb A1c 12.7 , aggressive sliding scale, Lantus 30 units HS MRSA screen positive: Bactroban nasal ointment Nicotine dependence Methamphetamine abuse Medication noncompliance Discharge Disposition: Longterm Facility Discharge Instruct/Medications Diet: Consistent carbohydrate Activity: Light activity Follow Up/Referral: Follow up with the assisted Medications: Vancomycin 1 g IV daily for six weeks for osteomyelitis see list for other meds 39 (Time taken for discharge summary 39 minutes) Discharge Statement: "Patient was advised to return to the ER or call 911 if any headaches, dizziness, shortness of breath, chest pain, abdominal pain, bleeding, fevers, or worsening of medical condition. Patient was counseled about treatment plan, medications, possible side effects, patientverbalized understanding. All questions were answered to the best of my ability. This discharge took greater then 30 minutes in planning, reviewing documentation, counseling the patient, and discussing with other team members." ASSESSMENT ASSESSMENT Hospital Course Improved Assessment Acute Osteomyelitis left foot: vancomycin status post Left foot I&D to bone and bone biopsy by Dr. 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 Maynard Diabetic foot ulcer Peripheral arterial disease Diabetic neuropathy vasculopathy nephropathy Rory likely hemodynamically mediated/VMN on possible CKD 2/3 Type 2 diabetes, uncontrolled, insulin dependent, Hb A1c 12.7 , aggressive sliding scale, Lantus 30 units HS MRSA screen positive: Bactroban nasal ointment Nicotine dependence Methamphetamine abuse Medication noncompliance Date of Service: Mar 19, 2024 Billing Provider: ANKUR JALLOH MD Common Visit Codes: [id number] DISCH DAY >30min ANKUR JALLOH MD Mar 19, 2024 15:05
[2024-03-19 17:37] VITALS: BP 158/88; PULSE 57; RESP 18; TEMP 37.1; O2SAT 100
[2024-03-19] MEDS ORDERED: SODIUM CHLOR 0.9% PF (SALINE LOCK) 10ML VIAL/SYR IV SCH (22:00)
== END 2024-03-19 20:00 | DRG 720 ==
LOC: EDBD 15:23 → ER 15:23 → OVERFLOW 22:55 → CENTRAL 03-16 16:28
PROVIDERS: ADMIT Family Medicine; ATTEND Family Medicine
PROC: 0Y9N0ZZ Drainage of Left Foot, Open Approach (ICD-10-PCS; 2024-03-18)
PROC: 0QBP0ZX Excision of Left Metatarsal, Open Approach, Diagnostic (ICD-10-PCS; principal; 2024-03-18 11:48)
PROC: 02HV33Z Insertion of Infusion Device into Superior Vena Cava, Percutaneous Approach (ICD-10-PCS; 2024-03-19)
PROC: B548ZZA Ultrasonography of Superior Vena Cava, Guidance (ICD-10-PCS; 2024-03-19)
DX: A41.9 Sepsis, unspecified organism (principal); N17.0 Acute kidney failure with tubular necrosis; E87.20 Acidosis, unspecified; E44.1 Mild protein-calorie malnutrition; M86.172 Other acute osteomyelitis, left ankle and foot; L02.416 Cutaneous abscess of left lower limb; E87.1 Hypo-osmolality and hyponatremia; L03.116 Cellulitis of left lower limb; E11.628 Type 2 diabetes mellitus with other skin complications; E11.621 Type 2 diabetes mellitus with foot ulcer; L97.529 Non-pressure chronic ulcer of other part of left foot with unspecified severity; E11.40 Type 2 diabetes mellitus with diabetic neuropathy, unspecified; E11.51 Type 2 diabetes mellitus with diabetic peripheral angiopathy without gangrene; E11.69 Type 2 diabetes mellitus with other specified complication; E11.65 Type 2 diabetes mellitus with hyperglycemia; E78.5 Hyperlipidemia, unspecified; E87.8 Other disorders of electrolyte and fluid balance, not elsewhere classified; F15.10 Other stimulant abuse, uncomplicated; E11.22 Type 2 diabetes mellitus with diabetic chronic kidney disease; N18.30 Chronic kidney disease, stage 3 unspecified; F17.210 Nicotine dependence, cigarettes, uncomplicated; I12.9 Hypertensive chronic kidney disease with stage 1 through stage 4 chronic kidney disease, or unspecified chronic kidney disease; Z79.4 Long term (current) use of insulin; Z83.3 Family history of diabetes mellitus; Z89.429 Acquired absence of other toe(s), unspecified side; Z91.148 Patient's other noncompliance with medication regimen for other reason; Z68.1 Body mass index [BMI] 19.9 or less, adult
CPT/HCPCS: 36415; 36569; 71045; 73700; 76937; 80048; 80053; 80202; 82565; 82962; 83605; 85025; 85610; 85730; 86850; 86900; 86901; 87040; 87070; 87075; 87077; 87081; 87186; 87205; 87426; 87493; 93005; 97163; G0378; J1100; J1815; J1885; J2405; J2543; J2704

== ENCOUNTER 2024-05-31 14:34 | Inpatient (IN) | payer MEDICAID ==
[~2024-05-31] VITALS: Ht 188 cm; Wt 76.5 kg
[2024-05-31 15:45] VITALS: BP 131/56; PULSE 104; RESP 18; TEMP 98.2; O2SAT 98
[2024-05-31 16:00] VITALS: BP 131/56; PULSE 104; RESP 18; TEMP 98.2; O2SAT 98
[2024-05-31] MEDS ORDERED: DOCUSATE SOD 100 MG CAP PO PRN (18:30)
[2024-05-31] MEDS ORDERED: ACETAMINOPHEN 325 MG TAB PO PRN (18:30)
[2024-05-31] MEDS ORDERED: VANCOMYCIN PER PHARMACY 0 MG IV SCH (18:30)
[2024-05-31] MEDS ORDERED: ONDANSETRON HCL 4 MG/2 ML VIAL IV PRN (18:30)
[2024-05-31] MEDS ORDERED: MAALOX PLUS or MAALOX 30 ML PO PRN (18:30)
[2024-05-31] MEDS ORDERED: DEXTROSE (50%) 50ML SYRG IV PRN (18:30)
[2024-05-31 19:45] LABS: Hematocrit 33.9 % (41.0-53.0); Mean Corpuscular Hemoglobin 27.6 pg (28.0-32.0); Mean Corpuscular Hgb Conc. 32.6 g/dL (32.0-36.0); Mean Corpuscular Volume 84.7 fL (80.0-100.0); Platelet Count (auto) 346 10^3/uL (140-450); Red Cell Distribution Width 15.6 % (11.8-14.3); White Blood Cell 16.8 10^3/uL (4.4-10.8)
[2024-05-31 19:51] LABS: Basophils % (manual) 0 (0.0-2.0); Blast Cells 0; Eosinophils % (manual) 0 (0-7); Metamyelocytes % 0; Monocytes % (manual) 0 (0-12); Myelocytes % 0; Promyelocytes % 0; Reactive Lymphocytes 0
[2024-05-31 20:00] VITALS: PULSE 103; RESP 20; O2SAT 100
[2024-05-31 20:02] LABS: Alanine Aminotransferase 16 U/L (7-40); Calcium 9.3 mg/dL (8.7-10.4); Carbon Dioxide 24 mmol/L (20-31); INR 1.14 (0.9-1.15); Partial Thromboplastin Time 33.6 SEC (24.5-34.5); Potassium 3.9 mmol/L (3.5-5.1); Prothrombin Time 11.9 sec (9.3-11.8)
[2024-05-31 20:03] LABS: Albumin 3.7 g/dL (3.2-4.8); Anion Gap 12 (5-15); Aspartate Aminotransferase 19 U/L (13-40); Bilirubin, Total 0.5 mg/dL (0.2-1.0); Magnesium 1.9 mg/dL (1.6-2.6); Total Protein 7.3 g/dL (5.7-8.2)
[2024-05-31 20:05] LABS: Alkaline Phosphatase 258 U/L (46-116); Blood Urea Nitrogen 66 mg/dL (9-23); Chloride 85 mmol/L (98-107); Sodium 121 mmol/L (136-145)
[2024-05-31 20:17] LABS: Glucose 698 mg/dL (74-106)
--- NOTE | 2024-05-31 20:55 | DVHHPRES ---
History of Present Illness Resident Creating Document: GRZEGORZ FERNANDO RESIDENT History of Present Illness 54-year-old male patient with past medical history of diabetes mellitus type 2, hypertension, peripheral arterial disease, CKD, polysubstance use in the past, diabetic neuropathy, left foot osteomyelitis status post I and D in February 2024 presented with complaints of left foot pain associated with bloody discharge for last two days. Patient was discharged to custodial facility when he was last admitted in February where he was treated with IV antibiotics and had I and D done by Dr. Maynard. Patient has been living at home for last one week and started again having symptoms of left foot pain and wound, associated with discharge after which he decided to see Dr. Maynard in the office. Dr Maynard evaluated the patient on monday and advised the patient to be admitted directly to the hospital for I and D that is planning to do on monday. He denied any active complaints of chest pain, shortness of breath, nausea, vomiting, diarrhea, headache, dizziness, any musculoskeletal/joint pain apart from the left leg pain. Past medical history Diabetes mellitus type 2 Hypertension Peripheral arterial disease CKD Polysubstance use in the past Diabetic neuropathy Left foot osteomyelitis status post I and D in February 2024 Past surgical history I and D in February 2024 Social history Patient is actively smoking with 3-4 cigarettes per day since the age of 16 Was using methamphetamine in the past Occasional alcohol use Family history Nonsignificant Allergic history No known allergies Review of Systems Constitutional: No: Fever, Chills, Sweats, Weakness, Malaise, Other Eyes: No: Pain, Vision change, Conjunctivae inflammation, Eyelid inflammation, Other, Redness ENT: No: Ear pain, Ear discharge, Nose pain, Nose discharge, Nose congestion, Mouth pain, Mouth swelling, Throat pain, Throat swelling, Other Respiratory: No: Cough, Dry, Shortness of breath, SOB with excertion, Wheezing, Hemoptysis, Pleuritic Pain, Sputum, Wheezing, Other Cardiovascular: No: Chest Pain, Palpitations, Orthopnea, Paroxysmal Noc. Dyspnea, Edema, Lt Headedness, Other Gastrointestinal: No: Nausea, Vomiting, Abdominal Pain, Diarrhea, Constipation, Melena, Hematochezia, Other Genitourinary: No Dysuria, No Frequency, No Incontinence, No Hematuria, No Retention, No Other Musculoskeletal: foot pain; No: other, neck pain, shoulder pain, arm pain, back pain, hand pain, leg pain Skin: Lesions; No: Rash, Jaundice, Bruising, Other Neurological: No: Weakness, Numbness, Incoordination, Change in speech, Confusion, Seizures, Other Allergies: Coded Allergies: NO KNOWN ALLERGIES (Unverified , 06/04/20) Medications Current Medications Medications Dose Ordered Sig/[place] Route Start Time Stop Time Status Last Admin Dose Admin Sodium Chloride 10 ml Q8HR IV 05/31/24 22:00 Al Hydrox/Mg Hydrox/Simethicone 30 ml Q6HP PRN PO 05/31/24 18:30 Docusate Sodium 100 mg BIDPRN PRN PO 05/31/24 18:30 Acetaminophen 650 mg Q6HP PRN PO 05/31/24 18:30 Acetaminophen/ Hydrocodone Bitart 1 tab Q4HP PRN PO 05/31/24 18:30 Hydromorphone HCl 0.5 mg Q4HP PRN IV 05/31/24 18:30 Ondansetron HCl 4 mg Q4HP PRN IV 05/31/24 18:30 Enoxaparin Sodium 40 mg DAILY SC 06/01/24 10:00 Dextrose 50 ml UD PRN IV 05/31/24 18:30 Vancomycin HCl 0 ml @ 0 mls/hr UD IV 05/31/24 18:30 UNV Insulin Glargine 15 units QAM SC 06/01/24 07:00 Piperacillin Sod/ Tazobactam Sod 100 ml @ 25 mls/hr Q8HR IV 05/31/24 22:00 Diagnostic Test (Pha) 1 strip IQ4HR 06/01/24 00:00 Insulin Human Regular IQ4HR SC 06/01/24 00:00 Exam Vital Signs Vital Signs Date Time Temp Pulse Resp B/P (MAP) Pulse Ox O2 Delivery O2 Flow Rate FiO2 05/31/24 16:00 98.2 104 18 131/56 (81) 98 98.2 05/31/24 15:45 Room Air* 0 21 Exam Examination General Appearance: Alert, Oriented X3, Cooperative, No acute distress HEENT: EOMI Respiratory: Clear to auscultation, Normal air movement Cardiovascular: Regular rate, Normal S1, Normal S2 Abdominal: Normal bowel sounds Extremities: Left leg tenderness, left foot wrapped in the bandage, No cyanosis, No edema, Normal pulses, No tenderness/swelling Skin: No rashes, No breakdown Neuro: Normal gait, Normal speech, Strength at 5/5 X4 ext, Normal tone, Sensation intact, Cranial nerves 3-12 NL, Reflexes 2+ Psych/Mental Status: Mental status NL, Mood NL Labs/Xrays Labs Test 05/31/24 19:14 Range/Units White Blood Count 16.8 H 4.4-10.8 10^3/uL Red Blood Count 4.00 L 4.5-5.90 10^6/uL Hemoglobin 11.0 L 13.5-17.5 g/dL Hematocrit 33.9 L 41.0-53.0 % Mean Corpuscular Volume 84.7 80.0-100.0 fL Mean Corpuscular Hemoglobin 27.6 L 28.0-32.0 pg Mean Corpuscular Hemoglobin Concent 32.6 32.0-36.0 g/dL Red Cell Distribution Width 15.6 H 11.8-14.3 % Platelet Count 346 140-450 10^3/uL Mean Platelet Volume 8.2 6.9-10.8 fL Neutrophils (%) (Auto) 37.0-80.0 % Lymphocytes (%) (Auto) 10.0-50.0 % Monocytes (%) (Auto) 0.0-12.0 % Basophils (%) (Auto) 0.0-2.0 % Neutrophils # (Auto) 1.6-8.6 10 ^3/uL Lymphocytes # (Auto) 0.4-5.4 10 ^3/uL Monocytes # (Auto) 0-1.3 10 ^3/uL Prothrombin Time 11.9 H 9.3-11.8 sec Prothrombin Time INR 1.14 0.9-1.15 Activated Partial Thromboplast Time 33.6 24.5-34.5 SEC Sodium Level 121 L 136-145 mmol/L Potassium Level 3.9 3.5-5.1 mmol/L Chloride Level 85 L 98-107 mmol/L Carbon Dioxide Level 24 20-31 mmol/L Anion Gap 12 5-15 Blood Urea Nitrogen 66 H 9-23 mg/dL Creatinine 3.00 H 0.700-1.30 mg/dL Glomerular Filtration Rate Calc 24 >90 mL/min BUN/Creatinine Ratio 22.0 H 10.0-20.0 Serum Glucose 698 *H 74-106 mg/dL Calcium Level 9.3 8.7-10.4 mg/dL Magnesium Level 1.9 1.6-2.6 mg/dL Total Bilirubin 0.5 0.2-1.0 mg/dL Aspartate Amino Transferase (AST) 19 13-40 U/L Alanine Aminotransferase (ALT) 16 7-40 U/L Alkaline Phosphatase 258 H 46-116 U/L Total Protein 7.3 5.7-8.2 g/dL Albumin 3.7 3.2-4.8 g/dL Vitamin D 25-Hydroxy 18.9 L 30.0-100 ng/mL Assessment/Plan Assessment/Plan Assessment/plan #Sepsis due to infected foot wound -leukocytosis in labs, trend -IV fluids -lactic acid -IV antibiotics -blood culture #Diabetic foot Ulcer #Left foot wound, rule out osteomyelitis #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 Maynard -IV antibiotics -wound culture -podiatry consulted, Planning I and D on monday -Venous doppler ruled out DVT - will order MRI to rule out Osteomyelitis #uncontrolled hyperglycemia -hbA1c -insulin lantus plus aggressive sliding scale insulin #Peripheral arterial disease -continue asa and statins #Diabetic neuropathy -continue gabapentin #BERENICE over CKD -IV fluids -continue monitoring #Vitamin d def -Vit D capsules #Nicotine dependence -nicotine patch -counselling for cessation #history of Methamphetamine abuse #DVT prophylaxis -lovenox Case discussion with Dr Mott Plan discussed with: Patient, Other Date of Service: May 31, 2024 Billing Provider: HAILEY MOTT MD Common Visit Codes: [id number] INP/OBS CARE (HIGH) GRZEGORZ FERNANDO RESIDENT May 31, 2024 20:55 HAILEY MOTT MD Jun 01, 2024 09:57
[2024-05-31] MEDS: InsuLIN REG 1unit/0.01ml Soln (100units/ml) SC SCH (20:58)
[2024-05-31 21:00] VITALS: BP 100/64; PULSE 103; RESP 20; TEMP 98.1; O2SAT 100
[2024-05-31] MEDS: InsuLIN REG 1unit/0.01ml Soln (100units/ml) SC ONE (21:00)
[2024-05-31] MEDS: ACCU-CHEK COMFORT CURVE STRIP VI ONE (21:00)
[2024-05-31] MEDS ORDERED: ACCU-CHEK COMFORT CURVE STRIP VI SCH (22:00)
[2024-05-31] MEDS ORDERED: InsuLIN REG 1unit/0.01ml Soln (100units/ml) SC SCH (22:00)
[2024-05-31 22:19] LABS: Band Neutrophils % (manual) 8; Lymphocytes % (manual) 12 (10.0-50.0); Platelet Estimate Adequate
[2024-05-31] MEDS: HYDROmorphone HCL 2 MG/ML VL/or syr IV PRN (22:21)
[2024-05-31] MEDS: VANCOMYCIN 1.75GM/350ML IV ONE (23:39)
[2024-05-31] MEDS: SODIUM CHLOR 0.9% PF (SALINE LOCK) 10ML VIAL/SYR IV SCH (23:46)
--- NOTE | 2024-05-31 23:48 | DVH ---
Left lower extremity venous duplex Clinical History: rule out DVT Comparison: US LT LOWER DVT on DOS: 02/27/24, US BILAT LOWER DVT on DOS: 01/27/24 Technique: Duplex Doppler evaluation of the deep venous system of the left lower extremity from the common femor al vein to the popliteal vein including color Doppler and spectral/pulsed waveform analysis was perfo rmed. Findings: The common femoral vein demonstrates appropriate compressibility and waveform variability. There is compressibility/patency of the great saphenous vein at the proximal thigh. The femoral vein demonstrates appropriate compressibility and waveform variability. The deep femoral vein demonstrates appropriate compressibility and waveform variability. The popliteal vein demonstrates appropriate compressibility and waveform variability. There is normal compressibility at the tibioperoneal trunk. Impression: No evidence of left femoropopliteal venous thrombosis.
[2024-06-01] MEDS: ACCU-CHEK COMFORT CURVE STRIP VI SCH ×2 (00:01→04:00)
[2024-06-01] MEDS ORDERED: DEXTROSE (50%) 50ML SYRG IV PRN (00:45)
[2024-06-01] MEDS: PIPERACILLIN-TAZOB 3.375GM 100 ML IV SCH (01:29)
[2024-06-01] MEDS: INSULIN LANTUS (GLARGINE) 1 /0.01ml (100units/ml) SC SCH (01:43)
[2024-06-01] MEDS: SODIUM CHLORIDE 0.9% 1,000 ML IV SCH (02:45)
[2024-06-01] MEDS: SODIUM CHLORIDE 0.9% 1,000 ML IV ONE (02:45)
[2024-06-01] MEDS: InsuLIN REG 1unit/0.01ml Soln (100units/ml) SC SCH (04:38)
[2024-06-01 05:00] VITALS: BP 110/50; PULSE 93; RESP 18; TEMP 97.9; O2SAT 94
[2024-06-01 05:58] LABS: Anion Gap 11 (5-15); Carbon Dioxide 25 mmol/L (20-31)
[2024-06-01 05:59] LABS: Calcium 9.5 mg/dL (8.7-10.4)
[2024-06-01 06:04] LABS: BUN/Creatinine Ratio 22.4 (10.0-20.0); Blood Urea Nitrogen 68 mg/dL (9-23); Chloride 89 mmol/L (98-107); Glucose 363 mg/dL (74-106); Sodium 125 mmol/L (136-145)
[2024-06-01 06:05] LABS: Magnesium 1.9 mg/dL (1.6-2.6)
[2024-06-01 06:19] LABS: Basophils # (auto) 0 10 ^3/uL (0-0.2); Basophils % (auto) 0.2 % (0.0-2.0); Eosinophils # (auto) 0 10 ^3/uL (0-0.8); Eosinophils % (auto) 0.3 % (0.0-7.0); Hematocrit 32.2 % (41.0-53.0); Hemoglobin 11.1 g/dL (13.5-17.5); Lymphocytes # (auto) 0.7 10 ^3/uL (0.4-5.4); Lymphocytes % (auto) 3.7 % (10.0-50.0); Mean Corpuscular Hemoglobin 28.4 pg (28.0-32.0); Mean Corpuscular Hgb Conc. 34.4 g/dL (32.0-36.0); Mean Corpuscular Volume 82.7 fL (80.0-100.0); Monocytes # (auto) 1.2 10 ^3/uL (0-1.3); Monocytes % (auto) 6.8 % (0.0-12.0); Neutrophils # (auto) 16.2 10 ^3/uL (1.6-8.6); Platelet Count (auto) 346 10^3/uL (140-450); Red Blood Cells 3.89 10^6/uL (4.5-5.90); Red Cell Distribution Width 15.3 % (11.8-14.3); White Blood Cell 18.2 10^3/uL (4.4-10.8)
[2024-06-01] MEDS ORDERED: InsuLIN REG 1unit/0.01ml Soln (100units/ml) SC SCH (07:00)
[2024-06-01] MEDS ORDERED: INSULIN LANTUS (GLARGINE) 1 /0.01ml (100units/ml) SC SCH (07:00)
[2024-06-01 09:00] VITALS: BP 90/49; PULSE 61; RESP 18; TEMP 97.9; O2SAT 95
[2024-06-01] MEDS: ENOXAPARIN SOD 40 MG/0.4 ML SYRINGE SC SCH (09:13)
[2024-06-01] MEDS: ASPirin-EC 81 mg tab PO SCH (09:13)
[2024-06-01] MEDS: NICOTINE 14 MG/24HR TOPICAL PATCH TD SCH (09:14)
[2024-06-01] MEDS: POTASSIUM CHL 20 Meq TABLET PO ONE (10:57)
[2024-06-01] MEDS: MAGNESIUM OXIDE 400 MG TAB PO ONE (10:58)
[2024-06-01] MEDS: ERGOCALCIFEROL 50,000 UNIT(1.25MG) CAP PO SCH (10:58)
--- NOTE | 2024-06-01 12:32 | DVHPN2 ---
Subjective Seen and examined at bedside, for surgery on Monday. Patient has Hyponatremia, unknown cause. Will check UA and Osmo. Cont IV Abx. Changes from previous H/P or p: No Changes Eyes: No Pain, No Vision change, No Conjunctivae inflammation, No Eyelid inflammation, No Other, No Redness ENT: No Ear pain, No Ear discharge, No Nose pain, No Nose discharge, No Nose congestion, No Mouth pain, No Mouth swelling, No Throat pain, No Throat swelling, No Other Cardiovascular: No Chest Pain, No Palpitations, No Orthopnea, No Paroxysmal Noc. Dyspnea, No Edema, No Lt Headedness, No Other Respiratory: No Cough, No Dry, No Shortness of breath, No SOB with excertion, No Wheezing, No Hemoptysis, No Pleuritic Pain, No Sputum, No Other Gastrointestinal: No Nausea, No Vomiting, No Abdominal Pain, No Diarrhea, No Constipation, No Melena, No Hematochezia, No Other Genitourinary: No Dysuria, No Frequency, No Incontinence, No Hematuria, No Retention, No Other Musculoskeletal: No other, No neck pain, No shoulder pain, No arm pain, No back pain, No hand pain, No leg pain; foot pain Skin: No Rash; Lesions; No Jaundice, No Bruising, No Other Objective Vitals Vital Signs Date Time Temp Pulse Resp B/P (MAP) Pulse Ox O2 Delivery O2 Flow Rate FiO2 06/01/24 09:27 98 18 116/54 06/01/24 09:00 97.9 95 97.9 06/01/24 08:00 Room Air* 0 21 Intake/Output Intake and Output 06/01/24 07:00 Intake Total 100 ml Output Total 1000 ml Balance -900 ml Intake Oral 0 ml IV Total 100 ml Output Urine Total 1000 ml # Voids 7 General Appearance: Alert, Oriented X3, Cooperative, No acute distress HEENT: Atraumatic Lungs: Clear to auscultation Cardiovascular: Regular rate, Normal S1, Normal S2 Abdomen: Normal bowel sounds, Soft Extremities: Other (Left Foot Dressing, Foul Smell) Psych/Mental Status: Mental status NL Medications Current Medications Medications Dose Ordered Sig/[place] Route Start Time Stop Time Status Last Admin Dose Admin Sodium Chloride 10 ml Q8HR IV 05/31/24 22:00 06/01/24 06:09 10 ML Al Hydrox/Mg Hydrox/Simethicone 30 ml Q6HP PRN PO 05/31/24 18:30 Docusate Sodium 100 mg BIDPRN PRN PO 05/31/24 18:30 Acetaminophen 650 mg Q6HP PRN PO 05/31/24 18:30 Acetaminophen/ Hydrocodone Bitart 1 tab Q4HP PRN PO 05/31/24 18:30 Hydromorphone HCl 0.5 mg Q4HP PRN IV 05/31/24 18:30 06/01/24 09:27 0.5 MG Ondansetron HCl 4 mg Q4HP PRN IV 05/31/24 18:30 Enoxaparin Sodium 40 mg DAILY SC 06/01/24 10:00 06/01/24 09:13 40 MG Vancomycin HCl 0 ml @ 0 mls/hr UD IV 05/31/24 18:30 Piperacillin Sod/ Tazobactam Sod 100 ml @ 25 mls/hr Q8HR IV 05/31/24 22:00 06/01/24 06:11 25 MLS/HR Insulin Glargine 15 units QAM SC 06/01/24 00:45 06/01/24 06:17 15 UNITS Diagnostic Test (Pha) 1 strip IQ4HR 06/01/24 04:00 06/01/24 11:47 1 STRIP Insulin Human Regular IQ4HR SC 06/01/24 04:00 06/01/24 11:46 2 UNITS Dextrose 50 ml UD PRN IV 06/01/24 00:45 Atorvastatin Calcium 40 mg HS PO 06/01/24 22:00 Sodium Chloride 1,000 ml @ 125 mls/hr Q8H IV 06/01/24 02:45 06/01/24 10:58 125 MLS/HR Nicotine 1 patch DAILY TD 06/01/24 10:00 06/01/24 09:14 1 PATCH Ergocalciferol 50,000 unit Q7D PO 06/01/24 10:00 06/01/24 10:58 50,000 UNIT Magnesium Oxide 800 mg BID PO 06/01/24 22:00 Laboratory Results Laboratory Tests 06/01/24 04:45 Chemistry Test 05/31/24 19:14 06/01/24 04:45 Albumin 3.7 g/dL (3.2-4.8) Calcium Level 9.3 mg/dL (8.7-10.4) 9.5 mg/dL (8.7-10.4) Magnesium Level 1.9 mg/dL (1.6-2.6) 1.9 mg/dL (1.6-2.6) Total Protein 7.3 g/dL (5.7-8.2) Coagulation Test 05/31/24 19:14 Prothrombin Time 11.9 sec (9.3-11.8) H Prothrombin Time INR 1.14 (0.9-1.15) Activated Partial Thromboplast Time 33.6 SEC (24.5-34.5) LFT Test 05/31/24 19:14 Alanine Aminotransferase (ALT) 16 U/L (7-40) Alkaline Phosphatase 258 U/L (46-116) H Aspartate Amino Transferase (AST) 19 U/L (13-40) Total Bilirubin 0.5 mg/dL (0.2-1.0) HgA1c, TSH Test 06/01/24 04:45 Hemoglobin A1c 12.7 % A1C (<5.7) H Urinalysis Test 06/01/24 10:05 Urine Color Pending Urine Clarity Pending Urine pH Pending Urine Specific [place] Pending Urine Protein Pending Urine Ketones Pending Urine Blood Pending Urine Nitrite Pending Urine Bilirubin Pending Urine Urobilinogen Pending Urine Leukocyte Esterase Pending Urine RBC Pending Urine Microscopic WBC Pending Urine Squamous Epithelial Cells Pending Urine Bacteria Pending Urine Osmolality Pending Urine Sodium Pending Urine Glucose Pending Assessment/Plan Assessment/Plan #Sepsis due to infected foot wound -IV antibiotics -blood culture # Hyponatremia - IVF - Recheck #Diabetic foot Ulcer #Left foot wound, rule out osteomyelitis #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 Maynard -IV antibiotics -wound culture -podiatry consulted, Planning I and D on monday -Venous doppler ruled out DVT - will order MRI to rule out Osteomyelitis #uncontrolled hyperglycemia -hbA1c 12.7 -insulin lantus plus aggressive sliding scale insulin #Peripheral arterial disease -continue asa and statins #Diabetic neuropathy -continue gabapentin #BERENICE over CKD -IV fluids -continue monitoring #Vitamin d def -Vit D capsules #Nicotine dependence -nicotine patch -counselling for cessation #history of Methamphetamine abuse #DVT prophylaxis -lovenox Plan discussed with: Patient My Orders Orders - HAILEY MOTT MD Procedure Category Date Status Time Admit ADMIT 05/31/24 Transmitted 18:30 Code Status CODE 05/31/24 Transmitted 18:30 Review Orders With MALLIKA 05/31/24 In Process Adm. 18:30 Sodium Chloride Lock PHA 05/31/24 In Process (Saline Lock Ns) 22:00 Alum & Mag PHA 05/31/24 In Process Hydrox-Simethicone 18:30 Docusate Sodium PHA 05/31/24 In Process Capsule (Colace 18:30 Acetaminophen Tablet PHA 05/31/24 In Process (Tylenol Tablet) 18:30 Notify Of Changes MALLIKA 05/31/24 In Process From Base 18:30 Advance Directive MALLIKA 05/31/24 In Process 18:30 Patient Condition ORDERS 05/31/24 Transmitted 18:30 Allergies MALLIKA 05/31/24 In Process 18:30 Hydrocodone-Acet PHA 05/31/24 In Process 5/325mg Tab ([place] 18:30 Hydromorphone PHA 05/31/24 In Process Injection (Dilaudid 18:30 Ondansetron Hcl PHA 05/31/24 In Process (Zofran) 18:30 Enoxaparin Sodium PHA 06/01/24 In Process (Lovenox) 10:00 Oxygen By Nasal RT 05/31/24 Transmitted Cannula 18:30 Vancomycin Per PHA 05/31/24 In Process Pharmacy 18:30 *Podiatry Consult CONS 05/31/24 Transmitted Musson(Dvmg) 18:30 Communication Order ORDERS 05/31/24 Transmitted 18:30 Electrocardigram EKG 05/31/24 Logged 18:30 2 Gm Sodium Diet DIET 06/01/24 Transmitted Breakfast Piperacillin-Tazob PHA 05/31/24 In Process 3.375gm (Zosyn 3.375g 22:00 Magnesium Oxide PHA 06/01/24 In Process Tablet (Mag-Ox Tablet) 22:00 Basic Metabolic Panel LAB 06/02/24 Verified 04:00 Magnesium LAB 06/02/24 Verified 04:00 B-Type Natriuretic LAB 06/02/24 Verified Peptide 04:00 Urinalysis LAB 06/01/24 In Process 10:05 Osmolality Urine LAB 06/01/24 In Process 10:05 Urine Sodium LAB 06/01/24 In Process 10:05 Complete Blood Count LAB 06/02/24 Verified 04:00 Creatinine LAB 06/02/24 Verified 04:00 Vancomycin,Random LAB 06/02/24 Verified 04:00 Osmolality, Serum LAB 06/01/24 In Process 11:43 Insulin Lantus PHA 06/02/24 Transmitted (Glargine) (Lantus) 07:00 Sodium LAB 06/01/24 Transmitted 12:28 Phosphorus LAB 06/02/24 Verified 04:00 Date of Service: Jun 01, 2024 Billing Provider: HAILEY MOTT MD Common Visit Codes: [id number] INP/OBS CARE(HIGH) HAILEY MOTT MD Jun 01, 2024 12:32
[2024-06-01 12:44] LABS: Urine Bacteria MOD /hpf (None Seen); Urine Blood 3+ /uL (Negative); Urine Clarity Ex.Turbid (Clear); Urine Color Light-Brown (Yellow); Urine Mucus FEW (None Seen); Urine Protein, UAD 1+ (Negative); Urine Squamous Epithelial Cell None Seen /hpf (<5); Urine Urobilinogen Normal (Negative); Urine WBC 1078 /HPF (0-3); Urine WBC Clumps PRESENT /hpf (None Seen)
[2024-06-01 13:00] VITALS: BP 106/62; PULSE 91; RESP 17; TEMP 97.7; O2SAT 94
--- NOTE | 2024-06-01 16:14 | DVH ---
EXAM: MRI MRI L TIB FIB WO CONTRAST CLINICAL INDICATION: 54 years old, Male; rule out OM. COMPARISON: None. TECHNIQUE: Multiplanar, multisequence MRI of the left tibia-fibula (lower leg) was performed without intravenous contrast. Contrast: None INTERPRETATION: Bones: There is no fracture or bone marrow edema. No T1 hypointensity to suggest a marrow replacing process. No cortical destruction. Soft tissues: There is fluid collection in the tibialis anterior muscle which measures 3.9 cm anterio r posterior by 0.7 cm transverse and spanning the entire craniocaudal dimension of the tibialis anter ior muscle. There are several foci of gas within the collection. There is overlying subcutaneous shalonda ma in the anterolateral knee. Extension of fluid into the dorsal extensor tendon sheaths. Mild edema in the gastrocnemius and soleus muscles. There is no muscle atrophy. There is no soft tissue mass. IMPRESSION: 1. Fluid collection with gas in the tibialis anterior muscle concerning for intramuscular abscess in the appropriate clinical setting. Please note that compartment syndrome should be excluded clinically . Overlying subcutaneous edema which may reflect cellulitis. 2. No MR evidence osteomyelitis. 3. Mild edema in the gastrocnemius and soleus muscles, which may reflect myositis. 4. Please see separate MRI of the foot for additional findings.
--- NOTE | 2024-06-01 16:45 | DVH ---
CLINICAL INDICATION: 54 years old, Male; rule out OM. COMPARISON: CT CT L FOOT WO CONTRAST on DOS: 03/14/24 TECHNIQUE: Multiplanar, multisequence MRI of the left foot was performed without intravenous contrast . Contrast: None. INTERPRETATION: Bones: Status post amputation of the 1st and 2nd toe phalanges. There is confluence T1 hypointensity in the mid to distal shaft of the 1st metatarsal including the metatarsal head. There is T1 hypointen sity in the 2nd metatarsal head. There is corresponding bone marrow edema. This is consistent with o steomyelitis. Additional T1 hypointensity is noted in the 3rd metatarsal almost entirely, with assoc iated marrow edema consistent with osteomyelitis. Mild bone marrow edema in the calcaneus which is no nspecific. Soft tissues: Regional soft tissue swelling especially in the medial and dorsal forefoot. There is fl uid distending the tibialis anterior, extensor digitorum and extensor hallucis longus tendon sheaths. No tendon tear identified. Diffuse intramuscular edema, nonspecific but may reflect myositis or dene rvation. Edema noted in Kager's fat pad. Plantar fascia intact. IMPRESSION: 1. Osteomyelitis in the 1st and 2nd metatarsal bones and the 3rd metatarsal of the left foot. 2. Fluid distention of the dorsal extensor tendon sheaths compatible with inflammatory tenosynovitis. 3. Diffuse soft tissue edema compatible with cellulitis. 4. Please see separate MRI of the left tibia / fibula performed same date. HS:Y
[2024-06-01 17:00] VITALS: BP 119/62; PULSE 90; RESP 18; TEMP 97.4; O2SAT 97
[2024-06-01] MEDS: HYDROcodone-ACET 5/325MG TAB PO PRN (17:28)
[2024-06-01 20:00] VITALS: PULSE 87; RESP 18; O2SAT 87
[2024-06-01 21:00] VITALS: BP 120/62; PULSE 87; RESP 18; TEMP 97.6; O2SAT 98
[2024-06-01] MEDS: ATORVASTATIN 20 MG TAB PO SCH (21:23)
[2024-06-01] MEDS: MAGNESIUM OXIDE 400 MG TAB PO SCH (21:23)
[2024-06-02 01:00] VITALS: BP 112/65; PULSE 103; RESP 17; TEMP 98; O2SAT 97
[2024-06-02 05:00] VITALS: BP 96/51; PULSE 76; RESP 17; TEMP 97.6; O2SAT 96
[2024-06-02] MEDS: INSULIN LANTUS (GLARGINE) 1 /0.01ml (100units/ml) SC SCH (06:13)
[2024-06-02 07:42] LABS: Basophils # (auto) 0 10 ^3/uL (0-0.2); Basophils % (auto) 0.2 % (0.0-2.0); Eosinophils # (auto) 0.1 10 ^3/uL (0-0.8); Eosinophils % (auto) 0.5 % (0.0-7.0); Hematocrit 27.5 % (41.0-53.0); Hemoglobin 9.3 g/dL (13.5-17.5); Lymphocytes # (auto) 0.7 10 ^3/uL (0.4-5.4); Lymphocytes % (auto) 3.7 % (10.0-50.0); Mean Corpuscular Hgb Conc. 33.8 g/dL (32.0-36.0); Mean Corpuscular Volume 82.8 fL (80.0-100.0); Monocytes # (auto) 1.1 10 ^3/uL (0-1.3); Neutrophils % (auto) 89.6 % (37.0-80.0); Platelet Count (auto) 283 10^3/uL (140-450); Red Blood Cells 3.32 10^6/uL (4.5-5.90); Red Cell Distribution Width 15.4 % (11.8-14.3); White Blood Cell 17.8 10^3/uL (4.4-10.8)
[2024-06-02 08:00] VITALS: RESP 20
[2024-06-02 08:03] LABS: Anion Gap 9 (5-15); Carbon Dioxide 21 mmol/L (20-31)
[2024-06-02 08:08] LABS: BUN/Creatinine Ratio 22.2 (10.0-20.0)
[2024-06-02 08:09] LABS: Magnesium 1.9 mg/dL (1.6-2.6)
[2024-06-02 08:10] LABS: Phosphorus 2.8 mg/dL (2.4-5.1)
[2024-06-02 08:14] LABS: Blood Urea Nitrogen 70 mg/dL (9-23); Calcium 8.7 mg/dL (8.7-10.4); Chloride 97 mmol/L (98-107); Glucose 204 mg/dL (74-106); Potassium 3.1 mmol/L (3.5-5.1); Sodium 127 mmol/L (136-145)
[2024-06-02] MEDS ORDERED: CEFEPIME 2GM/50ML NS 50 ML IV SCH (10:00)
--- NOTE | 2024-06-02 10:48 | DVHINCON2 ---
Date of service: Jun 02, [address] Khoury Reason for Consultation Acute kidney injury History of Present Illness Patient is a 54-year-old male with past medical history significant for uncontrolled diabetes mellitus type 2, hypertension, peripheral arterial disease, CKD, polysubstance use, neuropathy, peripheral arterial disease and left foot osteomyelitis is admitted for let food bloody discharge. On admission patient found to have elevated BUN creatinine nephrology is consulted for acute kidney injury Past Medical History diabetes mellitus type 2, hypertension, peripheral arterial disease, CKD, polysubstance use in the past, diabetic neuropathy, left foot osteomyelitis Past Surgical History Left foot debridement Allergies: Coded Allergies: NO KNOWN ALLERGIES (Unverified , 06/04/20) Home Meds Active Scripts Amoxicillin & Pot Clavulanate (AUGMENTIN TABLET) 875 Mg Tb, 875 MG PO BID for 14 Days, #28 TAB Prov:[facility] 03/02/24 Insulin Glargine (Lantus) 100 Unit/Ml Inj, 30 UNITS SC BID for 30 Days, #2 INJ Prov:[facility] 02/02/24 Atorvastatin Calcium (ATORVASTATIN CALCIUM) 20 Mg Tab, 40 MG PO HS for 30 Days, #60 TAB Prov:[facility] 02/02/24 Aspirin (Aspirin Low Dose) 81 Mg Tab, 81 MG PO DAILY for 30 Days, #30 TAB Prov:[facility] 02/02/24 Doxycycline Hyclate (Doxycycline Hyclate) 50 Mg Cap, 1 CAP PO BID for 14 Days, #20 CAP Prov:[facility] 02/02/24 Levofloxacin Hemihydrate (LEVAQUIN 500 MG) 500 Mg Tab, 500 MG PO DAILY for 14 Days, #14 TAB Prov:[facility] 02/02/24 Lancets Misc. (ACCU-CHEK FASTCLIX LANCET) Fastclix Kit, UNIT XX TID, #30 Monitor fasting glucose Prov:[facility] 02/02/24 Blood Glucose Monitoring Suppl (D-Care Glucometer Kit/Glu W/Device) 1 Kit Kit, KIT XX DAILY, #1 Monitor fasting glucose Prov:DAVE [facility] 02/02/24 Metformin Hydrochloride (METFORMIN HCL ER) 500 Mg Tab, 1 TAB PO BID, #90 TAB 1 Refill Prov:SHYAM BENITEZ 02/27/23 Gabapentin (Gabapentin) 300 Mg Cap, 1 CAP PO Q6HP PRN, #30 CAP 0 Refills Prov:ADONIS MARTÍNEZ [facility] 12/06/22 Current Medications Current Medications Medications (Trade) Dose Ordered Sig/[place] Route PRN Reason Start Time Stop Time Status Last Admin Atorvastatin Calcium (Lipitor) 40 mg HS PO 06/01/24 22:00 06/01/24 21:23 Magnesium Oxide (Mag-Ox Tablet) 800 mg BID PO 06/01/24 22:00 06/02/24 09:16 Insulin Glargine (Lantus) 25 units QAM SC 06/02/24 07:00 06/02/24 06:13 Magnesium Sulfate/ Dextrose 100 ml @ 100 mls/hr Q1HR IV 06/02/24 10:00 06/02/24 11:59 DC 06/02/24 13:00 Cefepime HCl 50 ml @ 12.5 mls/hr Q12HR IV 06/02/24 10:00 Linezolid 300 ml @ 150 mls/hr Q12HR IV 06/02/24 10:00 06/02/24 11:59 Tamsulosin HCl (Flomax) 0.4 mg QPM PO 06/03/24 18:00 Family History: Diabetes mellitus G8 FATHER FH: cancer G8 FATHER Review of Systems All 12 item review of systems reviewed with the patient nonsignificant except what is mentioned in the history of present illness H&P Exam Vital Signs/I&O Vital Sign Date Time Temp Pulse Resp B/P (MAP) Pulse Ox O2 Delivery O2 Flow Rate FiO2 06/02/24 08:00 20 Room Air* 0 21 06/02/24 05:00 97.6 76 96/51 (01) 96 97.6 Intake and Output 06/01/24 06/02/24 19:00 07:00 Intake Total 1500 ml 2600 ml Output Total 400 ml 1000 ml Balance 1100 ml 1600 ml Intake Oral 400 ml 1600 ml IV Total 1100 ml 1000 ml Output Urine Total 400 ml 1000 ml # Bowel Movements 2 Physical Exam Patient lying in bed no acute distress Lungs clear to auscultation bilaterally Cardiac exam regular rate and rhythm GI soft nontender normal Extremity left foot infection dressed Neuro nonfocal Labs/Diagnostic Data Labs/Diagnostic Data Laboratory Tests Test 06/02/24 11:16 06/02/24 07:42 06/02/24 06:03 06/02/24 06:00 Range/Units Plasma/Serum Blood Alcohol < 3.0 <10 mg/dL POC Glucose 204 H 225 H 70-106 mg/dl White Blood Count 17.8 H 4.4-10.8 10^3/uL Red Blood Count 3.32 L 4.5-5.90 10^6/uL Hemoglobin 9.3 #L 13.5-17.5 g/dL Hematocrit 27.5 #L 41.0-53.0 % Mean Corpuscular Volume 82.8 80.0-100.0 fL Mean Corpuscular Hemoglobin 28.0 28.0-32.0 pg Mean Corpuscular Hemoglobin Concent 33.8 32.0-36.0 g/dL Red Cell Distribution Width 15.4 H 11.8-14.3 % Platelet Count 283 140-450 10^3/uL Mean Platelet Volume 8.2 6.9-10.8 fL Neutrophils (%) (Auto) 89.6 H 37.0-80.0 % Lymphocytes (%) (Auto) 3.7 L 10.0-50.0 % Monocytes (%) (Auto) 6.0 0.0-12.0 % Eosinophils (%) (Auto) 0.5 0.0-7.0 % Basophils (%) (Auto) 0.2 0.0-2.0 % Neutrophils # (Auto) 16.0 H 1.6-8.6 10 ^3/uL Lymphocytes # (Auto) 0.7 0.4-5.4 10 ^3/uL Monocytes # (Auto) 1.1 0-1.3 10 ^3/uL Eosinophils # (Auto) 0.1 0-0.8 10 ^3/uL Basophils # (Auto) 0 0-0.2 10 ^3/uL Nucleated Red Blood Cells 0.0 % Sodium Level 127 L 136-145 mmol/L Potassium Level 3.1 L 3.5-5.1 mmol/L Chloride Level 97 L 98-107 mmol/L Carbon Dioxide Level 21 20-31 mmol/L Anion Gap 9 5-15 Blood Urea Nitrogen 70 H 9-23 mg/dL Creatinine 3.16 H 0.700-1.30 mg/dL Glomerular Filtration Rate Calc 23 >90 mL/min BUN/Creatinine Ratio 22.2 H 10.0-20.0 Serum Glucose 204 #H 74-106 mg/dL Calcium Level 8.7 8.7-10.4 mg/dL Phosphorus Level 2.8 2.4-5.1 mg/dL Magnesium Level 1.9 1.6-2.6 mg/dL B-Type Natriuretic Peptide 88.12 0-100 pg/mL Triglycerides Level 136 < 150 mg/dL Cholesterol Level 60 < 200 mg/dL LDL Cholesterol 18 < 100 mg/dL HDL Cholesterol < 5 L 40-59 mg/dL Random Vancomycin Level 14.8 H 5-10 ug/mL Test 06/02/24 04:10 06/01/24 23:55 06/01/24 20:32 06/01/24 16:57 Range/Units POC Glucose 231 H 267 H 322 H 227 H 70-106 mg/dl Test 06/01/24 11:43 06/01/24 11:33 06/01/24 10:05 06/01/24 08:11 Range/Units Sodium Level 129 L 136-145 mmol/L Serum Osmolality 291 278-298 mOsm/kg POC Glucose 153 H 113 H 70-106 mg/dl Urine Color Light-brown Yellow Urine Clarity Ex.turbid Clear Urine pH 6.0 5.0-9.0 Urine Specific [place] 1.010 1.001-1.035 Urine Protein 1+ H Negative Urine Ketones Negative Negative Urine Blood 3+ H Negative /uL Urine Nitrite 1+ H Negative Urine Bilirubin Negative Negative Urine Urobilinogen Normal Negative mg/dL Urine Leukocyte Esterase 3+ Negative /uL Urine RBC 31 0 - 3 /hpf Urine WBC Clumps Present None Seen /hpf Urine Microscopic WBC 1078 H 0-3 /HPF Urine Squamous Epithelial Cells None seen <5 /hpf Urine Bacteria Mod H None Seen /hpf Urine Mucus Few None Seen Urine Osmolality 261 mOsm/kg Urine Sodium 31 L 40-220 mmol/L Urine Glucose 2+ H Normal mg/dL Test 06/01/24 06:08 06/01/24 05:17 06/01/24 04:45 06/01/24 04:23 Range/Units POC Glucose 263 H 413 *H 70-106 mg/dl Lactic Acid Level 1.8 0.4-2.0 mmol/L White Blood Count 18.2 H 4.4-10.8 10^3/uL Red Blood Count 3.89 L 4.5-5.90 10^6/uL Hemoglobin 11.1 L 13.5-17.5 g/dL Hematocrit 32.2 L 41.0-53.0 % Mean Corpuscular Volume 82.7 80.0-100.0 fL Mean Corpuscular Hemoglobin 28.4 28.0-32.0 pg Mean Corpuscular Hemoglobin Concent 34.4 32.0-36.0 g/dL Red Cell Distribution Width 15.3 H 11.8-14.3 % Platelet Count 346 140-450 10^3/uL Mean Platelet Volume 8.3 6.9-10.8 fL Neutrophils (%) (Auto) 89.0 H 37.0-80.0 % Lymphocytes (%) (Auto) 3.7 L 10.0-50.0 % Monocytes (%) (Auto) 6.8 0.0-12.0 % Eosinophils (%) (Auto) 0.3 0.0-7.0 % Basophils (%) (Auto) 0.2 0.0-2.0 % Neutrophils # (Auto) 16.2 H 1.6-8.6 10 ^3/uL Lymphocytes # (Auto) 0.7 0.4-5.4 10 ^3/uL Monocytes # (Auto) 1.2 0-1.3 10 ^3/uL Eosinophils # (Auto) 0 0-0.8 10 ^3/uL Basophils # (Auto) 0 0-0.2 10 ^3/uL Nucleated Red Blood Cells 0.0 % Sodium Level 125 L 136-145 mmol/L Potassium Level 3.0 L 3.5-5.1 mmol/L Chloride Level 89 L 98-107 mmol/L Carbon Dioxide Level 25 20-31 mmol/L Anion Gap 11 5-15 Blood Urea Nitrogen 68 H 9-23 mg/dL Creatinine 3.04 H 0.700-1.30 mg/dL Glomerular Filtration Rate Calc 24 >90 mL/min BUN/Creatinine Ratio 22.4 H 10.0-20.0 Serum Glucose 363 #H 74-106 mg/dL Hemoglobin A1c 12.7 H <5.7 % A1C Calcium Level 9.5 8.7-10.4 mg/dL Magnesium Level 1.9 1.6-2.6 mg/dL Test 06/01/24 01:39 05/31/24 23:37 05/31/24 20:25 05/31/24 19:14 Range/Units POC Glucose 478 *H 532 *H > 600 *H 70-106 mg/dl White Blood Count 16.8 H 4.4-10.8 10^3/uL Red Blood Count 4.00 L 4.5-5.90 10^6/uL Hemoglobin 11.0 L 13.5-17.5 g/dL Hematocrit 33.9 L 41.0-53.0 % Mean Corpuscular Volume 84.7 80.0-100.0 fL Mean Corpuscular Hemoglobin 27.6 L 28.0-32.0 pg Mean Corpuscular Hemoglobin Concent 32.6 32.0-36.0 g/dL Red Cell Distribution Width 15.6 H 11.8-14.3 % Platelet Count 346 140-450 10^3/uL Mean Platelet Volume 8.2 6.9-10.8 fL Neutrophils (%) (Auto) 37.0-80.0 % Lymphocytes (%) (Auto) 10.0-50.0 % Monocytes (%) (Auto) 0.0-12.0 % Basophils (%) (Auto) 0.0-2.0 % Neutrophils # (Auto) 1.6-8.6 10 ^3/uL Lymphocytes # (Auto) 0.4-5.4 10 ^3/uL Monocytes # (Auto) 0-1.3 10 ^3/uL Differential Total Cells Counted 100.0 100 Neutrophils % (Manual) 80 37.0-80.0 Band Neutrophils % (Manual) 8 Lymphocytes % (Manual) 12 10.0-50.0 Monocytes % (Manual) 0 0-12 Eosinophils % (Manual) 0 0-7 Basophils % (Manual) 0 0.0-2.0 Metamyelocytes % (manual) 0 Myelocytes % (Manual) 0 Promyelocytes % (Manual) 0 Blast Cells % (Manual) 0 Reactive Lymphocytes 0 Platelet Estimate Adequate Prothrombin Time 11.9 H 9.3-11.8 sec Prothrombin Time INR 1.14 0.9-1.15 Activated Partial Thromboplast Time 33.6 24.5-34.5 SEC Sodium Level 121 L 136-145 mmol/L Potassium Level 3.9 3.5-5.1 mmol/L Chloride Level 85 L 98-107 mmol/L Carbon Dioxide Level 24 20-31 mmol/L Anion Gap 12 5-15 Blood Urea Nitrogen 66 H 9-23 mg/dL Creatinine 3.00 H 0.700-1.30 mg/dL Glomerular Filtration Rate Calc 24 >90 mL/min BUN/Creatinine Ratio 22.0 H 10.0-20.0 Serum Glucose 698 *H 74-106 mg/dL Calcium Level 9.3 8.7-10.4 mg/dL Magnesium Level 1.9 1.6-2.6 mg/dL Total Bilirubin 0.5 0.2-1.0 mg/dL Aspartate Amino Transferase (AST) 19 13-40 U/L Alanine Aminotransferase (ALT) 16 7-40 U/L Alkaline Phosphatase 258 H 46-116 U/L Total Protein 7.3 5.7-8.2 g/dL Albumin 3.7 3.2-4.8 g/dL Vitamin D 25-Hydroxy 18.9 L 30.0-100 ng/mL Assessment Acute kidney injury superimposed Chronic Kidney Disease advanced stage IV secondary to hemodynamic mediated Left foot cellulitis and osteomyelitis Uncontrolled diabetes mellitus Hyperglycemia Pseudo Hyponatremia, measured serum osmolality WNL 291 Osmolar gap calculated osmolarity< measured osmolality Anemia of chronic kidney disease Vitamin-D deficiency Recommendations Closely monitor fluid and electrolytes Avoid nephrotoxic medications Strict I&Os Check urine drug screen Check urine protein creatinine ratio Check kidney ultrasound Insulin sliding scale IV antibiotics Vitamin-D replacement Renal diet Podiatry consult Please refer to my office two weeks after discharge for chronic kidney disease follow-up We will continue to follow Patient seen and examined by myself. I discussed my plan of care with the patient and primary nurse at the bedside I would like to thank Dr. Khoury for the consult, will follow up Plan discussed with: Patient IVORY CHOI MD Jun 02, 2024 10:48
--- NOTE | 2024-06-02 11:10 | DVH ---
US KIDNEY HISTORY: kathleen COMPARISON: US KIDNEY on DOS: 02/01/24 TECHNIQUE: Transverse and longitudinal grayscale and color doppler images were obtained of the kidney s and bladder. FINDINGS: Right kidney: Size: 12.4 cm Cortical thickness: Normal Echogenicity: Normal Stones: None Masses: None Hydronephrosis: yes Ureters: Not well visualized. Other: None Left kidney: Size: 13.6 cm Cortical thickness: Normal Echogenicity: Normal Stones: None Masses: None Hydronephrosis: yes Ureters: Not well visualized. Other: None Bladder: Thick lombardi Other: None. IMPRESSION: Moderate right and mild left hydronephrosis.
[2024-06-02 11:17] LABS: LDL Cholesterol 18 mg/dL (< 100); Triglycerides 136 mg/dL (< 150)
[2024-06-02 11:19] LABS: Cholesterol 60 mg/dL (< 200)
[2024-06-02 11:50] LABS: HDL Cholesterol < 5 mg/dL (40-59)
[2024-06-02] MEDS: MAGNESIUM SULFATE 1GM/100ML 100 ML IV SCH (11:58)
[2024-06-02] MEDS: LINEZOLID 600MG/300ML 300 ML IV SCH (11:59)
[2024-06-02] MEDS: POTASSIUM CHL 20 Meq TABLET PO ONE (11:59)
--- NOTE | 2024-06-02 12:51 | DVHPN2 ---
Subjective Seen and examined at bedside, for surgery Tomorrow. Patient has Pseudohyponatremia, and BERENICE. Changes from previous H/P or p: No Changes Eyes: No Pain, No Vision change, No Conjunctivae inflammation, No Eyelid inflammation, No Other, No Redness ENT: No Ear pain, No Ear discharge, No Nose pain, No Nose discharge, No Nose congestion, No Mouth pain, No Mouth swelling, No Throat pain, No Throat swelling, No Other Cardiovascular: No Chest Pain, No Palpitations, No Orthopnea, No Paroxysmal Noc. Dyspnea, No Edema, No Lt Headedness, No Other Respiratory: No Cough, No Dry, No Shortness of breath, No SOB with excertion, No Wheezing, No Hemoptysis, No Pleuritic Pain, No Sputum, No Other Gastrointestinal: No Nausea, No Vomiting, No Abdominal Pain, No Diarrhea, No Constipation, No Melena, No Hematochezia, No Other Genitourinary: No Dysuria, No Frequency, No Incontinence, No Hematuria, No Retention, No Other Musculoskeletal: No other, No neck pain, No shoulder pain, No arm pain, No back pain, No hand pain, No leg pain; foot pain Skin: No Rash; Lesions; No Jaundice, No Bruising, No Other Objective Vitals Vital Signs Date Time Temp Pulse Resp B/P (MAP) Pulse Ox O2 Delivery O2 Flow Rate FiO2 06/02/24 08:00 20 Room Air* 0 21 06/02/24 05:00 97.6 76 96/51 (66) 96 97.6 Intake/Output Intake and Output 06/02/24 07:00 Intake Total 4100 ml Output Total 1400 ml Balance 2700 ml Intake Oral 2000 ml IV Total 2100 ml Output Urine Total 1400 ml # Bowel Movements 2 General Appearance: Alert, Oriented X3, Cooperative, No acute distress HEENT: Atraumatic Lungs: Clear to auscultation Cardiovascular: Regular rate, Normal S1, Normal S2 Abdomen: Normal bowel sounds, Soft Extremities: Other (Left Foot Dressing, Foul Smell) Psych/Mental Status: Mental status NL Medications Current Medications Medications Dose Ordered Sig/[place] Route Start Time Stop Time Status Last Admin Dose Admin Sodium Chloride 10 ml Q8HR IV 05/31/24 22:00 06/02/24 06:16 10 ML Al Hydrox/Mg Hydrox/Simethicone 30 ml Q6HP PRN PO 05/31/24 18:30 Docusate Sodium 100 mg BIDPRN PRN PO 05/31/24 18:30 Acetaminophen 650 mg Q6HP PRN PO 05/31/24 18:30 Acetaminophen/ Hydrocodone Bitart 1 tab Q4HP PRN PO 05/31/24 18:30 06/02/24 00:07 1 TAB Hydromorphone HCl 0.5 mg Q4HP PRN IV 05/31/24 18:30 06/01/24 09:27 0.5 MG Ondansetron HCl 4 mg Q4HP PRN IV 05/31/24 18:30 Enoxaparin Sodium 40 mg DAILY SC 06/01/24 10:00 06/02/24 09:17 40 MG Diagnostic Test (Pha) 1 strip IQ4HR 06/01/24 04:00 06/02/24 08:09 1 STRIP Insulin Human Regular IQ4HR SC 06/01/24 04:00 06/02/24 08:09 3 UNITS Dextrose 50 ml UD PRN IV 06/01/24 00:45 Atorvastatin Calcium 40 mg HS PO 06/01/24 22:00 06/01/24 21:23 40 MG Nicotine 1 patch DAILY TD 06/01/24 10:00 06/02/24 09:16 1 PATCH Ergocalciferol 50,000 unit Q7D PO 06/01/24 10:00 06/01/24 10:58 50,000 UNIT Magnesium Oxide 800 mg BID PO 06/01/24 22:00 06/02/24 09:16 800 MG Insulin Glargine 25 units QAM SC 06/02/24 07:00 06/02/24 06:13 25 UNITS Cefepime HCl 50 ml @ 12.5 mls/hr Q12HR IV 06/02/24 10:00 Linezolid 300 ml @ 150 mls/hr Q12HR IV 06/02/24 10:00 06/02/24 11:59 150 MLS/HR Laboratory Results Laboratory Tests 06/02/24 06:00 Chemistry Test 06/02/24 06:00 Calcium Level 8.7 mg/dL (8.7-10.4) Magnesium Level 1.9 mg/dL (1.6-2.6) Phosphorus Level 2.8 mg/dL (2.4-5.1) Lipid panel Test 06/02/24 06:00 Cholesterol Level 60 mg/dL (< 200) HDL Cholesterol < 5 mg/dL (40-59) L Triglycerides Level 136 mg/dL (< 150) Cardiac Markers Test 06/02/24 06:00 B-Type Natriuretic Peptide 88.12 pg/mL (0-100) Urinalysis Test 06/01/24 10:05 Urine Color Light-brown (Yellow) Urine Clarity Ex.turbid (Clear) Urine pH 6.0 (5.0-9.0) Urine Specific [place] 1.010 (1.001-1.035) Urine Protein 1+ (Negative) H Urine Ketones Negative (Negative) Urine Blood 3+ /uL (Negative) H Urine Nitrite 1+ (Negative) H Urine Bilirubin Negative (Negative) Urine Urobilinogen Normal mg/dL (Negative) Urine Leukocyte Esterase 3+ /uL (Negative) Urine RBC 31 /hpf (0 - 3) Urine WBC Clumps Present /hpf (None Seen) Urine Microscopic WBC 1078 /HPF (0-3) H Urine Squamous Epithelial Cells None seen /hpf (<5) Urine Bacteria Mod /hpf (None Seen) H Urine Mucus Few (None Seen) Urine Osmolality 261 mOsm/kg Urine Sodium 31 mmol/L (40-220) L Urine Glucose 2+ mg/dL (Normal) H Assessment/Plan Assessment/Plan #Sepsis due to infected foot wound -IV antibiotics -blood culture # PseudoHyponatremia - IVF - Recheck #Diabetic foot Ulcer #Left foot wound, rule out osteomyelitis #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 Maynard -IV antibiotics -wound culture -podiatry consulted, Planning I and D on monday -Venous doppler ruled out DVT - MRI Reviewed #uncontrolled hyperglycemia -hbA1c 12.7 -insulin lantus plus aggressive sliding scale insulin #Peripheral arterial disease -continue asa and statins #Diabetic neuropathy -continue gabapentin #BERENICE over CKD3b -IV fluids -continue monitoring - Nephro Consult #Vitamin d def -Vit D capsules #Nicotine dependence -nicotine patch -counselling for cessation #history of Methamphetamine abuse #DVT prophylaxis -lovenox critical care time 40 mins Plan discussed with: Patient My Orders Orders - HAILEY MOTT MD Procedure Category Date Status Time Cleanse Wound With MALLIKA 06/01/24 In Process Wound Clean 12:45 * Dietary Consult CONS 06/01/24 Transmitted 12:45 Dietary NOTICE 06/02/24 Transmitted Recommendations 09:21 Cefepime 2gm/50ml Ns PHA 06/02/24 In Process (Maxipime 2gm/50ml) 10:00 Linezolid 600mg/300ml PHA 06/02/24 In Process (Zyvox) 10:00 Urine LAB 06/02/24 Logged Protein/Creatinine Osmolality Urine LAB 06/02/24 Logged 09:52 *[facility]. [facility] CONS 06/02/24 Transmitted -[place] 09:52 Kidney US 06/02/24 Resulted 09:52 Parathyroid Hormone LAB 06/02/24 In Process Intact 10:45 Date of Service: Jun 02, 2024 Billing Provider: HAILEY MOTT MD Common Visit Codes: 12300-[id number] CARE 30-74 MIN HAILEY MOTT MD Jun 02, 2024 12:51
[2024-06-02 14:59] LABS: Sodium Urine 22 mmol/L (40-220)
[2024-06-02] MEDS: CEFEPIME 2GM/50ML NS 50 ML IV SCH (15:02)
[2024-06-02 15:03] LABS: Protein, Urine 46.2 mg/dL (1-14)
[2024-06-02 15:05] LABS: Amphetamine Screen, Urine Neg (NEGATIVE)
[2024-06-02 15:06] LABS: Creatinine, Urine 27.59 mg/dL (30.0-125.0); Creatinine, Urine 27.64 mg/dL (30.0-125.0); Opiate Scree,Urine Neg (NEGATIVE); Urine Protein/Creatinine Ratio 1.67
[2024-06-02] MEDS: TAMSULOSIN HYDROCHLORIDE 0.4 MG CAP PO ONE (15:07)
[2024-06-02 15:12] LABS: Barbiturate Scree,Urine Neg (NEGATIVE); Benzodiazephine Screen, Urine Neg (NEGATIVE); Cannabinoid Screen, Urine Neg (NEGATIVE); Cocaine Screen, Urine Neg (NEGATIVE); Phencyclidine Screen, Urine Neg (NEGATIVE)
[2024-06-02 17:00] VITALS: BP 106/67; PULSE 78; RESP 18; TEMP 98.3; O2SAT 94
--- NOTE | 2024-06-02 20:28 | ECG ---
[facility] Test Date: 2024-06-02 Test Time: 20:27:17 Pat Name: JEANETTE FLORENCE Department: Room: 0201 Gender: M [employer] Client Executive: Melia : 1970 Requested By: DANIKA MONTES Order Number: [id number] Reading MD: Segundo Kuhn Measurements Intervals [place] Rate: 72 P: 77 ID: [id number] QRS: 74 QRSD: 92 T: 78 QT: 355 QTc: 389 Interpretive Statements Sinus rhythm Ventricular bigeminy Right atrial enlargement Anterior infarct, old Electronically Signed On 06-05-2024 20:33:13 PDT by Segundo Kuhn Please click the below link to view image of tracing.
[2024-06-02 21:00] VITALS: BP 115/69; PULSE 85; RESP 18; TEMP 97.2; O2SAT 97
[2024-06-03] VITALS (7 sets, daily range): BP systolic 101–113; BP diastolic 60–71; PULSE 69–103; RESP 10–19; TEMP 97.1–98.6; O2SAT 95–100
[2024-06-03 06:43] LABS: Basophils # (auto) 0 10 ^3/uL (0-0.2); Basophils % (auto) 0.2 % (0.0-2.0); Eosinophils # (auto) 0.1 10 ^3/uL (0-0.8); Eosinophils % (auto) 0.5 % (0.0-7.0); Hematocrit 29.5 % (41.0-53.0); Hemoglobin 9.7 g/dL (13.5-17.5); Lymphocytes # (auto) 0.6 10 ^3/uL (0.4-5.4); Lymphocytes % (auto) 3.6 % (10.0-50.0); Mean Corpuscular Hemoglobin 27.8 pg (28.0-32.0); Mean Corpuscular Hgb Conc. 32.8 g/dL (32.0-36.0); Mean Corpuscular Volume 84.7 fL (80.0-100.0); Monocytes % (auto) 6.1 % (0.0-12.0); Neutrophils # (auto) 14.6 10 ^3/uL (1.6-8.6); Neutrophils % (auto) 89.6 % (37.0-80.0); Platelet Count (auto) 297 10^3/uL (140-450); Red Blood Cells 3.49 10^6/uL (4.5-5.90); Red Cell Distribution Width 15.6 % (11.8-14.3); White Blood Cell 16.4 10^3/uL (4.4-10.8)
[2024-06-03 06:47] LABS: Chloride 99 mmol/L (98-107)
[2024-06-03 06:48] LABS: Anion Gap 9 (5-15); Calcium 8.7 mg/dL (8.7-10.4); Carbon Dioxide 23 mmol/L (20-31)
[2024-06-03 06:53] LABS: BUN/Creatinine Ratio 20.6 (10.0-20.0)
--- NOTE | 2024-06-03 06:57 | DVH ---
EXAM: XR Chest, 1 View CLINICAL INDICATION: Preop TECHNIQUE: Frontal view of the chest. COMPARISON: XY CHEST PORTABLE on DOS: 03/18/24, XY CHEST XRAY 1 VIEW on DOS: 02/29/24, XY CHEST PORTAB LE on DOS: 02/27/24, XY CHEST XRAY 1 VIEW on DOS: 01/27/24, CHEST PORTABLE on DOS: 06/04/20 FINDINGS: LUNGS AND PLEURAL SPACES: Unremarkable. No consolidation. No pneumothorax. HEART: Unremarkable. No cardiomegaly. MEDIASTINUM: Unremarkable. Normal mediastinal contour. BONES/JOINTS: Unremarkable. No acute fracture. OTHER FINDINGS: . None. IMPRESSION: No acute cardiopulmonary process.
[2024-06-03 06:58] LABS: Blood Urea Nitrogen 66 mg/dL (9-23); Glucose 173 mg/dL (74-106); Potassium 3.2 mmol/L (3.5-5.1); Sodium 131 mmol/L (136-145)
--- NOTE | 2024-06-03 11:47 | DVHPN2 ---
Progress Note Date Seen: Jun 03, 2024 Medical Necessity Reason Pt with a Central, PICC or Fol: No Subjective Patient reports: Feels better Objective vital signs Vital Sign Date Time Temp Pulse Resp B/P (MAP) Pulse Ox O2 Delivery O2 Flow Rate FiO2 06/03/24 07:55 Room Air* 0 21 06/03/24 05:15 85 17 113/63 06/03/24 05:00 98.0 98 98.0 Total Intake and Output 06/02/24 06/02/24 06/03/24 15:00 23:00 07:00 Intake Total 800 ml 510 ml 1250 ml Output Total 1650 ml 1500 ml Balance 800 ml -1140 ml -250 ml medications Current Medications Medications Dose Ordered Sig/[place] Route Start Time Stop Time Status Last Admin Dose Admin Sodium Chloride 10 ml Q8HR IV 05/31/24 22:00 06/03/24 06:25 10 ML Al Hydrox/Mg Hydrox/Simethicone 30 ml Q6HP PRN PO 05/31/24 18:30 Docusate Sodium 100 mg BIDPRN PRN PO 05/31/24 18:30 Acetaminophen 650 mg Q6HP PRN PO 05/31/24 18:30 Acetaminophen/ Hydrocodone Bitart 1 tab Q4HP PRN PO 05/31/24 18:30 06/02/24 19:56 1 TAB Hydromorphone HCl 0.5 mg Q4HP PRN IV 05/31/24 18:30 06/03/24 04:45 0.5 MG Ondansetron HCl 4 mg Q4HP PRN IV 05/31/24 18:30 Enoxaparin Sodium 40 mg DAILY SC 06/01/24 10:00 06/02/24 09:17 40 MG Diagnostic Test (Pha) 1 strip IQ4HR 06/01/24 04:00 06/03/24 07:51 1 STRIP Insulin Human Regular IQ4HR SC 06/01/24 04:00 06/02/24 23:24 8 UNITS Dextrose 50 ml UD PRN IV 06/01/24 00:45 Atorvastatin Calcium 40 mg HS PO 06/01/24 22:00 06/02/24 21:07 40 MG Nicotine 1 patch DAILY TD 06/01/24 10:00 06/02/24 09:16 1 PATCH Ergocalciferol 50,000 unit Q7D PO 06/01/24 10:00 06/01/24 10:58 50,000 UNIT Magnesium Oxide 800 mg BID PO 06/01/24 22:00 06/02/24 21:06 800 MG Insulin Glargine 25 units QAM SC 06/02/24 07:00 06/03/24 06:24 25 UNITS Linezolid 300 ml @ 150 mls/hr Q12HR IV 06/02/24 10:00 06/03/24 08:41 150 MLS/HR Tamsulosin HCl 0.4 mg QPM PO 06/03/24 18:00 Cefepime HCl 50 ml @ 12.5 mls/hr Q12H IV 06/02/24 15:00 06/03/24 02:52 12.5 MLS/HR Examination: GENERAL:Normal, LUNGS:Normal, CVS:Normal, SKIN:Abnormal, NEURO:Abnormal laboratory and microbiology Laboratory Tests 06/03/24 06:21 Test 06/03/24 06:21 Range/Units Serum Glucose 173 H 74-106 mg/dL Problem List/Assessment/Plan Problem List/Assessment/Plan Admitted for sepsis due to OM Acute kidney injury due to hypotension ckd II GFR 67% in 01/2024 B/L hydronephrosis poor controlled Dm2, hyperglycemia anemia hypokalemia resume IVF for another 24hrs bladder scan today post void to ensure urinary retention is improving place carey if fails flomax glycemic correction per primary team iron panel and ferritin Plan discussed with: Patient Dietary Evaluation Review Comments: 1) CCHO 75 + 2gm Na diet 2) Dangelo 1 pk daily (ordered per ONS protocol) 3) Refer to Parts And Service Manager on DC 4) Continue current plan of care Expected Outcomes/Goals: Pt will meet 75% estimated needs Fu 3-5 days TOAN HEARD MD Jun 03, 2024 11:47
[2024-06-03] MEDS: SODIUM CHLORIDE 0.9% 1,000 ML IV ONE (12:08)
[2024-06-03 12:18] LABS: % Iron Saturation 11.4 % (20-55)
--- NOTE | 2024-06-03 12:40 | DVHINCON2 ---
Date Seen: Jun 03, 2024 Reason for Consultation Left foot wound History of Present Illness 54-year-old male patient with past medical history of diabetes mellitus type 2, hypertension, peripheral arterial disease, CKD, polysubstance use in the past, diabetic neuropathy, left foot osteomyelitis status post I and D in February 2024 presented with complaints of left foot pain associated with bloody discharge for last two days. Patient was discharged to care home facility when he was last admitted in February where he was treated with IV antibiotics and had I and D done by Dr. Maynard. Patient has been living at home for last one week and started again having symptoms of left foot pain and wound, associated with discharge after which he decided to see Dr. Maynard in the office. Dr Maynard evaluated the patient on monday and advised the patient to be admitted directly to the hospital for I and D that is planning to do on monday. He denied any active complaints of chest pain, shortness of breath, nausea, vomiting, diarrhea, headache, dizziness, any musculoskeletal/joint pain apart from the left leg pain. Past Medical History See H&P Past Surgical History See H&P Family History: Diabetes mellitus G8 FATHER FH: cancer G8 FATHER Allergies: Coded Allergies: NO KNOWN ALLERGIES (Unverified , 06/04/20) Home Meds Active Scripts Amoxicillin & Pot Clavulanate (AUGMENTIN TABLET) 875 Mg Tb, 875 MG PO BID for 14 Days, #28 TAB Prov:POWER MATHIS RESIDENT 03/02/24 Insulin Glargine (Lantus) 100 Unit/Ml Inj, 30 UNITS SC BID for 30 Days, #2 INJ Prov:DAVE HERMAN [facility] 02/02/24 Atorvastatin Calcium (ATORVASTATIN CALCIUM) 20 Mg Tab, 40 MG PO HS for 30 Days, #60 TAB Prov:DAVE HERMAN [facility] 02/02/24 Aspirin (Aspirin Low Dose) 81 Mg Tab, 81 MG PO DAILY for 30 Days, #30 TAB Prov:DAVE HERMAN [facility] 02/02/24 Doxycycline Hyclate (Doxycycline Hyclate) 50 Mg Cap, 1 CAP PO BID for 14 Days, #20 CAP Prov:DAVE HERMAN [facility] 02/02/24 Levofloxacin Hemihydrate (LEVAQUIN 500 MG) 500 Mg Tab, 500 MG PO DAILY for 14 Days, #14 TAB Prov:DAVE HERMAN 02/02/24 Lancets [facility]. (ACCU-CHEK FASTCLIX LANCET) Fastclix Kit, UNIT XX TID, #30 Monitor fasting glucose Prov:DAVE HERMAN RESIDENT 02/02/24 Blood Glucose Monitoring Suppl (D-Care Glucometer Kit/Glu W/Device) 1 Kit Kit, KIT XX DAILY, #1 Monitor fasting glucose Prov:DAVE HERMAN RESIDENT 02/02/24 Metformin Hydrochloride (METFORMIN HCL ER) 500 Mg Tab, 1 TAB PO BID, #90 TAB 1 Refill Prov:SHYAM BENITEZ CERTIFIED MEDICATION AIDE 02/27/23 Gabapentin (Gabapentin) 300 Mg Cap, 1 CAP PO Q6HP PRN, #30 CAP 0 Refills Prov:ADONIS MARTÍNEZ PAC 12/06/22 Current Medications Current Medications Medications (Trade) Dose Ordered Sig/[place] Route PRN Reason Start Time Stop Time Status Last Admin Tamsulosin HCl (Flomax) 0.4 mg QPM PO 06/03/24 18:00 Cefepime HCl 50 ml @ 12.5 mls/hr Q12H IV 06/02/24 15:00 06/03/24 02:52 Vital Signs Vital Signs Date Time Temp Pulse Resp B/P (MAP) Pulse Ox O2 Delivery O2 Flow Rate FiO2 06/03/24 09:00 98.6 76 10 105/60 (75) 98 98.6 06/03/24 07:55 Room Air* 0 21 Physical Exam Dermatological: Skin is dry with mild erythema and some maceration around the wound site No gross deformities noted Mild non-pitting edema present bilaterally Wound: Location: Left foot medial foot Measures: 8 cm in length, 6 cm in width, and 3 cm in depth. Depth: Full thickness Base: Necrotic Drainage: Yes Odor: Yes Periwound: Erythema Vascular: Dorsalis pedis and posterior tibial pulses are 1+ bilaterally Capillary refill is under 2 seconds Skin temperature is warm bilaterally Neurologic: Protective sensation is absent on the plantar forefoot bilaterally Monofilament testing reveals decreased sensation in multiple plantar sites Musculoskeletal: Range of motion at the ankle and MTP joints is within normal limits. Strength is 5/5 in all tested muscle groups. Gait is antalgic due to offloading of the affected limb. Labs/Diagnostic Data Labs Test 06/03/24 11:37 06/03/24 06:21 06/02/24 14:37 06/02/24 11:16 Range/Units POC Glucose 221 H 70-106 mg/dl White Blood Count 16.4 H 4.4-10.8 10^3/uL Red Blood Count 3.49 L 4.5-5.90 10^6/uL Hemoglobin 9.7 L 13.5-17.5 g/dL Hematocrit 29.5 L 41.0-53.0 % Mean Corpuscular Volume 84.7 80.0-100.0 fL Mean Corpuscular Hemoglobin 27.8 L 28.0-32.0 pg Mean Corpuscular Hemoglobin Concent 32.8 32.0-36.0 g/dL Red Cell Distribution Width 15.6 H 11.8-14.3 % Platelet Count 297 140-450 10^3/uL Mean Platelet Volume 7.9 6.9-10.8 fL Neutrophils (%) (Auto) 89.6 H 37.0-80.0 % Lymphocytes (%) (Auto) 3.6 L 10.0-50.0 % Monocytes (%) (Auto) 6.1 0.0-12.0 % Eosinophils (%) (Auto) 0.5 0.0-7.0 % Basophils (%) (Auto) 0.2 0.0-2.0 % Neutrophils # (Auto) 14.6 H 1.6-8.6 10 ^3/uL Lymphocytes # (Auto) 0.6 0.4-5.4 10 ^3/uL Monocytes # (Auto) 1.0 0-1.3 10 ^3/uL Eosinophils # (Auto) 0.1 0-0.8 10 ^3/uL Basophils # (Auto) 0 0-0.2 10 ^3/uL Nucleated Red Blood Cells 0.0 % Sodium Level 131 L 136-145 mmol/L Potassium Level 3.2 L 3.5-5.1 mmol/L Chloride Level 99 98-107 mmol/L Carbon Dioxide Level 23 20-31 mmol/L Anion Gap 9 5-15 Blood Urea Nitrogen 66 H 9-23 mg/dL Creatinine 3.20 H 0.700-1.30 mg/dL Glomerular Filtration Rate Calc 22 >90 mL/min BUN/Creatinine Ratio 20.6 H 10.0-20.0 Serum Glucose 173 H 74-106 mg/dL Calcium Level 8.7 8.7-10.4 mg/dL Iron Level 16 L 65-175 ug/dL Total Iron Binding Capacity 140 L 250-425 ug/dL Percent Iron Saturation 11.4 L 20-55 % Urine Osmolality 202 mOsm/kg Urine Creatinine 27.59 L 30.0-125.0 mg/dL Urine Protein/Creatinine Ratio 1.67 Urine Sodium 22 L 40-220 mmol/L Urine Total Protein 46.2 H 1-14 mg/dL Urine Opiates Screen Neg NEGATIVE Urine Fentanyl Screen Neg NEGATIVE Urine Barbiturates Screen Neg NEGATIVE Urine Phencyclidine Screen Neg NEGATIVE Urine Amphetamines Screen Neg NEGATIVE Urine Benzodiazepines Screen Neg NEGATIVE Urine Cocaine Screen Neg NEGATIVE Urine Cannabinoids Screen Neg NEGATIVE Plasma/Serum Blood Alcohol < 3.0 <10 mg/dL Test 06/02/24 06:00 06/01/24 11:43 06/01/24 10:05 06/01/24 05:17 Range/Units Phosphorus Level 2.8 2.4-5.1 mg/dL Magnesium Level 1.9 1.6-2.6 mg/dL B-Type Natriuretic Peptide 88.12 0-100 pg/mL Triglycerides Level 136 < 150 mg/dL Cholesterol Level 60 < 200 mg/dL LDL Cholesterol 18 < 100 mg/dL HDL Cholesterol < 5 L 40-59 mg/dL Parathyroid Hormone (Intact) 36.8 18.4-80.1 pg/mL Random Vancomycin Level 14.8 H 5-10 ug/mL Serum Osmolality 291 278-298 mOsm/kg Urine Color Light-brown Yellow Urine Clarity Ex.turbid Clear Urine pH 6.0 5.0-9.0 Urine Specific [place] 1.010 1.001-1.035 Urine Protein 1+ H Negative Urine Ketones Negative Negative Urine Blood 3+ H Negative /uL Urine Nitrite 1+ H Negative Urine Bilirubin Negative Negative Urine Urobilinogen Normal Negative mg/dL Urine Leukocyte Esterase 3+ Negative /uL Urine RBC 31 0 - 3 /hpf Urine WBC Clumps Present None Seen /hpf Urine Microscopic WBC 1078 H 0-3 /HPF Urine Squamous Epithelial Cells None seen <5 /hpf Urine Bacteria Mod H None Seen /hpf Urine Mucus Few None Seen Urine Glucose 2+ H Normal mg/dL Lactic Acid Level 1.8 0.4-2.0 mmol/L Test 06/01/24 04:45 05/31/24 19:14 Range/Units Hemoglobin A1c 12.7 H <5.7 % A1C Differential Total Cells Counted 100.0 100 Neutrophils % (Manual) 80 37.0-80.0 Band Neutrophils % (Manual) 8 Lymphocytes % (Manual) 12 10.0-50.0 Monocytes % (Manual) 0 0-12 Eosinophils % (Manual) 0 0-7 Basophils % (Manual) 0 0.0-2.0 Metamyelocytes % (manual) 0 Myelocytes % (Manual) 0 Promyelocytes % (Manual) 0 Blast Cells % (Manual) 0 Reactive Lymphocytes 0 Platelet Estimate Adequate Prothrombin Time 11.9 H 9.3-11.8 sec Prothrombin Time INR 1.14 0.9-1.15 Activated Partial Thromboplast Time 33.6 24.5-34.5 SEC Total Bilirubin 0.5 0.2-1.0 mg/dL Aspartate Amino Transferase (AST) 19 13-40 U/L Alanine Aminotransferase (ALT) 16 7-40 U/L Alkaline Phosphatase 258 H 46-116 U/L Total Protein 7.3 5.7-8.2 g/dL Albumin 3.7 3.2-4.8 g/dL Vitamin D 25-Hydroxy 18.9 L 30.0-100 ng/mL Assessment ASSESSMENT: Patient is a 54 year old seen on the floor for a worsening ulcer PLAN: - The patients chart was reviewed, clinical findings were discussed with the patient, the etiologies of the conditions were discussed in detail, and a treatment plan was agreed to at this time, with both oral and written instructions provided. - reviewed advanced imaging - discussed plan is to perform an incision and drainage with bone biopsy and incision and drainage of the anterior ankle - patient has been NPO since midnight - take him to the OR today - we will get cultures in the OR - can weightbear as tolerated in postoperative shoe All questions were answered and concerns addressed to the patient's satisfaction. The patient was given the phone number to the clinic and was told how to make contact with the clinic should any concerns or questions arise. Patient understands that if any questions or concerns arise prior to the next appointment, we should be contacted immediately. FOLLOW-UP: Continue to follow while inpatient Problems(with codes): (1) Diabetes mellitus type 2 with complications, uncontrolled (2) Diabetic foot infection (3) Cellulitis and abscess of left leg (4) Electrolyte imbalance (5) Leukocytosis, unspecified (6) Osteomyelitis of left foot (7) Elevated lactic acid level (8) Diabetes mellitus with hyperglycemia (9) Hypochloremia (10) Diabetic neuropathy (11) Generalized weakness (12) Hyperglycemia (13) Hyponatremia (14) Thrombophlebitis (15) Medication refill (16) Foot infection (17) Episode of syncope (18) Ischemic pain of left foot (19) New onset type 2 diabetes mellitus Plan discussed with: Patient Date of Service: Jun 03, 2024 Billing Provider: DANIKA MAYNARD DPM Common Visit Codes: CONSULT ONLY Consultation Codes: [id number] CONSULT <80MIN DANIKA MAYNARD DPM Jun 03, 2024 12:40
[2024-06-03] MEDS ORDERED: POTASSIUM CHL 20MEQ/100ML 100 ML IV ONE (13:15)
[2024-06-03] MEDS: POTASSIUM CHL 20MEQ/50ML 50 ML IV ONE (13:22)
--- NOTE | 2024-06-03 14:21 | DVHOP2 ---
Operative Report - 2 Report Details Date: 06/03/24 Preop Diagnosis: 1. Left foot osteomyelitis 2. Left foot abscess 3. Left foot cellulitis 4. Left ankle abscess 5. Left foot diabetic ulcer Postop Diagnosis: Same as preop Surgeon: Danika Montes MD Anesthesiologist: See anesthesia Anesthesia: Mac Consent: The patient was informed of the risks and benefits of the procedure. These include but are not limited to complications of anesthesia, postoperative infection, incomplete relief of symptoms, recurrence of symptoms, damage to blood vessels, nerves and tendons, deep venous thrombosis, pulmonary embolism and possible need for repeat surgery in the future. Complications: None Estimated Blood Loss: Minimal Fluids: See anesthesia Findings: Consistent with the diagnosis Indications for Surgery: Worsening left foot wound Name of Procedure Performed 1. Left foot I&D to bone () 2. Left ankle I&D to bone () 3. Left foot bone biopsy () Procedure Details Procedure Details: PRE-PROCEDURE INFORMATION: In the pre-op holding area, the extremity to be operated on was clearly marked and the patient verified correct laterality of the marking. The patient was transferred to the OR table and placed in a supine position. A timeout was performed in which identification of the correct patient, procedure, location, and materials was done. The left foot and leg were prepped and draped in normal sterile fashion. DESCRIPTION OF PROCEDURE: Attention was directed to the left foot where area of fluctuance was noted. An incision was made over this area and was deepened through blunt dissection. The incision was deepened to the level of abscess and bone. Care was taken to the dissection to avoid any neurovascular and tendinous structures. The incision was deepened to the bone, and the abscess appeared to be purulent fluid consistent with pus. The cortices of the bone was then removed with rongeur an all necrotic tissue. After the abscess was drained, the area was irrigated with 3 L normal saline using cysto tubing. Deep cultures were then obtained from the wound. The area was then inspected and any areas of tracking, especially along the tendons were also drained. A bone biopsy was then taken of the 1st metatarsal which was deepened to the muscle belly and tendons. The bone was then sent to pathology to determine the extent of osteomyelitis. The wound was packed with Betadine-soaked gauze and we will need to be closed at a later date. Attention was directed to the left ankle where area of fluctuance was noted. An incision was made over this area and was deepened through blunt dissection. The incision was deepened to the level of abscess and bone. Care was taken to the dissection to avoid any neurovascular and tendinous structures. The incision was deepened to the bone, and the abscess appeared to be purulent fluid consistent with pus. The cortices of the bone was then removed with rongeur an all necrotic tissue. After the abscess was drained, the area was irrigated with 3 L normal saline using cysto tubing. Deep cultures were then obtained from the wound. The area was then inspected and any areas of tracking, especially along the tendons were also drained. The wound was packed with Betadine-soaked gauze and we will need to be closed at a later date. POSTOPERATIVE INFORMATION: The patient tolerated the above noted procedure and anesthesia well and was transferred to the PACU with vital signs stable, and vascular status intact with capillary refill intact to all digits. Patient will return to floor and continue IV antibiotics. Deep cultures were taken. Bone biopsy was sent. Patient can weightbear as tolerated Specimen: Left foot first metatarsal Condition Good Disposition Still a Patient DANIKA MONTES DPM Jun 03, 2024 14:21
[2024-06-03] MEDS ORDERED: fentaNYL CITRATE 100 MCG/2 ML VL ONE (14:32)
[2024-06-03] MEDS: BUPIVACAINE 0.5% P/F INJ 10 ML VIAL ONE (14:45)
[2024-06-03] MEDS: ASPirin 81 mg TAB PO ONE (15:47)
[2024-06-03] MEDS: PANTOPRAZOLE 40 MG TAB PO ONE (15:47)
[2024-06-03] MEDS: LIDOCAINE 2% JELLY 11ml (GLYDO) UR ONE (16:00)
[2024-06-03] MEDS: TAMSULOSIN HYDROCHLORIDE 0.4 MG CAP PO SCH (17:26)
--- NOTE | 2024-06-03 18:45 | DVHPNRES ---
Progress Note Date Seen: Jun 03, 2024 Resident Creating Document: KACEY JOHN RESIDENT Medical Necessity Reason Pt with a Central, PICC or Fol: No Subjective Review of Systems Patient is 52-year-old male with past medical history of diabetes mellitus, hypertension, PVD, CKD, polysubstance use in past, diabetic nephropathy, left foot cellulitis status post I and D in February 2024 who came to the hospital with a chief complaint left foot pain associated with bloody discharge for last two days. Patient went to see Dr. watson in clinic and patient was directed to hospital for I and D. patient denied any other symptoms. Patient seen and examined at bedside. Plan for I and D today. Was on NPO today. Patient complaining of mild left leg pain, denying any other symptoms including fever, chills, chest pain, palpitation, shortness of breath, any other symptoms. ROS Eyes: No Pain, No Vision change, No Conjunctivae inflammation, No Eyelid inflammation, No Other, No Redness ENT: No Ear pain, No Ear discharge, No Nose pain, No Nose discharge, No Nose congestion, No Mouth pain, No Mouth swelling, No Throat pain, No Throat swelling, No Other Cardiovascular: No Chest Pain, No Palpitations, No Orthopnea, No Paroxysmal Noc. Dyspnea, No Edema, No Lt Headedness, No Other Respiratory: No Cough, No Dry, No Shortness of breath, No SOB with excertion, No Wheezing, No Hemoptysis, No Pleuritic Pain, No Sputum, No Other Gastrointestinal: No Nausea, No Vomiting, No Abdominal Pain, No Diarrhea, No Constipation, No Melena, No Hematochezia, No Other Genitourinary: No Dysuria, No Frequency, No Incontinence, No Hematuria, No Retention, No Other Musculoskeletal: No other, No neck pain, No shoulder pain, No arm pain, No back pain, No hand pain, No leg pain, foot pain Skin: No Rash, No Lesions, No Jaundice, No Bruising, No Other Objective vital signs Vital Sign Date Time Temp Pulse Resp B/P (MAP) Pulse Ox O2 Delivery O2 Flow Rate FiO2 06/03/24 17:22 77 16 101/65 06/03/24 16:50 97.7 98 97.7 06/03/24 14:56 Mask 6.0 06/03/24 07:55 21 Total Intake and Output 06/02/24 06/02/24 06/03/24 15:00 23:00 07:00 Intake Total 800 ml 510 ml 1250 ml Output Total 1650 ml 1500 ml Balance 800 ml -1140 ml -250 ml medications Current Medications Medications Dose Ordered Sig/[place] Route Start Time Stop Time Status Last Admin Dose Admin Sodium Chloride 10 ml Q8HR IV 05/31/24 22:00 06/03/24 15:51 10 ML Al Hydrox/Mg Hydrox/Simethicone 30 ml Q6HP PRN PO 05/31/24 18:30 Docusate Sodium 100 mg BIDPRN PRN PO 05/31/24 18:30 Acetaminophen 650 mg Q6HP PRN PO 05/31/24 18:30 Acetaminophen/ Hydrocodone Bitart 1 tab Q4HP PRN PO 05/31/24 18:30 06/02/24 19:56 1 TAB Hydromorphone HCl 0.5 mg Q4HP PRN IV 05/31/24 18:30 06/03/24 17:22 0.5 MG Ondansetron HCl 4 mg Q4HP PRN IV 05/31/24 18:30 Enoxaparin Sodium 40 mg DAILY SC 06/01/24 10:00 06/02/24 09:17 40 MG Diagnostic Test (Pha) 1 strip IQ4HR 06/01/24 04:00 06/03/24 15:52 1 STRIP Insulin Human Regular IQ4HR SC 06/01/24 04:00 06/03/24 15:52 8 UNITS Dextrose 50 ml UD PRN IV 06/01/24 00:45 Atorvastatin Calcium 40 mg HS PO 06/01/24 22:00 06/02/24 21:07 40 MG Nicotine 1 patch DAILY TD 06/01/24 10:00 06/02/24 09:16 1 PATCH Ergocalciferol 50,000 unit Q7D PO 06/01/24 10:00 06/01/24 10:58 50,000 UNIT Magnesium Oxide 800 mg BID PO 06/01/24 22:00 06/02/24 21:06 800 MG Insulin Glargine 25 units QAM SC 06/02/24 07:00 06/03/24 06:24 25 UNITS Linezolid 300 ml @ 150 mls/hr Q12HR IV 06/02/24 10:00 06/03/24 08:41 150 MLS/HR Tamsulosin HCl 0.4 mg QPM PO 06/03/24 18:00 06/03/24 17:26 0.4 MG Cefepime HCl 50 ml @ 12.5 mls/hr Q12H IV 06/02/24 15:00 06/03/24 15:47 12.5 MLS/HR Aspirin 81 mg DAILY PO 06/04/24 10:00 Pantoprazole Sodium 40 mg DAILY@0600 PO 06/04/24 06:00 Examination General Appearance: Cooperative. Well developed. Well nourished. NAD Head Exam: Normal inspection Neck Exam: Normal inspection. Non-tender. Normal alignment Pulmonary/Respiratory: Chest non-tender. Clear bilateral breath sounds Cardiovascular/Chest: Regular rate and rhythm. No murmurs. No JVD. Peripheral Pulses: 2+ Radial (R). 2+ Radial (L). 2+ Pedal (R). 2+ Pedal (L) Abdominal Exam: Normal bowel sounds. Soft. Nontender. No hepatospenomegaly. No masses Ankle Exam: Negative ankle edema Lower extremities: Negative lower extremity edema, left foot 1st and 2nd toe amputation, presence of bilateral pedal pulse, capillary refill under 2 seconds, both lower extremity warm. Intake sensory sensation or plantar forefoot bilaterally. Wound over left foot medial. Neuro/Mental Status: A&O x4. Coherent Thoughts/Psych: Normal thought pattern. Appropriate mood and affect. Good judgement and insight Appearance: In no acute distress Skin Exam: Normal inspection. Normal color. Warm. Dry laboratory and microbiology Laboratory Tests 06/03/24 06:21 Test 06/03/24 06:21 Range/Units Serum Glucose 173 H 74-106 mg/dL Problem List/Assessment/Plan Problem List/Assessment/Plan Left foot osteomyelitis: 1st and 2nd metatarsal bone and 3rd metatarsal of left foot. Left foot abscess Left foot cellulitis Left ankle abscess Left foot diabetic ulcer Sepsis due to left foot abscess. -podiatry: I and D on 06/03/2024 -IV antibiotic: Cefepime and linezolid -pending blood culture -controlled hyperglycemia -wound care -ruled out lower extremity DVT -reviewed tibial/fibula MRI and food MRI BERENICE on CKD stage 4 -creatinine 3.20, GFR 22, continue to monitor -renal ultrasound: Moderate right and mild left hydronephrosis -nephrology on board -continue to monitor renal function -IV fluid given UTI -continue IV antibiotics cefepime. -urine culture Diabetes mellitus type 2 on insulin &Diabetic neuropathy -Lantus 25 units b.i.d. -aggressive insulin sliding scale -continue gabapentin Peripheral artery disease -aspirin 80 mg p.o. daily, atorvastatin 40 mg p.o. daily. Anemia of chronic disease -high ferritin, continue to monitor. Target hemoglobin 10 to 11 g per day. Hypokalemia and hypomagnesemia -replenish potassium and magnesium. Asymptomatic hyponatremia -continue to monitor Moderate right and mild left hydronephrosis -continue to monitor Vitamin-D deficiency -vitamin-D 2 90144 IU every weekly History of methamphetamine abuse PUD prophylaxis with Protonix DVT prophylaxis with Lovenox Goals of care discussed greater than 22 minutes, full code status. Plan discussed with Dr. Mott Plan discussed with: Patient, Other (RN) My Orders My Orders Orders - KACEY JOHN Procedure Category Date Status Time Aspirin Tablet PHA 06/04/24 In Process 10:00 Pantoprazole Tablet PHA 06/04/24 In Process (Protonix Tablet) 06:00 Dietary Evaluation Review Comments: 1) CCHO 75 + 2gm Na diet 2) Dangelo 1 pk daily (ordered per [facility] protocol) 3) Refer to Kids Activities Coach on DC 4) Continue current plan of care Expected Outcomes/Goals: Pt will meet 75% estimated needs Fu 3-5 days Date of Service: Jun 03, 2024 Billing Provider: HAILEY MOTT MD Common Visit Codes: [id number] INP/OBS CARE(HIGH) KACEY JOHN Jun 03, 2024 18:45 HAILEY MOTT MD Jun 03, 2024 19:13
[2024-06-04] VITALS (8 sets, daily range): BP systolic 91–119; BP diastolic 47–79; PULSE 67–96; RESP 17–18; TEMP 97.4–97.9; O2SAT 96–100
[2024-06-04] MEDS: PANTOPRAZOLE 40 MG TAB PO SCH (05:28)
[2024-06-04] MEDS: SODIUM CHLORIDE 0.9% 500 ML IV ONE (08:15)
[2024-06-04] MEDS: SODIUM CHLORIDE 0.9% 1,000 ML IV SCH (08:15)
[2024-06-04 08:39] LABS: Basophils # (auto) 0 10 ^3/uL (0-0.2); Basophils % (auto) 0.2 % (0.0-2.0); Eosinophils # (auto) 0.2 10 ^3/uL (0-0.8); Eosinophils % (auto) 1.5 % (0.0-7.0); Hematocrit 27.9 % (41.0-53.0); Hemoglobin 9.2 g/dL (13.5-17.5); Lymphocytes # (auto) 0.7 10 ^3/uL (0.4-5.4); Lymphocytes % (auto) 5.2 % (10.0-50.0); Mean Corpuscular Hemoglobin 27.7 pg (28.0-32.0); Mean Corpuscular Hgb Conc. 32.8 g/dL (32.0-36.0); Mean Corpuscular Volume 84.2 fL (80.0-100.0); Monocytes # (auto) 1.1 10 ^3/uL (0-1.3); Monocytes % (auto) 8.1 % (0.0-12.0); Neutrophils # (auto) 11.9 10 ^3/uL (1.6-8.6); Platelet Count (auto) 308 10^3/uL (140-450); Red Blood Cells 3.31 10^6/uL (4.5-5.90); Red Cell Distribution Width 15.4 % (11.8-14.3)
[2024-06-04 08:50] LABS: Anion Gap 9 (5-15); Carbon Dioxide 21 mmol/L (20-31); Chloride 101 mmol/L (98-107)
[2024-06-04 08:56] LABS: BUN/Creatinine Ratio 16.2 (10.0-20.0)
[2024-06-04 08:57] LABS: Blood Urea Nitrogen 51 mg/dL (9-23); Calcium 8.6 mg/dL (8.7-10.4); Glucose 140 mg/dL (74-106); Potassium 3.2 mmol/L (3.5-5.1); Sodium 131 mmol/L (136-145)
--- NOTE | 2024-06-04 10:49 | DVHPN2 ---
Progress Note Date Seen: Jun 04, 2024 Medical Necessity Reason Pt with a Central, PICC or Fol: No Objective vital signs Vital Sign Date Time Temp Pulse Resp B/P (MAP) Pulse Ox O2 Delivery O2 Flow Rate FiO2 06/04/24 09:07 97.5 67 18 102/57 (72) 98 97.5 06/03/24 20:00 Room Air* 0 21 Total Intake and Output 06/03/24 06/03/24 06/04/24 15:00 23:00 07:00 Intake Total 375 ml 1100 ml 3120 ml Output Total 520 ml 1200 ml 2600 ml Balance -145 ml -100 ml 520 ml medications Current Medications Medications Dose Ordered Sig/[place]orence Route Start Time Stop Time Status Last Admin Dose Admin Sodium Chloride 10 ml Q8HR IV 05/31/24 22:00 06/04/24 05:32 10 ML Al Hydrox/Mg Hydrox/Simethicone 30 ml Q6HP PRN PO 05/31/24 18:30 Docusate Sodium 100 mg BIDPRN PRN PO 05/31/24 18:30 Acetaminophen 650 mg Q6HP PRN PO 05/31/24 18:30 Acetaminophen/ Hydrocodone Bitart 1 tab Q4HP PRN PO 05/31/24 18:30 06/04/24 05:40 1 TAB Hydromorphone HCl 0.5 mg Q4HP PRN IV 05/31/24 18:30 06/03/24 17:22 0.5 MG Ondansetron HCl 4 mg Q4HP PRN IV 05/31/24 18:30 Enoxaparin Sodium 40 mg DAILY SC 06/01/24 10:00 06/02/24 09:17 40 MG Diagnostic Test (Pha) 1 strip IQ4HR 06/01/24 04:00 06/04/24 08:22 1 STRIP Insulin Human Regular IQ4HR SC 06/01/24 04:00 06/04/24 08:26 2 UNITS Dextrose 50 ml UD PRN IV 06/01/24 00:45 Atorvastatin Calcium 40 mg HS PO 06/01/24 22:00 06/03/24 21:34 40 MG Nicotine 1 patch DAILY TD 06/01/24 10:00 06/02/24 09:16 1 PATCH Ergocalciferol 50,000 unit Q7D PO 06/01/24 10:00 06/01/24 10:58 50,000 UNIT Magnesium Oxide 800 mg BID PO 06/01/24 22:00 06/03/24 21:33 800 MG Insulin Glargine 25 units QAM SC 06/02/24 07:00 06/04/24 06:24 25 UNITS Linezolid 300 ml @ 150 mls/hr Q12HR IV 06/02/24 10:00 06/03/24 21:33 150 MLS/HR Tamsulosin HCl 0.4 mg QPM PO 06/03/24 18:00 06/03/24 17:26 0.4 MG Cefepime HCl 50 ml @ 12.5 mls/hr Q12H IV 06/02/24 15:00 06/04/24 03:09 12.5 MLS/HR Aspirin 81 mg DAILY PO 06/04/24 10:00 Pantoprazole Sodium 40 mg DAILY@0600 PO 06/04/24 06:00 06/04/24 05:28 40 MG Iron Sucrose 110 ml @ 110 mls/hr DAILY@1200 IV 06/04/24 12:00 06/08/24 12:59 Sodium Chloride 1,000 ml @ 100 mls/hr Q10H IV 06/04/24 08:15 Examination: CVS:Normal, SKIN:Abnormal laboratory and microbiology Laboratory Tests 06/04/24 07:33 Test 06/04/24 07:33 Range/Units Serum Glucose 140 H 74-106 mg/dL Microbiology Date/Time Source Procedure Growth Status 06/03/24 14:52 Foot Left Gram Stain - Final Resulted 06/03/24 14:52 Foot Left Anaerobic Culture - Preliminary Resulted 06/03/24 14:52 Foot Left Aerobic Culture - Preliminary Resulted Problem List/Assessment/Plan Problem List/Assessment/Plan Admitted for sepsis due to OM Acute kidney injury due to hypotension ckd II GFR 67% in 01/2024 B/L hydronephrosis poor controlled Dm2, hyperglycemia anemia hypokalemia continue IVF for another 24hrs bladder scan yesterday showed large PVR. he has refused carey thus far. flomax was started yesterday. urine volume was high now that urinating more rec repeat US kidney w/ post void to see if hydronephrosis has resolved. If persistent then will re-enfocr to patient need for carey to prevent permanent kidney function loss. flomax glycemic correction per primary team iron panel and ferritin Plan discussed with: Patient My Orders My Orders Orders - TOAN HEARD MD Procedure Category Date Status Time Strict I & O MALLIKA 06/03/24 In Process 11:37 Bladder Scan ORDERS 06/03/24 Transmitted 11:45 Iron Sucrose Complex PHA 06/04/24 In Process (Venofer) 12:00 Dietary Evaluation Review Comments: 1) CCHO 75 + 2gm Na diet 2) Dangelo 1 pk daily (ordered per [facility]NS protocol) 3) Refer to Cloth Finishing Range Tender on DC 4) Continue current plan of care Expected Outcomes/Goals: Pt will meet 75% estimated needs Fu 3-5 days TOAN HEARD MD Jun 04, 2024 10:49
--- NOTE | 2024-06-04 11:09 | DVHPNRES ---
Progress Note Date Seen: Jun 04, 2024 Resident Creating Document: KACEY JOHN RESIDENT Medical Necessity Reason Pt with a Central, PICC or Fol: No Subjective Review of Systems Patient is 52-year-old male with past medical history of diabetes mellitus, hypertension, PVD, CKD, polysubstance use in past, diabetic nephropathy, left foot cellulitis status post I and D in February 2024 who came to the hospital with a chief complaint left foot pain associated with bloody discharge for last two days. Patient went to see Dr. watson in clinic and patient was directed to hospital for I and D. patient denied any other symptoms. Patient seen and examined at bedside. Underwent I and D yesterday. Complaining of mild left foot pain. Continue with current management with IV antibiotic. Pending cultures. ROS Eyes: No Pain, No Vision change, No Conjunctivae inflammation, No Eyelid inflammation, No Other, No Redness ENT: No Ear pain, No Ear discharge, No Nose pain, No Nose discharge, No Nose congestion, No Mouth pain, No Mouth swelling, No Throat pain, No Throat swelling, No Other Cardiovascular: No Chest Pain, No Palpitations, No Orthopnea, No Paroxysmal Noc. Dyspnea, No Edema, No Lt Headedness, No Other Respiratory: No Cough, No Dry, No Shortness of breath, No SOB with excertion, No Wheezing, No Hemoptysis, No Pleuritic Pain, No Sputum, No Other Gastrointestinal: No Nausea, No Vomiting, No Abdominal Pain, No Diarrhea, No Constipation, No Melena, No Hematochezia, No Other Genitourinary: No Dysuria, No Frequency, No Incontinence, No Hematuria, No Retention, No Other Musculoskeletal: No other, No neck pain, No shoulder pain, No arm pain, No back pain, No hand pain, No leg pain, foot pain Skin: No Rash, No Lesions, No Jaundice, No Bruising, No Other Objective vital signs Vital Sign Date Time Temp Pulse Resp B/P (MAP) Pulse Ox O2 Delivery O2 Flow Rate FiO2 06/04/24 09:07 97.5 67 18 102/57 (72) 98 97.5 06/03/24 20:00 Room Air* 0 21 Total Intake and Output 06/03/24 06/03/24 06/04/24 15:00 23:00 07:00 Intake Total 375 ml 1100 ml 3120 ml Output Total 520 ml 1200 ml 2600 ml Balance -145 ml -100 ml 520 ml medications Current Medications Medications Dose Ordered Sig/[place] Route Start Time Stop Time Status Last Admin Dose Admin Sodium Chloride 10 ml Q8HR IV 05/31/24 22:00 06/04/24 05:32 10 ML Al Hydrox/Mg Hydrox/Simethicone 30 ml Q6HP PRN PO 05/31/24 18:30 Docusate Sodium 100 mg BIDPRN PRN PO 05/31/24 18:30 Acetaminophen 650 mg Q6HP PRN PO 05/31/24 18:30 Acetaminophen/ Hydrocodone Bitart 1 tab Q4HP PRN PO 05/31/24 18:30 06/04/24 05:40 1 TAB Hydromorphone HCl 0.5 mg Q4HP PRN IV 05/31/24 18:30 06/03/24 17:22 0.5 MG Ondansetron HCl 4 mg Q4HP PRN IV 05/31/24 18:30 Enoxaparin Sodium 40 mg DAILY SC 06/01/24 10:00 06/02/24 09:17 40 MG Diagnostic Test (Pha) 1 strip IQ4HR 06/01/24 04:00 06/04/24 08:22 1 STRIP Insulin Human Regular IQ4HR SC 06/01/24 04:00 06/04/24 08:26 2 UNITS Dextrose 50 ml UD PRN IV 06/01/24 00:45 Atorvastatin Calcium 40 mg HS PO 06/01/24 22:00 06/03/24 21:34 40 MG Nicotine 1 patch DAILY TD 06/01/24 10:00 06/02/24 09:16 1 PATCH Ergocalciferol 50,000 unit Q7D PO 06/01/24 10:00 06/01/24 10:58 50,000 UNIT Magnesium Oxide 800 mg BID PO 06/01/24 22:00 06/03/24 21:33 800 MG Insulin Glargine 25 units QAM SC 06/02/24 07:00 06/04/24 06:24 25 UNITS Linezolid 300 ml @ 150 mls/hr Q12HR IV 06/02/24 10:00 06/03/24 21:33 150 MLS/HR Tamsulosin HCl 0.4 mg QPM PO 06/03/24 18:00 06/03/24 17:26 0.4 MG Cefepime HCl 50 ml @ 12.5 mls/hr Q12H IV 06/02/24 15:00 06/04/24 03:09 12.5 MLS/HR Aspirin 81 mg DAILY PO 06/04/24 10:00 Pantoprazole Sodium 40 mg DAILY@0600 PO 06/04/24 06:00 06/04/24 05:28 40 MG Iron Sucrose 110 ml @ 110 mls/hr DAILY@1200 IV 06/04/24 12:00 06/08/24 12:59 Sodium Chloride 1,000 ml @ 100 mls/hr Q10H IV 06/04/24 08:15 Examination General Appearance: Cooperative. Well developed. Well nourished. NAD Head Exam: Normal inspection Neck Exam: Normal inspection. Non-tender. Normal alignment Pulmonary/Respiratory: Chest non-tender. Clear bilateral breath sounds Cardiovascular/Chest: Regular rate and rhythm. No murmurs. No JVD. Peripheral Pulses: 2+ Radial (R). 2+ Radial (L). 2+ Pedal (R). 2+ Pedal (L) Abdominal Exam: Normal bowel sounds. Soft. Nontender. No hepatospenomegaly. No masses Ankle Exam: Negative ankle edema Lower extremities: Negative lower extremity edema, left foot 1st and 2nd toe amputation, presence of bilateral pedal pulse, capillary refill under 2 seconds, both lower extremity warm. Intake sensory sensation or plantar forefoot bilaterally. Wound over left foot medial. Neuro/Mental Status: A&O x4. Coherent Thoughts/Psych: Normal thought pattern. Appropriate mood and affect. Good judgement and insight Appearance: In no acute distress Skin Exam: Normal inspection. Normal color. Warm. Dry laboratory and microbiology Laboratory Tests 06/04/24 07:33 Test 06/04/24 07:33 Range/Units Serum Glucose 140 H 74-106 mg/dL Microbiology Date/Time Source Procedure Growth Status 06/03/24 14:52 Foot Left Gram Stain - Final Resulted 06/03/24 14:52 Foot Left Anaerobic Culture - Preliminary Resulted 06/03/24 14:52 Foot Left Aerobic Culture - Preliminary Resulted Problem List/Assessment/Plan Problem List/Assessment/Plan Left foot osteomyelitis: 1st and 2nd metatarsal bone and 3rd metatarsal of left foot. Left foot abscess Left foot cellulitis Left ankle abscess Left foot diabetic ulcer Sepsis due to left foot abscess. -podiatry: I and D on 06/03/2024 -IV antibiotic: Cefepime and linezolid -pending blood culture -controlled hyperglycemia -wound care -ruled out lower extremity DVT -reviewed tibial/fibula MRI and food MRI BERENICE on CKD stage 4 -continue to monitor -IV fluid 100 mL/hour -renal ultrasound: Moderate right and mild left hydronephrosis -nephrology on board -continue to monitor renal function -IV fluid given UTI -continue IV antibiotics cefepime. -urine culture Diabetes mellitus type 2 on insulin &Diabetic neuropathy -Lantus 25 units b.i.d. -aggressive insulin sliding scale -continue gabapentin Peripheral artery disease -aspirin 80 mg p.o. daily, atorvastatin 40 mg p.o. daily. Anemia of chronic disease -high ferritin, continue to monitor. Target hemoglobin 10 to 11 g per day. Hypokalemia and hypomagnesemia -replenish potassium and magnesium. Asymptomatic hyponatremia -continue to monitor Moderate right and mild left hydronephrosis -continue to monitor -Flomax 0.5 mg p.o. daily -patient may need Albarran catheter insertion for possible urinary retention. Vitamin-D deficiency -vitamin-D 2 90796 IU every weekly History of methamphetamine abuse PUD prophylaxis with Protonix DVT prophylaxis with Lovenox Goals of care discussed greater than 22 minutes, full code status. Plan discussed with Dr. Khoury Plan discussed with: Patient, Other (RN) My Orders My Orders Orders - KACEY JOHN RESIDENT Procedure Category Date Status Time Aspirin Tablet PHA 06/04/24 In Process 10:00 Pantoprazole Tablet PHA 06/04/24 In Process (Protonix Tablet) 06:00 Urine Bacterial SHELBY 06/03/24 Logged Culture 18:24 Sodium Chloride 0.9% PHA 06/04/24 In Process 08:15 Stool Occult Blood LAB 06/04/24 Logged 08:51 Potassium Er Tablet PHA 06/04/24 Logged (Klor-Con Tablet) 11:00 Dietary Evaluation Review Comments: 1) CCHO 75 + 2gm Na diet 2) Dangelo 1 pk daily (ordered per [facility] protocol) 3) Refer to Video Game Script Writer on DC 4) Continue current plan of care Expected Outcomes/Goals: Pt will meet 75% estimated needs Fu 3-5 days Date of Service: Jun 04, 2024 Billing Provider: HAILEY KHOURY MD Common Visit Codes: [id number] INP/OBS CARE(HIGH) KACEY JOHN RESIDENT Jun 04, 2024 11:09 HAILEY KHOURY MD Jun 04, 2024 15:22
[2024-06-04] MEDS: ASPirin 81 mg TAB PO SCH (11:13)
--- NOTE | 2024-06-04 13:03 | DVH ---
INDICATION: repeat US kidney to see if hydronephrosis persist TECHNIQUE: Multiple real-time sonographic images of the kidneys and bladder were obtained. COMPARISON: US KIDNEY on DOS: 06/02/24, US KIDNEY on DOS: 02/01/24 FINDINGS: The right kidney measures 13 cm in length, which is normal in size. There is normal echogen icity of the right kidney. Moderate right hydronephrosis. The left kidney measures 13 cm in length, which is normal in size. There is normal echogenicity of th e left kidney. Mild left hydronephrosis. No large intraluminal masses are seen in the bladder. Prior to voiding the bladder volume measures vo lume 757 cc. Following voiding, the bladder volume residual measures 217 cc. IMPRESSION: Moderate right hydronephrosis and mild left hydronephrosis, stable compared to prior exam.
--- NOTE | 2024-06-04 13:15 | DVHPN2 ---
Subjective 54-year-old male patient with past medical history of diabetes mellitus type 2, hypertension, peripheral arterial disease, CKD, polysubstance use in the past, diabetic neuropathy, left foot osteomyelitis status post I and D in February 2024 presented with complaints of left foot pain associated with bloody discharge for last two days. Patient was discharged to alf facility when he was last admitted in February where he was treated with IV antibiotics and had I and D done by Dr. Montes. Patient has been living at home for last one week and started again having symptoms of left foot pain and wound, associated with discharge after which he decided to see Dr. Montes in the office. Dr Montes evaluated the patient on monday and advised the patient to be admitted directly to the hospital for I and D that is planning to do on monday. He denied any active complaints of chest pain, shortness of breath, nausea, vomiting, diarrhea, headache, dizziness, any musculoskeletal/joint pain apart from the left leg pain Changes from previous H/P or p: No Changes Eyes: No Pain, No Vision change, No Conjunctivae inflammation, No Eyelid inflammation, No Other, No Redness ENT: No Ear pain, No Ear discharge, No Nose pain, No Nose discharge, No Nose congestion, No Mouth pain, No Mouth swelling, No Throat pain, No Throat swelling, No Other Cardiovascular: No Chest Pain, No Palpitations, No Orthopnea, No Paroxysmal Noc. Dyspnea, No Edema, No Lt Headedness, No Other Respiratory: No Cough, No Dry, No Shortness of breath, No SOB with excertion, No Wheezing, No Hemoptysis, No Pleuritic Pain, No Sputum, No Other Gastrointestinal: No Nausea, No Vomiting, No Abdominal Pain, No Diarrhea, No Constipation, No Melena, No Hematochezia, No Other Genitourinary: No Dysuria, No Frequency, No Incontinence, No Hematuria, No Retention, No Other Musculoskeletal: No other, No neck pain, No shoulder pain, No arm pain, No back pain, No hand pain, No leg pain; foot pain Skin: No Rash; Lesions; No Jaundice, No Bruising, No Other Objective Vitals Vital Signs Date Time Temp Pulse Resp B/P (MAP) Pulse Ox O2 Delivery O2 Flow Rate FiO2 06/04/24 11:20 67 18 102/57 06/04/24 09:07 97.5 98 97.5 06/04/24 08:00 Room Air* 0 21 Intake/Output Intake and Output 06/04/24 07:00 Intake Total 4595 ml Output Total 4320 ml Balance 275 ml Intake Oral 2820 ml IV Total 1775 ml Output Urine Total 4320 ml # Bowel Movements 3 Exam Dermatological: Skin is dry with mild erythema and some maceration around the wound site No gross deformities noted Mild non-pitting edema present bilaterally Wound: Location: Left foot medial foot Measures: 8 cm in length, 6 cm in width, and 3 cm in depth. Depth: Full thickness Base: Necrotic Drainage: Yes Odor: Yes Periwound: Erythema Vascular: Dorsalis pedis and posterior tibial pulses are 1+ bilaterally Capillary refill is under 2 seconds Skin temperature is warm bilaterally Neurologic: Protective sensation is absent on the plantar forefoot bilaterally Monofilament testing reveals decreased sensation in multiple plantar sites Musculoskeletal: Range of motion at the ankle and MTP joints is within normal limits. Strength is 5/5 in all tested muscle groups. Gait is antalgic due to offloading of the affected limb. General Appearance: Alert, Oriented X3, Cooperative, No acute distress HEENT: Atraumatic Lungs: Clear to auscultation Cardiovascular: Regular rate, Normal S1, Normal S2 Abdomen: Normal bowel sounds, Soft Extremities: Other (Left Foot Dressing, Foul Smell) Psych/Mental Status: Mental status NL Medications Current Medications Medications Dose Ordered Sig/[place] Route Start Time Stop Time Status Last Admin Dose Admin Sodium Chloride 10 ml Q8HR IV 05/31/24 22:00 06/04/24 05:32 10 ML Al Hydrox/Mg Hydrox/Simethicone 30 ml Q6HP PRN PO 05/31/24 18:30 Docusate Sodium 100 mg BIDPRN PRN PO 05/31/24 18:30 Acetaminophen 650 mg Q6HP PRN PO 05/31/24 18:30 Acetaminophen/ Hydrocodone Bitart 1 tab Q4HP PRN PO 05/31/24 18:30 06/04/24 05:40 1 TAB Hydromorphone HCl 0.5 mg Q4HP PRN IV 05/31/24 18:30 06/04/24 11:20 0.5 MG Ondansetron HCl 4 mg Q4HP PRN IV 05/31/24 18:30 Enoxaparin Sodium 40 mg DAILY SC 06/01/24 10:00 06/04/24 11:14 40 MG Diagnostic Test (Pha) 1 strip IQ4HR 06/01/24 04:00 06/04/24 12:00 1 STRIP Insulin Human Regular IQ4HR SC 06/01/24 04:00 06/04/24 08:26 2 UNITS Dextrose 50 ml UD PRN IV 06/01/24 00:45 Atorvastatin Calcium 40 mg HS PO 06/01/24 22:00 06/03/24 21:34 40 MG Nicotine 1 patch DAILY TD 06/01/24 10:00 06/02/24 09:16 1 PATCH Ergocalciferol 50,000 unit Q7D PO 06/01/24 10:00 06/01/24 10:58 50,000 UNIT Magnesium Oxide 800 mg BID PO 06/01/24 22:00 06/04/24 11:13 800 MG Insulin Glargine 25 units QAM SC 06/02/24 07:00 06/04/24 06:24 25 UNITS Linezolid 300 ml @ 150 mls/hr Q12HR IV 06/02/24 10:00 06/04/24 11:16 150 MLS/HR Tamsulosin HCl 0.4 mg QPM PO 06/03/24 18:00 06/03/24 17:26 0.4 MG Cefepime HCl 50 ml @ 12.5 mls/hr Q12H IV 06/02/24 15:00 06/04/24 03:09 12.5 MLS/HR Aspirin 81 mg DAILY PO 06/04/24 10:00 06/04/24 11:13 81 MG Pantoprazole Sodium 40 mg DAILY@0600 PO 06/04/24 06:00 06/04/24 05:28 40 MG Iron Sucrose 110 ml @ 110 mls/hr DAILY@1200 IV 06/04/24 12:00 06/08/24 12:59 Sodium Chloride 1,000 ml @ 100 mls/hr Q10H IV 06/04/24 08:15 Laboratory Results Laboratory Tests 06/04/24 07:33 Chemistry Test 06/04/24 07:33 Calcium Level 8.6 mg/dL (8.7-10.4) L Urinalysis Test 06/01/24 10:05 06/02/24 14:37 Urine Color Light-brown (Yellow) Urine Clarity Ex.turbid (Clear) Urine pH 6.0 (5.0-9.0) Urine Specific [place] 1.010 (1.001-1.035) Urine Protein 1+ (Negative) H Urine Ketones Negative (Negative) Urine Blood 3+ /uL (Negative) H Urine Nitrite 1+ (Negative) H Urine Bilirubin Negative (Negative) Urine Urobilinogen Normal mg/dL (Negative) Urine Leukocyte Esterase 3+ /uL (Negative) Urine RBC 31 /hpf (0 - 3) Urine WBC Clumps Present /hpf (None Seen) Urine Microscopic WBC 1078 /HPF (0-3) H Urine Squamous Epithelial Cells None seen /hpf (<5) Urine Bacteria Mod /hpf (None Seen) H Urine Mucus Few (None Seen) Urine Glucose 2+ mg/dL (Normal) H Urine Osmolality 202 mOsm/kg Urine Creatinine 27.59 mg/dL (30.0-125.0) L Urine Protein/Creatinine Ratio 1.67 Urine Sodium 22 mmol/L (40-220) L Urine Total Protein 46.2 mg/dL (1-14) H Microbiology Microbiology Date/Time Source Procedure Growth Status 06/03/24 14:52 Foot Left Gram Stain - Final Resulted 06/03/24 14:52 Foot Left Anaerobic Culture - Preliminary Resulted 06/03/24 14:52 Foot Left Aerobic Culture - Preliminary Resulted Assessment/Plan Assessment/Plan ASSESSMENT: Patient is a 54 year old seen on the floor 1 day s/p from an I&D of the left foot and ankle PLAN: - The patients chart was reviewed, clinical findings were discussed with the patient, the etiologies of the conditions were discussed in detail, and a treatment plan was agreed to at this time, with both oral and written instructions provided. - reviewed advanced imaging - discussed plan is to perform an incision and drainage and possible closure tomorrow - patient will be NPO at midnight - take him to the OR tomorrow - patient will need 6 weeks of IV antibiotics - can weightbear as tolerated in postoperative shoe All questions were answered and concerns addressed to the patient's satisfaction. The patient was given the phone number to the clinic and was told how to make contact with the clinic should any concerns or questions arise. Patient understands that if any questions or concerns arise prior to the next appointment, we should be contacted immediately. FOLLOW-UP: Continue to follow while inpatient Plan discussed with: Patient My Orders Orders - DANIKA MONTES DPM Procedure Category Date Status Time Routine Bacterial SHELBY 06/03/24 In Process Culture 14:57 Anaerobic Culture SHELBY 06/03/24 In Process 14:57 Gram Stain SHELBY 06/03/24 In Process 14:57 Problem List: (1) Hypochloremia (2) Diabetic neuropathy (3) Generalized weakness (4) Hyperglycemia (5) Hyponatremia (6) Thrombophlebitis (7) Electrolyte imbalance (8) Leukocytosis, unspecified (9) Medication refill (10) Foot infection (11) Osteomyelitis of left foot (12) Diabetes mellitus type 2 with complications, uncontrolled (13) Episode of syncope (14) Elevated lactic acid level (15) Diabetic foot infection (16) Ischemic pain of left foot (17) Diabetes mellitus with hyperglycemia (18) New onset type 2 diabetes mellitus (19) Cellulitis and abscess of left leg Date of Service: Jun 04, 2024 Billing Provider: DANIKA MONTES DPM Common Visit Codes: [id number] INP/OBS CARE(HIGH) DANIKA MONTES DPM Jun 04, 2024 13:15
[2024-06-04] MEDS: POTASSIUM CHL 20 Meq TABLET PO ONE (14:44)
[2024-06-04] MEDS: IRON SUCROSE COMPLEX 110 ML IV SCH (14:47)
[2024-06-04] MEDS: TAMSULOSIN HYDROCHLORIDE 0.4 MG CAP PO SCH (18:32)
[2024-06-05] VITALS (8 sets, daily range): BP systolic 117–143; BP diastolic 69–84; PULSE 65–101; RESP 16–20; TEMP 97.4–98.1; O2SAT 93–100
[2024-06-05 07:20] LABS: Basophils # (auto) 0 10 ^3/uL (0-0.2); Basophils % (auto) 0.1 % (0.0-2.0); Eosinophils # (auto) 0.1 10 ^3/uL (0-0.8); Eosinophils % (auto) 0.7 % (0.0-7.0); Hematocrit 29.1 % (41.0-53.0); Hemoglobin 9.6 g/dL (13.5-17.5); Lymphocytes # (auto) 0.6 10 ^3/uL (0.4-5.4); Lymphocytes % (auto) 3.9 % (10.0-50.0); Mean Corpuscular Hemoglobin 27.7 pg (28.0-32.0); Mean Corpuscular Hgb Conc. 33.1 g/dL (32.0-36.0); Mean Corpuscular Volume 83.8 fL (80.0-100.0); Monocytes # (auto) 1.2 10 ^3/uL (0-1.3); Monocytes % (auto) 7.6 % (0.0-12.0); Neutrophils # (auto) 13.6 10 ^3/uL (1.6-8.6); Neutrophils % (auto) 87.7 % (37.0-80.0); Platelet Count (auto) 392 10^3/uL (140-450); Red Blood Cells 3.47 10^6/uL (4.5-5.90); Red Cell Distribution Width 15.6 % (11.8-14.3); White Blood Cell 15.5 10^3/uL (4.4-10.8)
[2024-06-05 07:47] LABS: Chloride 103 mmol/L (98-107); Sodium 137 mmol/L (136-145)
[2024-06-05 07:48] LABS: Calcium 8.8 mg/dL (8.7-10.4)
[2024-06-05 07:49] LABS: Anion Gap 13 (5-15); Carbon Dioxide 21 mmol/L (20-31)
[2024-06-05 07:54] LABS: BUN/Creatinine Ratio 15.5 (10.0-20.0)
[2024-06-05 07:56] LABS: Blood Urea Nitrogen 49 mg/dL (9-23); Glucose 145 mg/dL (74-106); Potassium 3.4 mmol/L (3.5-5.1)
--- NOTE | 2024-06-05 09:22 | DVHPN2 ---
Subjective 54-year-old male patient with past medical history of diabetes mellitus type 2, hypertension, peripheral arterial disease, CKD, polysubstance use in the past, diabetic neuropathy, left foot osteomyelitis status post I and D in February 2024 presented with complaints of left foot pain associated with bloody discharge for last two days. Patient was discharged to long-term facility when he was last admitted in February where he was treated with IV antibiotics and had I and D done by Dr. Montes. Patient has been living at home for last one week and started again having symptoms of left foot pain and wound, associated with discharge after which he decided to see Dr. Montes in the office. Dr Montes evaluated the patient on monday and advised the patient to be admitted directly to the hospital for I and D that is planning to do on monday. He denied any active complaints of chest pain, shortness of breath, nausea, vomiting, diarrhea, headache, dizziness, any musculoskeletal/joint pain apart from the left leg pain Changes from previous H/P or p: No Changes Eyes: No Pain, No Vision change, No Conjunctivae inflammation, No Eyelid inflammation, No Other, No Redness ENT: No Ear pain, No Ear discharge, No Nose pain, No Nose discharge, No Nose congestion, No Mouth pain, No Mouth swelling, No Throat pain, No Throat swelling, No Other Cardiovascular: No Chest Pain, No Palpitations, No Orthopnea, No Paroxysmal Noc. Dyspnea, No Edema, No Lt Headedness, No Other Respiratory: No Cough, No Dry, No Shortness of breath, No SOB with excertion, No Wheezing, No Hemoptysis, No Pleuritic Pain, No Sputum, No Other Gastrointestinal: No Nausea, No Vomiting, No Abdominal Pain, No Diarrhea, No Constipation, No Melena, No Hematochezia, No Other Genitourinary: No Dysuria, No Frequency, No Incontinence, No Hematuria, No Retention, No Other Musculoskeletal: No other, No neck pain, No shoulder pain, No arm pain, No back pain, No hand pain, No leg pain; foot pain Skin: No Rash; Lesions; No Jaundice, No Bruising, No Other Objective Vitals Vital Signs Date Time Temp Pulse Resp B/P (MAP) Pulse Ox O2 Delivery O2 Flow Rate FiO2 06/05/24 08:44 98.1 65 18 121/72 (88) 97 98.1 06/04/24 20:00 Room Air* 0 21 Intake/Output Intake and Output 06/05/24 07:00 Intake Total 4085 ml Output Total 3700 ml Balance 385 ml Intake Oral 2825 ml IV Total 1260 ml Output Urine Total 3700 ml # Bowel Movements 3 Exam Dermatological: Skin is dry with mild erythema and some maceration around the wound site No gross deformities noted Mild non-pitting edema present bilaterally Wound: Location: Left foot medial foot Measures: 8 cm in length, 6 cm in width, and 3 cm in depth. Depth: Full thickness Base: Necrotic Drainage: Yes Odor: Yes Periwound: Erythema Vascular: Dorsalis pedis and posterior tibial pulses are 1+ bilaterally Capillary refill is under 2 seconds Skin temperature is warm bilaterally Neurologic: Protective sensation is absent on the plantar forefoot bilaterally Monofilament testing reveals decreased sensation in multiple plantar sites Musculoskeletal: Range of motion at the ankle and MTP joints is within normal limits. Strength is 5/5 in all tested muscle groups. Gait is antalgic due to offloading of the affected limb. General Appearance: Alert, Oriented X3, Cooperative, No acute distress HEENT: Atraumatic Lungs: Clear to auscultation Cardiovascular: Regular rate, Normal S1, Normal S2 Abdomen: Normal bowel sounds, Soft Extremities: Other (Left Foot Dressing, Foul Smell) Psych/Mental Status: Mental status NL Medications Current Medications Medications Dose Ordered Sig/[place] Route Start Time Stop Time Status Last Admin Dose Admin Sodium Chloride 10 ml Q8HR IV 05/31/24 22:00 06/05/24 06:09 10 ML Al Hydrox/Mg Hydrox/Simethicone 30 ml Q6HP PRN PO 05/31/24 18:30 Docusate Sodium 100 mg BIDPRN PRN PO 05/31/24 18:30 Acetaminophen 650 mg Q6HP PRN PO 05/31/24 18:30 Acetaminophen/ Hydrocodone Bitart 1 tab Q4HP PRN PO 05/31/24 18:30 06/05/24 00:26 1 TAB Hydromorphone HCl 0.5 mg Q4HP PRN IV 05/31/24 18:30 06/05/24 06:36 0.5 MG Ondansetron HCl 4 mg Q4HP PRN IV 05/31/24 18:30 Enoxaparin Sodium 40 mg DAILY SC 06/01/24 10:00 06/04/24 11:14 40 MG Diagnostic Test (Pha) 1 strip IQ4HR 06/01/24 04:00 06/05/24 04:00 1 STRIP Insulin Human Regular IQ4HR SC 06/01/24 04:00 06/05/24 00:25 12 UNITS Dextrose 50 ml UD PRN IV 06/01/24 00:45 Atorvastatin Calcium 40 mg HS PO 06/01/24 22:00 06/04/24 21:23 40 MG Nicotine 1 patch DAILY TD 06/01/24 10:00 06/02/24 09:16 1 PATCH Ergocalciferol 50,000 unit Q7D PO 06/01/24 10:00 06/01/24 10:58 50,000 UNIT Magnesium Oxide 800 mg BID PO 06/01/24 22:00 06/04/24 21:24 800 MG Insulin Glargine 25 units QAM SC 06/02/24 07:00 06/04/24 06:24 25 UNITS Linezolid 300 ml @ 150 mls/hr Q12HR IV 06/02/24 10:00 06/04/24 21:24 150 MLS/HR Cefepime HCl 50 ml @ 12.5 mls/hr Q12H IV 06/02/24 15:00 06/05/24 02:58 12.5 MLS/HR Aspirin 81 mg DAILY PO 06/04/24 10:00 06/04/24 11:13 81 MG Pantoprazole Sodium 40 mg DAILY@0600 PO 06/04/24 06:00 06/04/24 05:28 40 MG Iron Sucrose 110 ml @ 110 mls/hr DAILY@1200 IV 06/04/24 12:00 06/08/24 12:59 06/04/24 14:47 110 MLS/HR Sodium Chloride 1,000 ml @ 100 mls/hr Q10H IV 06/04/24 08:15 06/04/24 18:32 100 MLS/HR Tamsulosin HCl 0.8 mg QPM PO 06/04/24 18:00 06/04/24 18:32 0.8 MG Potassium Chloride 100 ml @ 50 mls/hr Q2H IV 06/05/24 08:30 06/05/24 14:29 UNV Laboratory Results Laboratory Tests 06/05/24 04:50 Chemistry Test 06/05/24 04:50 Calcium Level 8.8 mg/dL (8.7-10.4) Urinalysis Test 06/01/24 10:05 06/02/24 14:37 Urine Color Light-brown (Yellow) Urine Clarity Ex.turbid (Clear) Urine pH 6.0 (5.0-9.0) Urine Specific [place] 1.010 (1.001-1.035) Urine Protein 1+ (Negative) H Urine Ketones Negative (Negative) Urine Blood 3+ /uL (Negative) H Urine Nitrite 1+ (Negative) H Urine Bilirubin Negative (Negative) Urine Urobilinogen Normal mg/dL (Negative) Urine Leukocyte Esterase 3+ /uL (Negative) Urine RBC 31 /hpf (0 - 3) Urine WBC Clumps Present /hpf (None Seen) Urine Microscopic WBC 1078 /HPF (0-3) H Urine Squamous Epithelial Cells None seen /hpf (<5) Urine Bacteria Mod /hpf (None Seen) H Urine Mucus Few (None Seen) Urine Glucose 2+ mg/dL (Normal) H Urine Osmolality 202 mOsm/kg Urine Creatinine 27.59 mg/dL (30.0-125.0) L Urine Protein/Creatinine Ratio 1.67 Urine Sodium 22 mmol/L (40-220) L Urine Total Protein 46.2 mg/dL (1-14) H Microbiology Microbiology Date/Time Source Procedure Growth Status 06/03/24 14:52 Foot Left Gram Stain - Final Resulted 06/03/24 14:52 Foot Left Anaerobic Culture - Preliminary Resulted 06/03/24 14:52 Aerobic Culture - Preliminary Klebsiella pneumoniae Streptococcus Group B Resulted Assessment/Plan Assessment/Plan ASSESSMENT: Patient is a 54 year old seen on the floor 2 day s/p from an I&D of the left foot and ankle PLAN: - The patients chart was reviewed, clinical findings were discussed with the patient, the etiologies of the conditions were discussed in detail, and a treatment plan was agreed to at this time, with both oral and written instructions provided. - reviewed advanced imaging - discussed plan is to perform an incision and drainage and possible closure today - has been NPO since midnight - take him to the OR today - patient will need 6 weeks of IV antibiotics - patient will need a wound VAC on the medial foot - patient will benefit from routine foot care after evaluation of bilateral feet - can weightbear as tolerated in postoperative shoe All questions were answered and concerns addressed to the patient's satisfaction. The patient was given the phone number to the clinic and was told how to make contact with the clinic should any concerns or questions arise. Patient understands that if any questions or concerns arise prior to the next appointment, we should be contacted immediately. FOLLOW-UP: Continue to follow while inpatient Plan discussed with: Patient My Orders Orders - DANIKA MONTES DPM Procedure Category Date Status Time Npo After Midnight ORDERS 06/04/24 Transmitted Npo (Nothing By DIET 06/05/24 Transmitted Mouth) Diet Breakfast Obtain Consent For: ORDERS 06/04/24 Transmitted 13:16 Problem List: (1) Hypochloremia (2) Diabetic neuropathy (3) Generalized weakness (4) Hyperglycemia (5) Hyponatremia (6) Thrombophlebitis (7) Electrolyte imbalance (8) Leukocytosis, unspecified (9) Medication refill (10) Foot infection (11) Osteomyelitis of left foot (12) Diabetes mellitus type 2 with complications, uncontrolled (13) Episode of syncope (14) Elevated lactic acid level (15) Diabetic foot infection (16) Ischemic pain of left foot (17) Diabetes mellitus with hyperglycemia (18) New onset type 2 diabetes mellitus (19) Cellulitis and abscess of left leg Date of Service: Jun 05, 2024 Billing Provider: DANIKA MONTES DPM Common Visit Codes: [id number] INP/OBS CARE(HIGH) DANIKA MONTES DPM Jun 05, 2024 09:22
--- NOTE | 2024-06-05 11:03 | DVHOP2 ---
Operative Report - 2 Report Details Date: 06/05/24 Preop Diagnosis: 1. Left foot osteomyelitis 2. Left foot abscess 3. Left foot cellulitis 4. Left ankle abscess 5. Left foot diabetic ulcer Postop Diagnosis: Same as preop Surgeon: Danika Montes MD Anesthesiologist: See anesthesia Anesthesia: Mac Consent: The patient was informed of the risks and benefits of the procedure. These include but are not limited to complications of anesthesia, postoperative infection, incomplete relief of symptoms, recurrence of symptoms, damage to blood vessels, nerves and tendons, deep venous thrombosis, pulmonary embolism and possible need for repeat surgery in the future. Complications: None Estimated Blood Loss: Minimal Fluids: See anesthesia Findings: Consistent with diagnosis Indications for Surgery: Worsening left foot wound Name of Procedure Performed 1. Left foot I&D to bone (69036) 2. Left delayed closure (24057) Procedure Details Procedure Details: PRE-PROCEDURE INFORMATION: In the pre-op holding area, the extremity to be operated on was clearly marked and the patient verified correct laterality of the marking. The patient was transferred to the OR table and placed in a supine position. A timeout was performed in which identification of the correct patient, procedure, location, and materials was done. The left foot and leg were prepped and draped in normal sterile fashion. DESCRIPTION OF PROCEDURE: Attention was directed to the left ankle where area of fluctuance was noted. An incision was made over this area and was deepened through blunt dissection. The incision was deepened to the level of abscess and bone. Care was taken to the dissection to avoid any neurovascular and tendinous structures. The incision was deepened to the bone, and the abscess appeared to be purulent fluid consistent with pus. The cortices of the bone was then removed with rongeur an all necrotic tissue. After the abscess was drained, the area was irrigated with 3 L normal saline using cysto tubing. Deep cultures were then obtained from the wound. The area was then inspected and any areas of tracking, especially along the tendons were also drained. A delayed closure was then performed using 2-0 nylon and vancomycin powder after was deemed appropriate with no longer concern for infection. Attention was directed to the left foot where area of fluctuance was noted. An incision was made over this area and was deepened through blunt dissection. The incision was deepened to the level of abscess and bone. Care was taken to the dissection to avoid any neurovascular and tendinous structures. The incision was deepened to the bone, and the abscess appeared to be purulent fluid consistent with pus. The cortices of the bone was then removed with rongeur an all necrotic tissue. After the abscess was drained, the area was irrigated with 3 L normal saline using cysto tubing. Deep cultures were then obtained from the wound. The area was then inspected and any areas of tracking, especially along the tendons were also drained. The wound we will need a wound VAC on the medial foot wound. POSTOPERATIVE INFORMATION: The patient tolerated the above noted procedure and anesthesia well and was transferred to the PACU with vital signs stable, and vascular status intact with capillary refill intact to all digits. Patient will return to floor and continue IV antibiotics. Patient will need 6 weeks of IV antibiotics. Patient will need a placement of a wound VAC for the medial foot wound. Patient can weightbear as tolerated with the wound VAC on in a postoperative shoe. Patient will likely need rehab for wound care as well as IV antibiotics. Patient can follow up with me in a week Specimen: Left foot first metatarsal Condition Good Disposition Still a Patient DANIKA MONTES DPM Jun 05, 2024 11:03
[2024-06-05] MEDS ORDERED: ONDANSETRON HCL 4 MG/2 ML VIAL ONE (11:28)
[2024-06-05] MEDS ORDERED: PROPOFOL 10 MG/ML 20 ML IV ONE ×2 (11:28→11:51)
[2024-06-05] MEDS ORDERED: KETAMINE 50mg/ML 10ml Vial 10 ML ONE (11:28)
[2024-06-05] MEDS ORDERED: LIDOCAINE 1% INJ PF 5ML AMP ONE (11:28)
[2024-06-05] MEDS ORDERED: KETOROLAC TROMETH 30 MG/ML 1ML VIAL ONE (11:28)
[2024-06-05] MEDS ORDERED: GLYCOPYRROLATE 0.2 MG/ML 1ML VIAL ONE (11:28)
[2024-06-05] MEDS ORDERED: DexAMETHasone SOD PHOS 10MG/1ML VIAL INJ ONE (11:28)
[2024-06-05] MEDS: VANCOMYCIN HCL 1000 MG VL ONE (11:50)
[2024-06-05] MEDS ORDERED: hydrALAZINE HCL 20 MG/ML VL IV PRN (12:15)
[2024-06-05] MEDS ORDERED: fentaNYL CITRATE 100 MCG/2 ML VL IV PRN (12:15)
[2024-06-05] MEDS ORDERED: ePHEDrine SULFATE 50 MG/ML AMP IV PRN (12:15)
[2024-06-05] MEDS ORDERED: HYDROmorphone HCL 2 MG/ML VL/or syr IV PRN (12:15)
[2024-06-05] MEDS ORDERED: FLUMAZENIL 0.1 MG/ML INJ 10ML MDV IV PRN (12:15)
[2024-06-05] MEDS ORDERED: NALOXONE HCL 0.4 MG/ML VIAL IV PRN (12:15)
[2024-06-05] MEDS ORDERED: ONDANSETRON HCL 4 MG/2 ML VIAL IV PRN (12:15)
--- NOTE | 2024-06-05 13:09 | DVHPNRES ---
Progress Note Date Seen: Jun 05, 2024 Resident Creating Document: KACEY JOHN RESIDENT Medical Necessity Reason Pt with a Central, PICC or Fol: No Subjective Review of Systems Patient is 52-year-old male with past medical history of diabetes mellitus, hypertension, PVD, CKD, polysubstance use in past, diabetic nephropathy, left foot cellulitis status post I and D in February 2024 who came to the hospital with a chief complaint left foot pain associated with bloody discharge for last two days. Patient went to see Dr. watson in clinic and patient was directed to hospital for I and D. patient denied any other symptoms. Patient seen and examined at bedside. Again Underwent I and D today. Complaining of mild left foot pain. Continue with current management with IV antibiotic. culture sensitive to ceftriaxone. Picc line insertion today ROS Eyes: No Pain, No Vision change, No Conjunctivae inflammation, No Eyelid inflammation, No Other, No Redness ENT: No Ear pain, No Ear discharge, No Nose pain, No Nose discharge, No Nose congestion, No Mouth pain, No Mouth swelling, No Throat pain, No Throat swelling, No Other Cardiovascular: No Chest Pain, No Palpitations, No Orthopnea, No Paroxysmal Noc. Dyspnea, No Edema, No Lt Headedness, No Other Respiratory: No Cough, No Dry, No Shortness of breath, No SOB with excertion, No Wheezing, No Hemoptysis, No Pleuritic Pain, No Sputum, No Other Gastrointestinal: No Nausea, No Vomiting, No Abdominal Pain, No Diarrhea, No Constipation, No Melena, No Hematochezia, No Other Genitourinary: No Dysuria, No Frequency, No Incontinence, No Hematuria, No Retention, No Other Musculoskeletal: No other, No neck pain, No shoulder pain, No arm pain, No back pain, No hand pain, No leg pain, foot pain Skin: No Rash, No Lesions, No Jaundice, No Bruising, No Other Objective vital signs Vital Sign Date Time Temp Pulse Resp B/P (MAP) Pulse Ox O2 Delivery O2 Flow Rate FiO2 06/05/24 12:47 98.1 65 16 123/69 (87) 93 98.1 06/05/24 11:59 Mask 7.0 06/05/24 11:59 100 Total Intake and Output 06/04/24 06/04/24 06/05/24 15:00 23:00 07:00 Intake Total 800 ml 1085 ml 2200 ml Output Total 700 ml 3000 ml Balance 800 ml 385 ml -800 ml medications Current Medications Medications Dose Ordered Sig/[place] Route Start Time Stop Time Status Last Admin Dose Admin Sodium Chloride 10 ml Q8HR IV 05/31/24 22:00 06/05/24 06:09 10 ML Al Hydrox/Mg Hydrox/Simethicone 30 ml Q6HP PRN PO 05/31/24 18:30 Docusate Sodium 100 mg BIDPRN PRN PO 05/31/24 18:30 Acetaminophen 650 mg Q6HP PRN PO 05/31/24 18:30 Acetaminophen/ Hydrocodone Bitart 1 tab Q4HP PRN PO 05/31/24 18:30 06/05/24 00:26 1 TAB Hydromorphone HCl 0.5 mg Q4HP PRN IV 05/31/24 18:30 06/05/24 06:36 0.5 MG Ondansetron HCl 4 mg Q4HP PRN IV 05/31/24 18:30 Enoxaparin Sodium 40 mg DAILY SC 06/01/24 10:00 06/05/24 09:11 40 MG Diagnostic Test (Pha) 1 strip IQ4HR 06/01/24 04:00 06/05/24 08:00 1 STRIP Insulin Human Regular IQ4HR SC 06/01/24 04:00 06/05/24 09:10 4 UNITS Dextrose 50 ml UD PRN IV 06/01/24 00:45 Atorvastatin Calcium 40 mg HS PO 06/01/24 22:00 06/04/24 21:23 40 MG Nicotine 1 patch DAILY TD 06/01/24 10:00 06/02/24 09:16 1 PATCH Ergocalciferol 50,000 unit Q7D PO 06/01/24 10:00 06/01/24 10:58 50,000 UNIT Magnesium Oxide 800 mg BID PO 06/01/24 22:00 06/04/24 21:24 800 MG Insulin Glargine 25 units QAM SC 06/02/24 07:00 06/04/24 06:24 25 UNITS Linezolid 300 ml @ 150 mls/hr Q12HR IV 06/02/24 10:00 06/05/24 09:13 150 MLS/HR Cefepime HCl 50 ml @ 12.5 mls/hr Q12H IV 06/02/24 15:00 06/05/24 02:58 12.5 MLS/HR Aspirin 81 mg DAILY PO 06/04/24 10:00 06/05/24 09:12 81 MG Pantoprazole Sodium 40 mg DAILY@0600 PO 06/04/24 06:00 06/04/24 05:28 40 MG Iron Sucrose 110 ml @ 110 mls/hr DAILY@1200 IV 06/04/24 12:00 06/08/24 12:59 06/04/24 14:47 110 MLS/HR Sodium Chloride 1,000 ml @ 100 mls/hr Q10H IV 06/04/24 08:15 06/04/24 18:32 100 MLS/HR Tamsulosin HCl 0.8 mg QPM PO 06/04/24 18:00 06/04/24 18:32 0.8 MG Potassium Chloride 50 ml @ 25 mls/hr Q2H IV 06/05/24 11:15 06/05/24 17:14 Ondansetron HCl 4 mg ONCE PRN IV 06/05/24 12:15 06/05/24 12:16 UNV Naloxone HCl 0.4 mg Q10M PRN IV 06/05/24 12:15 06/05/24 12:36 UNV Flumazenil 0.2 mg ONCE PRN IV 06/05/24 12:15 06/05/24 12:16 UNV Hydralazine HCl 5 mg Q10M PRN IV 06/05/24 12:15 06/05/24 13:06 UNV Ephedrine Sulfate 10 mg Q10M PRN IV 06/05/24 12:15 06/05/24 12:56 UNV Fentanyl Citrate 25 mcg Q1HP PRN IV 06/05/24 12:15 06/05/24 12:16 UNV Hydromorphone HCl 0.5 mg Q10M PRN IV 06/05/24 12:15 06/05/24 12:56 UNV Examination General Appearance: Cooperative. Well developed. Well nourished. NAD Head Exam: Normal inspection Neck Exam: Normal inspection. Non-tender. Normal alignment Pulmonary/Respiratory: Chest non-tender. Clear bilateral breath sounds Cardiovascular/Chest: Regular rate and rhythm. No murmurs. No JVD. Peripheral Pulses: 2+ Radial (R). 2+ Radial (L). 2+ Pedal (R). 2+ Pedal (L) Abdominal Exam: Normal bowel sounds. Soft. Nontender. No hepatospenomegaly. No masses Ankle Exam: Negative ankle edema Lower extremities: Negative lower extremity edema, left foot 1st and 2nd toe amputation, presence of bilateral pedal pulse, capillary refill under 2 seconds, both lower extremity warm. Intake sensory sensation or plantar forefoot bilaterally. Wound over left foot medial. Neuro/Mental Status: A&O x4. Coherent Thoughts/Psych: Normal thought pattern. Appropriate mood and affect. Good judgement and insight Appearance: In no acute distress Skin Exam: Normal inspection. Normal color. Warm. Dry laboratory and microbiology Laboratory Tests 06/05/24 04:50 Test 06/05/24 04:50 Range/Units Serum Glucose 145 H 74-106 mg/dL Microbiology Date/Time Source Procedure Growth Status 06/03/24 14:52 Foot Left Gram Stain - Final Resulted 06/03/24 14:52 Foot Left Anaerobic Culture - Preliminary Resulted 06/03/24 14:52 Aerobic Culture - Preliminary Klebsiella pneumoniae Streptococcus Group B Resulted Problem List/Assessment/Plan Problem List/Assessment/Plan Left foot osteomyelitis: 1st and 2nd metatarsal bone and 3rd metatarsal of left foot. Left foot abscess Left foot cellulitis Left ankle abscess Left foot diabetic ulcer Sepsis due to left foot abscess. -podiatry: I and D on 06/03/2024 -repeat I&D 06/06/24 -IV antibiotic: Ceftriaxone, discontinue cefepime and linezolid. -food culture positive for Klebsiella pneumoniae and strep B. Sensitive to ceftriaxone. -controlled hyperglycemia -wound care -PICC line -ruled out lower extremity DVT -reviewed tibial/fibula MRI and food MRI BERENICE on CKD stage 4 -continue to monitor -IV fluid 100 mL/hour -renal ultrasound: Moderate right and mild left hydronephrosis -nephrology on board -continue to monitor renal function -IV fluid given UTI -continue IV antibiotics ceftriaxone. -urine culture Diabetes mellitus type 2 on insulin &Diabetic neuropathy -Lantus 25 units b.i.d. -aggressive insulin sliding scale -continue gabapentin Peripheral artery disease -aspirin 80 mg p.o. daily, atorvastatin 40 mg p.o. daily. Anemia of chronic disease -high ferritin, continue to monitor. Target hemoglobin 10 to 11 g per day. Hypokalemia and hypomagnesemia -replenish potassium and magnesium. Asymptomatic hyponatremia -continue to monitor Moderate right and mild left hydronephrosis -continue to monitor -Flomax 0.5 mg p.o. daily -patient may need Albarran catheter insertion for possible urinary retention. Vitamin-D deficiency -vitamin-D 2 94166 IU every weekly History of methamphetamine abuse PUD prophylaxis with Protonix DVT prophylaxis with Lovenox Goals of care discussed greater than 22 minutes, full code status. Plan discussed with Dr. Khoury Plan discussed with: Patient, Other (RN) My Orders My Orders Orders - KACEY JOHN Procedure Category Date Status Time * Picc Line Consult CONS 06/05/24 Transmitted 12:15 Prothrombin Time W/ LAB 06/05/24 Logged INR 12:38 * Wound Consult CONS 06/05/24 Transmitted Dietary Evaluation Review Comments: 1) CCHO 75 + 2gm Na diet 2) Dangelo 1 pk daily (ordered per [facility] protocol) 3) Refer to Food Technician on DC 4) Continue current plan of care Expected Outcomes/Goals: Pt will meet 75% estimated needs Fu 3-5 days Date of Service: Jun 05, 2024 Billing Provider: HAILEY KHOURY MD Common Visit Codes: [id number] INP/OBS CARE(HIGH) KACEY JOHN Jun 05, 2024 13:09 HAILEY KHOURY MD Jun 05, 2024 13:49
[2024-06-05] MEDS: POTASSIUM CHL 20MEQ/50ML 50 ML IV SCH (13:19)
[2024-06-05 13:47] LABS: INR 1.19 (0.9-1.15); Prothrombin Time 12.4 sec (9.3-11.8)
--- NOTE | 2024-06-05 13:48 | DVHPN2 ---
Progress Note Date Seen: Jun 05, 2024 Medical Necessity Reason Pt with a Central, PICC or Fol: Yes The following are medically ne: Carey Catheter Reason for carey catheter: Bladder Retention/Obstruc Subjective Patient reports: Feels better Review of Systems: :Abnormal, MSK:Abnormal Objective vital signs Vital Sign Date Time Temp Pulse Resp B/P (MAP) Pulse Ox O2 Delivery O2 Flow Rate FiO2 06/05/24 12:47 98.1 65 16 123/69 (87) 93 98.1 06/05/24 11:59 Mask 7.0 06/05/24 11:59 100 Total Intake and Output 06/04/24 06/04/24 06/05/24 15:00 23:00 07:00 Intake Total 800 ml 1085 ml 2200 ml Output Total 700 ml 3000 ml Balance 800 ml 385 ml -800 ml medications Current Medications Medications Dose Ordered Sig/Florence Route Start Time Stop Time Status Last Admin Dose Admin Sodium Chloride 10 ml Q8HR IV 05/31/24 22:00 06/05/24 06:09 10 ML Al Hydrox/Mg Hydrox/Simethicone 30 ml Q6HP PRN PO 05/31/24 18:30 Docusate Sodium 100 mg BIDPRN PRN PO 05/31/24 18:30 Acetaminophen 650 mg Q6HP PRN PO 05/31/24 18:30 Acetaminophen/ Hydrocodone Bitart 1 tab Q4HP PRN PO 05/31/24 18:30 06/05/24 13:22 1 TAB Hydromorphone HCl 0.5 mg Q4HP PRN IV 05/31/24 18:30 06/05/24 06:36 0.5 MG Ondansetron HCl 4 mg Q4HP PRN IV 05/31/24 18:30 Enoxaparin Sodium 40 mg DAILY SC 06/01/24 10:00 06/05/24 09:11 40 MG Diagnostic Test (Pha) 1 strip IQ4HR 06/01/24 04:00 06/05/24 08:00 1 STRIP Insulin Human Regular IQ4HR SC 06/01/24 04:00 06/05/24 09:10 4 UNITS Dextrose 50 ml UD PRN IV 06/01/24 00:45 Atorvastatin Calcium 40 mg HS PO 06/01/24 22:00 06/04/24 21:23 40 MG Nicotine 1 patch DAILY TD 06/01/24 10:00 06/02/24 09:16 1 PATCH Ergocalciferol 50,000 unit Q7D PO 06/01/24 10:00 06/01/24 10:58 50,000 UNIT Magnesium Oxide 800 mg BID PO 06/01/24 22:00 06/04/24 21:24 800 MG Insulin Glargine 25 units QAM SC 06/02/24 07:00 06/04/24 06:24 25 UNITS Aspirin 81 mg DAILY PO 06/04/24 10:00 06/05/24 09:12 81 MG Pantoprazole Sodium 40 mg DAILY@0600 PO 06/04/24 06:00 06/04/24 05:28 40 MG Iron Sucrose 110 ml @ 110 mls/hr DAILY@1200 IV 06/04/24 12:00 06/08/24 12:59 06/05/24 13:20 110 MLS/HR Sodium Chloride 1,000 ml @ 100 mls/hr Q10H IV 06/04/24 08:15 06/04/24 18:32 100 MLS/HR Tamsulosin HCl 0.8 mg QPM PO 06/04/24 18:00 06/04/24 18:32 0.8 MG Potassium Chloride 50 ml @ 25 mls/hr Q2H IV 06/05/24 11:15 06/05/24 17:14 06/05/24 13:19 25 MLS/HR Ondansetron HCl 4 mg ONCE PRN IV 06/05/24 12:15 06/05/24 12:16 UNV Naloxone HCl 0.4 mg Q10M PRN IV 06/05/24 12:15 06/05/24 12:36 UNV Flumazenil 0.2 mg ONCE PRN IV 06/05/24 12:15 06/05/24 12:16 UNV Hydralazine HCl 5 mg Q10M PRN IV 06/05/24 12:15 06/05/24 13:06 UNV Ephedrine Sulfate 10 mg Q10M PRN IV 06/05/24 12:15 06/05/24 12:56 UNV Fentanyl Citrate 25 mcg Q1HP PRN IV 06/05/24 12:15 06/05/24 12:16 UNV Hydromorphone HCl 0.5 mg Q10M PRN IV 06/05/24 12:15 06/05/24 12:56 UNV Ceftriaxone Sodium/Dextrose 50 ml @ 50 mls/hr DAILY IV 06/06/24 10:00 UNV Examination: GENERAL:Normal, SKIN:Abnormal, NEURO:Abnormal laboratory and microbiology Laboratory Tests 06/05/24 04:50 Test 06/05/24 04:50 Range/Units Serum Glucose 145 H 74-106 mg/dL Microbiology Date/Time Source Procedure Growth Status 06/03/24 14:52 Foot Left Gram Stain - Final Resulted 06/03/24 14:52 Foot Left Anaerobic Culture - Preliminary Resulted 06/03/24 14:52 Aerobic Culture - Preliminary Klebsiella pneumoniae Streptococcus Group B Resulted Problem List/Assessment/Plan Problem List/Assessment/Plan Admitted for sepsis due to OM s/p debridement Acute kidney injury due to hypotension ckd II GFR 67% in 01/2024 B/L hydronephrosis, urinary retention poor controlled Dm2, hyperglycemia anemia hypokalemia s/p IVF Carey catheter placement, rec carey leg bag and outpatient urology flomax IV iron pending PICC line for 6 weeks ABX no emergent indication for HD, has outpatient f/u with Dr. Deal Plan discussed with: Patient My Orders My Orders Orders - TOAN HEARD MD Procedure Category Date Status Time Tamsulosin PHA 06/04/24 In Process Hydrochloride (Flomax) 18:00 Communication Order ORDERS 06/04/24 Transmitted 16:03 Insert/Manage Urinary MALLIKA 06/04/24 In Process Catheter 16:03 Potassium Chl PHA 06/05/24 In Process 20meq/50ml (Potassium 11:15 Dietary Evaluation Review Comments: 1) CCHO 75 + 2gm Na diet 2) Dangelo 1 pk daily (ordered per [facility] protocol) 3) Refer to Fly Worker on DC 4) Continue current plan of care Expected Outcomes/Goals: Pt will meet 75% estimated needs Fu 3-5 days TOAN HEARD MD Jun 05, 2024 13:48
[2024-06-05] MEDS: cefTRIAXone 2GM/50ML D5W 50 ML IV ONE (15:21)
[2024-06-05] MEDS: POTASSIUM CHL 20 Meq TABLET PO ONE (15:22)
[2024-06-06 05:00] VITALS: BP 111/50; PULSE 66; RESP 18; TEMP 97.9; O2SAT 99
[2024-06-06] MEDS: INSULIN LANTUS (GLARGINE) 1 /0.01ml (100units/ml) SC SCH ×2 (05:13→23:17)
[2024-06-06 06:14] LABS: Anion Gap 9 (5-15); Chloride 99 mmol/L (98-107); Potassium 4.6 mmol/L (3.5-5.1)
[2024-06-06 06:18] LABS: Carbon Dioxide 20 mmol/L (20-31); Sodium 128 mmol/L (136-145)
[2024-06-06 06:20] LABS: BUN/Creatinine Ratio 15.1 (10.0-20.0)
[2024-06-06 06:27] LABS: Blood Urea Nitrogen 47 mg/dL (9-23)
[2024-06-06 06:28] LABS: Glucose 457 mg/dL (74-106)
[2024-06-06 08:50] VITALS: BP 110/72; PULSE 71; RESP 17; TEMP 98.1; O2SAT 98
[2024-06-06] MEDS: FUROSEMIDE 100 MG/10ML VIAL IV ONE (10:00)
[2024-06-06] MEDS: cefTRIAXone 2GM/50ML D5W 50 ML IV SCH (10:35)
[2024-06-06 12:30] VITALS: BP 107/64; PULSE 65; RESP 19; TEMP 98.8; O2SAT 98
--- NOTE | 2024-06-06 13:21 | DVHPN2 ---
Progress Note Date Seen: Jun 06, 2024 Medical Necessity Reason Pt with a Central, PICC or Fol: Yes The following are medically ne: Carey Catheter Reason for carey catheter: Bladder Retention/Obstruc Objective vital signs Vital Sign Date Time Temp Pulse Resp B/P (MAP) Pulse Ox O2 Delivery O2 Flow Rate FiO2 06/06/24 12:30 98.8 65 19 107/64 (78) 98 98.8 06/06/24 08:00 Room Air* 0 21 Total Intake and Output 06/05/24 06/05/24 06/06/24 15:00 23:00 07:00 Intake Total 100 ml 3125 ml 3900 ml Output Total 2200 ml 1000 ml 2000 ml Balance -2100 ml 2125 ml 1900 ml medications Current Medications Medications Dose Ordered Sig/Florence Route Start Time Stop Time Status Last Admin Dose Admin Sodium Chloride 10 ml Q8HR IV 05/31/24 22:00 06/06/24 05:28 10 ML Al Hydrox/Mg Hydrox/Simethicone 30 ml Q6HP PRN PO 05/31/24 18:30 Docusate Sodium 100 mg BIDPRN PRN PO 05/31/24 18:30 Acetaminophen 650 mg Q6HP PRN PO 05/31/24 18:30 Acetaminophen/ Hydrocodone Bitart 1 tab Q4HP PRN PO 05/31/24 18:30 06/05/24 21:46 1 TAB Hydromorphone HCl 0.5 mg Q4HP PRN IV 05/31/24 18:30 06/06/24 10:32 0.5 MG Ondansetron HCl 4 mg Q4HP PRN IV 05/31/24 18:30 Enoxaparin Sodium 40 mg DAILY SC 06/01/24 10:00 06/06/24 10:33 40 MG Diagnostic Test (Pha) 1 strip IQ4HR 06/01/24 04:00 06/06/24 08:00 1 STRIP Insulin Human Regular IQ4HR SC 06/01/24 04:00 06/06/24 10:06 12 UNITS Dextrose 50 ml UD PRN IV 06/01/24 00:45 Atorvastatin Calcium 40 mg HS PO 06/01/24 22:00 06/05/24 21:46 40 MG Nicotine 1 patch DAILY TD 06/01/24 10:00 06/06/24 10:35 1 PATCH Ergocalciferol 50,000 unit Q7D PO 06/01/24 10:00 06/01/24 10:58 50,000 UNIT Magnesium Oxide 800 mg BID PO 06/01/24 22:00 06/05/24 21:45 800 MG Aspirin 81 mg DAILY PO 06/04/24 10:00 06/06/24 10:34 81 MG Pantoprazole Sodium 40 mg DAILY@0600 PO 06/04/24 06:00 06/06/24 05:13 40 MG Iron Sucrose 110 ml @ 110 mls/hr DAILY@1200 IV 06/04/24 12:00 06/08/24 12:59 06/05/24 13:20 110 MLS/HR Sodium Chloride 1,000 ml @ 100 mls/hr Q10H IV 06/04/24 08:15 06/06/24 10:35 100 MLS/HR Tamsulosin HCl 0.8 mg QPM PO 06/04/24 18:00 06/05/24 18:53 0.8 MG Ceftriaxone Sodium/Dextrose 50 ml @ 50 mls/hr DAILY IV 06/06/24 10:00 06/06/24 10:35 50 MLS/HR Insulin Glargine 30 units QAM SC 06/07/24 05:00 Examination: GENERAL:Normal laboratory and microbiology Laboratory Tests 06/06/24 05:03 06/05/24 04:50 Test 06/06/24 05:03 Range/Units Serum Glucose 457 #*H 74-106 mg/dL Microbiology Date/Time Source Procedure Growth Status 06/05/24 12:37 Blood Blood Culture - Preliminary NO GROWTH AFTER 24 HOURS OF INCUBATION. Resulted 06/03/24 14:52 Foot Left Gram Stain - Final Resulted 06/03/24 14:52 Foot Left Anaerobic Culture - Preliminary Resulted 06/03/24 14:52 Aerobic Culture - Preliminary Klebsiella pneumoniae Morganella morganii Streptococcus Group B Resulted Problem List/Assessment/Plan Problem List/Assessment/Plan Admitted for sepsis due to OM s/p debridement Acute kidney injury due to hypotension ckd II GFR 67% in 01/2024 B/L hydronephrosis, urinary retention poor controlled Dm2, hyperglycemia anemia hypokalemia s/p IVF Carey catheter placement, rec carey leg bag and outpatient urology Patient has excessive free water intake which is likely the cause of the lowering sodium today. Recommend fluid restriction flomax IV iron PICC line for 6 weeks ABX no emergent indication for HD, has outpatient f/u with Dr. Deal Plan discussed with: Patient My Orders My Orders Orders - TOAN HEARD MD Procedure Category Date Status Time Communication Order ORDERS 06/05/24 Transmitted 18:38 Basic Metabolic Panel LAB 06/07/24 Verified 04:00 Maintain Fluid MALLIKA 06/06/24 In Process Restrictions 07:27 Dietary Evaluation Review Comments: 1) CCHO 75 + 2gm Na diet 2) Dangelo 1 pk daily (ordered per [facility] protocol) 3) Refer to Dish Maker on DC 4) Continue current plan of care Expected Outcomes/Goals: Pt will meet 75% estimated needs Fu 3-5 days TOAN HEARD MD Jun 06, 2024 13:21
[2024-06-06] MEDS: LIDOCAINE 1% (LOCAL ANESTH.) PF 5ml SDV ID ONE (15:45)
[2024-06-06] MEDS: INSULIN LISPRO (HUMAN) 100 UNITS/ML ML SC ONE (16:17)
[2024-06-06 17:18] VITALS: BP 108/63; PULSE 70; RESP 20; TEMP 99; O2SAT 98
--- NOTE | 2024-06-06 19:04 | DVHDSRES ---
Discharge Summary Date of Admission Resident Creating Document: KACEY JOHN RESIDENT May 31, 2024 at 15:24 Date of Discharge: Jun 11, 2024 Admitting Diagnosis Left foot osteomyelitis Labs/Diagnostic Data: Laboratory Results Test 06/06/24 15:56 06/06/24 05:03 06/05/24 13:16 06/05/24 04:50 POC Glucose 275 mg/dl (70-106) Sodium Level 129 mmol/L (136-145) Potassium Level 4.6 mmol/L (3.5-5.1) Chloride Level 99 mmol/L (98-107) Carbon Dioxide Level 20 mmol/L (20-31) Anion Gap 9 (5-15) Blood Urea Nitrogen 47 mg/dL (9-23) Creatinine 3.12 mg/dL (0.700-1.30) Glomerular Filtration Rate Calc 23 mL/min (>90) BUN/Creatinine Ratio 15.1 (10.0-20.0) Serum Glucose 457 mg/dL (74-106) Calcium Level 8.0 mg/dL (8.7-10.4) Prothrombin Time 12.4 sec (9.3-11.8) Prothrombin Time INR 1.19 (0.9-1.15) White Blood Count 15.5 10^3/uL (4.4-10.8) Red Blood Count 3.47 10^6/uL (4.5-5.90) Hemoglobin 9.6 g/dL (13.5-17.5) Hematocrit 29.1 % (41.0-53.0) Mean Corpuscular Volume 83.8 fL (80.0-100.0) Mean Corpuscular Hemoglobin 27.7 pg (28.0-32.0) Mean Corpuscular Hemoglobin Concent 33.1 g/dL (32.0-36.0) Red Cell Distribution Width 15.6 % (11.8-14.3) Platelet Count 392 10^3/uL (140-450) Mean Platelet Volume 8.3 fL (6.9-10.8) Neutrophils (%) (Auto) 87.7 % (37.0-80.0) Lymphocytes (%) (Auto) 3.9 % (10.0-50.0) Monocytes (%) (Auto) 7.6 % (0.0-12.0) Eosinophils (%) (Auto) 0.7 % (0.0-7.0) Basophils (%) (Auto) 0.1 % (0.0-2.0) Neutrophils # (Auto) 13.6 10 ^3/uL (1.6-8.6) Lymphocytes # (Auto) 0.6 10 ^3/uL (0.4-5.4) Monocytes # (Auto) 1.2 10 ^3/uL (0-1.3) Eosinophils # (Auto) 0.1 10 ^3/uL (0-0.8) Basophils # (Auto) 0 10 ^3/uL (0-0.2) Nucleated Red Blood Cells 0.0 % Test 06/03/24 06:21 06/02/24 14:37 06/02/24 11:16 06/02/24 06:00 Iron Level 16 ug/dL (65-175) Total Iron Binding Capacity 140 ug/dL (250-425) Percent Iron Saturation 11.4 % (20-55) Ferritin 607.3 ng/mL (22-322) Urine Osmolality 202 mOsm/kg Urine Creatinine 27.59 mg/dL (30.0-125.0) Urine Protein/Creatinine Ratio 1.67 Urine Sodium 22 mmol/L (40-220) Urine Total Protein 46.2 mg/dL (1-14) Urine Opiates Screen Neg (NEGATIVE) Urine Fentanyl Screen Neg (NEGATIVE) Urine Barbiturates Screen Neg (NEGATIVE) Urine Phencyclidine Screen Neg (NEGATIVE) Urine Amphetamines Screen Neg (NEGATIVE) Urine Benzodiazepines Screen Neg (NEGATIVE) Urine Cocaine Screen Neg (NEGATIVE) Urine Cannabinoids Screen Neg (NEGATIVE) Plasma/Serum Blood Alcohol < 3.0 mg/dL (<10) Phosphorus Level 2.8 mg/dL (2.4-5.1) Magnesium Level 1.9 mg/dL (1.6-2.6) B-Type Natriuretic Peptide 88.12 pg/mL (0-100) Triglycerides Level 136 mg/dL (< 150) Cholesterol Level 60 mg/dL (< 200) LDL Cholesterol 18 mg/dL (< 100) HDL Cholesterol < 5 mg/dL (40-59) Parathyroid Hormone (Intact) 36.8 pg/mL (18.4-80.1) Random Vancomycin Level 14.8 ug/mL (5-10) Test 06/01/24 11:43 06/01/24 10:05 06/01/24 05:17 06/01/24 04:45 Serum Osmolality 291 mOsm/kg (278-298) Urine Color Light-brown (Yellow) Urine Clarity Ex.turbid (Clear) Urine pH 6.0 (5.0-9.0) Urine Specific [place] 1.010 (1.001-1.035) Urine Protein 1+ (Negative) Urine Ketones Negative (Negative) Urine Blood 3+ /uL (Negative) Urine Nitrite 1+ (Negative) Urine Bilirubin Negative (Negative) Urine Urobilinogen Normal mg/dL (Negative) Urine Leukocyte Esterase 3+ /uL (Negative) Urine RBC 31 /hpf (0 - 3) Urine WBC Clumps Present /hpf (None Seen) Urine Microscopic WBC 1078 /HPF (0-3) Urine Squamous Epithelial Cells None seen /hpf (<5) Urine Bacteria Mod /hpf (None Seen) Urine Mucus Few (None Seen) Urine Glucose 2+ mg/dL (Normal) Lactic Acid Level 1.8 mmol/L (0.4-2.0) Hemoglobin A1c 12.7 % A1C (<5.7) Test 05/31/24 19:14 Differential Total Cells Counted 100.0 (100) Neutrophils % (Manual) 80 (37.0-80.0) Band Neutrophils % (Manual) 8 Lymphocytes % (Manual) 12 (10.0-50.0) Monocytes % (Manual) 0 (0-12) Eosinophils % (Manual) 0 (0-7) Basophils % (Manual) 0 (0.0-2.0) Metamyelocytes % (manual) 0 Myelocytes % (Manual) 0 Promyelocytes % (Manual) 0 Blast Cells % (Manual) 0 Reactive Lymphocytes 0 Platelet Estimate Adequate Activated Partial Thromboplast Time 33.6 SEC (24.5-34.5) Total Bilirubin 0.5 mg/dL (0.2-1.0) Aspartate Amino Transferase (AST) 19 U/L (13-40) Alanine Aminotransferase (ALT) 16 U/L (7-40) Alkaline Phosphatase 258 U/L (46-116) Total Protein 7.3 g/dL (5.7-8.2) Albumin 3.7 g/dL (3.2-4.8) Vitamin D 25-Hydroxy 18.9 ng/mL (30.0-100) Other Laboratory Tests 06/06/24 05:03 06/05/24 04:50 Brief Hx & Hospital Course: Patient is 55-year-old male with past medical history of diabetes mellitus type 2 on insulin, PUD, anemia of chronic disease, CKD stage 4 who presented to hospital with a chief complaint of left foot diabetic ulcer. Patient was diagnosed to left foot osteomyelitis underwent I and D twice, continuing on IV antibiotic initial weight Cipro 5 on linezolid, culture came back positive for Klebsiella pneumoniae strep B, based on sensitivity IV antibiotic changed to ceftriaxone. Patient also found grew uncontrolled diabetes mellitus, initiated with Lantus and aggressive insulin sliding scale. Given patient hemodynamically stable, underwent I and D, patient will need IV antibiotic for 6 week, we will be discharged home with IV antibiotic ceftriaxone 2 g once daily, we will need to CBC CMP follow up with Nephrology for CKD years old, patient can be discharged given condition of arrangement of IV antibiotic home, wound care management as well. Discharge plan and will be discharged home with home health. Condition at Discharge: Good Final Diagnosis/Problems List Left foot osteomyelitis: 1st and 2nd metatarsal bone and 3rd metatarsal of left foot. Left foot abscess Left foot cellulitis Left ankle abscess Left foot diabetic ulcer Sepsis due to left foot abscess. BERENICE on CKD stage 4 UTI Diabetes mellitus type 2 on insulin &Diabetic neuropathy Peripheral artery disease Anemia of chronic disease Hypokalemia and hypomagnesemia Asymptomatic hyponatremia Moderate right and mild left hydronephrosis Vitamin-D deficiency History of methamphetamine abuse Discharge Disposition: Home with Health Services Discharge Instruct/Medications Diet: Consistent carbohydrate Activity: No Restrictions, As Tolerated Follow Up/Referral: -follow up with pcp in 3 weeks Medications: Home health with IV antibiotics ceftriaxone for 6 weeks, continue home medication. Discharge Statement: "Patient was advised to return to the ER or call 911 if any headaches, dizziness, shortness of breath, chest pain, abdominal pain, bleeding, fevers, or worsening of medical condition. Patient was counseled about treatment plan, medications, possible side effects, patientverbalized understanding. All questions were answered to the best of my ability. This discharge took greater then 30 minutes in planning, reviewing documentation, counseling the patient, and discussing with other team members." ASSESSMENT ASSESSMENT Assessment Left foot osteomyelitis: 1st and 2nd metatarsal bone and 3rd metatarsal of left foot. Left foot abscess Left foot cellulitis Left ankle abscess Left foot diabetic ulcer Sepsis due to left foot abscess. Date of Service: Jun 06, 2024 Billing Provider: HAILEY MOTT MD Common Visit Codes: 37132-VZX/OBS DISCH DAY >30min KACEY JOHN RESIDENT Jun 06, 2024 19:04 HAILEY MOTT MD Jun 11, 2024 20:45
[2024-06-06] MEDS ORDERED: ERGO1CAP23 PO (19:06)
[2024-06-06 20:00] VITALS: RESP 18; O2SAT 98
[2024-06-06] MEDS: SODIUM CHLOR 0.9% PF (SALINE LOCK) 10ML VIAL/SYR IV SCH (20:27)
[2024-06-06 20:31] VITALS: BP 116/68; PULSE 68; RESP 19; TEMP 98.4; O2SAT 97
[2024-06-06] MEDS: D5W/SOD CHL 0.45% 1,000 ML IV SCH (20:31)
[2024-06-07] VITALS (7 sets, daily range): BP systolic 115–157; BP diastolic 70–85; PULSE 74–91; RESP 16–20; TEMP 98–98.9; O2SAT 96–98
[2024-06-07] MEDS ORDERED: INSULIN LANTUS (GLARGINE) 1 /0.01ml (100units/ml) SC SCH (05:00)
[2024-06-07 06:43] LABS: Basophils # (auto) 0.1 10 ^3/uL (0-0.2); Basophils % (auto) 0.4 % (0.0-2.0); Eosinophils # (auto) 0.2 10 ^3/uL (0-0.8); Eosinophils % (auto) 1.1 % (0.0-7.0); Hematocrit 26.5 % (41.0-53.0); Hemoglobin 8.8 g/dL (13.5-17.5); Lymphocytes % (auto) 6.5 % (10.0-50.0); Mean Corpuscular Hemoglobin 27.8 pg (28.0-32.0); Mean Corpuscular Hgb Conc. 33.3 g/dL (32.0-36.0); Mean Corpuscular Volume 83.7 fL (80.0-100.0); Monocytes # (auto) 0.6 10 ^3/uL (0-1.3); Monocytes % (auto) 4.1 % (0.0-12.0); Neutrophils % (auto) 87.9 % (37.0-80.0); Platelet Count (auto) 469 10^3/uL (140-450); Red Blood Cells 3.17 10^6/uL (4.5-5.90); Red Cell Distribution Width 15.8 % (11.8-14.3); White Blood Cell 14.8 10^3/uL (4.4-10.8)
[2024-06-07 06:55] LABS: Chloride 102 mmol/L (98-107)
[2024-06-07 06:56] LABS: Anion Gap 9 (5-15); Carbon Dioxide 21 mmol/L (20-31)
[2024-06-07 07:01] LABS: Potassium 3.1 mmol/L (3.5-5.1); Sodium 132 mmol/L (136-145)
[2024-06-07 07:02] LABS: Calcium 8.3 mg/dL (8.7-10.4); Glucose 299 mg/dL (74-106)
[2024-06-07 07:04] LABS: BUN/Creatinine Ratio 14.9 (10.0-20.0); Blood Urea Nitrogen 45 mg/dL (9-23)
[2024-06-07] MEDS: POTASSIUM CHL 20 Meq TABLET PO ONE ×2 (09:19→12:30)
--- NOTE | 2024-06-07 13:22 | DVHPN2 ---
Progress Note Date Seen: Jun 07, 2024 Medical Necessity Reason Pt with a Central, PICC or Fol: Yes The following are medically ne: Carey Catheter Reason for carey catheter: Bladder Retention/Obstruc Subjective Review of Systems Pt awaiting D/C. Patient reports: No new complaints Objective vital signs Vital Sign Date Time Temp Pulse Resp B/P (MAP) Pulse Ox O2 Delivery O2 Flow Rate FiO2 06/07/24 09:00 98.1 84 18 130/74 (92) 97 98.1 06/07/24 07:30 Room Air* 0 21 Total Intake and Output 06/06/24 06/06/24 06/07/24 15:00 23:00 07:00 Intake Total 1350 ml 900 ml Output Total 4000 ml 3460 ml Balance -2650 ml -2560 ml medications Current Medications Medications Dose Ordered Sig/[place] Route Start Time Stop Time Status Last Admin Dose Admin Sodium Chloride 10 ml Q8HR IV 05/31/24 22:00 06/07/24 13:08 10 ML Al Hydrox/Mg Hydrox/Simethicone 30 ml Q6HP PRN PO 05/31/24 18:30 Docusate Sodium 100 mg BIDPRN PRN PO 05/31/24 18:30 Acetaminophen 650 mg Q6HP PRN PO 05/31/24 18:30 Acetaminophen/ Hydrocodone Bitart 1 tab Q4HP PRN PO 05/31/24 18:30 06/07/24 03:00 1 TAB Hydromorphone HCl 0.5 mg Q4HP PRN IV 05/31/24 18:30 06/07/24 05:54 0.5 MG Ondansetron HCl 4 mg Q4HP PRN IV 05/31/24 18:30 Enoxaparin Sodium 40 mg DAILY SC 06/01/24 10:00 06/07/24 12:30 40 MG Diagnostic Test (Pha) 1 strip IQ4HR 06/01/24 04:00 06/07/24 13:07 1 STRIP Insulin Human Regular IQ4HR SC 06/01/24 04:00 06/07/24 09:50 8 UNITS Dextrose 50 ml UD PRN IV 06/01/24 00:45 Atorvastatin Calcium 40 mg HS PO 06/01/24 22:00 06/06/24 23:14 40 MG Nicotine 1 patch DAILY TD 06/01/24 10:00 06/06/24 20:32 1 PATCH Ergocalciferol 50,000 unit Q7D PO 06/01/24 10:00 06/01/24 10:58 50,000 UNIT Magnesium Oxide 800 mg BID PO 06/01/24 22:00 06/07/24 09:20 800 MG Aspirin 81 mg DAILY PO 06/04/24 10:00 06/07/24 09:20 81 MG Pantoprazole Sodium 40 mg DAILY@0600 PO 06/04/24 06:00 06/07/24 05:45 40 MG Iron Sucrose 110 ml @ 110 mls/hr DAILY@1200 IV 06/04/24 12:00 06/08/24 12:59 06/07/24 13:08 110 MLS/HR Tamsulosin HCl 0.8 mg QPM PO 06/04/24 18:00 06/06/24 18:12 0.8 MG Ceftriaxone Sodium/Dextrose 50 ml @ 50 mls/hr DAILY IV 06/06/24 10:00 06/07/24 09:20 50 MLS/HR Sodium Chloride 10 ml QSHIFT@10,22 IV 06/06/24 22:00 06/07/24 09:20 10 ML Dextrose/Sodium Chloride 1,000 ml @ 125 mls/hr Q8H IV 06/06/24 19:00 06/07/24 05:45 125 MLS/HR Insulin Glargine 30 units BID SC 06/06/24 22:00 06/07/24 09:49 30 UNITS Examination Gen: Patient appears stated age in no acute distress Pulm: Bilateral air entry. No rales Cardio:RRR, normal S1 and S2 Ext: No edema Neuro: A&Ox4 laboratory and microbiology Laboratory Tests 06/07/24 05:02 Test 06/07/24 05:02 Range/Units Serum Glucose 299 #H 74-106 mg/dL Microbiology Date/Time Source Procedure Growth Status 06/05/24 12:37 Blood Blood Culture - Preliminary NO GROWTH AFTER 48 HOURS OF INCUBATION. Resulted 06/03/24 14:52 Foot Left Gram Stain - Final Resulted 06/03/24 14:52 Foot Left Anaerobic Culture - Preliminary Resulted 06/03/24 14:52 Aerobic Culture - Preliminary Klebsiella pneumoniae Morganella morganii Enterococcus faecalis - VRE Presumptive Anabell albicans Streptococcus Group B Resulted Labs and/or images reviewed: Labs reviewed by me Problem List/Assessment/Plan Problem List/Assessment/Plan IMP Admitted for sepsis due to OM s/p debridement- IV abx Acute kidney injury due to hypotension- ongoing downtrending creat 3.02 ckd II GFR 67% in 01/2024 B/L hydronephrosis, urinary retention poor controlled Dm2, hyperglycemia anemia hypokalemia-ongoing REC Serial chemistry panels Potassium supplementation prn s/p IVF Urology follow up Continue fluid restriction Strict I&O Outpatient f/u with Dr. Deal Plan discussed with: Patient Dietary Evaluation Review Comments: 1) CCHO 75 + 2gm Na diet 2) Dangelo 1 pk daily (ordered per [facility] protocol) 3) Refer to Ed Tech on DC 4) Continue current plan of care Expected Outcomes/Goals: Pt will meet 75% estimated needs Fu 3-5 days CODI COHN Jun 07, 2024 13:22
--- NOTE | 2024-06-07 13:31 | DVHPNRES ---
Progress Note Date Seen: Jun 07, 2024 Resident Creating Document: KACEY JOHN RESIDENT Medical Necessity Reason Pt with a Central, PICC or Fol: Yes The following are medically ne: Carey Catheter Reason for carey catheter: Bladder Retention/Obstruc Subjective Review of Systems Brief Hx & Hospital Course: Patient is 55-year-old male with past medical history of diabetes mellitus type 2 on insulin, PUD, anemia of chronic disease, CKD stage 4 who presented to hospital with a chief complaint of left foot diabetic ulcer. Patient was diagnosed to left foot osteomyelitis underwent I and D twice, continuing on IV antibiotic initial weight Cipro 5 on linezolid, culture came back positive for Klebsiella pneumoniae strep B, based on sensitivity IV antibiotic changed to ceftriaxone. Patient also found grew uncontrolled diabetes mellitus, initiated with Lantus and aggressive insulin sliding scale. Given patient hemodynamically stable, underwent I and D, patient will need IV antibiotic for 6 week, we will be discharged home with IV antibiotic ceftriaxone 2 g once daily, we will need to CBC CMP follow up with Nephrology for CKD years old, patient can be discharged given condition of arrangement of IV antibiotic home, wound care management as well. Discharge plan and will be discharged home with home health. Patient seen and examined at bedside. No new complaints. Waiting for IV antibiotic arrangement with the home health. Eyes: No Pain, No Vision change, No Conjunctivae inflammation, No Eyelid inflammation, No Other, No Redness ENT: No Ear pain, No Ear discharge, No Nose pain, No Nose discharge, No Nose congestion, No Mouth pain, No Mouth swelling, No Throat pain, No Throat swelling, No Other Cardiovascular: No Chest Pain, No Palpitations, No Orthopnea, No Paroxysmal Noc. Dyspnea, No Edema, No Lt Headedness, No Other Respiratory: No Cough, No Dry, No Shortness of breath, No SOB with excertion, No Wheezing, No Hemoptysis, No Pleuritic Pain, No Sputum, No Other Gastrointestinal: No Nausea, No Vomiting, No Abdominal Pain, No Diarrhea, No Constipation, No Melena, No Hematochezia, No Other Genitourinary: No Dysuria, No Frequency, No Incontinence, No Hematuria, No Retention, No Other Musculoskeletal: No other, No neck pain, No shoulder pain, No arm pain, No back pain, No hand pain, No leg pain, foot pain Skin: No Rash, No Lesions, No Jaundice, No Bruising, No Other Objective vital signs Vital Sign Date Time Temp Pulse Resp B/P (MAP) Pulse Ox O2 Delivery O2 Flow Rate FiO2 06/07/24 09:00 98.1 84 18 130/74 (92) 97 98.1 06/07/24 07:30 Room Air* 0 21 Total Intake and Output 06/06/24 06/06/24 06/07/24 15:00 23:00 07:00 Intake Total 1350 ml 900 ml Output Total 4000 ml 3460 ml Balance -2650 ml -2560 ml medications Current Medications Medications Dose Ordered Sig/[place] Route Start Time Stop Time Status Last Admin Dose Admin Sodium Chloride 10 ml Q8HR IV 05/31/24 22:00 06/07/24 13:08 10 ML Al Hydrox/Mg Hydrox/Simethicone 30 ml Q6HP PRN PO 05/31/24 18:30 Docusate Sodium 100 mg BIDPRN PRN PO 05/31/24 18:30 Acetaminophen 650 mg Q6HP PRN PO 05/31/24 18:30 Acetaminophen/ Hydrocodone Bitart 1 tab Q4HP PRN PO 05/31/24 18:30 06/07/24 03:00 1 TAB Hydromorphone HCl 0.5 mg Q4HP PRN IV 05/31/24 18:30 06/07/24 05:54 0.5 MG Ondansetron HCl 4 mg Q4HP PRN IV 05/31/24 18:30 Enoxaparin Sodium 40 mg DAILY SC 06/01/24 10:00 06/07/24 12:30 40 MG Diagnostic Test (Pha) 1 strip IQ4HR 06/01/24 04:00 06/07/24 13:07 1 STRIP Insulin Human Regular IQ4HR SC 06/01/24 04:00 06/07/24 09:50 8 UNITS Dextrose 50 ml UD PRN IV 06/01/24 00:45 Atorvastatin Calcium 40 mg HS PO 06/01/24 22:00 06/06/24 23:14 40 MG Nicotine 1 patch DAILY TD 06/01/24 10:00 06/06/24 20:32 1 PATCH Ergocalciferol 50,000 unit Q7D PO 06/01/24 10:00 06/01/24 10:58 50,000 UNIT Magnesium Oxide 800 mg BID PO 06/01/24 22:00 06/07/24 09:20 800 MG Aspirin 81 mg DAILY PO 06/04/24 10:00 06/07/24 09:20 81 MG Pantoprazole Sodium 40 mg DAILY@0600 PO 06/04/24 06:00 06/07/24 05:45 40 MG Iron Sucrose 110 ml @ 110 mls/hr DAILY@1200 IV 06/04/24 12:00 06/08/24 12:59 06/05/24 13:20 110 MLS/HR Tamsulosin HCl 0.8 mg QPM PO 06/04/24 18:00 06/06/24 18:12 0.8 MG Ceftriaxone Sodium/Dextrose 50 ml @ 50 mls/hr DAILY IV 06/06/24 10:00 06/07/24 09:20 50 MLS/HR Sodium Chloride 10 ml QSHIFT@10,22 IV 06/06/24 22:00 06/07/24 09:20 10 ML Dextrose/Sodium Chloride 1,000 ml @ 125 mls/hr Q8H IV 06/06/24 19:00 06/07/24 05:45 125 MLS/HR Insulin Glargine 30 units BID SC 06/06/24 22:00 06/07/24 09:49 30 UNITS Examination General Appearance: Cooperative. Well developed. Well nourished. NAD Head Exam: Normal inspection Neck Exam: Normal inspection. Non-tender. Normal alignment Pulmonary/Respiratory: Chest non-tender. Clear bilateral breath sounds Cardiovascular/Chest: Regular rate and rhythm. No murmurs. No JVD. Peripheral Pulses: 2+ Radial (R). 2+ Radial (L). 2+ Pedal (R). 2+ Pedal (L) Abdominal Exam: Normal bowel sounds. Soft. Nontender. No hepatospenomegaly. No masses Ankle Exam: Negative ankle edema Lower extremities: Negative lower extremity edema, left foot 1st and 2nd toe amputation, presence of bilateral pedal pulse, capillary refill under 2 seconds, both lower extremity warm. Intake sensory sensation or plantar forefoot bilaterally. Wound over left foot medial. Neuro/Mental Status: A&O x4. Coherent Thoughts/Psych: Normal thought pattern. Appropriate mood and affect. Good judgement and insight Appearance: In no acute distress Skin Exam: Normal inspection. Normal color. Warm. Dry laboratory and microbiology Laboratory Tests 06/07/24 05:02 Test 06/07/24 05:02 Range/Units Serum Glucose 299 #H 74-106 mg/dL Microbiology Date/Time Source Procedure Growth Status 06/05/24 12:37 Blood Blood Culture - Preliminary NO GROWTH AFTER 48 HOURS OF INCUBATION. Resulted 06/03/24 14:52 Foot Left Gram Stain - Final Resulted 06/03/24 14:52 Foot Left Anaerobic Culture - Preliminary Resulted 06/03/24 14:52 Aerobic Culture - Preliminary Klebsiella pneumoniae Morganella morganii Enterococcus faecalis - VRE Presumptive Anabell albicans Streptococcus Group B Resulted Problem List/Assessment/Plan Problem List/Assessment/Plan Left foot osteomyelitis: 1st and 2nd metatarsal bone and 3rd metatarsal of left foot. Left foot abscess Left foot cellulitis Left ankle abscess Left foot diabetic ulcer Sepsis due to left foot abscess. -podiatry: I and D on 06/03/2024 -repeat I&D 06/06/24 -IV antibiotic: Ceftriaxone, discontinue cefepime and linezolid. -food culture positive for Klebsiella pneumoniae and strep B. Sensitive to ceftriaxone. -controlled hyperglycemia -wound care -PICC line -ruled out lower extremity DVT -reviewed tibial/fibula MRI and food MRI BERENICE on CKD stage 4 -continue to monitor -IV fluid 100 mL/hour -renal ultrasound: Moderate right and mild left hydronephrosis -nephrology on board -continue to monitor renal function -IV fluid given UTI -continue IV antibiotics ceftriaxone. -urine culture Diabetes mellitus type 2 on insulin &Diabetic neuropathy -Lantus 25 units b.i.d. -aggressive insulin sliding scale -continue gabapentin Peripheral artery disease -aspirin 80 mg p.o. daily, atorvastatin 40 mg p.o. daily. Anemia of chronic disease -high ferritin, continue to monitor. Target hemoglobin 10 to 11 g per day. Hypokalemia and hypomagnesemia -replenish potassium and magnesium. Asymptomatic hyponatremia -continue to monitor Moderate right and mild left hydronephrosis -continue to monitor -Flomax 0.5 mg p.o. daily -patient may need Carey catheter insertion for possible urinary retention. Vitamin-D deficiency -vitamin-D 2 32267 IU every weekly History of methamphetamine abuse PUD prophylaxis with Protonix DVT prophylaxis with Lovenox Goals of care discussed greater than 22 minutes, full code status. Patient has been discharged. Waiting for home health IV antibiotic arrangement, and follow up visit with bench assembly inspector. Once everything arrangement has been done, patient will be discharged. Plan discussed with Dr. Khoury Plan discussed with: Patient, Other (RN) My Orders My Orders Orders - KACEY JOHN Procedure Category Date Status Time Pt Request For Service PT 06/06/24 Logged 14:07 Nursing Protocol Picc MALLIKA 06/06/24 In Process 15:39 Change Dressing Prn MALLIKA 06/06/24 In Process 15:39 Sodium Chloride Lock PHA 06/06/24 In Process (Saline Lock Ns) 22:00 Do Not Use Picc For MALLIKA 06/06/24 In Process Blood Cult 15:39 May Draw Blood From MALLIKA 06/06/24 In Process Picc 15:39 Ok To Use Picc MALLIKA 06/06/24 In Process 15:39 Change Picc Dressing MALLIKA 06/06/24 In Process Q7 Days 15:39 Discharge DISCHARGE 06/06/24 Transmitted 18:45 D5w/Sod Chl 0.45% PHA 06/06/24 In Process (D5w 1/2ns) 19:00 Insulin Lantus PHA 06/06/24 In Process (Glargine) (Lantus) 22:00 Schedule For Dc MALLIKA 06/07/24 In Process Clinic F/U 08:51 * Can Filling Machine Operator CONS 06/07/24 Transmitted Consult 10:24 Dietary Evaluation Review Comments: 1) CCHO 75 + 2gm Na diet 2) Dangelo 1 pk daily (ordered per [facility] protocol) 3) Refer to Quality Compliance Manager on DC 4) Continue current plan of care Expected Outcomes/Goals: Pt will meet 75% estimated needs Fu 3-5 days Date of Service: Jun 07, 2024 Billing Provider: HAILEY KHOURY MD Common Visit Codes: [id number] INP/OBS CARE(HIGH) KACEY JOHN Jun 07, 2024 13:31 HAILEY KHOURY MD Jun 07, 2024 14:20
[2024-06-07] MEDS: LINEZOLID 600MG/300ML 300 ML IV SCH (21:15)
[2024-06-08] VITALS (8 sets, daily range): BP systolic 103–135; BP diastolic 50–74; PULSE 81–98; RESP 17–20; TEMP 96.5–99.2; O2SAT 90–100
[2024-06-08 05:21] LABS: Carbon Dioxide 27 mmol/L (20-31)
[2024-06-08 05:26] LABS: BUN/Creatinine Ratio 14.3 (10.0-20.0)
[2024-06-08 05:31] LABS: Blood Urea Nitrogen 37 mg/dL (9-23); Calcium 8.7 mg/dL (8.7-10.4); Glucose 106 mg/dL (74-106)
[2024-06-08 05:41] LABS: Anion Gap 9 (5-15); Chloride 103 mmol/L (98-107); Sodium 139 mmol/L (136-145)
[2024-06-08 05:42] LABS: Potassium 3.5 mmol/L (3.5-5.1)
--- NOTE | 2024-06-08 11:58 | DVHPN2 ---
Reviewed: Care Plan, H&P, Labs, Medications, Previous Orders, Radiology Changes from previous H/P or p: No Changes Eyes: No Pain, No Vision change, No Conjunctivae inflammation, No Eyelid inflammation, No Other, No Redness ENT: No Ear pain, No Ear discharge, No Nose pain, No Nose discharge, No Nose congestion, No Mouth pain, No Mouth swelling, No Throat pain, No Throat swelling, No Other Cardiovascular: No Chest Pain, No Palpitations, No Orthopnea, No Paroxysmal Noc. Dyspnea, No Edema, No Lt Headedness, No Other Respiratory: No Cough, No Dry, No Shortness of breath, No SOB with excertion, No Wheezing, No Hemoptysis, No Pleuritic Pain, No Sputum, No Other Gastrointestinal: No Nausea, No Vomiting, No Abdominal Pain, No Diarrhea, No Constipation, No Melena, No Hematochezia, No Other Genitourinary: No Dysuria, No Frequency, No Incontinence, No Hematuria, No Retention, No Other Musculoskeletal: No other, No neck pain, No shoulder pain, No arm pain, No back pain, No hand pain, No leg pain; foot pain Skin: No Rash; Lesions; No Jaundice, No Bruising, No Other Objective Vitals Vital Signs Date Time Temp Pulse Resp B/P (MAP) Pulse Ox O2 Delivery O2 Flow Rate FiO2 06/08/24 08:33 98.4 94 20 135/74 (94) 97 98.4 06/08/24 07:30 Room Air* 0 21 Intake/Output Intake and Output 06/08/24 07:00 Intake Total 2360 ml Output Total 9551 ml Balance -7191 ml Intake Oral 1360 ml IV Total 1000 ml Output Urine Total 9550 ml Stool Total 1 ml General Appearance: Alert, Oriented X3, Cooperative, No acute distress HEENT: Atraumatic Lungs: Clear to auscultation Cardiovascular: Regular rate, Normal S1, Normal S2 Abdomen: Normal bowel sounds, Soft Extremities: Other (Left Foot Dressing, Foul Smell) Psych/Mental Status: Mental status NL Medications Current Medications Medications Dose Ordered Sig/[place] Route Start Time Stop Time Status Last Admin Dose Admin Sodium Chloride 10 ml Q8HR IV 05/31/24 22:00 06/08/24 04:58 10 ML Al Hydrox/Mg Hydrox/Simethicone 30 ml Q6HP PRN PO 05/31/24 18:30 Docusate Sodium 100 mg BIDPRN PRN PO 05/31/24 18:30 Acetaminophen 650 mg Q6HP PRN PO 05/31/24 18:30 Acetaminophen/ Hydrocodone Bitart 1 tab Q4HP PRN PO 05/31/24 18:30 06/07/24 03:00 1 TAB Hydromorphone HCl 0.5 mg Q4HP PRN IV 05/31/24 18:30 06/08/24 02:35 0.5 MG Ondansetron HCl 4 mg Q4HP PRN IV 05/31/24 18:30 Enoxaparin Sodium 40 mg DAILY SC 06/01/24 10:00 06/08/24 10:31 40 MG Diagnostic Test (Pha) 1 strip IQ4HR 06/01/24 04:00 06/08/24 04:00 1 STRIP Insulin Human Regular IQ4HR SC 06/01/24 04:00 06/08/24 00:20 8 UNITS Dextrose 50 ml UD PRN IV 06/01/24 00:45 Atorvastatin Calcium 40 mg HS PO 06/01/24 22:00 06/07/24 21:15 40 MG Nicotine 1 patch DAILY TD 06/01/24 10:00 06/06/24 20:32 1 PATCH Ergocalciferol 50,000 unit Q7D PO 06/01/24 10:00 06/01/24 10:58 50,000 UNIT Magnesium Oxide 800 mg BID PO 06/01/24 22:00 06/07/24 09:20 800 MG Aspirin 81 mg DAILY PO 06/04/24 10:00 06/08/24 10:31 81 MG Pantoprazole Sodium 40 mg DAILY@0600 PO 06/04/24 06:00 06/08/24 04:57 40 MG Iron Sucrose 110 ml @ 110 mls/hr DAILY@1200 IV 06/04/24 12:00 06/08/24 12:59 06/05/24 13:20 110 MLS/HR Tamsulosin HCl 0.8 mg QPM PO 06/04/24 18:00 06/07/24 16:38 0.8 MG Ceftriaxone Sodium/Dextrose 50 ml @ 50 mls/hr DAILY IV 06/06/24 10:00 06/08/24 09:15 50 MLS/HR Sodium Chloride 10 ml QSHIFT@ IV 06/06/24 22:00 06/08/24 10:32 10 ML Dextrose/Sodium Chloride 1,000 ml @ 125 mls/hr Q8H IV 06/06/24 19:00 06/07/24 05:45 125 MLS/HR Insulin Glargine 30 units BID SC 06/06/24 22:00 06/08/24 10:34 30 UNITS Linezolid 300 ml @ 150 mls/hr Q12HR IV 06/07/24 22:00 06/08/24 10:30 150 MLS/HR Laboratory Results Laboratory Tests 06/07/24 05:02 06/08/24 04:17 Chemistry Test 06/08/24 04:17 Calcium Level 8.7 mg/dL (8.7-10.4) Urinalysis Test 06/01/24 10:05 06/02/24 14:37 Urine Color Light-brown (Yellow) Urine Clarity Ex.turbid (Clear) Urine pH 6.0 (5.0-9.0) Urine Specific [place] 1.010 (1.001-1.035) Urine Protein 1+ (Negative) H Urine Ketones Negative (Negative) Urine Blood 3+ /uL (Negative) H Urine Nitrite 1+ (Negative) H Urine Bilirubin Negative (Negative) Urine Urobilinogen Normal mg/dL (Negative) Urine Leukocyte Esterase 3+ /uL (Negative) Urine RBC 31 /hpf (0 - 3) Urine WBC Clumps Present /hpf (None Seen) Urine Microscopic WBC 1078 /HPF (0-3) H Urine Squamous Epithelial Cells None seen /hpf (<5) Urine Bacteria Mod /hpf (None Seen) H Urine Mucus Few (None Seen) Urine Glucose 2+ mg/dL (Normal) H Urine Osmolality 202 mOsm/kg Urine Creatinine 27.59 mg/dL (30.0-125.0) L Urine Protein/Creatinine Ratio 1.67 Urine Sodium 22 mmol/L (40-220) L Urine Total Protein 46.2 mg/dL (1-14) H Microbiology Microbiology Date/Time Source Procedure Growth Status 06/05/24 12:37 Blood Blood Culture - Preliminary NO GROWTH AFTER 48 HOURS OF INCUBATION. Resulted 06/03/24 14:52 Foot Left Gram Stain - Final Resulted 06/03/24 14:52 Foot Left Anaerobic Culture - Preliminary Resulted 06/03/24 14:52 Aerobic Culture - Preliminary Klebsiella pneumoniae Morganella morganii Enterococcus faecalis - VRE Presumptive Anabell albicans Streptococcus Group B Resulted Labs and/or images reviewed: Labs reviewed by me, Image(s) reviewed by me Assessment/Plan Assessment/Plan Covering for resident physician Acute osteomyelitis left 1st and 2nd metatarsals, continue Zyvox and Rocephin Left foot abscess Left foot cellulitis Left foot diabetic ulcer Sepsis due to left foot abscess BERENICE on CKD4 UTI Peripheral artery disease Anemia of chronic disease Moderate malnutrition Continue current management Patient says he would like to be discharged to [facility] acute Plan discussed with: Patient Date of Service: Jun 08, 2024 Billing Provider: ANKUR JALLOH MD Common Visit Codes: [id number] INP/OBS CARE(HIGH) ANKUR JALLOH MD Jun 08, 2024 11:58
--- NOTE | 2024-06-08 14:05 | DVHPN2 ---
Progress Note Date Seen: Jun 08, 2024 Medical Necessity Reason Pt with a Central, PICC or Fol: Yes The following are medically ne: Carey Catheter Reason for carey catheter: Bladder Retention/Obstruc Subjective Review of Systems Awaiting d/c to [facility] Patient reports: No new complaints, Feels better Objective vital signs Vital Sign Date Time Temp Pulse Resp B/P (MAP) Pulse Ox O2 Delivery O2 Flow Rate FiO2 06/08/24 13:00 99.0 81 17 119/55 (76) 98 99.0 06/08/24 07:30 Room Air* 0 21 Total Intake and Output 06/07/24 06/07/24 06/08/24 15:00 23:00 07:00 Intake Total 350 ml 560 ml 1450 ml Output Total 5550 ml 4001 ml Balance 350 ml -4990 ml -2551 ml medications Current Medications Medications Dose Ordered Sig/[place] Route Start Time Stop Time Status Last Admin Dose Admin Sodium Chloride 10 ml Q8HR IV 05/31/24 22:00 06/08/24 12:59 10 ML Al Hydrox/Mg Hydrox/Simethicone 30 ml Q6HP PRN PO 05/31/24 18:30 Docusate Sodium 100 mg BIDPRN PRN PO 05/31/24 18:30 Acetaminophen 650 mg Q6HP PRN PO 05/31/24 18:30 Acetaminophen/ Hydrocodone Bitart 1 tab Q4HP PRN PO 05/31/24 18:30 06/08/24 13:55 1 TAB Hydromorphone HCl 0.5 mg Q4HP PRN IV 05/31/24 18:30 06/08/24 02:35 0.5 MG Ondansetron HCl 4 mg Q4HP PRN IV 05/31/24 18:30 Enoxaparin Sodium 40 mg DAILY SC 06/01/24 10:00 06/08/24 10:31 40 MG Diagnostic Test (Pha) 1 strip IQ4HR 06/01/24 04:00 06/08/24 12:58 1 STRIP Insulin Human Regular IQ4HR SC 06/01/24 04:00 06/08/24 00:20 8 UNITS Dextrose 50 ml UD PRN IV 06/01/24 00:45 Atorvastatin Calcium 40 mg HS PO 06/01/24 22:00 06/07/24 21:15 40 MG Nicotine 1 patch DAILY TD 06/01/24 10:00 06/06/24 20:32 1 PATCH Ergocalciferol 50,000 unit Q7D PO 06/01/24 10:00 06/01/24 10:58 50,000 UNIT Magnesium Oxide 800 mg BID PO 06/01/24 22:00 06/07/24 09:20 800 MG Aspirin 81 mg DAILY PO 06/04/24 10:00 06/08/24 10:31 81 MG Pantoprazole Sodium 40 mg DAILY@0600 PO 06/04/24 06:00 06/08/24 04:57 40 MG Tamsulosin HCl 0.8 mg QPM PO 06/04/24 18:00 06/07/24 16:38 0.8 MG Ceftriaxone Sodium/Dextrose 50 ml @ 50 mls/hr DAILY IV 06/06/24 10:00 06/08/24 09:15 50 MLS/HR Sodium Chloride 10 ml QSHIFT@10,22 IV 06/06/24 22:00 06/08/24 10:32 10 ML Dextrose/Sodium Chloride 1,000 ml @ 125 mls/hr Q8H IV 06/06/24 19:00 06/07/24 05:45 125 MLS/HR Insulin Glargine 30 units BID SC 06/06/24 22:00 06/08/24 10:34 30 UNITS Linezolid 300 ml @ 150 mls/hr Q12HR IV 06/07/24 22:00 06/08/24 10:30 150 MLS/HR Examination Gen: Patient appears stated age in no acute distress Pulm: Bilateral air entry. No rales Cardio:RRR, normal S1 and S2 Ext: No edema Neuro: A&O x 4 laboratory and microbiology Laboratory Tests 06/08/24 04:17 06/07/24 05:02 Test 06/08/24 04:17 Range/Units Serum Glucose 106 # 74-106 mg/dL Microbiology Date/Time Source Procedure Growth Status 06/05/24 12:37 Blood Blood Culture - Preliminary NO GROWTH AFTER 72 HOURS OF INCUBATION. Resulted 06/03/24 14:52 Foot Left Gram Stain - Final Resulted 06/03/24 14:52 Foot Left Anaerobic Culture - Preliminary Resulted 06/03/24 14:52 Aerobic Culture - Final Klebsiella pneumoniae Morganella morganii Enterococcus faecalis - VRE Presumptive Anabell albicans Streptococcus Group B Resulted Labs and/or images reviewed: Labs reviewed by me Problem List/Assessment/Plan Problem List/Assessment/Plan IMP Admitted for sepsis due to OM s/p debridement- on IV abx Acute kidney injury due to hypotension- downtrending serum creat 2.59. improving GFR 29 ckd II GFR 67% in 01/2024 B/L hydronephrosis, urinary retention poor controlled Dm2, hyperglycemia anemia hypokalemia-K+ 3.5 REC BMP Potassium supplementation prn Urology follow up Continue fluid restriction Strict I&O Outpatient f/u with Dr. Deal Plan discussed with: Patient Dietary Evaluation Review Comments: 1) CCHO 75 + 2gm Na diet 2) Dangelo 1 pk daily (ordered per ONS protocol) 3) Refer to Laser Set Up Operator on DC 4) Continue current plan of care Expected Outcomes/Goals: Pt will meet 75% estimated needs Fu 3-5 days CODI COHN Jun 08, 2024 14:05
[2024-06-08] MEDS: ALPRAZolam 0.5 MG TAB PO PRN (16:45)
[2024-06-08] MEDS ORDERED: ALPRAZolam 0.5 MG TAB PO SCH (22:00)
[2024-06-09] VITALS (8 sets, daily range): BP systolic 101–148; BP diastolic 59–88; PULSE 64–98; RESP 18–20; TEMP 97.4–98.8; O2SAT 97–100
[2024-06-09 06:28] LABS: Basophils # (auto) 0.1 10 ^3/uL (0-0.2); Basophils % (auto) 0.4 % (0.0-2.0); Eosinophils # (auto) 0.2 10 ^3/uL (0-0.8); Eosinophils % (auto) 1.2 % (0.0-7.0); Neutrophils % (auto) 82.8 % (37.0-80.0)
[2024-06-09 06:31] LABS: Hematocrit 18.8 % (41.0-53.0); Lymphocytes # (auto) 1.9 10 ^3/uL (0.4-5.4); Mean Corpuscular Hemoglobin 26.6 pg (28.0-32.0); Mean Corpuscular Hgb Conc. 31.6 g/dL (32.0-36.0); Mean Corpuscular Volume 84.3 fL (80.0-100.0); Monocytes % (auto) 5.6 % (0.0-12.0); Neutrophils # (auto) 15.4 10 ^3/uL (1.6-8.6); Nucleated Red Blood Cells % 0.1 %; Platelet Count (auto) 569 10^3/uL (140-450); Red Blood Cells 2.23 10^6/uL (4.5-5.90); Red Cell Distribution Width 15.6 % (11.8-14.3); White Blood Cell 18.6 10^3/uL (4.4-10.8)
[2024-06-09 06:51] LABS: Anion Gap 9 (5-15); Carbon Dioxide 26 mmol/L (20-31); Chloride 102 mmol/L (98-107); Potassium 3.9 mmol/L (3.5-5.1); Sodium 137 mmol/L (136-145)
[2024-06-09 06:57] LABS: BUN/Creatinine Ratio 12.9 (10.0-20.0); Blood Urea Nitrogen 33 mg/dL (9-23); Calcium 8.6 mg/dL (8.7-10.4); Glucose 235 mg/dL (74-106)
[2024-06-09 07:15] LABS: Hemoglobin 5.9 g/dL (13.5-17.5)
[2024-06-09 07:53] LABS: Anisocytosis Slight; Platelet Estimate Increased
--- NOTE | 2024-06-09 08:05 | DVHPN2 ---
Reviewed: Care Plan, H&P, Labs, Medications, Previous Orders, Radiology Changes from previous H/P or p: No Changes Eyes: No Pain, No Vision change, No Conjunctivae inflammation, No Eyelid inflammation, No Other, No Redness ENT: No Ear pain, No Ear discharge, No Nose pain, No Nose discharge, No Nose congestion, No Mouth pain, No Mouth swelling, No Throat pain, No Throat swelling, No Other Cardiovascular: No Chest Pain, No Palpitations, No Orthopnea, No Paroxysmal Noc. Dyspnea, No Edema, No Lt Headedness, No Other Respiratory: No Cough, No Dry, No Shortness of breath, No SOB with excertion, No Wheezing, No Hemoptysis, No Pleuritic Pain, No Sputum, No Other Gastrointestinal: No Nausea, No Vomiting, No Abdominal Pain, No Diarrhea, No Constipation, No Melena, No Hematochezia, No Other Genitourinary: No Dysuria, No Frequency, No Incontinence, No Hematuria, No Retention, No Other Musculoskeletal: No other, No neck pain, No shoulder pain, No arm pain, No back pain, No hand pain, No leg pain; foot pain Skin: No Rash; Lesions; No Jaundice, No Bruising, No Other Objective Vitals Vital Signs Date Time Temp Pulse Resp B/P (MAP) Pulse Ox O2 Delivery O2 Flow Rate FiO2 06/09/24 05:00 97.4 64 18 111/59 (76) 100 97.4 06/08/24 19:39 Room Air* 0 21 Intake/Output Intake and Output 06/09/24 07:00 Intake Total 5300 ml Output Total 5950 ml Balance -650 ml Intake Oral 4200 ml IV Total 1100 ml Output Urine Total 5950 ml # Bowel Movements 1 General Appearance: Alert, Oriented X3, Cooperative, No acute distress HEENT: Atraumatic Lungs: Clear to auscultation Cardiovascular: Regular rate, Normal S1, Normal S2 Abdomen: Normal bowel sounds, Soft Extremities: Other (Left Foot Dressing, Foul Smell) Psych/Mental Status: Mental status NL Medications Current Medications Medications Dose Ordered Sig/[place] Route Start Time Stop Time Status Last Admin Dose Admin Sodium Chloride 10 ml Q8HR IV 05/31/24 22:00 06/09/24 04:53 10 ML Al Hydrox/Mg Hydrox/Simethicone 30 ml Q6HP PRN PO 05/31/24 18:30 Docusate Sodium 100 mg BIDPRN PRN PO 05/31/24 18:30 Acetaminophen 650 mg Q6HP PRN PO 05/31/24 18:30 Acetaminophen/ Hydrocodone Bitart 1 tab Q4HP PRN PO 05/31/24 18:30 06/09/24 04:56 1 TAB Hydromorphone HCl 0.5 mg Q4HP PRN IV 05/31/24 18:30 06/09/24 02:49 0.5 MG Ondansetron HCl 4 mg Q4HP PRN IV 05/31/24 18:30 Enoxaparin Sodium 40 mg DAILY SC 06/01/24 10:00 06/08/24 10:31 40 MG Diagnostic Test (Pha) 1 strip IQ4HR 06/01/24 04:00 06/09/24 04:00 1 STRIP Insulin Human Regular IQ4HR SC 06/01/24 04:00 06/09/24 04:00 8 UNITS Dextrose 50 ml UD PRN IV 06/01/24 00:45 Atorvastatin Calcium 40 mg HS PO 06/01/24 22:00 06/08/24 21:46 40 MG Nicotine 1 patch DAILY TD 06/01/24 10:00 06/06/24 20:32 1 PATCH Ergocalciferol 50,000 unit Q7D PO 06/01/24 10:00 06/01/24 10:58 50,000 UNIT Magnesium Oxide 800 mg BID PO 06/01/24 22:00 06/07/24 09:20 800 MG Aspirin 81 mg DAILY PO 06/04/24 10:00 06/08/24 10:31 81 MG Pantoprazole Sodium 40 mg DAILY@0600 PO 06/04/24 06:00 06/09/24 04:53 40 MG Tamsulosin HCl 0.8 mg QPM PO 06/04/24 18:00 06/08/24 16:37 0.8 MG Ceftriaxone Sodium/Dextrose 50 ml @ 50 mls/hr DAILY IV 06/06/24 10:00 06/08/24 09:15 50 MLS/HR Sodium Chloride 10 ml QSHIFT@10,22 IV 06/06/24 22:00 06/08/24 20:16 10 ML Dextrose/Sodium Chloride 1,000 ml @ 125 mls/hr Q8H IV 06/06/24 19:00 06/07/24 05:45 125 MLS/HR Insulin Glargine 30 units BID SC 06/06/24 22:00 06/08/24 21:51 30 UNITS Linezolid 300 ml @ 150 mls/hr Q12HR IV 06/07/24 22:00 06/08/24 21:46 150 MLS/HR Alprazolam 1 mg Q8HPRN PRN PO 06/08/24 16:45 06/08/24 16:45 1 MG Laboratory Results Laboratory Tests 06/09/24 04:49 Chemistry Test 06/09/24 04:49 Calcium Level 8.6 mg/dL (8.7-10.4) L Urinalysis Test 06/01/24 10:05 06/02/24 14:37 Urine Color Light-brown (Yellow) Urine Clarity Ex.turbid (Clear) Urine pH 6.0 (5.0-9.0) Urine Specific [place] 1.010 (1.001-1.035) Urine Protein 1+ (Negative) H Urine Ketones Negative (Negative) Urine Blood 3+ /uL (Negative) H Urine Nitrite 1+ (Negative) H Urine Bilirubin Negative (Negative) Urine Urobilinogen Normal mg/dL (Negative) Urine Leukocyte Esterase 3+ /uL (Negative) Urine RBC 31 /hpf (0 - 3) Urine WBC Clumps Present /hpf (None Seen) Urine Microscopic WBC 1078 /HPF (0-3) H Urine Squamous Epithelial Cells None seen /hpf (<5) Urine Bacteria Mod /hpf (None Seen) H Urine Mucus Few (None Seen) Urine Glucose 2+ mg/dL (Normal) H Urine Osmolality 202 mOsm/kg Urine Creatinine 27.59 mg/dL (30.0-125.0) L Urine Protein/Creatinine Ratio 1.67 Urine Sodium 22 mmol/L (40-220) L Urine Total Protein 46.2 mg/dL (1-14) H Microbiology Microbiology Date/Time Source Procedure Growth Status 06/05/24 12:37 Blood Blood Culture - Preliminary NO GROWTH AFTER 72 HOURS OF INCUBATION. Resulted 06/03/24 14:52 Foot Left Gram Stain - Final Complete 06/03/24 14:52 Foot Left Anaerobic Culture - Final Complete 06/03/24 14:52 Aerobic Culture - Final Klebsiella pneumoniae Morganella morganii Enterococcus faecalis - VRE Presumptive Anabell albicans Streptococcus Group B Complete Labs and/or images reviewed: Labs reviewed by me, Image(s) reviewed by me Assessment/Plan Assessment/Plan Covering for resident physician Acute osteomyelitis left 1st and 2nd metatarsals, continue Zyvox and Rocephin Left foot abscess Left foot cellulitis Left foot diabetic ulcer Sepsis due to left foot abscess BERENICE on CKD4 UTI Peripheral artery disease Anemia of chronic disease Moderate malnutrition Continue current management Severe anemia hemoglobin 5.9, came down from 8.8, transfuse 1 unit RBC and patient agreed, will stop Lovenox Patient says he would like to be discharged to [facility] acute Plan discussed with: Patient My Orders Orders - ANKUR JALLOH MD Procedure Category Date Status Time Alprazolam Tablet PHA 06/08/24 In Process (Xanax Tablet) 16:45 Date of Service: Jun 09, 2024 Billing Provider: ANKUR JALLOH MD Common Visit Codes: [id number] INP/OBS CARE(HIGH) ANKUR JALLOH MD Jun 09, 2024 08:05
[2024-06-09 08:55] LABS: Basophils # (auto) 0 10 ^3/uL (0-0.2); Eosinophils # (auto) 0.2 10 ^3/uL (0-0.8); Eosinophils % (auto) 1.5 % (0.0-7.0); Hemoglobin 8.4 g/dL (13.5-17.5); Neutrophils # (auto) 9.4 10 ^3/uL (1.6-8.6); Nucleated Red Blood Cells % 0.1 %
[2024-06-09 08:58] LABS: Basophils % (auto) 0.3 % (0.0-2.0); Hematocrit 25.1 % (41.0-53.0); Lymphocytes # (auto) 1.2 10 ^3/uL (0.4-5.4); Lymphocytes % (auto) 10.7 % (10.0-50.0); Mean Corpuscular Hemoglobin 27.9 pg (28.0-32.0); Mean Corpuscular Hgb Conc. 33.5 g/dL (32.0-36.0); Mean Corpuscular Volume 83.2 fL (80.0-100.0); Monocytes # (auto) 0.7 10 ^3/uL (0-1.3); Monocytes % (auto) 6.1 % (0.0-12.0); Neutrophils % (auto) 81.4 % (37.0-80.0); Platelet Count (auto) 463 10^3/uL (140-450); Red Blood Cells 3.02 10^6/uL (4.5-5.90); Red Cell Distribution Width 15.8 % (11.8-14.3); White Blood Cell 11.5 10^3/uL (4.4-10.8)
--- NOTE | 2024-06-09 11:41 | DVHPNRES ---
Progress Note Date Seen: Jun 09, 2024 Resident Creating Document: NEDA CHAPA RESIDENT Medical Necessity Reason Pt with a Central, PICC or Fol: Yes The following are medically ne: Carey Catheter Reason for carey catheter: Bladder Retention/Obstruc Subjective Review of Systems Patient is 55-year-old male with past medical history of diabetes mellitus type 2 on insulin, PUD, anemia of chronic disease, CKD stage 4 who presented to hospital with a chief complaint of left foot diabetic ulcer. Patient was diagnosed to left foot osteomyelitis underwent I and D twice, continuing on IV antibiotic initial weight Cipro 5 on linezolid, culture came back positive for Klebsiella pneumoniae strep B, based on sensitivity IV antibiotic changed to ceftriaxone. Patient also found grew uncontrolled diabetes mellitus, initiated with Lantus and aggressive insulin sliding scale. Given patient hemodynamically stable, underwent I and D, patient will need IV antibiotic for 6 week, we will be discharged home with IV antibiotic ceftriaxone 2 g once daily, we will need to CBC CMP follow up with Nephrology for CKD years old, patient can be discharged given condition of arrangement of IV antibiotic home, wound care management as well. Discharge plan and will be discharged home with home health. Patient seen and examined at bedside. No new complaints. waiting for SNF arrangement. Objective vital signs Vital Sign Date Time Temp Pulse Resp B/P (MAP) Pulse Ox O2 Delivery O2 Flow Rate FiO2 06/09/24 09:50 78 18 101/61 06/09/24 08:30 98.8 98 98.8 06/08/24 19:39 Room Air* 0 21 Total Intake and Output 06/08/24 06/08/24 06/09/24 14:59 22:59 06:59 Intake Total 250 ml 3850 ml 1200 ml Output Total 4150 ml 1800 ml Balance 250 ml -300 ml -600 ml medications Current Medications Medications Dose Ordered Sig/[place] Route Start Time Stop Time Status Last Admin Dose Admin Sodium Chloride 10 ml Q8HR IV 05/31/24 22:00 06/09/24 04:53 10 ML Al Hydrox/Mg Hydrox/Simethicone 30 ml Q6HP PRN PO 05/31/24 18:30 Docusate Sodium 100 mg BIDPRN PRN PO 05/31/24 18:30 Acetaminophen 650 mg Q6HP PRN PO 05/31/24 18:30 Acetaminophen/ Hydrocodone Bitart 1 tab Q4HP PRN PO 05/31/24 18:30 06/09/24 04:56 1 TAB Hydromorphone HCl 0.5 mg Q4HP PRN IV 05/31/24 18:30 06/09/24 09:50 0.5 MG Ondansetron HCl 4 mg Q4HP PRN IV 05/31/24 18:30 Diagnostic Test (Pha) 1 strip IQ4HR 06/01/24 04:00 06/09/24 09:48 1 STRIP Insulin Human Regular IQ4HR SC 06/01/24 04:00 06/09/24 04:00 8 UNITS Dextrose 50 ml UD PRN IV 06/01/24 00:45 Atorvastatin Calcium 40 mg HS PO 06/01/24 22:00 06/08/24 21:46 40 MG Nicotine 1 patch DAILY TD 06/01/24 10:00 06/06/24 20:32 1 PATCH Ergocalciferol 50,000 unit Q7D PO 06/01/24 10:00 06/01/24 10:58 50,000 UNIT Magnesium Oxide 800 mg BID PO 06/01/24 22:00 06/07/24 09:20 800 MG Pantoprazole Sodium 40 mg DAILY@0600 PO 06/04/24 06:00 06/09/24 04:53 40 MG Tamsulosin HCl 0.8 mg QPM PO 06/04/24 18:00 06/08/24 16:37 0.8 MG Ceftriaxone Sodium/Dextrose 50 ml @ 50 mls/hr DAILY IV 06/06/24 10:00 06/09/24 09:51 50 MLS/HR Sodium Chloride 10 ml QSHIFT@10,22 IV 06/06/24 22:00 06/09/24 09:49 10 ML Dextrose/Sodium Chloride 1,000 ml @ 125 mls/hr Q8H IV 06/06/24 19:00 06/07/24 05:45 125 MLS/HR Insulin Glargine 30 units BID SC 06/06/24 22:00 06/09/24 10:48 30 UNITS Linezolid 300 ml @ 150 mls/hr Q12HR IV 06/07/24 22:00 06/09/24 10:55 150 MLS/HR Alprazolam 1 mg Q8HPRN PRN PO 06/08/24 16:45 06/08/24 16:45 1 MG Examination Physical Examination General: Patient alert and oriented in person, place and time. Patient following commands. HEENT: Normocephalic, atraumatic, moist mucous membranes Respiratory/pulmonary: Clear lungs bilaterally, no associated crackles or wheezes. Cardiovascular: Normal heart sounds S1 and S2 with no associated murmurs Abdomen: Abdomen nondistended, there is no pain to palpation in any of the abdominal quadrants, no palpable masses. Extremities: Negative lower extremity edema, left foot 1st and 2nd toe amputation, presence of bilateral pedal pulse, capillary refill under 2 seconds, both lower extremity warm. Intake sensory sensation or plantar forefoot bilaterally. Wound over left foot medial. Peripheral Pulses: 3+ Radial (R). 3+ Radial (L). 3+ Dorsalis pedis (R). 3+ Dorsalis pedis(L) Skin: No rashes or pruritus, there is no sacral edema present at this time. Neurological: Intact cranial nerves with no focal neurologic deficits laboratory and microbiology Laboratory Tests 06/09/24 08:34 06/09/24 04:49 Test 06/09/24 04:49 Range/Units Serum Glucose 235 #H 74-106 mg/dL Microbiology Date/Time Source Procedure Growth Status 06/05/24 12:37 Blood Blood Culture - Preliminary NO GROWTH AFTER 72 HOURS OF INCUBATION. Resulted 06/03/24 14:52 Foot Left Gram Stain - Final Complete 06/03/24 14:52 Foot Left Anaerobic Culture - Final Complete 06/03/24 14:52 Aerobic Culture - Final Klebsiella pneumoniae Morganella morganii Enterococcus faecalis - VRE Presumptive Anabell albicans Streptococcus Group B Complete Problem List/Assessment/Plan Problem List/Assessment/Plan Assessment/Plan Left foot osteomyelitis: 1st and 2nd metatarsal bone and 3rd metatarsal of left foot. Left foot abscess Left foot cellulitis Left ankle abscess Left foot diabetic ulcer Sepsis due to left foot abscess. -podiatry: I and D on 06/03/2024 -repeat I&D 06/06/24 -IV antibiotic: Ceftriaxone, discontinue cefepime and linezolid. -food culture positive for Klebsiella pneumoniae and strep B. Sensitive to ceftriaxone. -controlled hyperglycemia -wound care -PICC line -ruled out lower extremity DVT -reviewed tibial/fibula MRI and food MRI BERENICE on CKD stage 4 -continue to monitor -IV fluid 100 mL/hour -renal ultrasound: Moderate right and mild left hydronephrosis -nephrology on board -continue to monitor renal function -IV fluid given UTI -continue IV antibiotics ceftriaxone. -urine culture Diabetes mellitus type 2 on insulin &Diabetic neuropathy -Lantus 25 units b.i.d. -aggressive insulin sliding scale -continue gabapentin Peripheral artery disease -aspirin 80 mg p.o. daily, atorvastatin 40 mg p.o. daily. Anemia of chronic disease -high ferritin, continue to monitor. Target hemoglobin 10 to 11 g per day. Hypokalemia and hypomagnesemia -replenish potassium and magnesium. Asymptomatic hyponatremia -continue to monitor Moderate right and mild left hydronephrosis -continue to monitor -Flomax 0.5 mg p.o. daily -patient may need Carey catheter insertion for possible urinary retention. Vitamin-D deficiency -vitamin-D 2 40629 IU every weekly History of methamphetamine abuse PUD prophylaxis with Protonix DVT prophylaxis with Lovenox Patient has been discharged. Waiting for SNF arrangement which will be done today. Goals of care discussed at bedside for >25 minutes, FULL CODE Plan discussed with Dr. Asher Plan discussed with: Patient Dietary Evaluation Review Comments: 1) CCHO 75 + 2gm Na diet 2) Dangelo 1 pk daily (ordered per [facility] protocol) 3) Refer to [facility] on DC 4) Continue current plan of care Expected Outcomes/Goals: Pt will meet 75% estimated needs Fu 3-5 days Date of Service: Jun 09, 2024 Billing Provider: ROSENDO ASHER MD Common Visit Codes: [id number] INP/OBS CARE(HIGH) NEDA CHAPA RESIDENT Jun 09, 2024 11:41 ROSENDO ASHER MD Jun 10, 2024 11:17
--- NOTE | 2024-06-09 14:44 | DVHPN2 ---
Progress Note Date Seen: Jun 09, 2024 Medical Necessity Reason Pt with a Central, PICC or Fol: Yes The following are medically ne: Carey Catheter Reason for carey catheter: Bladder Retention/Obstruc Subjective Review of Systems awaiting D/C to [facility] Patient reports: No new complaints Changes from previous H/P or p: No Changes Objective vital signs Vital Sign Date Time Temp Pulse Resp B/P (MAP) Pulse Ox O2 Delivery O2 Flow Rate FiO2 06/09/24 13:34 98.1 77 20 108/67 (81) 98 98.1 06/09/24 07:30 Room Air* 0 21 Total Intake and Output 06/08/24 06/08/24 06/09/24 15:00 23:00 07:00 Intake Total 250 ml 3850 ml 1200 ml Output Total 4150 ml 1800 ml Balance 250 ml -300 ml -600 ml medications Current Medications Medications Dose Ordered Sig/[place] Route Start Time Stop Time Status Last Admin Dose Admin Sodium Chloride 10 ml Q8HR IV 05/31/24 22:00 06/09/24 04:53 10 ML Al Hydrox/Mg Hydrox/Simethicone 30 ml Q6HP PRN PO 05/31/24 18:30 Docusate Sodium 100 mg BIDPRN PRN PO 05/31/24 18:30 Acetaminophen 650 mg Q6HP PRN PO 05/31/24 18:30 Acetaminophen/ Hydrocodone Bitart 1 tab Q4HP PRN PO 05/31/24 18:30 06/09/24 04:56 1 TAB Hydromorphone HCl 0.5 mg Q4HP PRN IV 05/31/24 18:30 06/09/24 09:50 0.5 MG Ondansetron HCl 4 mg Q4HP PRN IV 05/31/24 18:30 Diagnostic Test (Pha) 1 strip IQ4HR 06/01/24 04:00 06/09/24 09:48 1 STRIP Insulin Human Regular IQ4HR SC 06/01/24 04:00 06/09/24 04:00 8 UNITS Dextrose 50 ml UD PRN IV 06/01/24 00:45 Atorvastatin Calcium 40 mg HS PO 06/01/24 22:00 06/08/24 21:46 40 MG Nicotine 1 patch DAILY TD 06/01/24 10:00 06/06/24 20:32 1 PATCH Ergocalciferol 50,000 unit Q7D PO 06/01/24 10:00 06/01/24 10:58 50,000 UNIT Magnesium Oxide 800 mg BID PO 06/01/24 22:00 06/07/24 09:20 800 MG Pantoprazole Sodium 40 mg DAILY@0600 PO 06/04/24 06:00 06/09/24 04:53 40 MG Tamsulosin HCl 0.8 mg QPM PO 06/04/24 18:00 06/08/24 16:37 0.8 MG Ceftriaxone Sodium/Dextrose 50 ml @ 50 mls/hr DAILY IV 06/06/24 10:00 06/09/24 09:51 50 MLS/HR Sodium Chloride 10 ml QSHIFT@,22 IV 06/06/24 22:00 06/09/24 09:49 10 ML Dextrose/Sodium Chloride 1,000 ml @ 125 mls/hr Q8H IV 06/06/24 19:00 06/07/24 05:45 125 MLS/HR Insulin Glargine 30 units BID SC 06/06/24 22:00 06/09/24 10:48 30 UNITS Linezolid 300 ml @ 150 mls/hr Q12HR IV 06/07/24 22:00 06/09/24 10:55 150 MLS/HR Alprazolam 1 mg Q8HPRN PRN PO 06/08/24 16:45 06/08/24 16:45 1 MG Examination Gen: Patient appears stated age in no acute distress Pulm: Bilateral air entry. No rales Cardio:RRR, normal S1 and S2 Ext: No edema Neuro: A&O x 4 laboratory and microbiology Laboratory Tests 06/09/24 08:34 06/09/24 04:49 Test 06/09/24 04:49 Range/Units Serum Glucose 235 #H 74-106 mg/dL Microbiology Date/Time Source Procedure Growth Status 06/05/24 12:37 Blood Blood Culture - Preliminary NO GROWTH AFTER 72 HOURS OF INCUBATION. Resulted 06/03/24 14:52 Foot Left Gram Stain - Final Complete 06/03/24 14:52 Foot Left Anaerobic Culture - Final Complete 06/03/24 14:52 Aerobic Culture - Final Klebsiella pneumoniae Morganella morganii Enterococcus faecalis - VRE Presumptive Anabell albicans Streptococcus Group B Complete Labs and/or images reviewed: Labs reviewed by me Problem List/Assessment/Plan Problem List/Assessment/Plan IMP Admitted for sepsis due to OM s/p debridement- on IV abx Acute kidney injury due to hypotension- downtrending serum creat 2.55. GFR 29 ckd II GFR 67% in 01/2024 B/L hydronephrosis, urinary retention poor controlled Dm2, hyperglycemia anemia hypokalemia-resolved K+3.9 REC BMP Potassium supplementation prn Urology follow up Continue fluid restriction Strict I&O Outpatient f/u with Dr. Deal Plan discussed with: Patient Dietary Evaluation Review Comments: 1) CCHO 75 + 2gm Na diet 2) Dangelo 1 pk daily (ordered per [facility] protocol) 3) Refer to [facility] on DC 4) Continue current plan of care Expected Outcomes/Goals: Pt will meet 75% estimated needs Fu 3-5 days CODI COHN Jun 09, 2024 14:44
[2024-06-09] MEDS: LOPERAMIDE HCL 2 MG CAP/TAB PO ONE (22:30)
[2024-06-10] VITALS (7 sets, daily range): BP systolic 104–126; BP diastolic 57–78; PULSE 85–99; RESP 16–18; TEMP 97.4–99.2; O2SAT 95–100
[2024-06-10] MEDS: MORPHINE SULFATE INJ 2 MG/ml SYRG IV PRN (01:01)
--- NOTE | 2024-06-10 11:05 | DVHPN2 ---
Progress Note Date Seen: Jun 10, 2024 Medical Necessity Reason Pt with a Central, PICC or Fol: Yes The following are medically ne: Carey Catheter Reason for carey catheter: Bladder Retention/Obstruc Objective vital signs Vital Sign Date Time Temp Pulse Resp B/P (MAP) Pulse Ox O2 Delivery O2 Flow Rate FiO2 06/10/24 10:21 92 18 108/57 06/10/24 09:00 97.4 100 97.4 06/10/24 08:00 Room Air* 0 21 Total Intake and Output 06/09/24 06/09/24 06/10/24 15:00 23:00 07:00 Intake Total 250 ml 2600 ml 1600 ml Output Total 3000 ml 2450 ml Balance 250 ml -400 ml -850 ml medications Current Medications Medications Dose Ordered Sig/[place] Route Start Time Stop Time Status Last Admin Dose Admin Sodium Chloride 10 ml Q8HR IV 05/31/24 22:00 06/10/24 04:30 10 ML Al Hydrox/Mg Hydrox/Simethicone 30 ml Q6HP PRN PO 05/31/24 18:30 Docusate Sodium 100 mg BIDPRN PRN PO 05/31/24 18:30 Acetaminophen 650 mg Q6HP PRN PO 05/31/24 18:30 Ondansetron HCl 4 mg Q4HP PRN IV 05/31/24 18:30 Diagnostic Test (Pha) 1 strip IQ4HR 06/01/24 04:00 06/10/24 08:23 1 STRIP Insulin Human Regular IQ4HR SC 06/01/24 04:00 06/10/24 04:20 12 UNITS Dextrose 50 ml UD PRN IV 06/01/24 00:45 Atorvastatin Calcium 40 mg HS PO 06/01/24 22:00 06/09/24 21:16 40 MG Nicotine 1 patch DAILY TD 06/01/24 10:00 06/06/24 20:32 1 PATCH Ergocalciferol 50,000 unit Q7D PO 06/01/24 10:00 06/01/24 10:58 50,000 UNIT Magnesium Oxide 800 mg BID PO 06/01/24 22:00 06/10/24 10:18 800 MG Pantoprazole Sodium 40 mg DAILY@0600 PO 06/04/24 06:00 06/10/24 04:30 40 MG Tamsulosin HCl 0.8 mg QPM PO 06/04/24 18:00 06/09/24 16:48 0.8 MG Ceftriaxone Sodium/Dextrose 50 ml @ 50 mls/hr DAILY IV 06/06/24 10:00 06/10/24 10:17 50 MLS/HR Sodium Chloride 10 ml QSHIFT@10,22 IV 06/06/24 22:00 06/10/24 10:18 10 ML Dextrose/Sodium Chloride 1,000 ml @ 125 mls/hr Q8H IV 06/06/24 19:00 06/10/24 04:19 125 MLS/HR Insulin Glargine 30 units BID SC 06/06/24 22:00 06/09/24 21:26 30 UNITS Linezolid 300 ml @ 150 mls/hr Q12HR IV 06/07/24 22:00 06/09/24 21:16 150 MLS/HR Alprazolam 1 mg Q8HPRN PRN PO 06/08/24 16:45 06/10/24 02:48 1 MG Morphine Sulfate 2 mg Q4HPRN PRN IV 06/10/24 00:15 06/10/24 10:21 2 MG Examination: GENERAL:Abnormal, CVS:Normal, :Abnormal laboratory and microbiology Laboratory Tests 06/09/24 08:34 06/09/24 04:49 Test 06/09/24 04:49 Range/Units Serum Glucose 235 #H 74-106 mg/dL Microbiology Date/Time Source Procedure Growth Status 06/05/24 12:37 Blood Blood Culture - Preliminary NO GROWTH AFTER 72 HOURS OF INCUBATION. Resulted 06/03/24 14:52 Foot Left Gram Stain - Final Complete 06/03/24 14:52 Foot Left Anaerobic Culture - Final Complete 06/03/24 14:52 Aerobic Culture - Final Klebsiella pneumoniae Morganella morganii Enterococcus faecalis - VRE Presumptive Anabell albicans Streptococcus Group B Complete Problem List/Assessment/Plan Problem List/Assessment/Plan Admitted for sepsis due to OM s/p debridement Acute kidney injury due to hypotension ckd II GFR 67% in 01/2024 B/L hydronephrosis, urinary retention poor controlled Dm2, hyperglycemia anemia hypokalemia still has carey UOP 5L but renal function has not improved significantly. rec outpatient Urology consult. Rec NM renal scan while hospitalized flomax PICC line for 6 weeks ABX monitor ABX levels avoid nephrotoxicity pending SNF no emergent indication for HD, has outpatient f/u with Dr. Deal Plan discussed with: Patient My Orders My Orders Orders - TOAN HEARD MD Procedure Category Date Status Time Nm Mag3 Renal Scan NM 06/10/24 Logged 09:15 Dietary Evaluation Review Comments: 1) CCHO 75 + 2gm Na diet 2) Dangelo 1 pk daily (ordered per [facility] protocol) 3) Refer to [facility] on DC 4) Continue current plan of care Expected Outcomes/Goals: Pt will meet 75% estimated needs Fu 3-5 days TOAN HEARD MD Jun 10, 2024 11:05
[2024-06-10 12:34] LABS: Potassium 3.7 mmol/L (3.5-5.1); Sodium 142 mmol/L (136-145)
[2024-06-10 12:35] LABS: Anion Gap 9 (5-15); Calcium 8.8 mg/dL (8.7-10.4); Carbon Dioxide 26 mmol/L (20-31)
[2024-06-10 12:40] LABS: BUN/Creatinine Ratio 11.8 (10.0-20.0); Glucose 106 mg/dL (74-106)
[2024-06-10 12:49] LABS: Blood Urea Nitrogen 29 mg/dL (9-23); Chloride 107 mmol/L (98-107)
[2024-06-10] MEDS: FUROSEMIDE 40 MG/4 ML VIAL IV ONE (13:30)
[2024-06-10] MEDS: LACTULOSE 20Gm/30ML SOLN PO ONE (15:00)
--- NOTE | 2024-06-10 15:03 | DVHPNRES ---
Progress Note Date Seen: Jun 10, 2024 Resident Creating Document: KACEY JOHN RESIDENT Medical Necessity Reason Pt with a Central, PICC or Fol: Yes The following are medically ne: Carey Catheter Reason for carey catheter: Bladder Retention/Obstruc Subjective Review of Systems Patient is 55-year-old male with past medical history of diabetes mellitus type 2 on insulin, PUD, anemia of chronic disease, CKD stage 4 who presented to hospital with a chief complaint of left foot diabetic ulcer. Patient was diagnosed to left foot osteomyelitis underwent I and D twice, continuing on IV antibiotic initial weight Cipro 5 on linezolid, culture came back positive for Klebsiella pneumoniae strep B, based on sensitivity IV antibiotic changed to ceftriaxone. Patient also found grew uncontrolled diabetes mellitus, initiated with Lantus and aggressive insulin sliding scale. Given patient hemodynamically stable, underwent I and D, patient will need IV antibiotic for 6 week, we will be discharged home with IV antibiotic ceftriaxone 2 g once daily, we will need to CBC CMP follow up with Nephrology for CKD years old, patient can be discharged given condition of arrangement of IV antibiotic home, wound care management as well. Discharge plan and will be discharged home with home health. Patient seen and examined at bedside. No new complaints. Waiting for SNIf arrangement, refusing carey insertion, plan for renal scan Eyes: No Pain, No Vision change, No Conjunctivae inflammation, No Eyelid inflammation, No Other, No Redness ENT: No Ear pain, No Ear discharge, No Nose pain, No Nose discharge, No Nose congestion, No Mouth pain, No Mouth swelling, No Throat pain, No Throat swelling, No Other Cardiovascular: No Chest Pain, No Palpitations, No Orthopnea, No Paroxysmal Noc. Dyspnea, No Edema, No Lt Headedness, No Other Respiratory: No Cough, No Dry, No Shortness of breath, No SOB with excertion, No Wheezing, No Hemoptysis, No Pleuritic Pain, No Sputum, No Other Gastrointestinal: No Nausea, No Vomiting, No Abdominal Pain, No Diarrhea, No Constipation, No Melena, No Hematochezia, No Other Genitourinary: No Dysuria, No Frequency, No Incontinence, No Hematuria, No Retention, No Other Musculoskeletal: No other, No neck pain, No shoulder pain, No arm pain, No back pain, No hand pain, No leg pain, foot pain Skin: No Rash, No Lesions, No Jaundice, No Bruising, No Other Objective vital signs Vital Sign Date Time Temp Pulse Resp B/P (MAP) Pulse Ox O2 Delivery O2 Flow Rate FiO2 06/10/24 10:51 85 16 110/67 06/10/24 09:00 97.4 100 97.4 06/10/24 08:00 Room Air* 0 21 Total Intake and Output 06/09/24 06/09/24 06/10/24 15:00 23:00 07:00 Intake Total 250 ml 2600 ml 1600 ml Output Total 3000 ml 2450 ml Balance 250 ml -400 ml -850 ml medications Current Medications Medications Dose Ordered Sig/Florence Route Start Time Stop Time Status Last Admin Dose Admin Sodium Chloride 10 ml Q8HR IV 05/31/24 22:00 06/10/24 14:00 10 ML Al Hydrox/Mg Hydrox/Simethicone 30 ml Q6HP PRN PO 05/31/24 18:30 Docusate Sodium 100 mg BIDPRN PRN PO 05/31/24 18:30 Acetaminophen 650 mg Q6HP PRN PO 05/31/24 18:30 Ondansetron HCl 4 mg Q4HP PRN IV 05/31/24 18:30 Diagnostic Test (Pha) 1 strip IQ4HR 06/01/24 04:00 06/10/24 11:26 1 STRIP Insulin Human Regular IQ4HR SC 06/01/24 04:00 06/10/24 04:20 12 UNITS Dextrose 50 ml UD PRN IV 06/01/24 00:45 Atorvastatin Calcium 40 mg HS PO 06/01/24 22:00 06/09/24 21:16 40 MG Nicotine 1 patch DAILY TD 06/01/24 10:00 06/06/24 20:32 1 PATCH Ergocalciferol 50,000 unit Q7D PO 06/01/24 10:00 06/01/24 10:58 50,000 UNIT Magnesium Oxide 800 mg BID PO 06/01/24 22:00 06/10/24 10:18 800 MG Pantoprazole Sodium 40 mg DAILY@0600 PO 06/04/24 06:00 06/10/24 04:30 40 MG Tamsulosin HCl 0.8 mg QPM PO 06/04/24 18:00 06/09/24 16:48 0.8 MG Ceftriaxone Sodium/Dextrose 50 ml @ 50 mls/hr DAILY IV 06/06/24 10:00 06/10/24 10:17 50 MLS/HR Sodium Chloride 10 ml QSHIFT@10,22 IV 06/06/24 22:00 06/10/24 10:18 10 ML Dextrose/Sodium Chloride 1,000 ml @ 125 mls/hr Q8H IV 06/06/24 19:00 06/10/24 11:00 125 MLS/HR Insulin Glargine 30 units BID SC 06/06/24 22:00 06/10/24 11:38 30 UNITS Linezolid 300 ml @ 150 mls/hr Q12HR IV 06/07/24 22:00 06/10/24 11:42 150 MLS/HR Alprazolam 1 mg Q8HPRN PRN PO 06/08/24 16:45 06/10/24 02:48 1 MG Morphine Sulfate 2 mg Q4HPRN PRN IV 06/10/24 00:15 06/10/24 10:21 2 MG Examination General Appearance: Cooperative. Well developed. Well nourished. NAD Head Exam: Normal inspection Neck Exam: Normal inspection. Non-tender. Normal alignment Pulmonary/Respiratory: Chest non-tender. Clear bilateral breath sounds Cardiovascular/Chest: Regular rate and rhythm. No murmurs. No JVD. Peripheral Pulses: 2+ Radial (R). 2+ Radial (L). 2+ Pedal (R). 2+ Pedal (L) Abdominal Exam: Normal bowel sounds. Soft. Nontender. No hepatospenomegaly. No masses Ankle Exam: Negative ankle edema Lower extremities: Negative lower extremity edema, left foot 1st and 2nd toe amputation, presence of bilateral pedal pulse, capillary refill under 2 seconds, both lower extremity warm. Intake sensory sensation or plantar forefoot bilaterally. Wound over left foot medial. Neuro/Mental Status: A&O x4. Coherent Thoughts/Psych: Normal thought pattern. Appropriate mood and affect. Good judgement and insight Appearance: In no acute distress Skin Exam: Normal inspection. Normal color. Warm. Dry laboratory and microbiology Laboratory Tests 06/10/24 12:00 06/09/24 08:34 Test 06/10/24 12:00 Range/Units Serum Glucose 106 # 74-106 mg/dL Microbiology Date/Time Source Procedure Growth Status 06/05/24 12:37 Blood Blood Culture - Final NO GROWTH AFTER 5 DAYS OF INCUBATION. Complete 06/03/24 14:52 Foot Left Gram Stain - Final Complete 06/03/24 14:52 Foot Left Anaerobic Culture - Final Complete 06/03/24 14:52 Aerobic Culture - Final Klebsiella pneumoniae Morganella morganii Enterococcus faecalis - VRE Presumptive Anabell albicans Streptococcus Group B Complete Problem List/Assessment/Plan Problem List/Assessment/Plan Left foot osteomyelitis: 1st and 2nd metatarsal bone and 3rd metatarsal of left foot. Left foot abscess Left foot cellulitis Left ankle abscess Left foot diabetic ulcer Sepsis due to left foot abscess. -podiatry: I and D on 06/03/2024 -repeat I&D 06/06/24 -IV antibiotic: Ceftriaxone, and linezolid. -food culture positive for Klebsiella pneumoniae and strep B. Sensitive to ceftriaxone. -controlled hyperglycemia -wound care -PICC line -ruled out lower extremity DVT -reviewed tibial/fibula MRI and food MRI BERENICE on CKD stage 4 -continue to monitor -IV fluid 125 mL/hour -renal ultrasound: Moderate right and mild left hydronephrosis -nephrology on board:renal scan , noHD for now -continue to monitor renal function -IV fluid given -refused carey UTI -continue IV antibiotics ceftriaxone. -urine culture Diabetes mellitus type 2 on insulin &Diabetic neuropathy -Lantus 25 units b.i.d. -aggressive insulin sliding scale -continue gabapentin Peripheral artery disease -aspirin 80 mg p.o. daily, atorvastatin 40 mg p.o. daily. Anemia of chronic disease -high ferritin, continue to monitor. Target hemoglobin 10 to 11 g per day. Hypokalemia and hypomagnesemia -replenish potassium and magnesium. Asymptomatic hyponatremia -continue to monitor Moderate right and mild left hydronephrosis -continue to monitor -Flomax 0.5 mg p.o. daily -patient may need Carey catheter insertion for possible urinary retention. Vitamin-D deficiency -vitamin-D 2 04455 IU every weekly History of methamphetamine abuse PUD prophylaxis with Protonix DVT prophylaxis with Lovenox Goals of care discussed greater than 22 minutes, full code status. Patient has been discharged. Waiting for SNIF placement for IV antibiotics, and follow up visit with flat lock operator. Once everything arrangement has been done, patient will be discharged. Plan discussed with Dr. Khoury Plan discussed with: Patient, Other (RN) Dietary Evaluation Review Comments: 1) CCHO 75 + 2gm Na diet 2) Dangelo 1 pk daily (ordered per [facility] protocol) 3) Refer to Officer Lieutenant on DC 4) Continue current plan of care Expected Outcomes/Goals: Pt will meet 75% estimated needs Fu 3-5 days Date of Service: Jun 10, 2024 Billing Provider: HAILEY KHOURY MD Common Visit Codes: [id number] INP/OBS CARE(HIGH) KACEY JOHN RESIDENT Jun 10, 2024 15:03 HAILEY KHOURY MD Jun 11, 2024 20:47
--- NOTE | 2024-06-10 15:21 | DVH ---
Procedure: ME NM MAG3 RENAL SCAN Exam Date: 06/10/2024 01:32 PM. Clinical History: BERENICE urinary obstruction Comparison Study: Renal ultrasound dated 06/04/2024. Nuclear Medicine Renal Scan with Lasix. Technique: Following the intravenous administration of 10 mCi of technetium 99m labeled MAG-3 , flow images were acquired in one second intervals. This was followed by functional imaging of the kidney s in the posterior projection which were obtained at 20 seconds intervals reconstructed into 2 minut e frames for a total of 34 minutes. 40 mg of Lasix were given IV at the 10 minute robert. Flow curve s and functional renogram curves were generated. Split function data were generated from the first three minutes of the study. Findings: The flow study reveals prompt visualization of both kidneys with normal flow bilaterally. The kidneys are normal size, location and contour. The functional data was obtained with the renal pelvis included in the region of interest: Left: Peak time on the left is 14 minutes. Peak to 1/2 peak on the left is n/a minutes. Diuretic T 1/2 on the left is n/a minutes. Right: Peak time on the right is 17 minutes. Peak to 1/2 peak on the right is 54 minutes. Diuretic T 1/2 on the right is 54 minutes. Split function is 56 % on the left and 44 % on the right. IMPRESSION: Bilateral hydronephrosis with minimal response to Lasix administration, [id number]. Diff erential considerations could include reduced renal function or nonobstructive dilation of the collec ting systems. Clinical correlation advised.
[2024-06-11] VITALS (7 sets, daily range): BP systolic 109–148; BP diastolic 61–83; PULSE 81–95; RESP 15–19; TEMP 97.4–98.9; O2SAT 96–100
[2024-06-11 06:11] LABS: Basophils # (auto) 0.1 10 ^3/uL (0-0.2); Eosinophils # (auto) 0.2 10 ^3/uL (0-0.8); Hemoglobin 8.3 g/dL (13.5-17.5); Red Cell Distribution Width 15.5 % (11.8-14.3)
[2024-06-11 06:13] LABS: Basophils % (auto) 0.9 % (0.0-2.0); Eosinophils % (auto) 1.1 % (0.0-7.0); Hematocrit 25.3 % (41.0-53.0); Lymphocytes # (auto) 1.2 10 ^3/uL (0.4-5.4); Lymphocytes % (auto) 7.5 % (10.0-50.0); Mean Corpuscular Hemoglobin 27.3 pg (28.0-32.0); Mean Corpuscular Hgb Conc. 32.6 g/dL (32.0-36.0); Mean Corpuscular Volume 83.6 fL (80.0-100.0); Monocytes # (auto) 0.5 10 ^3/uL (0-1.3); Monocytes % (auto) 3.4 % (0.0-12.0); Neutrophils # (auto) 13.7 10 ^3/uL (1.6-8.6); Neutrophils % (auto) 87.1 % (37.0-80.0); Platelet Count (auto) 457 10^3/uL (140-450); Red Blood Cells 3.03 10^6/uL (4.5-5.90); White Blood Cell 15.7 10^3/uL (4.4-10.8)
[2024-06-11 06:19] LABS: Anion Gap 10 (5-15); Carbon Dioxide 28 mmol/L (20-31); Chloride 101 mmol/L (98-107); Potassium 3.5 mmol/L (3.5-5.1); Sodium 139 mmol/L (136-145)
[2024-06-11 06:21] LABS: Calcium 8.9 mg/dL (8.7-10.4)
[2024-06-11 06:25] LABS: BUN/Creatinine Ratio 11.8 (10.0-20.0)
[2024-06-11 06:27] LABS: Blood Urea Nitrogen 27 mg/dL (9-23); Glucose 122 mg/dL (74-106)
--- NOTE | 2024-06-11 10:12 | DVHPNRES ---
Progress Note Date Seen: Jun 11, 2024 Resident Creating Document: KACEY JOHN RESIDENT Medical Necessity Reason Pt with a Central, PICC or Fol: Yes The following are medically ne: Carey Catheter Reason for carey catheter: Bladder Retention/Obstruc Subjective Review of Systems Patient is 55-year-old male with past medical history of diabetes mellitus type 2 on insulin, PUD, anemia of chronic disease, CKD stage 4 who presented to hospital with a chief complaint of left foot diabetic ulcer. Patient was diagnosed to left foot osteomyelitis underwent I and D twice, continuing on IV antibiotic initial weight Cipro 5 on linezolid, culture came back positive for Klebsiella pneumoniae strep B, based on sensitivity IV antibiotic changed to ceftriaxone. Patient also found grew uncontrolled diabetes mellitus, initiated with Lantus and aggressive insulin sliding scale. Given patient hemodynamically stable, underwent I and D, patient will need IV antibiotic for 6 week, we will be discharged home with IV antibiotic ceftriaxone 2 g once daily, we will need to CBC CMP follow up with Nephrology for CKD years old, patient can be discharged given condition of arrangement of IV antibiotic home, wound care management as well. Discharge plan and will be discharged home with home health. Patient seen and examined at bedside. No new complaints. still waiting for SNIF placement, increase urine out put Eyes: No Pain, No Vision change, No Conjunctivae inflammation, No Eyelid inflammation, No Other, No Redness ENT: No Ear pain, No Ear discharge, No Nose pain, No Nose discharge, No Nose congestion, No Mouth pain, No Mouth swelling, No Throat pain, No Throat swelling, No Other Cardiovascular: No Chest Pain, No Palpitations, No Orthopnea, No Paroxysmal Noc. Dyspnea, No Edema, No Lt Headedness, No Other Respiratory: No Cough, No Dry, No Shortness of breath, No SOB with excertion, No Wheezing, No Hemoptysis, No Pleuritic Pain, No Sputum, No Other Gastrointestinal: No Nausea, No Vomiting, No Abdominal Pain, No Diarrhea, No Constipation, No Melena, No Hematochezia, No Other Genitourinary: No Dysuria, No Frequency, No Incontinence, No Hematuria, No Retention, No Other Musculoskeletal: No other, No neck pain, No shoulder pain, No arm pain, No back pain, No hand pain, No leg pain, foot pain Skin: No Rash, No Lesions, No Jaundice, No Bruising, No Other Objective vital signs Vital Sign Date Time Temp Pulse Resp B/P (MAP) Pulse Ox O2 Delivery O2 Flow Rate FiO2 06/11/24 10:03 87 19 112/68 06/11/24 07:59 Room Air* 0 21 06/11/24 05:00 98.0 100 98.0 Total Intake and Output 06/10/24 06/10/24 06/11/24 15:00 23:00 07:00 Intake Total 600 ml 1080 ml 1220 ml Output Total 1850 ml Balance 600 ml 1080 ml -630 ml medications Current Medications Medications Dose Ordered Sig/[place] Route Start Time Stop Time Status Last Admin Dose Admin Sodium Chloride 10 ml Q8HR IV 05/31/24 22:00 06/11/24 06:29 10 ML Al Hydrox/Mg Hydrox/Simethicone 30 ml Q6HP PRN PO 05/31/24 18:30 Docusate Sodium 100 mg BIDPRN PRN PO 05/31/24 18:30 Acetaminophen 650 mg Q6HP PRN PO 05/31/24 18:30 Ondansetron HCl 4 mg Q4HP PRN IV 05/31/24 18:30 Diagnostic Test (Pha) 1 strip IQ4HR 06/01/24 04:00 06/11/24 08:23 1 STRIP Insulin Human Regular IQ4HR SC 06/01/24 04:00 06/11/24 09:51 4 UNITS Dextrose 50 ml UD PRN IV 06/01/24 00:45 Atorvastatin Calcium 40 mg HS PO 06/01/24 22:00 06/10/24 21:35 40 MG Nicotine 1 patch DAILY TD 06/01/24 10:00 06/06/24 20:32 1 PATCH Ergocalciferol 50,000 unit Q7D PO 06/01/24 10:00 06/01/24 10:58 50,000 UNIT Magnesium Oxide 800 mg BID PO 06/01/24 22:00 06/11/24 09:51 800 MG Pantoprazole Sodium 40 mg DAILY@0600 PO 06/04/24 06:00 06/11/24 06:29 40 MG Tamsulosin HCl 0.8 mg QPM PO 06/04/24 18:00 06/10/24 17:36 0.8 MG Ceftriaxone Sodium/Dextrose 50 ml @ 50 mls/hr DAILY IV 06/06/24 10:00 06/11/24 09:53 50 MLS/HR Sodium Chloride 10 ml QSHIFT@10,22 IV 06/06/24 22:00 06/11/24 08:23 10 ML Dextrose/Sodium Chloride 1,000 ml @ 125 mls/hr Q8H IV 06/06/24 19:00 06/11/24 10:02 125 MLS/HR Insulin Glargine 30 units BID SC 06/06/24 22:00 06/11/24 09:44 30 UNITS Linezolid 300 ml @ 150 mls/hr Q12HR IV 06/07/24 22:00 06/10/24 21:33 150 MLS/HR Alprazolam 1 mg Q8HPRN PRN PO 06/08/24 16:45 06/10/24 02:48 1 MG Morphine Sulfate 2 mg Q4HPRN PRN IV 06/10/24 00:15 06/11/24 10:03 2 MG Examination General Appearance: Cooperative. Well developed. Well nourished. NAD Head Exam: Normal inspection Neck Exam: Normal inspection. Non-tender. Normal alignment Pulmonary/Respiratory: Chest non-tender. Clear bilateral breath sounds Cardiovascular/Chest: Regular rate and rhythm. No murmurs. No JVD. Peripheral Pulses: 2+ Radial (R). 2+ Radial (L). 2+ Pedal (R). 2+ Pedal (L) Abdominal Exam: Normal bowel sounds. Soft. Nontender. No hepatospenomegaly. No masses Ankle Exam: Negative ankle edema Lower extremities: Negative lower extremity edema, left foot 1st and 2nd toe amputation, presence of bilateral pedal pulse, capillary refill under 2 seconds, both lower extremity warm. Intake sensory sensation or plantar forefoot bilaterally. Wound over left foot medial. Neuro/Mental Status: A&O x4. Coherent Thoughts/Psych: Normal thought pattern. Appropriate mood and affect. Good judgement and insight Appearance: In no acute distress Skin Exam: Normal inspection. Normal color. Warm. Dry laboratory and microbiology Laboratory Tests 06/11/24 05:15 06/11/24 05:10 Test 06/11/24 05:10 Range/Units Serum Glucose 122 H 74-106 mg/dL Microbiology Date/Time Source Procedure Growth Status 06/05/24 12:37 Blood Blood Culture - Final NO GROWTH AFTER 5 DAYS OF INCUBATION. Complete 06/03/24 14:52 Foot Left Gram Stain - Final Complete 06/03/24 14:52 Foot Left Anaerobic Culture - Final Complete 06/03/24 14:52 Aerobic Culture - Final Klebsiella pneumoniae Morganella morganii Enterococcus faecalis - VRE Presumptive Anabell albicans Streptococcus Group B Complete Problem List/Assessment/Plan Problem List/Assessment/Plan Left foot osteomyelitis: 1st and 2nd metatarsal bone and 3rd metatarsal of left foot. Left foot abscess Left foot cellulitis Left ankle abscess Left foot diabetic ulcer Sepsis due to left foot abscess. -podiatry: I and D on 06/03/2024 -repeat I&D 06/06/24 -IV antibiotic: Ceftriaxone, and linezolid. -food culture positive for Klebsiella pneumoniae and strep B. Sensitive to ceftriaxone. -controlled hyperglycemia -wound care -PICC line -ruled out lower extremity DVT -reviewed tibial/fibula MRI and food MRI BERENICE on CKD stage 4 -continue to monitor -IV fluid 125 mL/hour -renal ultrasound: Moderate right and mild left hydronephrosis -nephrology on board:renal scan , noHD for now -continue to monitor renal function -IV fluid given -refused carey UTI -continue IV antibiotics ceftriaxone. -urine culture Diabetes mellitus type 2 on insulin &Diabetic neuropathy -Lantus 25 units b.i.d. -aggressive insulin sliding scale -continue gabapentin Peripheral artery disease -aspirin 80 mg p.o. daily, atorvastatin 40 mg p.o. daily. Anemia of chronic disease -high ferritin, continue to monitor. Target hemoglobin 10 to 11 g per day. Hypokalemia and hypomagnesemia -replenish potassium and magnesium. Asymptomatic hyponatremia -continue to monitor Moderate right and mild left hydronephrosis -continue to monitor -Flomax 0.5 mg p.o. daily -patient may need Carey catheter insertion for possible urinary retention. Vitamin-D deficiency -vitamin-D 2 98412 IU every weekly History of methamphetamine abuse PUD prophylaxis with Protonix DVT prophylaxis with Lovenox Goals of care discussed greater than 22 minutes, full code status. Patient has been discharged. Still Waiting for SNIF placement for IV antibiotics, and follow up visit with sandfill operator surface. Once everything arrangement has been done, patient will be discharged. Plan discussed with Dr. Khoury Plan discussed with: Patient, Other (RN) My Orders My Orders Orders - KOSHIYA,KACEY RESIDENT Procedure Category Date Status Time Stool Occult Blood LAB 06/10/24 Logged 14:59 Dietary Evaluation Review Comments: 1) CCHO 75 + 2gm Na diet 2) Dangelo 1 pk daily (ordered per [facility] protocol) 3) Refer to Monitoring Specialist on DC 4) Continue current plan of care Expected Outcomes/Goals: Pt will meet 75% estimated needs Fu 3-5 days Date of Service: Jun 11, 2024 Billing Provider: HAILEY KHOURY MD Common Visit Codes: [id number] INP/OBS CARE(LOW) KACEY JOHN RESIDENT Jun 11, 2024 10:12 HAILEY KHOURY MD Jun 11, 2024 21:26
--- NOTE | 2024-06-11 10:58 | DVHPN2 ---
Progress Note Date Seen: Jun 11, 2024 Medical Necessity Reason Pt with a Central, PICC or Fol: Yes The following are medically ne: Carey Catheter Reason for carey catheter: Bladder Retention/Obstruc Subjective Patient reports: Feels better Review of Systems: CVS:Normal Objective vital signs Vital Sign Date Time Temp Pulse Resp B/P (MAP) Pulse Ox O2 Delivery O2 Flow Rate FiO2 06/11/24 10:03 87 19 112/68 06/11/24 09:00 97.6 99 97.6 06/11/24 07:59 Room Air* 0 21 Total Intake and Output 06/10/24 06/10/24 06/11/24 15:00 23:00 07:00 Intake Total 600 ml 1080 ml 1220 ml Output Total 1850 ml Balance 600 ml 1080 ml -630 ml medications Current Medications Medications Dose Ordered Sig/[place] Route Start Time Stop Time Status Last Admin Dose Admin Sodium Chloride 10 ml Q8HR IV 05/31/24 22:00 06/11/24 06:29 10 ML Al Hydrox/Mg Hydrox/Simethicone 30 ml Q6HP PRN PO 05/31/24 18:30 Docusate Sodium 100 mg BIDPRN PRN PO 05/31/24 18:30 Acetaminophen 650 mg Q6HP PRN PO 05/31/24 18:30 Ondansetron HCl 4 mg Q4HP PRN IV 05/31/24 18:30 Diagnostic Test (Pha) 1 strip IQ4HR 06/01/24 04:00 06/11/24 08:23 1 STRIP Insulin Human Regular IQ4HR SC 06/01/24 04:00 06/11/24 09:51 4 UNITS Dextrose 50 ml UD PRN IV 06/01/24 00:45 Atorvastatin Calcium 40 mg HS PO 06/01/24 22:00 06/10/24 21:35 40 MG Nicotine 1 patch DAILY TD 06/01/24 10:00 06/06/24 20:32 1 PATCH Ergocalciferol 50,000 unit Q7D PO 06/01/24 10:00 06/01/24 10:58 50,000 UNIT Magnesium Oxide 800 mg BID PO 06/01/24 22:00 06/11/24 09:51 800 MG Pantoprazole Sodium 40 mg DAILY@0600 PO 06/04/24 06:00 06/11/24 06:29 40 MG Tamsulosin HCl 0.8 mg QPM PO 06/04/24 18:00 06/10/24 17:36 0.8 MG Ceftriaxone Sodium/Dextrose 50 ml @ 50 mls/hr DAILY IV 06/06/24 10:00 06/11/24 09:53 50 MLS/HR Sodium Chloride 10 ml QSHIFT@10,22 IV 06/06/24 22:00 06/11/24 08:23 10 ML Dextrose/Sodium Chloride 1,000 ml @ 125 mls/hr Q8H IV 06/06/24 19:00 06/11/24 10:02 125 MLS/HR Insulin Glargine 30 units BID SC 06/06/24 22:00 06/11/24 09:44 30 UNITS Linezolid 300 ml @ 150 mls/hr Q12HR IV 06/07/24 22:00 06/10/24 21:33 150 MLS/HR Alprazolam 1 mg Q8HPRN PRN PO 06/08/24 16:45 06/10/24 02:48 1 MG Morphine Sulfate 2 mg Q4HPRN PRN IV 06/10/24 00:15 06/11/24 10:03 2 MG Examination: GENERAL:Normal, CVS:Normal, MSK:Normal, :Abnormal laboratory and microbiology Laboratory Tests 06/11/24 05:15 06/11/24 05:10 Test 06/11/24 05:10 Range/Units Serum Glucose 122 H 74-106 mg/dL Microbiology Date/Time Source Procedure Growth Status 06/05/24 12:37 Blood Blood Culture - Final NO GROWTH AFTER 5 DAYS OF INCUBATION. Complete 06/03/24 14:52 Foot Left Gram Stain - Final Complete 06/03/24 14:52 Foot Left Anaerobic Culture - Final Complete 06/03/24 14:52 Aerobic Culture - Final Klebsiella pneumoniae Morganella morganii Enterococcus faecalis - VRE Presumptive Anabell albicans Streptococcus Group B Complete Problem List/Assessment/Plan Problem List/Assessment/Plan Admitted for sepsis due to OM s/p debridement Acute kidney injury due to hypotension ckd II GFR 67% in 01/2024 B/L hydronephrosis, urinary retention poor controlled Dm2, hyperglycemia anemia hypokalemia NM scan shows no significant obstruction, continue carey leg bag Outpatient Urology for urinary retention flomax PICC line for 6 weeks ABX monitor ABX levels avoid nephrotoxicity pending SNF no new recommendations at this time rest of care as per primary team . will sign off no emergent indication for HD, has outpatient f/u with Dr. Deal Plan discussed with: Patient Dietary Evaluation Review Comments: 1) CCHO 75 + 2gm Na diet 2) Dangelo 1 pk daily (ordered per [facility] protocol) 3) Refer to Branner Machine Tender on DC 4) Continue current plan of care Expected Outcomes/Goals: Pt will meet 75% estimated needs Fu 3-5 days TOAN HEARD MD Jun 11, 2024 10:58
--- NOTE | 2024-06-11 17:37 | DVHDSRES ---
Discharge Summary Date of Admission Resident Creating Document: KACEY JOHN RESIDENT May 31, 2024 at 15:24 Date of Discharge: Jun 11, 2024 Admitting Diagnosis left foot osteomyelitits Labs/Diagnostic Data: Laboratory Results Test 06/11/24 16:38 06/11/24 05:15 06/11/24 05:10 06/09/24 04:49 POC Glucose 196 mg/dl (70-106) White Blood Count 15.7 10^3/uL (4.4-10.8) Red Blood Count 3.03 10^6/uL (4.5-5.90) Hemoglobin 8.3 g/dL (13.5-17.5) Hematocrit 25.3 % (41.0-53.0) Mean Corpuscular Volume 83.6 fL (80.0-100.0) Mean Corpuscular Hemoglobin 27.3 pg (28.0-32.0) Mean Corpuscular Hemoglobin Concent 32.6 g/dL (32.0-36.0) Red Cell Distribution Width 15.5 % (11.8-14.3) Platelet Count 457 10^3/uL (140-450) Mean Platelet Volume 7.5 fL (6.9-10.8) Neutrophils (%) (Auto) 87.1 % (37.0-80.0) Lymphocytes (%) (Auto) 7.5 % (10.0-50.0) Monocytes (%) (Auto) 3.4 % (0.0-12.0) Eosinophils (%) (Auto) 1.1 % (0.0-7.0) Basophils (%) (Auto) 0.9 % (0.0-2.0) Neutrophils # (Auto) 13.7 10 ^3/uL (1.6-8.6) Lymphocytes # (Auto) 1.2 10 ^3/uL (0.4-5.4) Monocytes # (Auto) 0.5 10 ^3/uL (0-1.3) Eosinophils # (Auto) 0.2 10 ^3/uL (0-0.8) Basophils # (Auto) 0.1 10 ^3/uL (0-0.2) Nucleated Red Blood Cells 0.0 % Sodium Level 139 mmol/L (136-145) Potassium Level 3.5 mmol/L (3.5-5.1) Chloride Level 101 mmol/L (98-107) Carbon Dioxide Level 28 mmol/L (20-31) Anion Gap 10 (5-15) Blood Urea Nitrogen 27 mg/dL (9-23) Creatinine 2.29 mg/dL (0.700-1.30) Glomerular Filtration Rate Calc 34 mL/min (>90) BUN/Creatinine Ratio 11.8 (10.0-20.0) Serum Glucose 122 mg/dL (74-106) Calcium Level 8.9 mg/dL (8.7-10.4) Platelet Estimate Increased Anisocytosis (manual) Slight Test 06/05/24 13:16 06/03/24 06:21 06/02/24 14:37 06/02/24 11:16 Prothrombin Time 12.4 sec (9.3-11.8) Prothrombin Time INR 1.19 (0.9-1.15) Iron Level 16 ug/dL (65-175) Total Iron Binding Capacity 140 ug/dL (250-425) Percent Iron Saturation 11.4 % (20-55) Ferritin 607.3 ng/mL (22-322) Urine Osmolality 202 mOsm/kg Urine Creatinine 27.59 mg/dL (30.0-125.0) Urine Protein/Creatinine Ratio 1.67 Urine Sodium 22 mmol/L (40-220) Urine Total Protein 46.2 mg/dL (1-14) Urine Opiates Screen Neg (NEGATIVE) Urine Fentanyl Screen Neg (NEGATIVE) Urine Barbiturates Screen Neg (NEGATIVE) Urine Phencyclidine Screen Neg (NEGATIVE) Urine Amphetamines Screen Neg (NEGATIVE) Urine Benzodiazepines Screen Neg (NEGATIVE) Urine Cocaine Screen Neg (NEGATIVE) Urine Cannabinoids Screen Neg (NEGATIVE) Plasma/Serum Blood Alcohol < 3.0 mg/dL (<10) Test 06/02/24 06:00 06/01/24 11:43 06/01/24 10:05 06/01/24 05:17 Phosphorus Level 2.8 mg/dL (2.4-5.1) Magnesium Level 1.9 mg/dL (1.6-2.6) B-Type Natriuretic Peptide 88.12 pg/mL (0-100) Triglycerides Level 136 mg/dL (< 150) Cholesterol Level 60 mg/dL (< 200) LDL Cholesterol 18 mg/dL (< 100) HDL Cholesterol < 5 mg/dL (40-59) Parathyroid Hormone (Intact) 36.8 pg/mL (18.4-80.1) Random Vancomycin Level 14.8 ug/mL (5-10) Serum Osmolality 291 mOsm/kg (278-298) Urine Color Light-brown (Yellow) Urine Clarity Ex.turbid (Clear) Urine pH 6.0 (5.0-9.0) Urine Specific [place] 1.010 (1.001-1.035) Urine Protein 1+ (Negative) Urine Ketones Negative (Negative) Urine Blood 3+ /uL (Negative) Urine Nitrite 1+ (Negative) Urine Bilirubin Negative (Negative) Urine Urobilinogen Normal mg/dL (Negative) Urine Leukocyte Esterase 3+ /uL (Negative) Urine RBC 31 /hpf (0 - 3) Urine WBC Clumps Present /hpf (None Seen) Urine Microscopic WBC 1078 /HPF (0-3) Urine Squamous Epithelial Cells None seen /hpf (<5) Urine Bacteria Mod /hpf (None Seen) Urine Mucus Few (None Seen) Urine Glucose 2+ mg/dL (Normal) Lactic Acid Level 1.8 mmol/L (0.4-2.0) Test 06/01/24 04:45 05/31/24 19:14 Hemoglobin A1c 12.7 % A1C (<5.7) Differential Total Cells Counted 100.0 (100) Neutrophils % (Manual) 80 (37.0-80.0) Band Neutrophils % (Manual) 8 Lymphocytes % (Manual) 12 (10.0-50.0) Monocytes % (Manual) 0 (0-12) Eosinophils % (Manual) 0 (0-7) Basophils % (Manual) 0 (0.0-2.0) Metamyelocytes % (manual) 0 Myelocytes % (Manual) 0 Promyelocytes % (Manual) 0 Blast Cells % (Manual) 0 Reactive Lymphocytes 0 Activated Partial Thromboplast Time 33.6 SEC (24.5-34.5) Total Bilirubin 0.5 mg/dL (0.2-1.0) Aspartate Amino Transferase (AST) 19 U/L (13-40) Alanine Aminotransferase (ALT) 16 U/L (7-40) Alkaline Phosphatase 258 U/L (46-116) Total Protein 7.3 g/dL (5.7-8.2) Albumin 3.7 g/dL (3.2-4.8) Vitamin D 25-Hydroxy 18.9 ng/mL (30.0-100) Other Laboratory Tests 06/11/24 05:15 06/11/24 05:10 Brief Hx & Hospital Course: Patient is 55-year-old male with past medical history of diabetes mellitus type 2 on insulin, PUD, anemia of chronic disease, CKD stage 4 who presented to hospital with a chief complaint of left foot diabetic ulcer. Patient was diagnosed to left foot osteomyelitis underwent I and D twice, continuing on IV antibiotic initial weight Cipro 5 on linezolid, culture came back positive for Klebsiella pneumoniae strep B, based on sensitivity IV antibiotic changed to ceftriaxone. Patient also found grew uncontrolled diabetes mellitus, initiated with Lantus and aggressive insulin sliding scale. Given patient hemodynamically stable, underwent I and D, patient will need IV antibiotic for 6 week, we will be discharged to [facility] for 6 weeks of antibiotics. Condition at Discharge: Good Final Diagnosis/Problems List Left foot osteomyelitis: 1st and 2nd metatarsal bone and 3rd metatarsal of left foot. Left foot abscess Left foot cellulitis Left ankle abscess Left foot diabetic ulcer Sepsis due to left foot abscess. Discharge Disposition: Alf Facility Discharge Instruct/Medications Diet: Consistent carbohydrate Activity: No Restrictions, As Tolerated Follow Up/Referral: -follow up with pcp in 3 weeks Medications: See [facility] meds paper, IV ceftriaxone 2 g once daily via PICC line for six weeks and linezoid 600 mg BId for 6 weeks Discharge Statement: "Patient was advised to return to the ER or call 911 if any headaches, dizziness, shortness of breath, chest pain, abdominal pain, bleeding, fevers, or worsening of medical condition. Patient was counseled about treatment plan, medications, possible side effects, patientverbalized understanding. All questions were answered to the best of my ability. This discharge took greater then 30 minutes in planning, reviewing documentation, counseling the patient, and discussing with other team members." ASSESSMENT ASSESSMENT Assessment Left foot osteomyelitis: 1st and 2nd metatarsal bone and 3rd metatarsal of left foot. Left foot abscess Left foot cellulitis Left ankle abscess Left foot diabetic ulcer Sepsis due to left foot abscess. Date of Service: Jun 11, 2024 Billing Provider: HAILEY MOTT MD Common Visit Codes: 36718-ATA/OBS DISCH DAY >30min KACEY JOHN RESIDENT Jun 11, 2024 17:36 HAILEY MOTT MD Jun 11, 2024 21:53
== END 2024-06-11 21:24 | DRG 710 ==
LOC: WEST WING 15:24 → CENTRAL 06-03 17:35
PROVIDERS: ADMIT Internal Medicine; ATTEND Internal Medicine
PROC: 0Y9L0ZZ Drainage of Left Ankle Region, Open Approach (ICD-10-PCS; 2024-06-03)
PROC: 0QBP0ZX Excision of Left Metatarsal, Open Approach, Diagnostic (ICD-10-PCS; 2024-06-03)
PROC: 0Y9L0ZZ Drainage of Left Ankle Region, Open Approach (ICD-10-PCS; 2024-06-05)
PROC: 0Q9P0ZZ Drainage of Left Metatarsal, Open Approach (ICD-10-PCS; principal; 2024-06-05 11:29)
PROC: 02HV33Z Insertion of Infusion Device into Superior Vena Cava, Percutaneous Approach (ICD-10-PCS; 2024-06-06)
DX: A41.9 Sepsis, unspecified organism (principal); N17.0 Acute kidney failure with tubular necrosis; E87.20 Acidosis, unspecified; D63.1 Anemia in chronic kidney disease; E87.1 Hypo-osmolality and hyponatremia; M86.172 Other acute osteomyelitis, left ankle and foot; E11.40 Type 2 diabetes mellitus with diabetic neuropathy, unspecified; L97.529 Non-pressure chronic ulcer of other part of left foot with unspecified severity; N13.30 Unspecified hydronephrosis; L03.116 Cellulitis of left lower limb; E11.22 Type 2 diabetes mellitus with diabetic chronic kidney disease; E11.51 Type 2 diabetes mellitus with diabetic peripheral angiopathy without gangrene; E11.621 Type 2 diabetes mellitus with foot ulcer; N18.4 Chronic kidney disease, stage 4 (severe); E11.69 Type 2 diabetes mellitus with other specified complication; E11.65 Type 2 diabetes mellitus with hyperglycemia; I12.9 Hypertensive chronic kidney disease with stage 1 through stage 4 chronic kidney disease, or unspecified chronic kidney disease; E87.6 Hypokalemia; E55.9 Vitamin D deficiency, unspecified; I80.9 Phlebitis and thrombophlebitis of unspecified site; L02.612 Cutaneous abscess of left foot; E87.8 Other disorders of electrolyte and fluid balance, not elsewhere classified; N39.0 Urinary tract infection, site not specified; F17.200 Nicotine dependence, unspecified, uncomplicated; Z89.429 Acquired absence of other toe(s), unspecified side; Z83.3 Family history of diabetes mellitus
CPT/HCPCS: 36415; 36569; 71045; 73718; 76775; 76937; 78707; 80048; 80053; 80061; 80202; 80307; 80320; 81001; 82306; 82570; 82728; 82962; 83036; 83540; 83550; 83605; 83735; 83880; 83930; 83935; 83970; 84100; 84156; 84295; 84300; 85007; 85025; 85027; 85610; 85730; 86850; 86900; 86901; 87040; 87070; 87075; 87077; 87186; 87205; 93005; 93971; 97163; G0378; J0692; J1100; J1756; J1815; J1885; J2405; J2543; J2704; J3490